=== PATIENT | male | born 1980 | race Caucasian/White ===

== ENCOUNTER 2020-01-05 23:16 | Inpatient (IN) | payer MEDICAID, SELFPAY ==
[2020-01-05 23:17] VITALS: BP 98/80; PULSE 117; RESP 16; TEMP 36.8; O2SAT 92; BMI 24.3
--- NOTE | 2020-01-05 23:36 | EKG12_ITS ---
Test Reason : OVERDOSE Blood Pressure : / mmHG Vent. Rate : 110 BPM Atrial Rate : 110 BPM P-R Int : 196 ms QRS Dur : 102 ms QT Int : 344 ms P-R-T Axes : 071 026 047 degrees QTc Int : 465 ms Sinus tachycardia Otherwise normal ECG Confirmed by FELA KUMAR ([id number]), newspaper photo editor BLANCA CARDENAS ([id number]) on 01/10/2020 11:32:39 AM Referred By: Confirmed By:FELA KUMAR
[2020-01-06] VITALS (33 sets, daily range): BP systolic 94–151; BP diastolic 79–117; PULSE 80–128; RESP 10–27; TEMP 36.8–37.1; O2SAT 93–98; BMI 24.6; BMI 24.5
[2020-01-06] MEDS: 0.9% Normal Saline 1,000 ML 1000 ML IV (00:05)
--- NOTE | 2020-01-06 00:10 | CT_ITS ---
STUDY: CT BRAIN WITHOUT CONTRAST REASON FOR EXAM: Male, 39 years old. C/O BILATERAL LEG PAIN AND LETHARGIC, FENTANYL USE RADIATION DOSAGE (If Supplied By Facility): CTDIvol = ( 44.99 ) mGy, DLP = ( 812.98 ) mGycm TECHNIQUE: Transaxial CT imaging of the brain was performed without administration of intravenous contrast material. Individualized dose optimization techniques were used for this CT. COMPARISON: No relevant priors. FINDINGS: Normal soft tissue structures. Normal calvarium. Normal size ventricles and extra-axial spaces for the patient''s age. Normal white matter tracts of the cerebral hemispheres. Normal basal ganglia and thalami. Normal brainstem. Normal cerebellum. There is no intracranial hemorrhage. There are no findings of an acute ischemic infarction. Normal visualized paranasal sinuses. CT/Brain/Head without Contrast IMPRESSION: Normal unenhanced CT scan of the brain. Electronically Signed: Eladio Briscoe MD at 0:45 EDT , Service support ,
--- NOTE | 2020-01-06 00:11 | ED.VIS.GEN ---
History of Present Illness Chief Complaint: Overdose Informant: Patient Onset: Today Narrative: Patient states that today he used heroin around 1600 hrs. After that he lost track of time but states he did use several more times and remembers waking up where he was on his knees with his legs bent behind him. His at that time he realized he could not move the left leg. He received a milligram of Narcan for responsiveness by EMS. The patient states that he does not have a headache. He is not having any difficulty speaking or with the upper extremities. He denies any low back pain but states that his right buttock hurts. He denies any chest pain or shortness of breath. No abdominal pain. Past Medical History - Allergies and Home Meds Allergies/Adverse Reactions: Allergies No Known Allergies Allergy (Verified 01/05/20 23:22) Surgical History: no surgical history Smoking Status: Current every day smoker - Family History Maternal Family History: Reports: Unknown Review of Systems General: Denies: Chills, Fever, Sweats Eyes: Denies: Visual changes - bilaterally, Diplopia ENT: Denies: Rhinorrhea, Sore throat Cardiovascular: Denies: Chest pain, Palpitations Respiratory: Denies: Dyspnea, Cough, Dyspnea on exertion Gastrointestinal: Denies: Abdominal pain, Nausea, Vomiting, Diarrhea, Melena, Hematochezia Genitourinary: Denies: Dysuria, Hematuria, Frequency Musculoskeletal: Denies: Back pain, Extremity Pain Skin: Denies: Rash, Wounds Neurological: Reports: Weakness - left leg, Parasthesia. Denies: Headache Physical Exam Vital Signs/Narrative: Vital Signs Temp Pulse Resp BP Pulse Ox 01/05/20 23:17 98.3 F 117 H 16 98/80 92 Inital Vital Signs reviewed: Yes General: Well nourished, Well developed, No Acute Distress Head: Normocephalic, Atraumatic Eyes: Perrl, EOMI ENT: Moist mucous membranes, No rhinorrhea Neck: Supple, Nontender Cardiovascular: Regular rate, No murmurs, Tachycardia Respiratory: No distress, CTA bilaterally, Chest nontender Abdomen: Soft, Nontender, Nondistended, Normal bowel sounds Back: Nontender, Normal Inspection, - - Do not see any erythema swelling or fluctuance around the spine suggestive of a abscess. Extremities: Nontender, No edema, - - There is a strong dorsalis pedis and posterior tibial pulses bilaterally. The skin appears normal and symmetric. Skin: Normal color, No rash, - - There are several areas of erythema consistent with pressure changes on the feet and right buttock. The right calf is more swollen than the left and firmer. However distal shows excellent capillary refill, normal skin color, normal pulses, and I would not characterize the calf is tight but definitely swollen. Neurological: Alert, Oriented x3, Cranial nerves II-XII grossly intact, - - The right leg appears to be functioning normally. The left leg however demonstrates weakness below the knee. He is able to flex the quadricep muscle but has difficulty controlling the lower leg. When I check sensation he tells me it is a burning pain. Psychological: Normal affect, Normal Mood Diagnostic/Tx/Re-eval Laboratory Last Values WBC 25.1 K/mm3 (4.4-11.0) H 01/06/20 00:05 RBC 5.24 M/mm3 (4.6-6.2) 01/06/20 00:05 Hgb 15.4 g/dL (13.0-16.5) 01/06/20 00:05 Hct 46.6 % (40-54) 01/06/20 00:05 MCV 88.9 fL (80-94) 01/06/20 00:05 MCH 29.4 pg (27.0-32.0) 01/06/20 00:05 MCHC 33.0 g/dL (32-36) 01/06/20 00:05 RDW Std Deviation 43.2 fl (35.1-43.9) 01/06/20 00:05 RDW Coeff of Neftali 13.3 % (11.6-14.6) 01/06/20 00:05 Plt Count 317 K/mm3 (150-450) 01/06/20 00:05 MPV 9.9 fl (6.2-12.0) 01/06/20 00:05 Immature Gran % (Auto) 1.400 % (0.0-0.9) H 01/06/20 00:05 Neut % (Auto) 91.2 % (47-70) H 01/06/20 00:05 Lymph % (Auto) 3.2 % (19-41) L 01/06/20 00:05 [place] % (Auto) 3.9 % (0-10) 01/06/20 00:05 Eos % (Auto) 0.0 % (0-5) 01/06/20 00:05 Baso % (Auto) 0.3 % (0-1) 01/06/20 00:05 Absolute Neuts (auto) 22.9 X10^3/uL (2.0-7.7) H 01/06/20 00:05 Absolute Lymphs (auto) 0.81 X10^3/uL (0.83-4.51) L 01/06/20 00:05 Nucleated RBC % 0 % (0-5) 01/06/20 00:05 Differential Comment SCANNED 01/06/20 00:05 PT 14.2 SECONDS (11.7-14.9) 01/06/20 00:05 INR 1.2 01/06/20 00:05 APTT 31.4 Seconds (24.1-36.2) 01/06/20 00:05 pH 7.30 (7.35-7.45) L 01/06/20 01:09 Bicarbonate Actual 17.8 mmol/L (22-26) L 01/06/20 01:09 POC Total CO2 19 mmol/L 01/06/20 01:09 Base Excess -9 mmol/L (-2 to +2) L 01/06/20 01:09 O2 Saturation 95 % (95-99) 01/06/20 01:09 ABG pCO2 36.1 mmHg (35-45) 01/06/20 01:09 ABG pO2 84 mmHG (75-100) 01/06/20 01:09 Sodium 130 mmol/L (136-145) L 01/06/20 00:05 Potassium 8.0 mmol/L (3.5-5.1) H* 01/06/20 00:05 Chloride 94 mmol/L (98-107) L 01/06/20 00:05 Carbon Dioxide 20.0 mmol/L (21.0-32.0) L 01/06/20 00:05 Anion Gap 16 (5-15) H 01/06/20 00:05 BUN 24 mg/dL (7-18) H 01/06/20 00:05 Creatinine 2.71 mg/dL (0.70-1.30) H 01/06/20 00:05 Estim Creat Clear Calc 35.76 ml/min 01/06/20 00:05 Est GFR (MDRD) Af Amer 34 mL/min (>60) L 01/06/20 00:05 Est GFR (MDRD) Non-Af 28 mL/min (>60) L 01/06/20 00:05 BUN/Creatinine Ratio 8.9 RATIO (10-20) L 01/06/20 00:05 Glucose 194 mg/dL (74-106) H 01/06/20 00:05 Lactic Acid 7.5 mmol/L (0.4-1.9) H* 01/06/20 00:05 Calcium 7.1 mg/dL (8.5-10.1) L 01/06/20 00:05 Total Bilirubin 0.20 mg/dL (0.20-1.00) 01/06/20 00:05 AST 1383 U/L (15-37) H 01/06/20 00:05 ALT 309 U/L (16-61) H 01/06/20 00:05 Alkaline Phosphatase 163 U/L (45-117) H 01/06/20 00:05 Total Creatine Kinase 23018 U/L (39-308) H 01/06/20 00:05 Troponin I 0.433 ng/mL (<0.045) H 01/06/20 00:05 Total Protein 8.9 g/dL (6.4-8.2) H 01/06/20 00:05 Albumin 4.0 g/dL (3.2-5.0) 01/06/20 00:05 Globulin 4.9 g/dL (2.2-4.2) H 01/06/20 00:05 Albumin/Globulin Ratio 0.8 RATIO (0.9-2.4) L 01/06/20 00:05 Urine Color Red (Yellow) 01/06/20 01:00 Urine Clarity Cloudy (Clear) 01/06/20 01:00 Urine pH 6.5 (5.0 - 8.0) 01/06/20 01:00 Ur Specific [place] 1.020 (1.002-1.030) 01/06/20 01:00 Urine Protein 500 mg/dl (Negative) H 01/06/20 01:00 Urine Glucose (UA) Normal mg/dl (Normal) 01/06/20 01:00 Urine Ketones 15 mg/dl (Negative) H 01/06/20 01:00 Urine Occult Blood 250 /ul (Negative) H 01/06/20 01:00 Urine Nitrite Negative (Negative) 01/06/20 01:00 Urine Bilirubin Negative mg/dL (Negative) 01/06/20 01:00 Urine Urobilinogen 1 mg/dl (Normal) H 01/06/20 01:00 Ur Leukocyte Esterase 25 /ul (Negative) H 01/06/20 01:00 Urine RBC 0-5 SEEN /hpf (0-5) 01/06/20 01:00 Urine WBC 10-25 SEEN /hpf (0-5) 01/06/20 01:00 Ur Squamous Epith Cells 0-5 SEEN /hpf (0-5) 01/06/20 01:00 Urine Bacteria 2+ /hpf (None Seen) 01/06/20 01:00 Coarse Granular Casts 5-10 SEEN /lpf (0-5 /lpf) 01/06/20 01:00 Urine Mucus 0 SEEN /hpf (<or=2+) 01/06/20 01:00 Urine Opiates Screen NEGATIVE (< 300 ng/mL) 01/06/20 01:00 Urine Methadone Screen NEGATIVE (< 300 ng/mL) 01/06/20 01:00 Ur Barbiturates Screen NEGATIVE (< 200 ng/mL) 01/06/20 01:00 Ur Phencyclidine Scrn NEGATIVE (< 25 ng/mL) 01/06/20 01:00 Ur Amphetamines Screen POSITIVE (<1000 ng/mL) H 01/06/20 01:00 U Methamphetamin-MDMA NEGATIVE (< 500 ng/mL) 01/06/20 01:00 U Benzodiazepines Scrn NEGATIVE (< 200 ng/mL) 01/06/20 01:00 Urine Cocaine Screen NEGATIVE (< 300 ng/mL) 01/06/20 01:00 U Cannabinoids Screen POSITIVE (< 50 ng/mL) H 01/06/20 01:00 Ur Drug Screen Comment 01/06/20 01:00 Clinical Impression(s) from Imaging Studies Brain CT 01/06/20 00:10 IMPRESSION: Normal unenhanced CT scan of the brain. Electronically Signed: Eladio Briscoe MD at 0:45 EDT , Service support , Chest X-Ray 01/06/20 00:49 IMPRESSION: Normal x-ray examination of the chest. Electronically Signed: Eladio Briscoe MD at 1:47 EDT , Service support , - EKG Initial EKG Interpretation: Sinus Tachycardia - KG demonstrates a sinus tachycardia at a rate of 110. There are peaked T waves noted. This is appreciably different due to EKG dated 01 August 2017. - Medical Decision Making Placed on the monitor and IV established. Patient received IV fluids. Treatment of hyperkalemia with albuterol, calcium chloride, insulin and glucose, and Kayexalate was given. ABG shows a pH of 7.301. Bicarb 17.8. CPK level is 48,000. CT brain negative. Urine is consistent with acute rhabdomyolysis also a few white blood cells and 2+ bacteria. Culture was ordered he received Rocephin. Patient will need to be admitted into the ICU. He verbally gave me permission to speak to his mother who called then. She was updated as well. he had refused a Lopez catheter. I do not think the patient is septic. I think this is all due to the heroin overdose and the rhabdomyolysis. Though I do note that he does have some bacteria in his urine. I do not think it was this bacteria in the urine that tipped him into the metabolic derangements that we are seeing. As far as the calf musculature I do not see any evidence of compartment syndrome at this time. The certainly we would want to monitor this. 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
[2020-01-06 00:12] LABS: Absolute Lymphocyte Count 0.81 X10^3/uL (0.83-4.51); Absolute Neutrophil Count 22.9 X10^3/uL (2.0-7.7); Basophil# 0.08 X10^3/uL; Basophil% 0.3 % (0-1); Eosinophil# 0.01 X10^3/uL; Hematocrit 46.6 % (40-54); Hemoglobin 15.4 g/dL (13.0-16.5); Lymphocyte # 0.81 X10^3/ul (4.0); Lymphocyte % 3.2 % (19-41); Mean Corpuscular Hgb 29.4 pg (27.0-32.0); Mean Corpuscular Volume 88.9 fL (80-94); Mean Platelet Vol. 9.9 fl (6.2-12.0); Monocyte# 0.98 X10^3/uL; Monocyte% 3.9 % (0-10); NRBC Flagged by Analyzer 0 % (0-5); Neutrophil # 22.89 X10^3/uL (2.7-7.7); Neutrophil % 91.2 % (47-70); POSITIVE DIFFERENTIAL YES; Platelet Count 317 K/mm3 (150-450); RBC Distribution Width CV 13.3 % (11.6-14.6); RBC Distribution Width SD 43.2 fl (35.1-43.9); Red Blood Count 5.24 M/mm3 (4.6-6.2); White Blood Count 25.1 K/mm3 (4.4-11.0)
[2020-01-06 00:14] LABS: Differential Indicated SCAN CRITERIA MET
[2020-01-06 00:21] LABS: International Normalized Ratio 1.2; Prothrombin Time (Protime)PT. 14.2 SECONDS (11.7-14.9)
[2020-01-06 00:22] LABS: Partial Thromboplast Time 31.4 Seconds (24.1-36.2)
[2020-01-06 00:32] LABS: Differential Comment SCANNED
[2020-01-06 00:44] LABS: BUN 24 mg/dL (7-18); BUN/Creat Ratio 8.9 RATIO (10-20); Creatinine, Serum 2.71 mg/dL (0.70-1.30); EST Glomerular Filtration Rate 28 mL/min (>60); Est Glom Filt Rate - Afr Amer 34 mL/min (>60); Estimated Creatinine Clearance 35.76 ml/min; Glucose 194 mg/dL (74-106); Protein, Total 8.9 g/dL (6.4-8.2)
[2020-01-06 00:45] LABS: ALB/GLOB Ratio 0.8 RATIO (0.9-2.4); AST(SGOT) 1383 U/L (15-37); Alanine Aminotransfer ALT/SGPT 309 U/L (16-61); Alkaline Phosphatase 163 U/L (45-117); Anion Gap 16 (5-15); Calcium,Total 7.1 mg/dL (8.5-10.1); Chloride 94 mmol/L (98-107); Globulin 4.9 g/dL (2.2-4.2); Sodium Level 130 mmol/L (136-145)
[2020-01-06 00:49] LABS: Lactic Acid 7.5 mmol/L (0.4-1.9)
--- NOTE | 2020-01-06 00:49 | RAD_ITS ---
STUDY: X-RAY CHEST REASON FOR EXAM: Male, 39 years old. overdose -- denies any chest / breathing problems TECHNIQUE: Frontal view COMPARISON: 06/14/2013 FINDINGS: The lungs are clear and expanded. There is no demonstrated pleural abnormality. Normal size heart. Normal mediastinum and daphne. Normal visualized pulmonary arteries. Normal visualized aortic arch and descending thoracic aorta. Normal visualized thoracic spine. Normal visualized ribs, clavicles, and shoulders. There is no demonstrated abnormality of the visualized soft tissue structures of the upper abdomen. RAD/Chest 1 View (Portable) IMPRESSION: Normal x-ray examination of the chest. Electronically Signed: Eladio Briscoe MD at 1:47 EDT , Service support ,
[2020-01-06] MEDS: Dextrose 50%-Water 25 GM/50 ML DISP.SYRIN IV (01:02)
[2020-01-06] MEDS: Albuterol 2.5 MG/3 ML VIAL.NEB. INHALATION (01:02)
[2020-01-06] MEDS: Insulin Lispro 100 UNIT/ML INSULN.PEN 10 UNIT SC (01:03)
[2020-01-06 01:04] LABS: Mucous, Urine 0 SEEN /hpf (<or=2+)
[2020-01-06 01:10] LABS: Color, Urine Red (Yellow); Glucose, Dipstick Normal (Normal); Ketone-Dipstick 15 mg/dl (Negative); Leukocyte Esterase-Dipstick 25 /ul (Negative); Nitrite-Dipstick Negative (Negative); Occult Blood-Urine 250 /ul (Negative); Protein-Dipstick 500 mg/dl (Negative); Urine Bilirubin Dipstick Negative (Negative); Urine Clarity Cloudy (Clear); Urine Urobilinogen 1 mg/dl (Normal); Urine pH 6.5 (5.0 - 8.0)
[2020-01-06] MEDS: 0.9% Normal Saline 1,000 ML 999 ML IV ×2 (01:10→02:24)
[2020-01-06 01:17] LABS: Bacteria 2+ /hpf (None Seen); Coarse Granular Cast 5-10 SEEN /lpf (0-5 /lpf); Red Blood Cells-Urine 0-5 SEEN /hpf (0-5); Squamous Epithelial Cells - UA 0-5 SEEN /hpf (0-5); White Blood Cells 10-25 SEEN /hpf (0-5)
--- NOTE | 2020-01-06 01:19 | ED.RN ---
PT STATES HE GIVES PERMISSION FOR NURSES AND DOCTORS TO TALK WITH HIS MOTHER.
[2020-01-06] MEDS: Sodium Polystyrene Sulfonate 15 GM/60 ML UDC 30 GM PO (01:21)
[2020-01-06 01:35] LABS: Base Excess -9 mmol/L (-2 to +2); Bicarbonate 17.8 mmol/L (22-26); PO2 84 mmHG (75-100); SO2 95 % (95-99); Total Carbon Dioxide 19 mmol/L; pCO2 36.1 mmHg (35-45)
[2020-01-06 01:37] LABS: Amphetamine Urine VISTA POSITIVE (<1000 ng/mL); Barbiturate Urine VISTA NEGATIVE (< 200 ng/mL); Benzodiazepine Urine VISTA NEGATIVE (< 200 ng/mL); Cocaine Urine VISTA NEGATIVE (< 300 ng/mL); Ecstacy Urine VISTA NEGATIVE (< 500 ng/mL); Methadone Urine VISTA NEGATIVE (< 300 ng/mL); PCP Urine VISTA NEGATIVE (< 25 ng/mL); THC Urine VISTA POSITIVE (< 50 ng/mL); Vista UDS pH Range 5
--- NOTE | 2020-01-06 02:00 | ED.RN ---
PT REFUSES JEFFERS CATHETER DESPITE EDUCATION ON IMPORTANCE OF ACCURATE I AND O'S.
[2020-01-06] MEDS: Ceftriaxone 1 GM/50 ML BAG IV (02:15)
[2020-01-06] MEDS: 0.9% Normal Saline 1,000 ML 250 ML IV ×5 (02:24→14:27)
--- NOTE | 2020-01-06 02:32 | PCM.HP.STD ---
Problem List (1) Anxiety Status: Chronic (2) Schizophrenia Status: Chronic (3) Acute renal failure Status: Acute (4) Hyperkalemia Status: Acute (5) Rhabdomyolysis Status: Acute (6) Metabolic acidosis Status: Acute (7) Elevated troponin I level Status: Acute (8) IVDU (intravenous drug user) Status: Chronic History of Present Illness Date of Admission: 01/06/20 Chief Complaint: Heroin overdose, bilateral leg pain. The patient is a 39 year old M with past medical history as mentioned above presented to the emergency room because he overdosed on heroin yesterday evening and also complained of not able to stand up and bilateral leg pain. Patient stated that he used IV heroin yesterday morning and also in the evening around 4 PM. Since then, he was not aware of surroundings, and does not remember until he woke up where he was on his knees and his legs behind. After he woke up, he mentioned that he was not able to stand up or move his legs, more on the left leg. He complains of bilateral leg pain starting from down of his both feet up to both thighs, described as needles in his muscles and bones, 10 out of 10 in severity, not radiating, aggravated by any type of movement and without relieving factors. He denied chest pain or shortness of breath. He denied fever or chills. Denied abdominal pain, nausea or vomiting. In the emergency department, he was afebrile, tachycardic, blood pressure was stable, pulse ox was 94% on room air. His routine blood work was remarkable for leukocytosis, sodium of 130, potassium was 8, anion gap 16, BUN 24, creatinine is 2.71, glucose is 194. Lactic acid was 7.5. LFT revealed elevated liver transaminases and alkaline phosphatase, bilirubin is normal. Creatinine kinase is 48,634. Troponin is 0.433. EKG revealed sinus tachycardia, otherwise no acute ischemic changes. CT scan brain showed no acute findings. Chest x-ray showed no acute infiltrate or consolidation. He is being admitted for severe rhabdomyolysis complicated by acute renal failure and hyperkalemia as well as lactic acidosis and found to have elevated LFT and abnormal cardiac enzymes. Past Medical History Past Medical History (Chronic Problems): Chronic Problems Anxiety (Chronic) Schizophrenia (Chronic) IVDU (intravenous drug user) (Chronic) Allergies No Known Allergies Allergy (Verified 01/05/20 23:22) Home Medications: Ambulatory Orders Medication Instructions Recorded No Known/Unobtainable [No Known 03/08/17 Home Medications] Surgical History: - - Left arm surgery for left arm abscess due to IV drug use. Psychiatric History: Anxiety, Schizophrenia Lives: With Family Smoking Status: Current every day smoker Tobacco Use: Cigarettes Alcohol: None Drugs: Heroin, - - Methamphetamines. - *Family History Maternal History Items: No pertinent history Paternal History Items: No pertinent history Review of Systems Constitutional: Reports: Weakness. Denies: Anorexia, Chills, Fever Eyes: Denies: Blurred vision, Double vision, Drainage, Redness HEENT: Denies: Difficulty Hearing, Ear Pain, Eye Pain, Nasal Congestion, Sore Throat Cardiovascular: Denies: Chest Pain, Chest Pressure, Chest Tightness, Edema, Heaviness, Light Headedness, Palpitations, Syncope Respiratory: Denies: Cough, Pleuritic Pain, Shortness of Breath, Sputum production, Wheezing Gastrointestinal: Denies: Abdominal Pain, Constipation, Diarrhea, Nausea, Vomiting Genitourinary: Reports: Hematuria. Denies: Dysuria, Frequency Musculoskeletal: Reports: Leg Pain, Muscle pain. Denies: Arm Pain, Back Pain Skin: Denies: Dryness, Rash Neurological: Reports: Focal weakness, Numbness. Denies: Balance problems, Double vision, Change in Speech, Slurred speech, Confusion, Headaches Psychiatric: Reports: Anxiety. Denies: Depression Endocrine: Denies: Change in Body Habitus, Polydipsia, Polyuria VTE Information - Inpt Only VTE Present on Admission: No VTE Mechan Device Prophylaxis: None VTE Pharm Prophylaxis ordered?: Yes Patient Problems: Active and Suspected Problems Neuropraxia of left lower extremity (Acute) Heroin abuse (Acute) Acute renal failure (Acute) Hyperkalemia (Acute) Rhabdomyolysis (Acute) Metabolic acidosis (Acute) Elevated troponin I level (Acute) - Physical Exam Vitals/I&O's: Vital Signs Temp Pulse Resp BP Pulse Ox 98.3 F 101 H 15 126/99 H 94 01/06/20 02:06 01/06/20 02:06 01/06/20 02:06 01/06/20 02:06 01/06/20 02:06 Oxygen Delivery Method Room Air Weight: 160 lb Body Mass Index (BMI) 24.3 Intake and Output for Last 24 Hours 01/04/20 01/05/20 01/06/20 23:59 23:59 23:59 Intake Total 2109 Balance 2109 General: Alert, Oriented x3, Cooperative, No apparent distress HEENT: Atraumatic, PERRLA, EOMI, Normocephalic Oral: Moist Mucosa, No Gingival or Mucosal Lesions/ Ulcerations Neck: Supple, No JVD, Negative Carotid Bruits, Trachea Midline, Thyroid Normal Size and Texture Lungs: Clear to auscultation, Normal air movement, No rhonchi, No wheeze, No rales Cardiovascular: Regular rate, Regular Rhythm, Normal S1, Normal S2, PMI Normal Abdomen: Bowel Sounds Present, Soft, Non Tender, Non-Distended, No Hepato-splenomegaly Extremities: No clubbing, No cyanosis, No edema, Peripheral Pulses Normal Skin: No rashes, No breakdown Musculoskeletal: Tenderness, - - Right gastrocnemius: Firm to palpation, moderately tender. Neurological: Cranial nerves II-XII grossly intact, Motor Exam 5/5 strength throughout Psych/Mental Status: Normal Affect, Appropriate, Alert and oriented to time, place, person, mood and affect Laboratory Results 01/06/20 00:05: WBC 25.1 H, RBC 5.24, Hgb 15.4, Hct 46.6, MCV 88.9, MCH 29.4, MCHC 33.0, RDW Std Deviation 43.2, RDW Coeff of Neftali 13.3, Plt Count 317, MPV 9.9, Immature Gran % (Auto) 1.400 H, Neut % (Auto) 91.2 H, Lymph % (Auto) 3.2 L, [place] % (Auto) 3.9, Eos % (Auto) 0.0, Baso % (Auto) 0.3, Absolute Neuts (auto) 22.9 H, Absolute Lymphs (auto) 0.81 L, Nucleated RBC % 0, Differential Comment SCANNED 01/06/20 00:05: PT 14.2, INR 1.2, APTT 31.4 01/06/20 00:05: Sodium 130 L, Potassium 8.0 H*, Chloride 94 L, Carbon Dioxide 20.0 L, Anion Gap 16 H, BUN 24 H, Creatinine 2.71 H, Estim Creat Clear Calc 35.76, Est GFR (MDRD) Af Amer 34 L, Est GFR (MDRD) Non-Af 28 L, BUN/Creatinine Ratio 8.9 L, Glucose 194 H, Calcium 7.1 L, Total Bilirubin 0.20, AST 1383 H, ALT 309 H, Alkaline Phosphatase 163 H, Total Protein 8.9 H, Albumin 4.0, Globulin 4.9 H, Albumin/Globulin Ratio 0.8 L 01/06/20 00:05: Lactic Acid 7.5 H* 01/06/20 00:05: Total Creatine Kinase 04271 H 01/06/20 00:05: Troponin I 0.433 H 01/06/20 01:00: Urine Opiates Screen NEGATIVE, Urine Methadone Screen NEGATIVE, Ur Barbiturates Screen NEGATIVE, Ur Phencyclidine Scrn NEGATIVE, Ur Amphetamines Screen POSITIVE H, U Methamphetamin-MDMA NEGATIVE, U Benzodiazepines Scrn NEGATIVE, Urine Cocaine Screen NEGATIVE, U Cannabinoids Screen POSITIVE H, Ur Drug Screen Comment 01/06/20 01:00: Urine Color Red, Urine Clarity Cloudy, Urine pH 6.5, Ur Specific [place] 1.020, Urine Protein 500 H, Urine Glucose (UA) Normal, Urine Ketones 15 H, Urine Occult Blood 250 H, Urine Nitrite Negative, Urine Bilirubin Negative, Urine Urobilinogen 1 H, Ur Leukocyte Esterase 25 H, Urine RBC 0-5 SEEN, Urine WBC 10-25 SEEN, Ur Squamous Epith Cells 0-5 SEEN, Urine Bacteria 2+, Coarse Granular Casts 5-10 SEEN, Urine Mucus 0 SEEN 01/06/20 01:09: pH 7.30 L, Bicarbonate Actual 17.8 L, POC Total CO2 19, Base Excess -9 L, O2 Saturation 95, ABG pCO2 36.1, ABG pO2 84 Clinical Impression(s) from Imaging Studies Brain CT 01/06/20 00:10 IMPRESSION: Normal unenhanced CT scan of the brain. Electronically Signed: Eladio Briscoe MD at 0:45 EDT , Service support , Chest X-Ray 01/06/20 00:49 IMPRESSION: Normal x-ray examination of the chest. Electronically Signed: Eladio Briscoe MD at 1:47 EDT , Service support , Current Medications Sodium Chloride () 1,000 mls @ 999 mls/hr IV .Q1H1M [facility] Stop: 01/06/20 02:50 Last Admin: 01/06/20 02:24 Dose: 999 mls/hr Documented by: Sodium Chloride () 1,000 mls @ 250 mls/hr IV .Q4H [facility] Last Admin: 01/06/20 02:24 Dose: 250 mls/hr Documented by: Assessment/Plan All Active Problems Neuropraxia of left lower extremity (Acute) Heroin abuse (Acute) Acute renal failure (Acute) Hyperkalemia (Acute) Rhabdomyolysis (Acute) Metabolic acidosis (Acute) Elevated troponin I level (Acute) This is a 59 years old male patient presented to the emergency room because of difficulty standing, bilateral leg pain after he overdosed on heroin, found to have severe rhabdomyolysis complicated by acute renal failure with hyperkalemia and metabolic acidosis and also found to have neuropraxia of the left lower extremity and elevated LFT. #1 severe rhabdomyolysis: Due to the position that patient was on for a long time after he overdosed on heroin. He has a very dark brown urine due to myoglobinuria. Creatinine kinase is very elevated. Apart from tachycardia, other vital signs are stable. EKG reviewed as above, unremarkable apart from tachycardia. Patient received 3 L of IV fluid bolus in the ED. Plan: Admit to ICU, critical care monitoring, complete bedrest, generous IV fluids with normal saline, start IV sodium bicarb drip, IV morphine PRN for pain, OxyIR PRN for pain, IV antiemetics, check serum phosphorus, magnesium, input output chart, critical care consult, repeat CBC, CMP and creatinine kinase this morning, PT OT evaluation and treatment when appropriate. #2 acute renal failure: Secondary to #1. Patient denied any history of kidney problems. Admission BUN is 24, creatinine is 2.71. Patient refused insertion of Lopez catheter and I explained to him the importance of measuring his intake and output but he is still refused it. Plan: IV fluids as above, input output chart as possible, nephrology consult, repeat CMP tomorrow morning. #3 hyperkalemia/hyponatremia/hypocalcemia: Admission potassium was 8, sodium is 130. Hyponatremia is likely due to hypovolemia because of acute renal failure. Received Kayexalate, IV insulin, calcium chloride IV and IV D50. Plan as above, repeat CMP this morning, nephrology consult. #4 neuropraxia of the left lower extremity/swelling of the right calf: Due to transient conduction block secondary to the position that he was in. His right calf is very firm to palpation. Peripheral pulses are normal. Early or mild compartment syndrome cannot be ruled out. May need to consult surgery if no improvement. #5 lactic acidosis: Due to severe dehydration and renal failure. Lactic acid was 7.5. Patient has been afebrile, no evidence of infection. Chest x-ray showed no acute findings. Urinalysis revealed cloudy urine, negative for nitrite, there was only 25 leukocyte esterase, 10-25 WBCs and 2+ bacteria. He received 1 dose of IV Rocephin in the ED. At this time, I doubt acute cystitis or any other infection. Blood and urine culture sent. Chest x-ray showed no acute findings. No indication to continue IV antibiotics at this time. #6 elevated LFT: Again secondary to severe dehydration and tissue hypoperfusion. Liver transaminases and alkaline phosphatase are elevated, bilirubin is normal. INR is 1.2 which is normal. Plan to monitor. #7 abnormal cardiac enzymes: Likely due to sinus tachycardia. EKG revealed sinus tachycardia without evidence of acute segment changes. Patient denied any chest pain. Troponin 0 0.43. Plan: Cardiac monitoring, serial cardiac enzymes, repeat EKG tomorrow morning, 2D echocardiogram. #8 hyperglycemia: Without history of diabetes. Blood glucose is 194. Will check hemoglobin A1c. #9 heroin overdose: Patient has been using IV heroin and sometimes uses methamphetamines. Urine drug screen was positive for amphetamines and cannabinoids. #10 history of IV drug use: Patient has been using IV heroin and occasional amphetamines. Recently, has been using fentanyl as well. #11 schizophrenia/anxiety: He is not sure what medication he is on. Home medication list need to be updated. #12 DVT prophylaxis: No SCDs or compression stockings because of severe bilateral leg muscle pain. Avoid chemical prophylaxis because urine is very dark secondary to myoglobinuria. This note was generated with Innot[employer]ation software. It may contain incorrect words, spelling, and punctuation that were not noted in checking the note before signing. Inpatient E&M: 50419 Init Hosp L3
--- NOTE | 2020-01-06 02:40 | ED.RN ---
PT TRIGGERS SEPSIS ALERT BASED ON HR AND WBC COUNT. DR. BAUER INFORMED. PER DR. BAUER, I BELIEVE IT IS NOT SEPSIS, BUT RATHER SEVERE RHABDOMYOLYSIS. SEPSIS ALERT INITIATED, AND PAPERWORK FILED. THIS RN CALLS REPORT TO TARSHA WALTERS IN ICU. PT [id number].
--- NOTE | 2020-01-06 02:59 | ECHOD_ITS ---
Reason For Study: DYSPNEA/SOB Procedure This was a 2D Doppler, Color Flow transthoracic echocardiogram. The study was technically difficult. The study was technically limited. Due to patient inability to lie in left left lateral decubitus position. PT was agitated. Exam performed portable in ICU/CCU. Left Ventricle Normal LV size. The estimated ejection fraction is 60 %. No evidence for diastolic dysfunction. No regional wall motion abnormalities noted. Right Ventricle Normal RV size. Normal systolic function. Atria Normal left atrium. Normal right atrium. No doppler evidence for ASD. Mitral Valve There is no mitral valve stenosis. No mitral valve insufficiency. Tricuspid Valve There is no tricuspid stenosis. No tricuspid valve insufficiency. Unable to estimate RV systolic pressure due to inadequate jet, pulmonary artery pressure probably normal. Aortic Valve Trisinus/trileaflet aortic valve. There is no aortic stenosis. No aortic valve insufficiency. Pulmonic Valve There is no pulmonic valvular stenosis. No pulmonic valve insufficiency. Great Vessels Normal aortic root. Pericardium/Pleural No pericardial effusion. MMode/2D Measurements & Calculations LVIDd: 4.0 cm IVSd: 1.0 cm LVOT diam: 3.3 cm LVIDs: 2.9 cm LVPWd: 1.0 cm LVOT area: 8.6 cm2 RVDd: 2.6 cm FS: 27.3 % LA dimension: 2.8 cm LAV(MOD-bp): 23.8 ml LA A4 area: 11.7 cm2 LAV(MOD-bp) Indexed: 12.8 ml/m2 LAV(MOD-sp2): 22.3 ml LAV(MOD-sp4): 25.2 ml RA A4 area: 11.2 cm2 Doppler Measurements & Calculations Lat Peak E' Jsoé Miguel: 14.0 cm/sec Med Peak E' José Miguel: 6.0 cm/sec Ao V2 max: 85.3 cm/sec Ao max P.9 mmHg FREDY(V,D): 6.1 cm2 LV V1 max: 60.3 cm/sec PA V2 max: 85.3 cm/sec LV V1 max P.5 mmHg Interpretation Summary The study was technically limited as patient was not cooperative The estimated ejection fraction is 60 %. No evidence for diastolic dysfunction. The study was technically limited. Ordering Physician: Zaina Cunningham Referring Physician: AGNES PCP Performed By: Sherry Gonzales RDCS, RVT
[2020-01-06] MEDS: Morphine 2 MG/ML Syringe IV ×4 (03:11→23:40)
[2020-01-06] MEDS: 0.9% Saline Lock 10 ML Syringe IV ×3 (03:46→19:41)
[2020-01-06 04:07] LABS: Magnesium 2.9 mg/dL (1.6-2.6); Phosphorus 5.7 mg/dL (2.5-4.9)
[2020-01-06 04:09] LABS: Reflex Lactate? Y
[2020-01-06] MEDS: oxyCODONE 5 MG Tablet PO ×3 (05:25→21:06)
[2020-01-06 05:34] LABS: Absolute Lymphocyte Count 1.31 X10^3/uL (0.83-4.51); Absolute Neutrophil Count 17.8 X10^3/uL (2.0-7.7); Basophil# 0.04 X10^3/uL; Basophil% 0.2 % (0-1); Hematocrit 50.8 % (40-54); Hemoglobin 16.4 g/dL (13.0-16.5); Lymphocyte # 1.31 X10^3/ul (4.0); Lymphocyte % 6.5 % (19-41); Mean Corp Hgb Conc 32.3 g/dL (32-36); Mean Corpuscular Hgb 28.5 pg (27.0-32.0); Mean Corpuscular Volume 88.2 fL (80-94); Mean Platelet Vol. 9.9 fl (6.2-12.0); Monocyte# 0.96 X10^3/uL; Monocyte% 4.7 % (0-10); NRBC Flagged by Analyzer 0 % (0-5); Neutrophil # 17.77 X10^3/uL (2.7-7.7); Neutrophil % 87.8 % (47-70); Platelet Count 276 K/mm3 (150-450); RBC Distribution Width CV 13.2 % (11.6-14.6); RBC Distribution Width SD 43.1 fl (35.1-43.9); Red Blood Count 5.76 M/mm3 (4.6-6.2); White Blood Count 20.3 K/mm3 (4.4-11.0)
[2020-01-06 05:56] LABS: Hemoglobin A1c 5.4 % (3.8-5.6)
[2020-01-06 06:02] LABS: Lactic Acid 2.7 mmol/L (0.4-1.9)
[2020-01-06 07:07] LABS: ALB/GLOB Ratio 0.7 RATIO (0.9-2.4); AST(SGOT) 3740 U/L (15-37); Alanine Aminotransfer ALT/SGPT 654 U/L (16-61); Albumin, Serum 2.8 g/dL (3.2-5.0); Alkaline Phosphatase 93 U/L (45-117); Anion Gap 8 (5-15); BUN 21 mg/dL (7-18); BUN/Creat Ratio 10.6 RATIO (10-20); Calcium,Total 6.6 mg/dL (8.5-10.1); Chloride 100 mmol/L (98-107); Creatinine, Serum 1.99 mg/dL (0.70-1.30); EST Glomerular Filtration Rate 40 mL/min (>60); Est Glom Filt Rate - Afr Amer 48 mL/min (>60); Estimated Creatinine Clearance 48.69 ml/min; Globulin 4.2 g/dL (2.2-4.2); Glucose 148 mg/dL (74-106); Potassium 4.7 mmol/L (3.5-5.1); Sodium Level 132 mmol/L (136-145)
[2020-01-06] MEDS: Haloperidol Lactate 5 MG/ML Vial 3 MG IV (08:29)
--- NOTE | 2020-01-06 09:13 | CON.PCM_ITS ---
Problem List (1) Anxiety Status: Chronic (2) Schizophrenia Status: Chronic Qualifiers: Schizophrenia type: undifferentiated schizophrenia Qualified Code(s): F20.3 - Undifferentiated schizophrenia (3) Heroin abuse Status: Acute (4) Acute renal failure Status: Acute (5) Hyperkalemia Status: Acute (6) Rhabdomyolysis Status: Acute (7) Elevated troponin I level Status: Acute (8) IVDU (intravenous drug user) Status: Chronic Reason for Consult Date of Consultation: 01/06/20 Reason for Consultation: Rhabdomyolysis History of Present Illness: The patient is a 39 year old M, with past medical history listed below, who presented [facility] on 01/06/2020 secondary to being found unresponsive. Patient reportedly had used heroin at approximately 4 PM and lost track of time. Patient reportedly had multiple other doses and remembers waking up where his knees were bent behind him with his heels into his buttock. Patient states he could not move his left leg and called EMS. Patient did receive some Narcan without improvement. Patient did not report any headache or other localizing neurologic findings. Patient denied any chest pain or shortness of breath. No abdominal pain was reported. In the ER, patient was noted to be tachycardic with marginal saturations of 92%. Patient had several areas of erythema consistent with pressure changes on his feet, right buttock and anterior leg. Patient was noted to have a swollen right calf. Patient had reported neuropathic type pain at that time. Laboratory work-up showed a leukocytosis of 25.1, hyperkalemia at 8, elevated creatinine at 2.71 and elevated LFTs. CPK level was 48,000 at that time. Tox screen was positive for amphetamines and marijuana. Patient was admitted to the intensive care unit. Patient has remained hemodynamically stable, but continues to report neuropathic type pain of the lo wer extremities and weakness. Patient states that he has difficulty wiggling his toes, but can move at the hips and knees. Patient did have a bowel movement that was normal and denied any rectal incontinence. Patient does report significant generalized pain. Patient is unable to provide additional history on drug use or give any indication to the time of immobility. Patient not cooperative with review of systems secondary to perseveration on lower extremity pain. Past Medical History Past Medical History (Chronic Problems): Chronic Problems Anxiety (Chronic) Schizophrenia (Chronic) IVDU (intravenous drug user) (Chronic) Allergies No Known Allergies Allergy (Verified 01/05/20 23:22) Home Medications: Ambulatory Orders Medication Instructions Recorded No Known/Unobtainable [No Known 03/08/17 Home Medications] Surgical History: - - Left arm surgery for left arm abscess due to IV drug use. Psychiatric History: Anxiety, Schizophrenia Lives: With Family Smoking Status: Current every day smoker Tobacco Use: Cigarettes Alcohol: None Drugs: Heroin, - - Methamphetamines. - *Family History Paternal History Items: No pertinent history Maternal History Items: No pertinent history Patient Problems: Active and Suspected Problems Neuropraxia of left lower extremity (Acute) Heroin abuse (Acute) Acute renal failure (Acute) Hyperkalemia (Acute) Rhabdomyolysis (Acute) Metabolic acidosis (Acute) Elevated troponin I level (Acute) Objective: Chest x-ray was personally reviewed and is within normal limits. Review of the electronic medical record does show patient has been seen at the wound center secondary to a left upper extremity wound associated with IV drug use. This does report a history of hepatitis C. - Physical Exam Vitals/I&O's: Vital Signs Temp Pulse Resp BP Pulse Ox 36.8 C 121 H 17 119/93 H 98 01/06/20 02:53 01/06/20 08:00 01/06/20 08:00 01/06/20 08:00 01/06/20 08:00 Oxygen Delivery Method Room Air Weight: 73.5 kg Body Mass Index (BMI) 24.6 Intake and Output for Last 24 Hours 01/04/20 01/05/20 01/06/20 23:59 23:59 23:59 Intake Total 4692.50 / 4692.50 Output Total 400 / 400 Balance 4292.50 / 4292.50 General: Alert, Oriented x3, Cooperative - Intermittently, - - Mild to moderate distress with lower extremity movement HEENT: Atraumatic, PERRLA, EOMI, Normocephalic, - - No scleral injection or icterus Oral: Moist Mucosa, No Gingival or Mucosal Lesions/ Ulcerations Neck: Supple, No JVD, No Nodes, Trachea Midline Lungs: Clear to auscultation, Normal air movement, No rhonchi, No wheeze, No rales, - - Symmetric expansion. No dullness to percussion. Cardiovascular: Regular rate, Regular Rhythm, Normal S1, Normal S2, No murmurs, No rub noted, No Gallop Abdomen: Bowel Sounds Present, Soft, Non Tender, Non-Distended Extremities: No clubbing, No cyanosis, Edema - Bilateral lower extremities, - - Peripheral pulses are palpable Skin: No rashes, - - Pressure injury noted on heel and buttock Musculoskeletal: No Tenderness to Palpation of Joints or Extremities Lymphatic: No Cervical, Supraclavicular, or Inguinal Adenopathy Neurological: - - Loss of sensation bilateral lower extremities, but does exacerbate pain with palpation. Otherwise, nonfocal exam except for decreased strength of the lower extremities Psych/Mental Status: Impulsive, Restless Laboratory Results 01/06/20 00:05: WBC 25.1 H, RBC 5.24, Hgb 15.4, Hct 46.6, MCV 88.9, MCH 29.4, MCHC 33.0, RDW Std Deviation 43.2, RDW Coeff of Neftali 13.3, Plt Count 317, MPV 9.9, Immature Gran % (Auto) 1.400 H, Neut % (Auto) 91.2 H, Lymph % (Auto) 3.2 L, [place] % (Auto) 3.9, Eos % (Auto) 0.0, Baso % (Auto) 0.3, Absolute Neuts (auto) 22.9 H, Absolute Lymphs (auto) 0.81 L, Nucleated RBC % 0, Differential Comment SCANNED 01/06/20 00:05: PT 14.2, INR 1.2, APTT 31.4 01/06/20 00:05: Sodium 130 L, Potassium 8.0 H*, Chloride 94 L, Carbon Dioxide 20.0 L, Anion Gap 16 H, BUN 24 H, Creatinine 2.71 H, Estim Creat Clear Calc 35.76, Est GFR (MDRD) Af Amer 34 L, Est GFR (MDRD) Non-Af 28 L, BUN/Creatinine Ratio 8.9 L, Glucose 194 H, Calcium 7.1 L, Total Bilirubin 0.20, AST 1383 H, ALT 309 H, Alkaline Phosphatase 163 H, Total Protein 8.9 H, Albumin 4.0, Globulin 4.9 H, Albumin/Globulin Ratio 0.8 L 01/06/20 00:05: Lactic Acid 7.5 H* 01/06/20 00:05: Total Creatine Kinase 21797 H 01/06/20 00:05: Troponin I 0.433 H 01/06/20 01:00: Urine Opiates Screen NEGATIVE, Urine Methadone Screen NEGATIVE, Ur Barbiturates Screen NEGATIVE, Ur Phencyclidine Scrn NEGATIVE, Ur Amphetamines Screen POSITIVE H, U Methamphetamin-MDMA NEGATIVE, U Benzodiazepines Scrn NEGATIVE, Urine Cocaine Screen NEGATIVE, U Cannabinoids Screen POSITIVE H, Ur Drug Screen Comment 01/06/20 01:00: Urine Color Red, Urine Clarity Cloudy, Urine pH 6.5, Ur Specific [place] 1.020, Urine Protein 500 H, Urine Glucose (UA) Normal, Urine Ketones 15 H, Urine Occult Blood 250 H, Urine Nitrite Negative, Urine Bilirubin Negative, Urine Urobilinogen 1 H, Ur Leukocyte Esterase 25 H, Urine RBC 0-5 SEEN, Urine WBC 10-25 SEEN, Ur Squamous Epith Cells 0-5 SEEN, Urine Bacteria 2+, Coarse Granular Casts 5-10 SEEN, Urine Mucus 0 SEEN 01/06/20 01:09: pH 7.30 L, Bicarbonate Actual 17.8 L, POC Total CO2 19, Base Excess -9 L, O2 Saturation 95, ABG pCO2 36.1, ABG pO2 84 01/06/20 03:40: Phosphorus 5.7 H, Magnesium 2.9 H 01/06/20 03:40: Hemoglobin A1c 5.4 01/06/20 03:40: Troponin I 1.130 H* 01/06/20 04:24: Lactic Acid Cancelled 01/06/20 05:20: WBC 20.3 H, RBC 5.76, Hgb 16.4, Hct 50.8, MCV 88.2, MCH 28.5, MCHC 32.3, RDW Std Deviation 43.1, RDW Coeff of Neftali 13.2, Plt Count 276, MPV 9.9, Immature Gran % (Auto) 0.800, Neut % (Auto) 87.8 H, Lymph % (Auto) 6.5 L, [place] % (Auto) 4.7, Eos % (Auto) 0.0, Baso % (Auto) 0.2, Absolute Neuts (auto) 17.8 H, Absolute Lymphs (auto) 1.31, Nucleated RBC % 0 01/06/20 05:20: Sodium 132 L, Potassium 4.7, Chloride 100, Carbon Dioxide 24.0, Anion Gap 8, BUN 21 H, Creatinine 1.99 H, Estim Creat Clear Calc 48.69, Est GFR (MDRD) Af Amer 48 L, Est GFR (MDRD) Non-Af 40 L, BUN/Creatinine Ratio 10.6, Glucose 148 H, Calcium 6.6 L, Total Bilirubin 0.30, AST 3740 H, ALT 654 H, Alkaline Phosphatase 93, Total Creatine Kinase 147904 H, Total Protein 7.0, Albumin 2.8 L, Globulin 4.2, Albumin/Globulin Ratio 0.7 L 01/06/20 05:20: Lactic Acid 2.7 H* 01/06/20 06:30: Troponin I 1.370 H* Current Medications Sodium Chloride () 1,000 mls @ 250 mls/hr IV .Q4H [facility] Last Admin: 01/06/20 05:39 Dose: 250 mls/hr Documented by: Sodium Bicarbonate 50 meq/ (Dextrose) 1,050 mls @ 100 mls/hr IV .[id number] [facility] Last Admin: 01/06/20 03:46 Dose: 100 mls/hr Documented by: Sodium Chloride () 250 mls @ 15 mls/hr IV .[id number] PRN PRN Reason: Saline Flush Sodium Chloride () 250 mls @ 15 mls/hr IV .[id number] PRN PRN Reason: Additional IVPB Infusion Morphine Sulfate () 2 mg IV Q4H PRN PRN PRN Reason: Pain Score 6-10/10 Last Admin: 01/06/20 08:07 Dose: 2 mg Documented by: Ondansetron HCl (Zofran) 4 mg IV Q8H PRN PRN PRN Reason: NAUSEA/VOMITING Oxycodone HCl (Oxyir) 5 mg PO Q6H PRN PRN PRN Reason: Pain Score 6-10/10 Last Admin: 01/06/20 05:25 Dose: 5 mg Documented by: Senna/Docusate Sodium (Senokot-S, Mari-Colace) 2 tablet PO BID PRN PRN PRN Reason: Constipation Sodium Chloride () 10 - 40 ml IV UD PRN PRN Reason: SALINE FLUSH Last Admin: 01/06/20 05:25 Dose: 10 ml Documented by: Zolpidem Tartrate (Ambien (Generic)) 5 mg PO QHS PRN PRN PRN Reason: INSOMNIA Clinical Impression(s) from Imaging Studies Brain CT 01/06/20 00:10 IMPRESSION: Normal unenhanced CT scan of the brain. Electronically Signed: Eladio Briscoe MD at 0:45 EDT , Service support , Chest X-Ray 01/06/20 00:49 IMPRESSION: Normal x-ray examination of the chest. Electronically Signed: Eladio Briscoe MD at 1:47 EDT , Service support , Assessment/Plan Active and Suspected Problems Neuropraxia of left lower extremity (Acute) Heroin abuse (Acute) Acute renal failure (Acute) Hyperkalemia (Acute) Rhabdomyolysis (Acute) Metabolic acidosis (Acute) Elevated troponin I level (Acute) RECOMMENDATIONS: 1. Aggressive hydration 2. Recheck BMP this afternoon for electrolytes 3. Obtain hip and knee x-rays 4. Monitor urine output, may need Lopez catheter 5. Monitor distal pulses, possible orthopedic consult 6. Haldol as needed for agitation, continue pain meds as ordered IMPRESSIONS: 1. Severe rhabdomyolysis Significant elevation in CPK over the last 12 hours. Patient still has significant pedal pulses, so doubt compartment syndrome. We will continue to watch for swelling over the next 12 to 24 hours. Patient is receiving aggressive hydration, but is refusing Lopez catheter at this time. If urine output is not keeping up, placement of Lopez may be necessary. 2. Acute renal failure Clinical suspicion that this is secondary to #1. Patient with hyperkalemia. Will check BMPs periodically to address possible electrolyte abno rmalities. If not improving by tomorrow, may need neurology consult for possible hemodialysis. 3. At risk for lower extremity compartment syndrome Patient still with pedal pulses. Will need to follow closely. Orthopedics may need to be consulted for possible fasciotomy. Patient has had a significant increase in CPK, likely secondary to flushing of the lower extre mities. 4. Elevated troponin Medical suspicion for supply versus demand mismatch given heroin overdose. Will obtain an echocardiogram. Patient is on telemetry. We will continue to monitor given electrolyte abnormalities. 5. Heroin abuse/schizophrenia/anxiety/history of IV drug use/marginal cooperation Complicates care, management, recovery and prognosis. Will use Haldol as needed for agitation for now until further information about baseline medications can be found. Patient would be at risk for endocarditis given IV drug use. Echo has been ordered. Inpatient E&M: [id number] Init Hosp L3
--- NOTE | 2020-01-06 10:00 | EKG12_ITS ---
Test Reason : AM EKG Blood Pressure : / mmHG Vent. Rate : 095 BPM Atrial Rate : 095 BPM P-R Int : 148 ms QRS Dur : 066 ms QT Int : 362 ms P-R-T Axes : 075 060 061 degrees QTc Int : 454 ms Normal sinus rhythm Right atrial enlargement Borderline ECG When compared with ECG of 05-JAN-2020 23:42, MANUAL COMPARISON REQUIRED, DATA IS UNCONFIRMED Confirmed by MALLORIE TARIQ, GISELA ([id number]), publications editor BLANCA CARDENAS ([id number]) on 01/10/2020 11:35:44 AM Referred By: SHILOH Confirmed By:APARNA NOBLES MD
--- NOTE | 2020-01-06 11:24 | RAD_ITS ---
STUDY: X-RAY - PELVIS AND BILATERAL HIPS REASON FOR EXAM: Male, 39 years old. PT OVERDOSED- LAID IN WEIRD POSITION FOR LONG PERIOD OF TIME, PAIN TECHNIQUE: AP view of the pelvis.? 2 views of the right hip, and 2 views of the left hip were obtained. COMPARISON: None. FINDINGS: There is a non-specific bowel gas pattern. Soft tissue swelling overlying both hip joints. Normal bilateral iliac wings, sacroiliac joints and visualized sacrum. Normal bilateral superior and inferior pubic rami. Normal pubic symphysis. Normal bilateral ischial tuberosities. Normal visualized right femoral head. Normal right acetabulum. Normal right hip joint. Normal visualized left femoral head. Normal left acetabulum. Normal left hip joint. RAD/Hips B/L min 2 views w/ Pelvis IMPRESSION: Soft tissue swelling overlying both hip joints. Electronically Signed: Bud Read, at 14:38 EDT , Service support ,
--- NOTE | 2020-01-06 11:29 | RAD_ITS ---
STUDY: X-RAY - LEFT KNEE REASON FOR EXAM: Male, 39 years old. Pain. TECHNIQUE: AP and lateral view(s) of the knee. COMPARISON: None. FINDINGS: Normal visualized distal femur. Normal visualized proximal tibia and fibula. Normal proximal tibiofibular articulation. Normal medial femorotibial compartment. Normal lateral femorotibial compartment. Normal patellofemoral articulation. The soft tissue structures are unremarkable. RAD/Knee 1 or 2 Views IMPRESSION: Normal x-ray examination of the knee. Electronically Signed: Bud Read, at 14:39 EDT , Service support ,
[2020-01-06] MEDS: Gabapentin 100 MG Capsule PO (11:32)
--- NOTE | 2020-01-06 11:32 | CASEMGMT ---
Social Work SW met with pt in room and introduced self and role of SW. Assessment completed. Pt lives at home with is mother and has been independent with care. Pt does not drive but his mother is able to transport him as needed. Demographics confirmed and pt states that he does not have a PCP. SW attempted to give pt a list of PCPs and explain that he will need followup care and pt becomes agitated and states that he has a doctor he has seen once and he just can't remember who and denied accepting list of PCPs from [facility]. SW inquired about mental health and pt states he has a lot of stuff, but I'm not on my meds and cannot tell you what I have Pt does states that he sees Dr. Randle every three months but unable to state when the last visit was. Pt does say he takes his medications regularly when he is at home and uses [facility]. Pt denies having a living will or health care POA. SW inquired about drug use. Pt stating that he uses heroin but denies using other substances although drug screen tested positive for amphetamines and cannabinoids. Pt also stating he only uses heroin once in a [place]. Pt downplayed drug use and was more concerned over medical issues at this time. SW inquired about substance treatment and pt stating he has never been to a program and has no desire to go at this time. SW offered 180 information and pt denied. SW will remain available should pt change his mind and wish assistance. Pt plans to return home with his mother at time of discharge. JOSEY Covarrubias
--- NOTE | 2020-01-06 12:50 | RAD_ITS ---
STUDY: X-RAY - RIGHT KNEE REASON FOR EXAM: Male, 39 years old. PT OVERDOSED- LAID IN WEIRD POSITION FOR LONG PERIOD OF TIME, PAIN TECHNIQUE: AP and lateral view(s) of the knee. COMPARISON: None. FINDINGS: Normal visualized distal femur. Normal visualized proximal tibia and fibula. Normal proximal tibiofibular articulation. Normal medial femorotibial compartment. Normal lateral femorotibial compartment. Normal patellofemoral articulation. The soft tissue structures are unremarkable. RAD/Knee 1 or 2 Views IMPRESSION: Normal x-ray examination of the knee. Electronically Signed: Bud Read, at 14:38 EDT , Service support ,
--- NOTE | 2020-01-06 14:14 | NURSING ---
Entered patient room to change IV bag and right leg much more swollen than left. Pedal pulses no longer palpable. Dr. Wynn notified and Ortho consulted. Spoke with Dr. Grayson, stated he will be in.
--- NOTE | 2020-01-06 14:47 | CON.PCM_ITS ---
Reason for Consult Date of Consultation: 01/06/20 Reason for Consultation: Right lower extremity compartment syndrome. Requested by Dr. Wynn History of Present Illness: The patient is a 39 year old M patient with history of IV drug abuse. Patient reports to taking heroin twice yesterday. But reports he does not remember anything after 4:00 last evening. He woke up early in the morning after reportedly being in a position where he was flexed at the knees and his body was laying over his calves. On his initial examination he had some neurapraxia. He reports continued numbness in bilateral lower extremities worse on the left than the right. He reports weakness with foot and ankle range of motion. He does report he can flex his hips and extend his knees. He reports 10 out of 10 pain. Reports he has had progressive swelling and firmness of his right calf. ICU staff reports that he had faint pulses in the DP but they have been progressively unable to obtain Doppler pulse flow. Patient's pain is 10 on the 10 not controlled with narcotic pain medications. Patient denies difficulties with her nation but does have dark brown urine due to his rhabdomyolysis. He reports constipation and not loss of bowel control. Past Medical History Past Medical History (Chronic Problems): Chronic Problems Anxiety (Chronic) Schizophrenia (Chronic) IVDU (intravenous drug user) (Chronic) Allergies No Known Allergies Allergy (Verified 01/05/20 23:22) Home Medications: Ambulatory Orders Medication Instructions Recorded No Known/Unobtainable [No Known 03/08/17 Home Medications] Surgical History: - - Left arm surgery for left arm abscess due to IV drug use. Psychiatric History: Anxiety, Schizophrenia Lives: With Family Smoking Status: Current every day smoker Tobacco Use: Cigarettes Alcohol: None Drugs: Heroin, - - Methamphetamines. - *Family History Paternal History Items: No pertinent history Maternal History Items: No pertinent history Review of Systems Constitutional: Denies: Chills, Fever, Weight Change HEENT: Denies: Head Aches, Sinus Congestion, Sinus Drainage Cardiovascular: Denies: Chest Pain, Palpitations Respiratory: Denies: Cough, Shortness of breath at rest, Sputum production Gastrointestinal: Denies: Abdominal Pain, Nausea, Vomiting Genitourinary: Reports: - - Dark urine Musculoskeletal: Reports: - - Patient reports weakness in bilateral lower extremities with decreased sensation. Pain in the right calf. Skin: Denies: Rash, Wounds Neurological: Reports: - - Bilateral lower extremity loss of sensation Psychiatric: Denies: Anxiety, Homicidal Ideations Patient Problems: Active and Suspected Problems Neuropraxia of left lower extremity (Acute) Heroin abuse (Acute) Acute renal failure (Acute) Hyperkalemia (Acute) Rhabdomyolysis (Acute) Metabolic acidosis (Acute) Elevated troponin I level (Acute) Objective: Bilateral knee x-rays were reviewed showing stable well aligned knee tibia and femur bilaterally. No acute fractures or bony lesions. Bilateral hip films were also reviewed showing stable well aligned hips bilaterally with no bony lesions or fractures. - Physical Exam Vitals/I&O's: Vital Signs Temp Pulse Resp BP Pulse Ox 98.6 F 94 16 112/89 H 96 01/06/20 14:34 01/06/20 14:34 01/06/20 14:34 01/06/20 12:00 01/06/20 14:34 Oxygen Delivery Method Room Air Weight: 162 lb 0.636 oz Body Mass Index (BMI) 24.5 Intake and Output for Last 24 Hours 01/04/20 01/05/20 01/06/20 23:59 23:59 23:59 Intake Total 8642.50 / 8642.50 Output Total 1150 / 1150 Balance 7492.50 / 7492.50 General: Alert, Oriented x3, Cooperative HEENT: Atraumatic, PERRLA Oral: Moist Mucosa Neck: No JVD Lungs: - - Nonlabored breathing Cardiovascular: Regular rate - pulses Abdomen: Non-Distended Extremities: - - Right lower extremity: Motor is intact hip flexion and knee extension. Knee extension strength is 4 out of 5. Patient has decreased sensation saphenous sural, superficial peroneal, deep peroneal tibial nerve distributions. Patient is unable to dorsiflex, fire EHL or plantarflex the foot actively. Thigh compartments are soft. No evidence of ecchymosis. Calf compartments are firm and tight with reproducible pain on palpation. Patient does tolerate passive range of motion. Unable to palpate DP pulse, with Doppler ultrasound am able to obtain pulse flow. PT palpable with good Doppler flow. Left lower extremity: Motor is intact hip flexion and knee extension. Knee extension strength is 4 out of 5. Patient has decreased sensation saphenous sural, superficial peroneal, deep peroneal tibial nerve distributions. Patient is unable to dorsiflex, fire EHL or plantarflex the foot actively. Calfs are soft and supple, thigh compartments are soft and supple. Palpable pulses. Skin: No rashes, No breakdown Musculoskeletal: Tenderness - Right calf firm and tender to palpate Neurological: Cranial nerves II-XII grossly intact Psych/Mental Status: Normal Affect Laboratory Results 01/06/20 00:05: WBC 25.1 H, RBC 5.24, Hgb 15.4, Hct 46.6, MCV 88.9, MCH 29.4, MCHC 33.0, RDW Std Deviation 43.2, RDW Coeff of Neftali 13.3, Plt Count 317, MPV 9.9, Immature Gran % (Auto) 1.400 H, Neut % (Auto) 91.2 H, Lymph % (Auto) 3.2 L, [place] % (Auto) 3.9, Eos % (Auto) 0.0, Baso % (Auto) 0.3, Absolute Neuts (auto) 22.9 H, Absolute Lymphs (auto) 0.81 L, Nucleated RBC % 0, Differential Comment SCANNED 01/06/20 00:05: PT 14.2, INR 1.2, APTT 31.4 01/06/20 00:05: Sodium 130 L, Potassium 8.0 H*, Chloride 94 L, Carbon Dioxide 20.0 L, Anion Gap 16 H, BUN 24 H, Creatinine 2.71 H, Estim Creat Clear Calc 35.76, Est GFR (MDRD) Af Amer 34 L, Est GFR (MDRD) Non-Af 28 L, BUN/Creatinine Ratio 8.9 L, Glucose 194 H, Calcium 7.1 L, Total Bilirubin 0.20, AST 1383 H, ALT 309 H, Alkaline Phosphatase 163 H, Total Protein 8.9 H, Albumin 4.0, Globulin 4.9 H, Albumin/Globulin Ratio 0.8 L 01/06/20 00:05: Lactic Acid 7.5 H* 01/06/20 00:05: Total Creatine Kinase 69361 H 01/06/20 00:05: Troponin I 0.433 H 01/06/20 01:00: Urine Opiates Screen NEGATIVE, Urine Methadone Screen NEGATIVE, Ur Barbiturates Screen NEGATIVE, Ur Phencyclidine Scrn NEGATIVE, Ur Amphetamines Screen POSITIVE H, U Methamphetamin-MDMA NEGATIVE, U Benzodiazepines Scrn NEGATIVE, Urine Cocaine Screen NEGATIVE, U Cannabinoids Screen POSITIVE H, Ur Drug Screen Comment 01/06/20 01:00: Urine Color Red, Urine Clarity Cloudy, Urine pH 6.5, Ur Specific [place] 1.020, Urine Protein 500 H, Urine Glucose (UA) Normal, Urine Ketones 15 H, Urine Occult Blood 250 H, Urine Nitrite Negative, Urine Bilirubin Negative, Urine Urobilinogen 1 H, Ur Leukocyte Esterase 25 H, Urine RBC 0-5 SEEN, Urine WBC 10-25 SEEN, Ur Squamous Epith Cells 0-5 SEEN, Urine Bacteria 2+, Coarse Granular Casts 5-10 SEEN, Urine Mucus 0 SEEN 01/06/20 01:09: pH 7.30 L, Bicarbonate Actual 17.8 L, POC Total CO2 19, Base Excess -9 L, O2 Saturation 95, ABG pCO2 36.1, ABG pO2 84 01/06/20 03:40: Phosphorus 5.7 H, Magnesium 2.9 H 01/06/20 03:40: Hemoglobin A1c 5.4 01/06/20 03:40: Troponin I 1.130 H* 01/06/20 04:24: Lactic Acid Cancelled 01/06/20 05:20: WBC 20.3 H, RBC 5.76, Hgb 16.4, Hct 50.8, MCV 88.2, MCH 28.5, MCHC 32.3, RDW Std Deviation 43.1, RDW Coeff of Neftali 13.2, Plt Count 276, MPV 9.9, Immature Gran % (Auto) 0.800, Neut % (Auto) 87.8 H, Lymph % (Auto) 6.5 L, [place] % (Auto) 4.7, Eos % (Auto) 0.0, Baso % (Auto) 0.2, Absolute Neuts (auto) 17.8 H, Absolute Lymphs (auto) 1.31, Nucleated RBC % 0 01/06/20 05:20: Sodium 132 L, Potassium 4.7, Chloride 100, Carbon Dioxide 24.0, Anion Gap 8, BUN 21 H, Creatinine 1.99 H, Estim Creat Clear Calc 48.69, Est GFR (MDRD) Af Amer 48 L, Est GFR (MDRD) Non-Af 40 L, BUN/Creatinine Ratio 10.6, Glucose 148 H, Calcium 6.6 L, Total Bilirubin 0.30, AST 3740 H, ALT 654 H, Alkaline Phosphatase 93, Total Creatine Kinase 836779 H, Total Protein 7.0, Albumin 2.8 L, Globulin 4.2, Albumin/Globulin Ratio 0.7 L 01/06/20 05:20: Lactic Acid 2.7 H* 01/06/20 06:30: Troponin I 1.370 H* Current Medications Gabapentin (Neurontin) 100 mg PO DAILY [facility] Last Admin: 01/06/20 11:32 Dose: 100 mg Documented by: Sodium Chloride () 1,000 mls @ 250 mls/hr IV .Q4H [facility] Last Admin: 01/06/20 14:27 Dose: 250 mls/hr Documented by: Sodium Bicarbonate 50 meq/ (Dextrose) 1,050 mls @ 100 mls/hr IV .[id number] [facility] Last Admin: 01/06/20 14:16 Dose: 100 mls/hr Documented by: Sodium Chloride () 250 mls @ 15 mls/hr IV .[id number] PRN PRN Reason: Saline Flush Sodium Chloride () 250 mls @ 15 mls/hr IV .[id number] PRN PRN Reason: Additional IVPB Infusion Morphine Sulfate () 2 mg IV Q4H PRN PRN PRN Reason: Pain Score 6-10/10 Last Admin: 01/06/20 08:07 Dose: 2 mg Documented by: Ondansetron HCl (Zofran) 4 mg IV Q8H PRN PRN PRN Reason: NAUSEA/VOMITING Oxycodone HCl (Oxyir) 5 mg PO Q6H PRN PRN PRN Reason: Pain Score 6-10/10 Last Admin: 01/06/20 11:32 Dose: 5 mg Documented by: Senna/Docusate Sodium (Senokot-S, Mari-Colace) 2 tablet PO BID PRN PRN PRN Reason: Constipation Sodium Chloride () 10 - 40 ml IV UD PRN PRN Reason: SALINE FLUSH Last Admin: 01/06/20 05:25 Dose: 10 ml Documented by: Zolpidem Tartrate (Ambien (Generic)) 5 mg PO QHS PRN PRN PRN Reason: INSOMNIA Assessment/Plan All Active Problems Neuropraxia of left lower extremity (Acute) Heroin abuse (Acute) Acute renal failure (Acute) Hyperkalemia (Acute) Rhabdomyolysis (Acute) Metabolic acidosis (Acute) Elevated troponin I level (Acute) Patient has bilateral lower extremity neurapraxia with associated weakness with dorsiflexion EHL and plantar flexion as well as weakness with knee extension. Natural history of this disease process and treatment options were discussed the patient. At this time this is likely related to the patient's position while unconscious. I explained that these will often resolve with time. I also explained that on the right it could be related to compartment syndrome and may result in permanent nerve damage. Patient demonstrates an understanding. Patient demonstrates clinical compartment syndrome of the right calf. At this time I have explained to the patient the natural history of this disease process. Based on the progressive loss in a palpable pulse and decrease in the Doppler pulse from the ICU as well as his extreme swelling and tightness of the calf I recommended we proceed with a compartment release. The Lando compartment device was not available at this time. Regardless patient meets clinical criteria for compartment syndrome and has a history very concerning for compartment syndrome and at this time the risks of waiting for any further signs of compartment syndrome outweigh the benefits of proceeding with surgery. I did explain to the patient that the surgery is associated with risk including infections, blood loss, DVTs, PEs, nervous damage infection, the risk of anesthesia. We also discussed that there is likely going to be delayed wound healing. Patient understands the risk and wished to proceed with surgery. We will proceed with surgery in a emergent manner as the patient is seen progressive decrease in his pulses of that extremity. Patient did have a couple of bites of lunch was not well tolerated. He also has had some clear fluids. [facility] Office: Procedure Criteria Procedure Type: Essential Procedure Essential: Yes Criteria Statement: On 10/26/2019 the [place] Department of Health ([facility]) Public Order signed by [facility] Director Ema Williamson M.D., regarding the Management of Non-Essential Surgeries and Procedures for the purpose of preserving Personal Protective Equipment (PPE) and critical hospital capacity and resources within [place] went into effect as of 10/27/2019 at 5:00PM. According to the [facility] Public Order: This action will remain in full force and effect until the State of Emergency declared by the Governor no longer exists or the Director of the [facility] rescinds or modifies this Order. This OD order stated all non-essential or elective surgeries and procedures that utilize PPE should be delayed unless there is undue risk to the current or future health of a patient. After reviewing the aforementioned [facility] Public Order and the patient's clinical case, I have determined that the scheduled procedure meets the criteria to go forward. Risk to Patient if Procedure Delayed: Risk of rapidly worsening to severe sympt oms if delayed
--- NOTE | 2020-01-06 15:17 | OP.PCM_ITS ---
Report of Operation Date of Procedure: 01/06/20 Pre-Operative Diagnosis: Right leg compartment syndrome Post-Operative Diagnosis: Right leg compartment syndrome Surgery/Procedure Performed:: Traumatic 4 compartment release right leg Description of Surgical Findings:: Complete release of all 4 compartments. 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 Patient had been brought to the emergency department at 2:30 in the morning with progressive swelling of the right calf. He also has associated neuropraxia. He was found down after overdosing on heroin. With progressive swelling of the calf and 10 out of 10 pain as well as progressive difficulty with obtaining Doppler DP pulses patient's history was consistent with a compartment syndrome. At that time I consented him for a right leg 4 compartment fasciotomy. Would proceed to the operating room in an emergent fashion. We are in the operating room at 3:20 that afternoon. Patient's right leg was marked. Should be noted that as the patient came into the operating room he did want me to know that his left groin was also hurting. Thigh compartments were rechecked and all were soft. Patient was transferred to the operating room table in the supine position. Anesthesia assumed control of the C-spine and airway. They administered anesthetic and intubated the patient. While anesthesia was intubating the patient we were able to valentina the bony landmarks and the incisions out as well as clipped the skin. Once this was done tourniquet was placed on the right thigh. All bony prominences identified well- padded and a bump was placed underneath the right hip. The leg was then prepped in a sterile fashion while the surgeon scrubbed. Upon reentering the room the right leg was draped in a standard orthopedic fashion. Timeout was called and when agreed upon the side, the site, the the procedure to be performed, patient's identity and antibiotics given. Once was completed our attention was directed to the lateral compartment. Incision was taken down through skin making a 17 cm incision midway between the fibular shaft and the tibial crest. Once we were down to fascia we identified the nerve and the intermuscular septum. Small fashion chapin was made perpendicular to the intermuscular septum scissors were placed parallel to the intermuscular septum tips were placed away from the septum. Anterior to the septum the scissors were slid proximally and then distally to release the entire compartment. Then posterior to the septum the scissors were placed proximally and distally to release the entire compartment. Muscle was soft. Muscle was pink. Once this was done we directed our attention to the medial side. 2 cm off the medial tibial border a 17 cm incision was made through skin. We carefully dissected down to the fascia. We retracted the saphenous vein out of the way. The fascia was nicked in line with the incision scissors were passed proximally and distally to make room inside the scissors proximally distally. The scissors were never completely closed. Once this was done a Lew was used to find the posterior border of the tibia. We carefully stripped the posterior border of the tibia the superficial and deep compartments were then completely released. At this time normal saline was used to irrigate out both wounds very carefully. Hemostasis was obtained medially and laterally. Wounds were left open. Xeroform dressing was placed over the muscle bellies medially and laterally in a soft dressing was placed. It was lightly wrapped circumferentially. Patient was awakened by anesthesia and transferred back to the bed and then back to the ICU for recovery. He had faint DP and palpable PT pulses. Toes were warm and pink. Postoperative plan: I will consult plastic surgery for help with wound management and likely skin graft or delayed wound closure. Continue neurovascular checks. At the completion of procedure both compartments were checked and were soft and supple. - Complications No intraoperative complications - Admit VTE Documentation VTE Present on Admission: No VTE Mechan Device Prophylaxis: SCD's, Thigh High AG Hose VTE Pharm Prophylaxis ordered?: Yes
--- NOTE | 2020-01-06 15:22 | NURSING ---
Pt to surgery via anesthiology.
[2020-01-06] MEDS: Cefazolin 1 GM/50 ML BAG IV (21:27)
[2020-01-07] VITALS (18 sets, daily range): BP systolic 115–157; BP diastolic 76–111; PULSE 85–118; RESP 11–22; TEMP 36.5–37.3; O2SAT 95–98
[2020-01-07] MEDS: Gabapentin 100 MG Capsule PO ×3 (01:57→21:45)
--- NOTE | 2020-01-07 02:03 | NURSING ---
Throughout shift, pt has been nearly inconsolable on pain and dysuria: Condom cath applied as pt refused straight and Lopez cath placement. Pt removed condom cath after 1hr and then used urinal for 550ml. Post-void residual = ~200ml. Pt given PRN morphine and OxyIR as per orders and educated on interval. Discussed w/ pt's c/o nerve pain; received order for neurontin 100mg PO q8h to start now. Pt's surgical drsg to RLE reinforced:FAN wrap removed and thrown away d/t serosang sania, ABD pads x3, new kerlix and AFN wrap applied.
[2020-01-07 03:46] LABS: Absolute Lymphocyte Count 2.38 X10^3/uL (0.83-4.51); Absolute Neutrophil Count 18.1 X10^3/uL (2.0-7.7); Basophil# 0.04 X10^3/uL; Basophil% 0.2 % (0-1); Eosinophil# 0.01 X10^3/uL; Hematocrit 47.6 % (40-54); Hemoglobin 16.4 g/dL (13.0-16.5); Lymphocyte # 2.38 X10^3/ul (4.0); Lymphocyte % 10.9 % (19-41); Mean Corp Hgb Conc 34.5 g/dL (32-36); Mean Corpuscular Hgb 28.9 pg (27.0-32.0); Mean Corpuscular Volume 83.8 fL (80-94); Mean Platelet Vol. 10.5 fl (6.2-12.0); Monocyte# 1.12 X10^3/uL; Monocyte% 5.1 % (0-10); NRBC Flagged by Analyzer 0 % (0-5); Neutrophil # 18.11 X10^3/uL (2.7-7.7); Neutrophil % 83.1 % (47-70); Platelet Count 198 K/mm3 (150-450); RBC Distribution Width CV 12.9 % (11.6-14.6); Red Blood Count 5.68 M/mm3 (4.6-6.2); White Blood Count 21.8 K/mm3 (4.4-11.0)
[2020-01-07] MEDS: Cefazolin 1 GM/50 ML BAG IV (05:15)
[2020-01-07] MEDS: Morphine 2 MG/ML Syringe IV ×5 (05:15→21:44)
[2020-01-07 05:55] LABS: ALB/GLOB Ratio 0.6 RATIO (0.9-2.4); AST(SGOT) 4502 U/L (15-37); Alanine Aminotransfer ALT/SGPT 975 U/L (16-61); Alkaline Phosphatase 74 U/L (45-117); Anion Gap 10 (5-15); BUN 16 mg/dL (7-18); BUN/Creat Ratio 10.5 RATIO (10-20); Calcium,Total 6.6 mg/dL (8.5-10.1); Chloride 94 mmol/L (98-107); Creatinine, Serum 1.52 mg/dL (0.70-1.30); EST Glomerular Filtration Rate 55 mL/min (>60); Est Glom Filt Rate - Afr Amer 66 mL/min (>60); Estimated Creatinine Clearance 63.75 ml/min; Globulin 3.5 g/dL (2.2-4.2); Glucose 154 mg/dL (74-106); Potassium 3.6 mmol/L (3.5-5.1); Protein, Total 5.5 g/dL (6.4-8.2); Sodium Level 129 mmol/L (136-145)
[2020-01-07 06:11] LABS: Allen Test POS; Blood Gas Specimen Type ART; O2 Delivery Device Room Air; SITE L RADIAL
--- NOTE | 2020-01-07 07:32 | PN_ITS ---
Subjective: Patient did okay overnight. Patient did have to go to emergent fasciotomy procedure yesterday afternoon. Patient states his right lower extremity is actually feeling better than his left lower extremity. Patient has significant neuropathic discomfort noted in the left lower extremity. Nursing reported that they did have to reinforce the dressing on his right lower extremity. Pulses have been palpable throughout the evening. Patient continues to have significant p.o. water intake, but refused a second IV for IV fluids. General: Alert, Oriented x3, Cooperative, No apparent distress, - - Appears older than stated age. Speaking in full sentences HEENT: Atraumatic, PERRLA, EOMI, Normocephalic, - - No scleral icterus or injection noted Oral: Moist Mucosa, No Gingival or Mucosal Lesions/ Ulcerations Neck: Supple, No JVD, No Nodes, Trachea Midline Lungs: Clear to auscultation, Normal air movement, No rhonchi, No wheeze, No rales, - - Symmetric expansion. No dullness to percussion. Cardiovascular: Regular rate, Regular Rhythm, Normal S1, Normal S2, No murmurs, No rub noted, No Gallop Abdomen: Bowel Sounds Present, Soft, Non Tender, Non-Distended Extremities: No clubbing, No cyanosis, Edema - Bilateral lower extremities. Right lower extremity with dressing, left lower extremity with improvement in tension, Peripheral Pulses Normal Skin: - - Right lower extremity not evaluated Musculoskeletal: Tenderness - Palpation bilateral lower extremities Lymphatic: No Cervical, Supraclavicular, or Inguinal Adenopathy Neurological: Cranial nerves II-XII grossly intact, - - Decreased sensation bilateral lower extremities Psych/Mental Status: Alert and oriented to time, place, person, mood and affect Vital Signs Temp Pulse Resp BP Pulse Ox 37.0 C 90 17 140/103 H 97 01/07/20 04:00 01/07/20 06:00 01/07/20 06:00 01/07/20 06:00 01/07/20 07:21 Oxygen Delivery Method Room Air Weight: 73.5 kg Body Mass Index (BMI) 24.5 Intake and Output for Last 24 Hours 01/05/20 01/06/20 01/07/20 23:59 23:59 23:59 Intake Total 26183.17 / 65859.17 2783.33 / 2783.33 Output Total 1850 / 2400 1400 / 1400 Balance 9059.17 / 9609.17 1383.33 / 1383.33 Labs (Last 48 Hours) 01/06/20 01/06/20 01/06/20 00:05 00:05 00:05 WBC 25.1 H RBC 5.24 Hgb 15.4 Hct 46.6 MCV 88.9 MCH 29.4 MCHC 33.0 RDW Std Deviation 43.2 RDW Coeff of Neftali 13.3 Plt Count 317 MPV 9.9 Immature Gran % (Auto) 1.400 H Neut % (Auto) 91.2 H Lymph % (Auto) 3.2 L Morrison % (Auto) 3.9 Eos % (Auto) 0.0 Baso % (Auto) 0.3 Absolute Neuts (auto) 22.9 H Absolute Lymphs (auto) 0.81 L Nucleated RBC % 0 Differential Comment SCANNED PT 14.2 INR 1.2 APTT 31.4 Specimen Type Sample Site pH Bicarbonate Actual POC Total CO2 Base Excess O2 Saturation ABG pCO2 ABG pO2 Matty Test O2 Delivery Device Blood Gas Notified Whom Sodium 130 L Potassium 8.0 H* Chloride 94 L Carbon Dioxide 20.0 L Anion Gap 16 H BUN 24 H Creatinine 2.71 H Estim Creat Clear Calc 35.76 Est GFR (MDRD) Af Amer 34 L Est GFR (MDRD) Non-Af 28 L BUN/Creatinine Ratio 8.9 L Glucose 194 H Hemoglobin A1c Lactic Acid Calcium 7.1 L Phosphorus Magnesium Total Bilirubin 0.20 AST 1383 H ALT 309 H Alkaline Phosphatase 163 H Total Creatine Kinase Troponin I Total Protein 8.9 H Albumin 4.0 Globulin 4.9 H Albumin/Globulin Ratio 0.8 L Urine Color Urine Clarity Urine pH Ur Specific [place] Urine Protein Urine Glucose (UA) Urine Ketones Urine Occult Blood Urine Nitrite Urine Bilirubin Urine Urobilinogen Ur Leukocyte Esterase Urine RBC Urine WBC Ur Squamous Epith Cells Urine Bacteria Coarse Granular Casts Urine Mucus Urine Opiates Screen Urine Methadone Screen Ur Barbiturates Screen Ur Phencyclidine Scrn Ur Amphetamines Screen U Methamphetamin-MDMA U Benzodiazepines Scrn Urine Cocaine Screen U Cannabinoids Screen Ur Drug Screen Comment Blood Type Antibody Screen 01/06/20 01/06/20 01/06/20 00:05 00:05 00:05 WBC RBC Hgb Hct MCV MCH MCHC RDW Std Deviation RDW Coeff of Neftali Plt Count MPV Immature Gran % (Auto) Neut % (Auto) Lymph % (Auto) Morrison % (Auto) Eos % (Auto) Baso % (Auto) Absolute Neuts (auto) Absolute Lymphs (auto) Nucleated RBC % Differential Comment PT INR APTT Specimen Type Sample Site pH Bicarbonate Actual POC Total CO2 Base Excess O2 Saturation ABG pCO2 ABG pO2 Matty Test O2 Delivery Device Blood Gas Notified Whom Sodium Potassium Chloride Carbon Dioxide Anion Gap BUN Creatinine Estim Creat Clear Calc Est GFR (MDRD) Af Amer Est GFR (MDRD) Non-Af BUN/Creatinine Ratio Glucose Hemoglobin A1c Lactic Acid 7.5 H* Calcium Phosphorus Magnesium Total Bilirubin AST ALT Alkaline Phosphatase Total Creatine Kinase 26404 H Troponin I 0.433 H Total Protein Albumin Globulin Albumin/Globulin Ratio Urine Color Urine Clarity Urine pH Ur Specific [place] Urine Protein Urine Glucose (UA) Urine Ketones Urine Occult Blood Urine Nitrite Urine Bilirubin Urine Urobilinogen Ur Leukocyte Esterase Urine RBC Urine WBC Ur Squamous Epith Cells Urine Bacteria Coarse Granular Casts Urine Mucus Urine Opiates Screen Urine Methadone Screen Ur Barbiturates Screen Ur Phencyclidine Scrn Ur Amphetamines Screen U Methamphetamin-MDMA U Benzodiazepines Scrn Urine Cocaine Screen U Cannabinoids Screen Ur Drug Screen Comment Blood Type Antibody Screen 01/06/20 01/06/20 01/06/20 01:00 01:00 01:09 WBC RBC Hgb Hct MCV MCH MCHC RDW Std Deviation RDW Coeff of Neftali Plt Count MPV Immature Gran % (Auto) Neut % (Auto) Lymph % (Auto) Morrison % (Auto) Eos % (Auto) Baso % (Auto) Absolute Neuts (auto) Absolute Lymphs (auto) Nucleated RBC % Differential Comment PT INR APTT Specimen Type ART Sample Site L RADIAL pH 7.30 L Bicarbonate Actual 17.8 L POC Total CO2 19 Base Excess -9 L O2 Saturation 95 ABG pCO2 36.1 ABG pO2 84 Matty Test POS O2 Delivery Device Room Air Blood Gas Notified Whom ED Sodium Potassium Chloride Carbon Dioxide Anion Gap BUN Creatinine Estim Creat Clear Calc Est GFR (MDRD) Af Amer Est GFR (MDRD) Non-Af BUN/Creatinine Ratio Glucose Hemoglobin A1c Lactic Acid Calcium Phosphorus Magnesium Total Bilirubin AST ALT Alkaline Phosphatase Total Creatine Kinase Troponin I Total Protein Albumin Globulin Albumin/Globulin Ratio Urine Color Red Urine Clarity Cloudy Urine pH 6.5 Ur Specific [place] 1.020 Urine Protein 500 H Urine Glucose (UA) Normal Urine Ketones 15 H Urine Occult Blood 250 H Urine Nitrite Negative Urine Bilirubin Negative Urine Urobilinogen 1 H Ur Leukocyte Esterase 25 H Urine RBC 0-5 SEEN Urine WBC 10-25 SEEN Ur Squamous Epith Cells 0-5 SEEN Urine Bacteria 2+ Coarse Granular Casts 5-10 SEEN Urine Mucus 0 SEEN Urine Opiates Screen NEGATIVE Urine Methadone Screen NEGATIVE Ur Barbiturates Screen NEGATIVE Ur Phencyclidine Scrn NEGATIVE Ur Amphetamines Screen POSITIVE H U Methamphetamin-MDMA NEGATIVE U Benzodiazepines Scrn NEGATIVE Urine Cocaine Screen NEGATIVE U Cannabinoids Screen POSITIVE H Ur Drug Screen Comment Blood Type Antibody Screen 01/06/20 01/06/20 01/06/20 03:40 03:40 03:40 WBC RBC Hgb Hct MCV MCH MCHC RDW Std Deviation RDW Coeff of Neftali Plt Count MPV Immature Gran % (Auto) Neut % (Auto) Lymph % (Auto) Morrison % (Auto) Eos % (Auto) Baso % (Auto) Absolute Neuts (auto) Absolute Lymphs (auto) Nucleated RBC % Differential Comment PT INR APTT Specimen Type Sample Site pH Bicarbonate Actual POC Total CO2 Base Excess O2 Saturation ABG pCO2 ABG pO2 Matty Test O2 Delivery Device Blood Gas Notified Whom Sodium Potassium Chloride Carbon Dioxide Anion Gap BUN Creatinine Estim Creat Clear Calc Est GFR (MDRD) Af Amer Est GFR (MDRD) Non-Af BUN/Creatinine Ratio Glucose Hemoglobin A1c 5.4 Lactic Acid Calcium Phosphorus 5.7 H Magnesium 2.9 H Total Bilirubin AST ALT Alkaline Phosphatase Total Creatine Kinase Troponin I 1.130 H* Total Protein Albumin Globulin Albumin/Globulin Ratio Urine Color Urine Clarity Urine pH Ur Specific [place] Urine Protein Urine Glucose (UA) Urine Ketones Urine Occult Blood Urine Nitrite Urine Bilirubin Urine Urobilinogen Ur Leukocyte Esterase Urine RBC Urine WBC Ur Squamous Epith Cells Urine Bacteria Coarse Granular Casts Urine Mucus Urine Opiates Screen Urine Methadone Screen Ur Barbiturates Screen Ur Phencyclidine Scrn Ur Amphetamines Screen U Methamphetamin-MDMA U Benzodiazepines Scrn Urine Cocaine Screen U Cannabinoids Screen Ur Drug Screen Comment Blood Type Antibody Screen 01/06/20 01/06/20 01/06/20 04:24 05:20 05:20 WBC 20.3 H RBC 5.76 Hgb 16.4 Hct 50.8 MCV 88.2 MCH 28.5 MCHC 32.3 RDW Std Deviation 43.1 RDW Coeff of Neftali 13.2 Plt Count 276 MPV 9.9 Immature Gran % (Auto) 0.800 Neut % (Auto) 87.8 H Lymph % (Auto) 6.5 L Morrison % (Auto) 4.7 Eos % (Auto) 0.0 Baso % (Auto) 0.2 Absolute Neuts (auto) 17.8 H Absolute Lymphs (auto) 1.31 Nucleated RBC % 0 Differential Comment PT INR APTT Specimen Type Sample Site pH Bicarbonate Actual POC Total CO2 Base Excess O2 Saturation ABG pCO2 ABG pO2 Matty Test O2 Delivery Device Blood Gas Notified Whom Sodium 132 L Potassium 4.7 Chloride 100 Carbon Dioxide 24.0 Anion Gap 8 BUN 21 H Creatinine 1.99 H Estim Creat Clear Calc 48.69 Est GFR (MDRD) Af Amer 48 L Est GFR (MDRD) Non-Af 40 L BUN/Creatinine Ratio 10.6 Glucose 148 H Hemoglobin A1c Lactic Acid Cancelled Calcium 6.6 L Phosphorus Magnesium Total Bilirubin 0.30 AST 3740 H ALT 654 H Alkaline Phosphatase 93 Total Creatine Kinase 531803 H Troponin I Total Protein 7.0 Albumin 2.8 L Globulin 4.2 Albumin/Globulin Ratio 0.7 L Urine Color Urine Clarity Urine pH Ur Specific [place] Urine Protein Urine Glucose (UA) Urine Ketones Urine Occult Blood Urine Nitrite Urine Bilirubin Urine Urobilinogen Ur Leukocyte Esterase Urine RBC Urine WBC Ur Squamous Epith Cells Urine Bacteria Coarse Granular Casts Urine Mucus Urine Opiates Screen Urine Methadone Screen Ur Barbiturates Screen Ur Phencyclidine Scrn Ur Amphetamines Screen U Methamphetamin-MDMA U Benzodiazepines Scrn Urine Cocaine Screen U Cannabinoids Screen Ur Drug Screen Comment Blood Type Antibody Screen 01/06/20 01/06/20 01/06/20 05:20 06:30 15:41 WBC RBC Hgb Hct MCV MCH MCHC RDW Std Deviation RDW Coeff of Neftali Plt Count MPV Immature Gran % (Auto) Neut % (Auto) Lymph % (Auto) Morrison % (Auto) Eos % (Auto) Baso % (Auto) Absolute Neuts (auto) Absolute Lymphs (auto) Nucleated RBC % Differential Comment PT INR APTT Specimen Type Sample Site pH Bicarbonate Actual POC Total CO2 Base Excess O2 Saturation ABG pCO2 ABG pO2 Matty Test O2 Delivery Device Blood Gas Notified Whom Sodium Potassium Chloride Carbon Dioxide Anion Gap BUN Creatinine Estim Creat Clear Calc Est GFR (MDRD) Af Amer Est GFR (MDRD) Non-Af BUN/Creatinine Ratio Glucose Hemoglobin A1c Lactic Acid 2.7 H* Calcium Phosphorus Magnesium Total Bilirubin AST ALT Alkaline Phosphatase Total Creatine Kinase Troponin I 1.370 H* Total Protein Albumin Globulin Albumin/Globulin Ratio Urine Color Urine Clarity Urine pH Ur Specific [place] Urine Protein Urine Glucose (UA) Urine Ketones Urine Occult Blood Urine Nitrite Urine Bilirubin Urine Urobilinogen Ur Leukocyte Esterase Urine RBC Urine WBC Ur Squamous Epith Cells Urine Bacteria Coarse Granular Casts Urine Mucus Urine Opiates Screen Urine Methadone Screen Ur Barbiturates Screen Ur Phencyclidine Scrn Ur Amphetamines Screen U Methamphetamin-MDMA U Benzodiazepines Scrn Urine Cocaine Screen U Cannabinoids Screen Ur Drug Screen Comment Blood Type O POSITIVE Antibody Screen NEGATIVE 01/07/20 01/07/20 03:15 03:15 WBC 21.8 H RBC 5.68 Hgb 16.4 Hct 47.6 MCV 83.8 MCH 28.9 MCHC 34.5 D RDW Std Deviation 39.0 RDW Coeff of Neftali 12.9 Plt Count 198 MPV 10.5 Immature Gran % (Auto) 0.700 Neut % (Auto) 83.1 H Lymph % (Auto) 10.9 L Morrison % (Auto) 5.1 Eos % (Auto) 0.0 Baso % (Auto) 0.2 Absolute Neuts (auto) 18.1 H Absolute Lymphs (auto) 2.38 Nucleated RBC % 0 Differential Comment PT INR APTT Specimen Type Sample Site pH Bicarbonate Actual POC Total CO2 Base Excess O2 Saturation ABG pCO2 ABG pO2 Matty Test O2 Delivery Device Blood Gas Notified Whom Sodium 129 L Potassium 3.6 Chloride 94 L Carbon Dioxide 25.0 Anion Gap 10 BUN 16 Creatinine 1.52 H Estim Creat Clear Calc 63.75 Est GFR (MDRD) Af Amer 66 Est GFR (MDRD) Non-Af 55 L BUN/Creatinine Ratio 10.5 Glucose 154 H Hemoglobin A1c Lactic Acid Calcium 6.6 L Phosphorus Magnesium Total Bilirubin 0.50 AST 4502 H ALT 975 H Alkaline Phosphatase 74 Total Creatine Kinase 822763 H Troponin I Total Protein 5.5 L Albumin 2.0 L Globulin 3.5 Albumin/Globulin Ratio 0.6 L Urine Color Urine Clarity Urine pH Ur Specific [place] Urine Protein Urine Glucose (UA) Urine Ketones Urine Occult Blood Urine Nitrite Urine Bilirubin Urine Urobilinogen Ur Leukocyte Esterase Urine RBC Urine WBC Ur Squamous Epith Cells Urine Bacteria Coarse Granular Casts Urine Mucus Urine Opiates Screen Urine Methadone Screen Ur Barbiturates Screen Ur Phencyclidine Scrn Ur Amphetamines Screen U Methamphetamin-MDMA U Benzodiazepines Scrn Urine Cocaine Screen U Cannabinoids Screen Ur Drug Screen Comment Blood Type Antibody Screen Clinical Impression(s) from Imaging Studies Hip/Pelvis X-Ray 01/06/20 11:24 IMPRESSION: Soft tissue swelling overlying both hip joints. Electronically Signed: Bud Read, at 14:38 EDT , Service support , Knee X-Ray 01/06/20 11:29 IMPRESSION: Normal x-ray examination of the knee. Electronically Signed: Bud Read, at 14:39 EDT , Service support , Knee X-Ray 01/06/20 12:50 IMPRESSION: Normal x-ray examination of the knee. Electronically Signed: Bud Read, at 14:38 EDT , Service support , Medical Necessity - Tobacco Use Smoking Status: Current every day smoker Tobacco Use: Cigarettes Assessment/Plan All Active Problems Neuropraxia of left lower extremity (Acute) Heroin abuse (Acute) Acute renal failure (Acute) Hyperkalemia (Acute) Rhabdomyolysis (Acute) Metabolic acidosis (Acute) Elevated troponin I level (Acute) RECOMMENDATIONS: 1. Continue aggressive hydration 2. Continue bicarbonate drip until CPK less than 50,000 3. Defer to surgery on fasciotomy care 4. Monitor urine output, may need Lopez catheter 5. Monitor distal pulses 6. Hemodynamically stable on room air. Likely okay to go to the progressive care unit from my perspective IMPRESSIONS: 1. Severe rhabdomyolysis with right lower extremity compartment syndrome Significant improvement in CPK over the last 24 hours. Patient has significant pedal pulses. We will continue to watch for swelling over the next 12 to 24 hours. Patient is receiving aggressive hydration, but is refusing Lopez catheter at this time. Patient has been able to compensate with hydration and CPK has decreased by 50%. Renal function continues to improve. Hemodynamically stable. Likely okay to go to the progressive care unit. 2. Acute renal failure Clinical suspicion that this is secondary to #1. Patient with hyperkalemia initially. Likely okay to hold off on a nephrology consult from my perspective. Patient is improving with conservative therapy. 3. Right lower extremity compartment syndrome Patient still with pedal pulses. Will need to follow closely. Left lower extremity appears to be improving. Right lower extremity with fasciotomy. Defer to plastic and orthopedic surgery. 4. Elevated troponin Medical suspicion for supply versus demand mismatch given heroin overdose. Echocardiogram shows preserved ejection fraction with no significant valvular abnormalities. Patient is on telemetry. We will continue to monitor given electrolyte abnormalities. 5. Heroin abuse/schizophrenia/anxiety/history of IV drug use/marginal cooperation Complicates care, management, recovery and prognosis. Okay to reinitiate baseline medications from my perspective. Outpatient HIV testing would be appropriate. Inpatient E&M: [id number] [facility] L[facility]
[2020-01-07] MEDS: oxyCODONE 5 MG Tablet PO ×2 (08:16→17:46)
[2020-01-07] MEDS: 0.9% Saline Lock 10 ML Syringe IV ×3 (10:32→21:45)
[2020-01-07] MEDS: hydrOXYzine PAM 25 MG Capsule 50 MG PO ×2 (10:33→21:45)
--- NOTE | 2020-01-07 11:37 | NURSING ---
wound photo: right medial lower leg
--- NOTE | 2020-01-07 11:40 | NURSING ---
wound photo: right lateral lower leg
--- NOTE | 2020-01-07 11:55 | PCM.PN.ORT ---
Patient Problems: Active and Suspected Problems Neuropraxia of left lower extremity (Acute) Heroin abuse (Acute) Acute renal failure (Acute) Hyperkalemia (Acute) Rhabdomyolysis (Acute) Metabolic acidosis (Acute) Elevated troponin I level (Acute) Subjective: Patient lying in bed sleeping. Patient easy to awake. Patient alert to time and place. Patient states his legs are still painful but have improved. Patient has no other complaints at this time. Objective: Patient lying comfortably in bed. In no obvious respiratory distress. Moving upper extremities purposefully. Patient's bilateral thighs are soft, patient reports they are tender to deep palpation. Patient's right leg a Kaleb dressing is intact with a drain, this was not removed. Patient has no calf tenderness on the left with palpation, the calf is soft. Patient does have strong bilateral posterior tibial, and dorsalis pedis pulses. Patient does continue to present with neuropraxia, and unable to plantarflex dorsiflex the bilateral feet. - Physical Exam Vitals/I&O's: Vital Signs Temp Pulse Resp BP Pulse Ox 98.5 F 105 H 18 131/99 H 97 01/07/20 08:00 01/07/20 08:00 01/07/20 08:00 01/07/20 08:00 01/07/20 08:00 Oxygen Delivery Method Room Air Weight: 73.5 kg Body Mass Index (BMI) 24.5 Intake and Output for Last 24 Hours 01/05/20 01/06/20 01/07/20 23:59 23:59 23:59 Intake Total 11936.17 / 06736.17 2783.33 / 2783.33 Output Total 1850 / 2400 1400 / 1400 Balance 9059.17 / 9609.17 1383.33 / 1383.33 General: Alert, Oriented x3 HEENT: PERRLA Oral: Moist Mucosa Neurological: Cranial nerves II-XII grossly intact Psych/Mental Status: Normal Affect Microbiology Past 72 Hours 01/06/20 01:00 Urine, Clean Catch Urine Culture - Final Mixed Gram Positive Organisms Laboratory Results 01/06/20 01:09: Specimen Type ART, Sample Site L RADIAL, Matty Test POS, O2 Delivery Device Room Air, Blood Gas Notified Whom ED 01/06/20 15:41: Blood Type O POSITIVE, Antibody Screen NEGATIVE 01/07/20 03:15: WBC 21.8 H, RBC 5.68, Hgb 16.4, Hct 47.6, MCV 83.8, MCH 28.9, MCHC 34.5 D, RDW Std Deviation 39.0, RDW Coeff of Neftali 12.9, Plt Count 198, MPV 10.5, Immature Gran % (Auto) 0.700, Neut % (Auto) 83.1 H, Lymph % (Auto) 10.9 L, [place] % (Auto) 5.1, Eos % (Auto) 0.0, Baso % (Auto) 0.2, Absolute Neuts (auto) 18.1 H, Absolute Lymphs (auto) 2.38, Nucleated RBC % 0 01/07/20 03:15: Sodium 129 L, Potassium 3.6, Chloride 94 L, Carbon Dioxide 25.0, Anion Gap 10, BUN 16, Creatinine 1.52 H, Estim Creat Clear Calc 63.75, Est GFR (MDRD) Af Amer 66, Est GFR (MDRD) Non-Af 55 L, BUN/Creatinine Ratio 10.5, Glucose 154 H, Calcium 6.6 L, Total Bilirubin 0.50, AST 4502 H, ALT 975 H, Alkaline Phosphatase 74, Total Creatine Kinase 131970 H, Total Protein 5.5 L, Albumin 2.0 L, Globulin 3.5, Albumin/Globulin Ratio 0.6 L Current Medications Fluphenazine HCl (Prolixin) 5 mg PO QHS [facility] Gabapentin (Neurontin) 100 mg PO Q8 [facility] Last Admin: 01/07/20 01:57 Dose: 100 mg Documented by: Hydroxyzine Pamoate (Vistaril Pamoate Capsule) 50 mg PO BID [facility] Last Admin: 01/07/20 10:33 Dose: 50 mg Documented by: Sodium Bicarbonate 50 meq/ (Dextrose) 1,050 mls @ 100 mls/hr IV .[id number] [facility] Last Admin: 01/07/20 01:02 Dose: 100 mls/hr Documented by: Sodium Chloride () 250 mls @ 15 mls/hr IV .[id number] PRN PRN Reason: Saline Flush Sodium Chloride () 250 mls @ 15 mls/hr IV .[id number] PRN PRN Reason: Additional IVPB Infusion Morphine Sulfate () 2 mg IV Q4H PRN PRN PRN Reason: Pain Score 6-10/10 Last Admin: 01/07/20 09:38 Dose: 2 mg Documented by: Nicotine (Nicoderm Cq (Pbkc)) 21 mg TRANSDERM. DAILY DORIAN Last Admin: 01/06/20 19:38 Dose: 21 mg Documented by: Ondansetron HCl (Zofran) 4 mg IV Q8H PRN PRN PRN Reason: NAUSEA/VOMITING Oxycodone HCl (Oxyir) 5 mg PO Q6H PRN PRN PRN Reason: Pain Score 6-10/10 Last Admin: 01/07/20 08:16 Dose: 5 mg Documented by: Senna/Docusate Sodium (Senokot-S, Mari-Colace) 2 tablet PO BID PRN PRN PRN Reason: Constipation Sodium Chloride () 10 - 40 ml IV UD PRN PRN Reason: SALINE FLUSH Last Admin: 01/07/20 10:32 Dose: 20 ml Documented by: Zolpidem Tartrate (Ambien (Generic)) 5 mg PO QHS PRN PRN PRN Reason: INSOMNIA Medical Necessity - Tobacco Use Smoking Status: Current every day smoker Tobacco Use: Cigarettes Assessment/Plan All Active Problems Neuropraxia of left lower extremity (Acute) Heroin abuse (Acute) Acute renal failure (Acute) Hyperkalemia (Acute) Rhabdomyolysis (Acute) Metabolic acidosis (Acute) Elevated troponin I level (Acute) Plan 1. Continue pain management as directed by medicine. 2. Plastics was consulted for wound management 3. Continue neuro assessment. 4. Continue incentive spirometry
--- NOTE | 2020-01-07 12:58 | PN_ITS ---
Patient Problems: Active and Suspected Problems Neuropraxia of left lower extremity (Acute) Heroin abuse (Acute) Acute renal failure (Acute) Hyperkalemia (Acute) Rhabdomyolysis (Acute) Metabolic acidosis (Acute) Elevated troponin I level (Acute) Subjective: Did okay overnight, no issues. Had fasciotomies yesterday on his right leg for compartment syndrome secondary to rhabdo. Still has decreased sensation in both legs however he does has palpable pulses in both feet. Vitals/I&O's: Vital Signs Temp Pulse Resp BP Pulse Ox 98.5 F 91 21 H 115/76 96 01/07/20 08:00 01/07/20 11:00 01/07/20 10:00 01/07/20 10:00 01/07/20 10:00 Oxygen Delivery Method Room Air Weight: 162 lb 0.636 oz Body Mass Index (BMI) 24.5 Intake and Output for Last 24 Hours 01/05/20 01/06/20 01/07/20 23:59 23:59 23:59 Intake Total 43679.17 / 27733.17 3183.33 / 3183.33 Output Total 1850 / 2400 1600 / 1600 Balance 9059.17 / 9609.17 1583.33 / 1583.33 General: Alert, Oriented x3, Cooperative, No apparent distress HEENT: Atraumatic, PERRLA, EOMI, Normocephalic Oral: Moist Mucosa Neck: Supple, No JVD Lungs: Clear to auscultation, Normal air movement, No rhonchi, No wheeze, No rales Cardiovascular: Regular rate, Regular Rhythm, Normal S1, Normal S2, No murmurs Abdomen: Soft, Non Tender, Non-Distended, No Hepato-splenomegaly Extremities: Edema, Peripheral Pulses Normal, - - Right lower extremity in dressings Musculoskeletal: Tenderness - Right lower extremity Neurological: Neuro grossly intact, Sensory exam intact to light touch and pain - To upper extremities, sensation is diminished in both lower extremities Psych/Mental Status: Normal Affect, Appropriate Microbiology Past 72 Hours 01/06/20 01:00 Urine, Clean Catch Urine Culture - Final Mixed Gram Positive Organisms Laboratory Results 01/06/20 01:09: Specimen Type ART, Sample Site L RADIAL, Matty Test POS, O2 Delivery Device Room Air, Blood Gas Notified Whom ED 01/06/20 15:41: Blood Type O POSITIVE, Antibody Screen NEGATIVE 01/07/20 03:15: WBC 21.8 H, RBC 5.68, Hgb 16.4, Hct 47.6, MCV 83.8, MCH 28.9, MCHC 34.5 D, RDW Std Deviation 39.0, RDW Coeff of Neftali 12.9, Plt Count 198, MPV 10.5, Immature Gran % (Auto) 0.700, Neut % (Auto) 83.1 H, Lymph % (Auto) 10.9 L, [place] % (Auto) 5.1, Eos % (Auto) 0.0, Baso % (Auto) 0.2, Absolute Neuts (auto) 18.1 H, Absolute Lymphs (auto) 2.38, Nucleated RBC % 0 01/07/20 03:15: Sodium 129 L, Potassium 3.6, Chloride 94 L, Carbon Dioxide 25.0, Anion Gap 10, BUN 16, Creatinine 1.52 H, Estim Creat Clear Calc 63.75, Est GFR (MDRD) Af Amer 66, Est GFR (MDRD) Non-Af 55 L, BUN/Creatinine Ratio 10.5, Glucose 154 H, Calcium 6.6 L, Total Bilirubin 0.50, AST 4502 H, ALT 975 H, Alkaline Phosphatase 74, Total Creatine Kinase 917747 H, Total Protein 5.5 L, Albumin 2.0 L, Globulin 3.5, Albumin/Globulin Ratio 0.6 L Current Medications Fluphenazine HCl (Prolixin) 5 mg PO QHS [facility] Gabapentin (Neurontin) 100 mg PO Q8 [facility] Last Admin: 01/07/20 01:57 Dose: 100 mg Documented by: Hydroxyzine Pamoate (Vistaril Pamoate Capsule) 50 mg PO BID [facility] Last Admin: 01/07/20 10:33 Dose: 50 mg Documented by: Sodium Bicarbonate 50 meq/ (Dextrose) 1,050 mls @ 100 mls/hr IV .[id number] [facility] Last Admin: 01/07/20 01:02 Dose: 100 mls/hr Documented by: Sodium Chloride () 250 mls @ 15 mls/hr IV .[id number] PRN PRN Reason: Saline Flush Sodium Chloride () 250 mls @ 15 mls/hr IV .[id number] PRN PRN Reason: Additional IVPB Infusion Morphine Sulfate () 2 mg IV Q4H PRN PRN PRN Reason: Pain Score 6-10/10 Last Admin: 01/07/20 09:38 Dose: 2 mg Documented by: Nicotine (Nicoderm Cq (Pbkc)) 21 mg TRANSDERM. DAILY [facility] Last Admin: 01/06/20 19:38 Dose: 21 mg Documented by: Ondansetron HCl (Zofran) 4 mg IV Q8H PRN PRN PRN Reason: NAUSEA/VOMITING Oxycodone HCl (Oxyir) 5 mg PO Q6H PRN PRN PRN Reason: Pain Score 6-10/10 Last Admin: 01/07/20 08:16 Dose: 5 mg Documented by: Senna/Docusate Sodium (Senokot-S, Mari-Colace) 2 tablet PO BID PRN PRN PRN Reason: Constipation Sodium Chloride () 10 - 40 ml IV UD PRN PRN Reason: SALINE FLUSH Last Admin: 01/07/20 10:32 Dose: 20 ml Documented by: Zolpidem Tartrate (Ambien (Generic)) 5 mg PO QHS PRN PRN PRN Reason: INSOMNIA STROKE Vital Signs/Narrative: Vital Signs Pulse Resp BP Pulse Ox 01/07/20 11:00 91 01/07/20 10:00 116 H 21 H 115/76 96 Medical Necessity - Tobacco Use Smoking Status: Current every day smoker Tobacco Use: Cigarettes Assessment/Plan All Active Problems Neuropraxia of left lower extremity (Acute) Heroin abuse (Acute) Acute renal failure (Acute) Hyperkalemia (Acute) Rhabdomyolysis (Acute) Metabolic acidosis (Acute) Elevated troponin I level (Acute) 1. Rhabdomyolysis with right lower extremity compartment syndrome secondary to heroin overdose/ARF/elevated troponin/acute liver injury -Troponin elevation secondary to rhabdomyolysis -Status post fasciotomies, wound care consulted as well as plastic surgery -Continue with IV fluids (bicarb drip), there is been improvement in both his CPK and his creatinine -Morphine and oxycodone PRN for pain -We will need to set him up with outpatient drug rehab for heroin abuse -Creatinine on admission of 2.71, down to 1.5 -Potassium is now normal at 3.6, he was at 8 on admission -We will continue to monitor LFTs 2. Schizophrenia/anxiety/depression -Stable -Continue with fluphenazine DVT: SCDs Inpatient E&M: 11630 Subs Hosp L2
--- NOTE | 2020-01-07 13:56 | CASEMGMT ---
Addendum entered by Lakesha Tadeo 01/07/20 14:48: Per Dr. Coe, pt will not be discharged over weekend d/t still elevated CK(which pt is on bicarb gtt for), wound vac has not yet been approved, and therapy has not been able to assess to see if pt can even bear weight on legs. CM to follow up on friday, no green sheet on chart. Barbara WALTERS CM Original Note: Per Samaria, wound nurse, pt had wound vac applied this am and she is awaiting for approval from insurance for same. Pt will need C set up for MWF wound vac changes. Pt also has not been up out of bed with therapy yet and has decreased sensation to bilat legs. Referral faxed to [facility] at this time for SN, PT/OT. Awaiting call back at this time. Unsure when pt will be discharged from [facility]. Green sheet on chart to be placed on chart once pt gets C to accept him. Barbara WALTERS CM
--- NOTE | 2020-01-07 17:42 | CON.PCM_ITS ---
Reason for Consult Date of Consultation: 01/07/20 Reason for Consultation: Fasciotomy wounds right leg. REFERRING PHYSICIAN: Dr. Grayson. QUARRY SUPERVISOR OPEN PIT: Dr. Duran. History of Present Illness: The patient is a 39 year old M who was admitted with history of heroin overdose and passing out and developed acute compartment syndrome right leg and associated rhabdomyolysis. He went to surgery emergently yesterday, 01/06/20, and Dr. Grayson performed a traumatic 4 compartment release right leg. He is currently in the ICU for monitoring. He has two open surgical fasciotomy wounds on his right lateral leg and right medial leg. I was asked to evaluate this patient for wound care management and surgical options for treatment. Past Medical History Past Medical History (Chronic Problems): Chronic Problems Anxiety (Chronic) Schizophrenia (Chronic) IVDU (intravenous drug user) (Chronic) Allergies No Known Allergies Allergy (Verified 01/05/20 23:22) Home Medications: Ambulatory Orders Medication Instructions Recorded No Known/Unobtainable [No Known 03/08/17 Home Medications] Surgical History: - - Left arm surgery for left arm abscess due to IV drug use. Psychiatric History: Anxiety, Schizophrenia Lives: With Family Smoking Status: Current every day smoker Tobacco Use: Cigarettes Alcohol: None Drugs: Heroin, - - Methamphetamines. - *Family History Paternal History Items: No pertinent history Maternal History Items: No pertinent history Review of Systems Comment: Constitutional: Reports: Weakness. Denies: Anorexia, Chills, Fever. Eyes: Denies: Blurred vision, Double vision, Drainage, Redness. HEENT: Denies: Difficulty Hearing, Ear Pain, Eye Pain, Nasal Congestion, Sore Throat. Cardiovascular: Denies: Chest Pain, Chest Pressure, Chest Tightness, Edema, Heaviness, Light Headedness, Palpitations, Syncope. Respiratory: Denies: Cough, Pleuritic Pain, Shortness of Breath, Sputum production, Wheezing. Gastrointestinal: Denies: Abdominal Pain, Constipation, Diarrhea, Nausea, Vomiting. Genitourinary: Reports: Hematuria. Denies: Dysuria, Frequency. Musculoskeletal: Reports: Leg Pain, Muscle pain. Denies: Arm Pain, Back Pain. Skin: Denies: Dryness, Rash. Neurological: Reports: Focal weakness, Numbness. Denies: Balance problems, Double vision, Change in Speech, Slurred speech, Confusion, Headaches. Psychiatric: Reports: Anxiety. Denies: Depression. Endocrine: Denies: Change in Body Habitus, Polydipsia, Polyuria Patient Problems: Active and Suspected Problems History of fasciotomy (Acute) Compartment syndrome of right lower extremity (Acute) Open wound of right lower leg (Acute) open surgical fasciotomy wound right lateral leg open surgical fasciotomy wound right medial leg Neuropraxia of left lower extremity (Acute) Heroin abuse (Acute) Acute renal failure (Acute) Hyperkalemia (Acute) Rhabdomyolysis (Acute) Metabolic acidosis (Acute) Elevated troponin I level (Acute) - Physical Exam Vitals/I&O's: General: Alert, Oriented x3. HEENT: PERRLA, EOMI. Oral: Moist Mucosa. Neck: Supple, Nontender. No cervical adenopathy. Lungs: Clear to auscultation. Cardiovascular: Regular rate, Regular Rhythm. Abdomen: Soft, Non-Distended. Extremities: Skin: No rashes, No breakdown Large fasciotomy wounds right leg. Moderate swelling. Muscle seen in both wounds are soft and pink and viable. Tenderness to palpation. Did reasonably well with the dressing change today. Right lateral leg wound measures 16.5 x 5.8 x 0.3 cm. Right medial leg wound measures 16 x 5.2 x 0.2 cm. Neurological: Cranial nerves II-XII grossly intact. Psych/Mental Status: Normal Affect, Appropriate, Alert and oriented to time, place, person, mood and affect Vital Signs Temp Pulse Resp BP Pulse Ox 98.2 F 92 18 157/99 H 98 01/07/20 17:41 01/07/20 17:41 01/07/20 17:41 01/07/20 17:41 01/07/20 17:41 Oxygen Delivery Method Room Air Weight: 162 lb 0.636 oz Body Mass Index (BMI) 24.5 Intake and Output for Last 24 Hours 01/05/20 01/06/20 01/07/20 23:59 23:59 23:59 Intake Total 41312.17 / 37928.17 4233.33 / 4233.33 Output Total 1850 / 2400 1600 / 1600 Balance 9059.17 / 9609.17 2633.33 / 2633.33 Microbiology Past 72 Hours 01/06/20 01:00 Urine, Clean Catch Urine Culture - Final Mixed Gram Positive Organisms Laboratory Results 01/06/20 01:09: Specimen Type ART, Sample Site L RADIAL, Matty Test POS, O2 Delivery Device Room Air, Blood Gas Notified Whom ED 01/07/20 03:15: WBC 21.8 H, RBC 5.68, Hgb 16.4, Hct 47.6, MCV 83.8, MCH 28.9, MCHC 34.5 D, RDW Std Deviation 39.0, RDW Coeff of Neftali 12.9, Plt Count 198, MPV 10.5, Immature Gran % (Auto) 0.700, Neut % (Auto) 83.1 H, Lymph % (Auto) 10.9 L, [place] % (Auto) 5.1, Eos % (Auto) 0.0, Baso % (Auto) 0.2, Absolute Neuts (auto) 18.1 H, Absolute Lymphs (auto) 2.38, Nucleated RBC % 0 01/07/20 03:15: Sodium 129 L, Potassium 3.6, Chloride 94 L, Carbon Dioxide 25.0, Anion Gap 10, BUN 16, Creatinine 1.52 H, Estim Creat Clear Calc 63.75, Est GFR (MDRD) Af Amer 66, Est GFR (MDRD) Non-Af 55 L, BUN/Creatinine Ratio 10.5, Glucose 154 H, Calcium 6.6 L, Total Bilirubin 0.50, AST 4502 H, ALT 975 H, Alkaline Phosphatase 74, Total Creatine Kinase 998582 H, Total Protein 5.5 L, Albumin 2.0 L, Globulin 3.5, Albumin/Globulin Ratio 0.6 L Current Medications Benztropine Mesylate (Cogentin) 1 mg PO DAILY PRN PRN PRN Reason: AGITATION/PSYCHOSIS Fluphenazine HCl (Prolixin) 5 mg PO QHS [facility] Gabapentin (Neurontin) 100 mg PO Q8 [facility] Last Admin: 01/07/20 13:00 Dose: 100 mg Documented by: Hydroxyzine Pamoate (Vistaril Pamoate Capsule) 50 mg PO BID [facility] Last Admin: 01/07/20 10:33 Dose: 50 mg Documented by: Sodium Bicarbonate 50 meq/ (Dextrose) 1,050 mls @ 100 mls/hr IV .[id number] [facility] Last Admin: 01/07/20 12:58 Dose: 100 mls/hr Documented by: Sodium Chloride () 250 mls @ 15 mls/hr IV .[id number] PRN PRN Reason: Saline Flush Sodium Chloride () 250 mls @ 15 mls/hr IV .[id number] PRN PRN Reason: Additional IVPB Infusion Morphine Sulfate () 2 mg IV Q4H PRN PRN PRN Reason: Pain Score 6-10/10 Last Admin: 01/07/20 16:50 Dose: 2 mg Documented by: Nicotine (Nicoderm Cq (Pbkc)) 21 mg TRANSDERM. DAILY [facility] Last Admin: 01/06/20 19:38 Dose: 21 mg Documented by: Ondansetron HCl (Zofran) 4 mg IV Q8H PRN PRN PRN Reason: NAUSEA/VOMITING Oxycodone HCl (Oxyir) 5 mg PO Q6H PRN PRN PRN Reason: Pain Score 6-10/10 Last Admin: 01/07/20 08:16 Dose: 5 mg Documented by: Senna/Docusate Sodium (Senokot-S, Mari-Colace) 2 tablet PO BID PRN PRN PRN Reason: Constipation Sodium Chloride () 10 - 40 ml IV UD PRN PRN Reason: SALINE FLUSH Last Admin: 01/07/20 16:50 Dose: 10 ml Documented by: Zolpidem Tartrate (Ambien (Generic)) 5 mg PO QHS PRN PRN PRN Reason: INSOMNIA Assessment/Plan All Active Problems History of fasciotomy (Acute) Compartment syndrome of right lower extremity (Acute) Open wound of right lower leg (Acute) Neuropraxia of left lower extremity (Acute) Heroin abuse (Acute) Acute renal failure (Acute) Hyperkalemia (Acute) Rhabdomyolysis (Acute) Metabolic acidosis (Acute) Elevated troponin I level (Acute) 1. Open surgical fasciotomy wound right lateral leg. 2. Open surgical fasciotomy wound right medial leg. 3. Compartment syndrome right leg. 4. Rhabdomyolysis. 5. s/p traumatic 4 compartment release right leg. 6. IV drug user. 7. Heroin abuse. 8. Schizophrenia. 9. Smoker. Patient has recent fasciotomy wounds right lateral leg and right medial leg, Initially will proceed with wound care with the VAC. If too painful, can switch to daily Silver dressing changes. After discharge will [facility]up [facility]. Depending on the healing process, can discuss delayed closure with skin grafting in 4-6 weeks. Skin grafting depends on the amount of residual swelling that is still present. Skin grafts have an increased risk of suboptimal healing if swelling persists. During this time frame, the wounds become more superficial with granulation tissue and become smaller from the wound healing process. Sometimes both wounds are skin grafted or one wound can be closed with a complex secondary wound closure and the other one skin grafted. Since no skin was excised, the wounds can heal without skin grafting. This option may take several months, at least 6 months. Once the wounds are skin grafted, the patient may return in a year after the edema and swelling has resolved if he doesn't like the skin grafts and discussion can involved further operative intervention with excision of skin graft scar with complex secondary wound closure. Sometimes the skin graft revision has to be done in stages. Anticipate increased metabolic demands from the wounds. Encourage nutritional supplementation with protein to help the healing process. Patient was informed of the risks and complications of the procedure including alternatives to surgery. These were discussed with the patient personally. Patient voices understanding and wishes to proceed with the current plan of wound care with the VAC with subsequent delayed closure with skin grafting. It's ok to ambulate but he needs to minimize standing to control the swelling. Also a compression FAN wrap is needed to help control the swelling as well. With his history of IV drug use, there is increased risk of wound healing problems if he continues to abuse IV drugs. He voices understanding. Encouraged patient to stop smoking as it may have deleterious effects on wound healing. Inpatient E&M: 87710 Init Hosp L2 - ICD-10 - S81.801A, T79.A21A, M62.82, Z98.890, F19.90, F11.10, F20.9, F17.200
[2020-01-07] MEDS: Zolpidem Tartrate 5 MG Tablet PO (21:44)
[2020-01-08] VITALS (9 sets, daily range): BP systolic 130–158; BP diastolic 82–94; PULSE 85–127; RESP 16–18; TEMP 36.5–37.7; O2SAT 94–100
[2020-01-08] MEDS: 0.9% Saline Lock 10 ML Syringe IV ×2 (04:07→12:36)
[2020-01-08] MEDS: Morphine 2 MG/ML Syringe IV ×3 (04:07→20:57)
[2020-01-08 06:11] LABS: Absolute Lymphocyte Count 2.37 X10^3/uL (0.83-4.51); Absolute Neutrophil Count 12.6 X10^3/uL (2.0-7.7); Basophil# 0.04 X10^3/uL; Basophil% 0.2 % (0-1); Eosinophil# 0.03 X10^3/uL; Eosinophils% 0.2 % (0-5); Hematocrit 43.1 % (40-54); Hemoglobin 14.7 g/dL (13.0-16.5); Lymphocyte # 2.37 X10^3/ul (4.0); Lymphocyte % 14.6 % (19-41); Mean Corp Hgb Conc 34.1 g/dL (32-36); Mean Corpuscular Hgb 28.9 pg (27.0-32.0); Mean Corpuscular Volume 84.8 fL (80-94); Mean Platelet Vol. 10.8 fl (6.2-12.0); Monocyte# 0.99 X10^3/uL; Monocyte% 6.1 % (0-10); NRBC Flagged by Analyzer 0 % (0-5); Neutrophil # 12.64 X10^3/uL (2.7-7.7); Neutrophil % 78.2 % (47-70); Platelet Count 165 K/mm3 (150-450); RBC Distribution Width CV 13.1 % (11.6-14.6); RBC Distribution Width SD 40.1 fl (35.1-43.9); Red Blood Count 5.08 M/mm3 (4.6-6.2); White Blood Count 16.2 K/mm3 (4.4-11.0)
[2020-01-08] MEDS: oxyCODONE 5 MG Tablet PO ×3 (06:31→22:58)
[2020-01-08] MEDS: Gabapentin 100 MG Capsule PO ×3 (06:31→20:59)
[2020-01-08 09:31] LABS: ALB/GLOB Ratio 0.5 RATIO (0.9-2.4); AST(SGOT) 1998 U/L (15-37); Alanine Aminotransfer ALT/SGPT 685 U/L (16-61); Albumin, Serum 1.9 g/dL (3.2-5.0); Alkaline Phosphatase 66 U/L (45-117); Anion Gap 7 (5-15); BUN 18 mg/dL (7-18); Calcium,Total 7.3 mg/dL (8.5-10.1); Chloride 93 mmol/L (98-107); Creatinine, Serum 1.64 mg/dL (0.70-1.30); EST Glomerular Filtration Rate 50 mL/min (>60); Est Glom Filt Rate - Afr Amer 61 mL/min (>60); Estimated Creatinine Clearance 59.09 ml/min; Globulin 3.6 g/dL (2.2-4.2); Glucose 144 mg/dL (74-106); Potassium 2.8 mmol/L (3.5-5.1); Protein, Total 5.5 g/dL (6.4-8.2); Sodium Level 131 mmol/L (136-145)
[2020-01-08] MEDS: hydrOXYzine PAM 25 MG Capsule 50 MG PO ×2 (09:49→20:59)
--- NOTE | 2020-01-08 09:56 | PN_ITS ---
Patient Problems: Active and Suspected Problems Neuropraxia of left lower extremity (Acute) Heroin abuse (Acute) Acute renal failure (Acute) Hyperkalemia (Acute) Rhabdomyolysis (Acute) Metabolic acidosis (Acute) Elevated troponin I level (Acute) Subjective: Patient did well overnight. Patient states lower extremity pain is improving. Patient is actually reporting little to no discomfort of the right lower extremity. Patient is reporting some irritation of the penis that he associates with pissing so much. - Physical Exam Vitals/I&O's: Vital Signs Temp Pulse Resp BP Pulse Ox 36.9 C 85 16 130/82 H 94 01/08/20 09:39 01/08/20 09:39 01/08/20 09:39 01/08/20 09:39 01/08/20 09:39 Oxygen Delivery Method Room Air Weight: 72.8 kg Body Mass Index (BMI) 24.5 Intake and Output for Last 24 Hours 01/06/20 01/07/20 01/08/20 23:59 23:59 23:59 Intake Total 28046.17 / 54159.17 5605.00 / 5605.00 1280 / 1280 Output Total 1850 / 2400 2675 / 2675 1210 / 1210 Balance 9059.17 / 9609.17 2930.00 / 2930.00 70 / 70 General: Alert, Oriented x3, Cooperative, No apparent distress, - - Appears older than stated age. Speaking in full sentences. HEENT: Atraumatic, PERRLA, EOMI, Normocephalic, - - No scleral icterus or injection noted Oral: Moist Mucosa, No Gingival or Mucosal Lesions/ Ulcerations Neck: Supple, No JVD, No Nodes, Trachea Midline Lungs: Clear to auscultation, Normal air movement, No rhonchi, No wheeze, No rales, - - Symmetric expansion. No dullness to percussion. Cardiovascular: Regular rate, Regular Rhythm, Normal S1, Normal S2, No murmurs, No rub noted, No Gallop Abdomen: Bowel Sounds Present, Soft, Non Tender, Non-Distended Extremities: No clubbing, No cyanosis, Edema - Improving Skin: - - Right lower extremity wrapped on my evaluation Musculoskeletal: No Tenderness to Palpation of Joints or Extremities Lymphatic: No Cervical, Supraclavicular, or Inguinal Adenopathy Neurological: Cranial nerves II-XII grossly intact, Neuro grossly intact, Motor Exam 5/5 strength throughout Psych/Mental Status: Alert and oriented to time, place, person, mood and affect Microbiology Past 72 Hours 01/06/20 01:00 Urine, Clean Catch Urine Culture - Final Mixed Gram Positive Organisms Laboratory Results 01/08/20 05:36: WBC 16.2 H, RBC 5.08, Hgb 14.7, Hct 43.1, MCV 84.8, MCH 28.9, MCHC 34.1, RDW Std Deviation 40.1, RDW Coeff of Neftali 13.1, Plt Count 165, MPV 10.8, Immature Gran % (Auto) 0.700, Neut % (Auto) 78.2 H, Lymph % (Auto) 14.6 L, [place] % (Auto) 6.1, Eos % (Auto) 0.2, Baso % (Auto) 0.2, Absolute Neuts (auto) 12.6 H, Absolute Lymphs (auto) 2.37, Nucleated RBC % 0 01/08/20 05:36: Sodium 131 L, Potassium 2.8 L, Chloride 93 L, Carbon Dioxide 31.0, Anion Gap 7, BUN 18, Creatinine 1.64 H, Estim Creat Clear Calc 59.09, Est GFR (MDRD) Af Amer 61, Est GFR (MDRD) Non-Af 50 L, BUN/Creatinine Ratio 11.0, Glucose 144 H, Calcium 7.3 L, Total Bilirubin 0.60, AST 1998 H, ALT 685 H, Alkaline Phosphatase 66, Total Creatine Kinase 86096 H, Total Protein 5.5 L, Albumin 1.9 L, Globulin 3.6, Albumin/Globulin Ratio 0.5 L Current Medications Benztropine Mesylate (Cogentin) 1 mg PO DAILY PRN PRN PRN Reason: AGITATION/PSYCHOSIS Fluphenazine HCl (Prolixin) 5 mg PO QHS [facility] Last Admin: 01/07/20 21:45 Dose: 5 mg Documented by: Gabapentin (Neurontin) 100 mg PO Q8 [facility] Last Admin: 01/08/20 06:31 Dose: 100 mg Documented by: Hydroxyzine Pamoate (Vistaril Pamoate Capsule) 50 mg PO BID [facility] Last Admin: 01/08/20 09:49 Dose: 50 mg Documented by: Sodium Bicarbonate 50 meq/ (Dextrose) 1,050 mls @ 100 mls/hr IV .[id number] [facility] Last Admin: 01/08/20 08:17 Dose: 100 mls/hr Documented by: Sodium Chloride () 250 mls @ 15 mls/hr IV .[id number] PRN PRN Reason: Saline Flush Sodium Chloride () 250 mls @ 15 mls/hr IV .[id number] PRN PRN Reason: Additional IVPB Infusion Morphine Sulfate () 2 mg IV Q4H PRN PRN PRN Reason: Pain Score 6-10/10 Last Admin: 01/08/20 09:40 Dose: 2 mg Documented by: Nicotine (Nicoderm Cq (Pbkc)) 21 mg TRANSDERM. DAILY [facility] Last Admin: 01/08/20 09:48 Dose: 21 mg Documented by: Ondansetron HCl (Zofran) 4 mg IV Q8H PRN PRN PRN Reason: NAUSEA/VOMITING Oxycodone HCl (Oxyir) 5 mg PO Q6H PRN PRN PRN Reason: Pain Score 6-10/10 Last Admin: 01/08/20 06:31 Dose: 5 mg Documented by: Senna/Docusate Sodium (Senokot-S, Mari-Colace) 2 tablet PO BID PRN PRN PRN Reason: Constipation Sodium Chloride () 10 - 40 ml IV UD PRN PRN Reason: SALINE FLUSH Last Admin: 01/08/20 04:07 Dose: 10 ml Documented by: Zolpidem Tartrate (Ambien (Generic)) 5 mg PO QHS PRN PRN PRN Reason: INSOMNIA Last Admin: 01/07/20 21:44 Dose: 5 mg Documented by: Medical Necessity - Tobacco Use Smoking Status: Current every day smoker Tobacco Use: Cigarettes Assessment/Plan All Active Problems Neuropraxia of left lower extremity (Acute) Heroin abuse (Acute) Acute renal failure (Acute) Hyperkalemia (Acute) Rhabdomyolysis (Acute) Metabolic acidosis (Acute) Elevated troponin I level (Acute) RECOMMENDATIONS: 1. Continue aggressive hydration. Okay to discontinue bicarbonate drip 2. Lower extremity care per orthopedic and plastic surgery 3. Hemodynamically stable on room air. Will sign off from a critical care perspective IMPRESSIONS: 1. Severe rhabdomyolysis with right lower extremity compartment syndrome Significant improvement in CPK over the last 24 hours. Patient has significant pedal pulses. We will continue to watch for swelling over the next 12 to 24 hours. Patient is receiving aggressive hydration, but is refusing Lopez catheter at this time. Patient has been able to compensate with hydration and CPK has decreased by 50%. Renal function is stable at this point. Hemodynamically stable on room air. Will sign off from a critical care perspective. 2. Acute renal failure Clinical suspicion that this is secondary to #1. Patient with hyperkalemia initially. Patient may want a follow-up with nephrology as an outpatient. Patient is improving with conservative therapy. 3. Right lower extremity compartment syndrome Patient still with pedal pulses. Will need to follow closely. Left lower extremity appears to be improving. Right lower extremity with fasciotomy. Defer to plastic and orthopedic surgery. 4. Elevated troponin Medical suspicion for supply versus demand mismatch given heroin overdose. Echocardiogram shows preserved ejection fraction with no significant valvular abnormalities. Patient is on telemetry. We will continue to monitor given electrolyte abnormalities. 5. Heroin abuse/schizophrenia/anxiety/history of IV drug use/marginal cooperation Complicates care, management, recovery and prognosis. Okay to reinitiate baseline medications from my perspective. Outpatient HIV testing would be appropriate. Inpatient E&M: 21610 Subs Hosp L2
--- NOTE | 2020-01-08 12:21 | PN_ITS ---
Patient Problems: Active and Suspected Problems Neuropraxia of left lower extremity (Acute) Heroin abuse (Acute) Acute renal failure (Acute) Hyperkalemia (Acute) Rhabdomyolysis (Acute) Metabolic acidosis (Acute) Elevated troponin I level (Acute) Subjective: Doing well, no issues overnight, pain is improving. Vitals/I&O's: Vital Signs Temp Pulse Resp BP Pulse Ox 98.4 F 85 16 130/82 H 94 01/08/20 09:39 01/08/20 09:39 01/08/20 09:39 01/08/20 09:39 01/08/20 09:39 Oxygen Delivery Method Room Air Weight: 160 lb 7.944 oz Body Mass Index (BMI) 24.5 Intake and Output for Last 24 Hours 01/06/20 01/07/20 01/08/20 23:59 23:59 23:59 Intake Total 30632.17 / 29134.17 5605.00 / 5605.00 1466.67 / 1466.67 Output Total 1850 / 2400 2675 / 2675 1210 / 1210 Balance 9059.17 / 9609.17 2930.00 / 2930.00 256.67 / 256.67 General: Alert, Oriented x3, Cooperative, No apparent distress HEENT: Atraumatic, PERRLA, EOMI, Normocephalic Oral: Moist Mucosa Neck: Supple, No JVD Lungs: Clear to auscultation, Normal air movement, No rhonchi, No wheeze, No rales Cardiovascular: Regular rate, Regular Rhythm, Normal S1, Normal S2, No murmurs Abdomen: Soft, Non Tender, Non-Distended, No Hepato-splenomegaly Extremities: Edema, Peripheral Pulses Normal, - - Right lower extremity in dressings Musculoskeletal: Tenderness - Right lower extremity Neurological: Neuro grossly intact, Sensory exam intact to light touch and pain - To upper extremities, sensation is diminished in both lower extremities Psych/Mental Status: Normal Affect, Appropriate Microbiology Past 72 Hours 01/06/20 01:00 Urine, Clean Catch Urine Culture - Final Mixed Gram Positive Organisms Laboratory Results 01/08/20 05:36: WBC 16.2 H, RBC 5.08, Hgb 14.7, Hct 43.1, MCV 84.8, MCH 28.9, MCHC 34.1, RDW Std Deviation 40.1, RDW Coeff of Neftali 13.1, Plt Count 165, MPV 10.8, Immature Gran % (Auto) 0.700, Neut % (Auto) 78.2 H, Lymph % (Auto) 14.6 L, [place] % (Auto) 6.1, Eos % (Auto) 0.2, Baso % (Auto) 0.2, Absolute Neuts (auto) 12.6 H, Absolute Lymphs (auto) 2.37, Nucleated RBC % 0 01/08/20 05:36: Sodium 131 L, Potassium 2.8 L, Chloride 93 L, Carbon Dioxide 31.0, Anion Gap 7, BUN 18, Creatinine 1.64 H, Estim Creat Clear Calc 59.09, Est GFR (MDRD) Af Amer 61, Est GFR (MDRD) Non-Af 50 L, BUN/Creatinine Ratio 11.0, Glucose 144 H, Calcium 7.3 L, Total Bilirubin 0.60, AST 1998 H, ALT 685 H, Alkaline Phosphatase 66, Total Creatine Kinase 11076 H, Total Protein 5.5 L, Albumin 1.9 L, Globulin 3.6, Albumin/Globulin Ratio 0.5 L Current Medications Benztropine Mesylate (Cogentin) 1 mg PO DAILY PRN PRN PRN Reason: AGITATION/PSYCHOSIS Fluphenazine HCl (Prolixin) 5 mg PO QHS [facility] Last Admin: 01/07/20 21:45 Dose: 5 mg Documented by: Gabapentin (Neurontin) 100 mg PO Q8 [facility] Last Admin: 01/08/20 06:31 Dose: 100 mg Documented by: Hydroxyzine Pamoate (Vistaril Pamoate Capsule) 50 mg PO BID [facility] Last Admin: 01/08/20 09:49 Dose: 50 mg Documented by: Sodium Chloride () 250 mls @ 15 mls/hr IV .[id number] PRN PRN Reason: Saline Flush Sodium Chloride () 250 mls @ 15 mls/hr IV .[id number] PRN PRN Reason: Additional IVPB Infusion Morphine Sulfate () 2 mg IV Q4H PRN PRN PRN Reason: Pain Score 6-10/10 Last Admin: 01/08/20 09:40 Dose: 2 mg Documented by: Nicotine (Nicoderm Cq (Pbkc)) 21 mg TRANSDERM. DAILY [facility] Last Admin: 01/08/20 09:48 Dose: 21 mg Documented by: Ondansetron HCl (Zofran) 4 mg IV Q8H PRN PRN PRN Reason: NAUSEA/VOMITING Oxycodone HCl (Oxyir) 5 mg PO Q6H PRN PRN PRN Reason: Pain Score 6-10/10 Last Admin: 01/08/20 06:31 Dose: 5 mg Documented by: Senna/Docusate Sodium (Senokot-S, Mari-Colace) 2 tablet PO BID PRN PRN PRN Reason: Constipation Sodium Chloride () 10 - 40 ml IV UD PRN PRN Reason: SALINE FLUSH Last Admin: 01/08/20 04:07 Dose: 10 ml Documented by: Zolpidem Tartrate (Ambien (Generic)) 5 mg PO QHS PRN PRN PRN Reason: INSOMNIA Last Admin: 01/07/20 21:44 Dose: 5 mg Documented by: STROKE Vital Signs/Narrative: Vital Signs Temp Pulse Resp BP Pulse Ox 01/08/20 09:39 98.4 F 85 16 130/82 H 94 Medical Necessity - Tobacco Use Smoking Status: Current every day smoker Tobacco Use: Cigarettes Assessment/Plan All Active Problems Neuropraxia of left lower extremity (Acute) Heroin abuse (Acute) Acute renal failure (Acute) Hyperkalemia (Acute) Rhabdomyolysis (Acute) Metabolic acidosis (Acute) Elevated troponin I level (Acute) 1. Rhabdomyolysis with right lower extremity compartment syndrome secondary to heroin overdose/ARF/elevated troponin/acute liver injury -Troponin elevation secondary to rhabdomyolysis -Status post fasciotomies, wound care consulted as well as plastic surgery -Continue with IV fluids (bicarb drip), there is been improvement in both his CPK and his creatinine -Morphine and oxycodone PRN for pain -We will need to set him up with outpatient drug rehab for heroin abuse -Creatinine on admission of 2.71, down to 1.64 -Potassium 2.8, he was at 8 on admission -We will continue to monitor LFTs 2. Schizophrenia/anxiety/depression -Stable -Continue with fluphenazine DVT: SCDs Inpatient E&M: 95780 Subs Hosp L2
[2020-01-08] MEDS: Zolpidem Tartrate 5 MG Tablet PO (20:59)
[2020-01-09] VITALS (9 sets, daily range): BP systolic 127–147; BP diastolic 78–87; PULSE 91–104; RESP 16–18; TEMP 36.4–37.1; O2SAT 96–99
[2020-01-09] MEDS: Morphine 2 MG/ML Syringe IV ×3 (04:05→18:18)
[2020-01-09] MEDS: 0.9% Saline Lock 10 ML Syringe IV ×3 (04:06→18:18)
[2020-01-09] MEDS: oxyCODONE 5 MG Tablet PO ×3 (06:04→21:52)
[2020-01-09] MEDS: Gabapentin 100 MG Capsule PO ×3 (06:04→21:52)
[2020-01-09 08:33] LABS: ALB/GLOB Ratio 0.5 RATIO (0.9-2.4); AST(SGOT) 1408 U/L (15-37); Alanine Aminotransfer ALT/SGPT 554 U/L (16-61); Alkaline Phosphatase 56 U/L (45-117); Anion Gap 5 (5-15); BUN 16 mg/dL (7-18); BUN/Creat Ratio 9.4 RATIO (10-20); CPK Total, Creatine Kinase 39938 U/L (39-308); Chloride 96 mmol/L (98-107); EST Glomerular Filtration Rate 48 mL/min (>60); Est Glom Filt Rate - Afr Amer 58 mL/min (>60); Globulin 3.7 g/dL (2.2-4.2); Glucose 135 mg/dL (74-106); Potassium 3.2 mmol/L (3.5-5.1); Protein, Total 5.7 g/dL (6.4-8.2); Sodium Level 135 mmol/L (136-145)
[2020-01-09] MEDS: hydrOXYzine PAM 25 MG Capsule 50 MG PO ×2 (09:52→21:51)
--- NOTE | 2020-01-09 12:10 | PN_ITS ---
Patient Problems: Active and Suspected Problems Neuropraxia of left lower extremity (Acute) Heroin abuse (Acute) Acute renal failure (Acute) Hyperkalemia (Acute) Rhabdomyolysis (Acute) Metabolic acidosis (Acute) Elevated troponin I level (Acute) Subjective: Pain is fairly well controlled, he is able to move his toes today. His left leg is more painful than his right leg. Vitals/I&O's: Vital Signs Temp Pulse Resp BP Pulse Ox 98.2 F 97 16 134/79 H 96 01/09/20 11:00 01/09/20 11:00 01/09/20 11:00 01/09/20 11:01/09/20 11:00 Oxygen Delivery Method Room Air Weight: 169 lb 12.095 oz Body Mass Index (BMI) 24.5 Intake and Output for Last 24 Hours 01/07/20 01/08/20 01/09/20 23:59 23:59 23:59 Intake Total 5605.00 / 5605.00 3466.67 / 3466.67 480 / 480 Output Total 2675 / 2675 5210 / 5210 1825 / 1825 Balance 2930.00 / 2930.00 -1743.33 / -1743.33 -1345 / -1345 General: Alert, Oriented x3, Cooperative, No apparent distress HEENT: Atraumatic, PERRLA, EOMI, Normocephalic Oral: Moist Mucosa Neck: Supple, No JVD Lungs: Clear to auscultation, Normal air movement, No rhonchi, No wheeze, No rales Cardiovascular: Regular rate, Regular Rhythm, Normal S1, Normal S2, No murmurs Abdomen: Soft, Non Tender, Non-Distended, No Hepato-splenomegaly Extremities: Edema, Peripheral Pulses Normal, - - Right lower extremity in dressings Musculoskeletal: Tenderness - Right lower extremity Neurological: Neuro grossly intact, he is able to wiggle his toes on his lower extremities, Sensory exam intact to light touch and pain - To upper extremities, sensation is diminished in both lower extremities Psych/Mental Status: Normal Affect, Appropriate Microbiology Past 72 Hours 01/06/20 01:40 Blood Culture (Wb) - Anticubital Left Blood Culture - Preliminary No growth in 48 hours. 01/06/20 01:55 Blood Culture (Wb) - Right Forearm Blood Culture - Preliminary No growth in 48 hours. 01/06/20 01:00 Urine, Clean Catch Urine Culture - Final Mixed Gram Positive Organisms Laboratory Results 01/09/20 05:53: Sodium 135 L, Potassium 3.2 L, Chloride 96 L, Carbon Dioxide 34.0 H, Anion Gap 5, BUN 16, Creatinine 1.70 H, Estim Creat Clear Calc 57.00, Est GFR (MDRD) Af Amer 58 L, Est GFR (MDRD) Non-Af 48 L, BUN/Creatinine Ratio 9.4 L, Glucose 135 H, Calcium 8.0 L, Total Bilirubin 0.50, AST 1408 H, ALT 554 H , Alkaline Phosphatase 56, Total Creatine Kinase 51951 H, Total Protein 5.7 L, Albumin 2.0 L, Globulin 3.7, Albumin/Globulin Ratio 0.5 L Current Medications Benztropine Mesylate (Cogentin) 1 mg PO DAILY PRN PRN PRN Reason: AGITATION/PSYCHOSIS Fluphenazine HCl (Prolixin) 5 mg PO QHS [facility] Last Admin: 01/08/20 20:59 Dose: 5 mg Documented by: Gabapentin (Neurontin) 100 mg PO Q8 [facility] Last Admin: 01/09/20 06:04 Dose: 100 mg Documented by: Hydroxyzine Pamoate (Vistaril Pamoate Capsule) 50 mg PO BID [facility] Last Admin: 01/09/20 09:52 Dose: 50 mg Documented by: Sodium Chloride () 250 mls @ 15 mls/hr IV .[id number] PRN PRN Reason: Saline Flush Sodium Chloride () 250 mls @ 15 mls/hr IV .[id number] PRN PRN Reason: Additional IVPB Infusion Morphine Sulfate () 2 mg IV Q4H PRN PRN PRN Reason: Pain Score 6-10/10 Last Admin: 01/09/20 09:55 Dose: 2 mg Documented by: Nicotine (Nicoderm Cq (Pbkc)) 21 mg TRANSDERM. DAILY [facility] Last Admin: 01/09/20 09:52 Dose: 21 mg Documented by: Ondansetron HCl (Zofran) 4 mg IV Q8H PRN PRN PRN Reason: NAUSEA/VOMITING Oxycodone HCl (Oxyir) 5 mg PO Q6H PRN PRN PRN Reason: Pain Score 6-10/10 Last Admin: 01/09/20 06:04 Dose: 5 mg Documented by: Senna/Docusate Sodium (Senokot-S, Mari-Colace) 2 tablet PO BID PRN PRN PRN Reason: Constipation Sodium Chloride () 10 - 40 ml IV UD PRN PRN Reason: SALINE FLUSH Last Admin: 01/09/20 09:58 Dose: 20 ml Documented by: Zolpidem Tartrate (Ambien (Generic)) 5 mg PO QHS PRN PRN PRN Reason: INSOMNIA Last Admin: 01/08/20 20:59 Dose: 5 mg Documented by: STROKE Vital Signs/Narrative: Vital Signs Temp Pulse Resp BP Pulse Ox 01/09/20 11:00 98.2 F 97 16 134/79 H 96 Medical Necessity - Tobacco Use Smoking Status: Current every day smoker Tobacco Use: Cigarettes Assessment/Plan All Active Problems Neuropraxia of left lower extremity (Acute) Heroin abuse (Acute) Acute renal failure (Acute) Hyperkalemia (Acute) Rhabdomyolysis (Acute) Metabolic acidosis (Acute) Elevated troponin I level (Acute) 1. Rhabdomyolysis with right lower extremity compartment syndrome secondary to heroin overdose/ARF/elevated troponin/acute liver injury -Troponin elevation secondary to rhabdomyolysis -Status post fasciotomies, wound care consulted as well as plastic surgery -He will likely need placement on discharge for rehab. -Follow-up labs are trending down, can discontinue bicarb drip -Morphine and oxycodone PRN for pain -We will need to set him up with outpatient drug rehab for heroin abuse -Creatinine on admission of 2.71, down to 1.64 -Potassium 3.2, he was at 8 on admission -We will continue to monitor LFTs 2. Schizophrenia/anxiety/depression -Stable -Continue with fluphenazine DVT: SCDs Inpatient E&M: [id number] Subs Hosp L2
[2020-01-09] MEDS: Zolpidem Tartrate 5 MG Tablet PO (21:51)
[2020-01-10] MEDS: 0.9% Saline Lock 10 ML Syringe IV ×2 (00:04→08:43)
[2020-01-10] MEDS: Morphine 2 MG/ML Syringe IV ×5 (00:04→21:06)
[2020-01-10 02:49] VITALS: PULSE 103
[2020-01-10 03:43] VITALS: BP 138/77; PULSE 103; RESP 16; TEMP 36.9; O2SAT 98
[2020-01-10 06:08] LABS: Absolute Lymphocyte Count 2.28 X10^3/uL (0.83-4.51); Absolute Neutrophil Count 11.4 X10^3/uL (2.0-7.7); Basophil# 0.04 X10^3/uL; Basophil% 0.3 % (0-1); Eosinophil# 0.24 X10^3/uL; Eosinophils% 1.6 % (0-5); Hematocrit 44.4 % (40-54); Hemoglobin 14.3 g/dL (13.0-16.5); Lymphocyte # 2.28 X10^3/ul (4.0); Lymphocyte % 15.1 % (19-41); Mean Corp Hgb Conc 32.2 g/dL (32-36); Mean Corpuscular Hgb 28.6 pg (27.0-32.0); Mean Corpuscular Volume 88.8 fL (80-94); Mean Platelet Vol. 10.6 fl (6.2-12.0); Monocyte# 0.96 X10^3/uL; Monocyte% 6.3 % (0-10); NRBC Flagged by Analyzer 0 % (0-5); Neutrophil # 11.44 X10^3/uL (2.7-7.7); Neutrophil % 75.5 % (47-70); Platelet Count 184 K/mm3 (150-450); RBC Distribution Width CV 13.2 % (11.6-14.6); RBC Distribution Width SD 42.6 fl (35.1-43.9); White Blood Count 15.1 K/mm3 (4.4-11.0)
[2020-01-10] MEDS: Gabapentin 100 MG Capsule PO ×3 (06:44→21:06)
[2020-01-10] MEDS: oxyCODONE 5 MG Tablet PO ×3 (06:44→20:33)
[2020-01-10 06:48] LABS: ALB/GLOB Ratio 0.6 RATIO (0.9-2.4); AST(SGOT) 1031 U/L (15-37); Alanine Aminotransfer ALT/SGPT 419 U/L (16-61); Albumin, Serum 1.8 g/dL (3.2-5.0); Alkaline Phosphatase 52 U/L (45-117); Anion Gap 8 (5-15); BUN 15 mg/dL (7-18); BUN/Creat Ratio 9.3 RATIO (10-20); Calcium,Total 7.5 mg/dL (8.5-10.1); Chloride 94 mmol/L (98-107); Creatinine, Serum 1.61 mg/dL (0.70-1.30); EST Glomerular Filtration Rate 51 mL/min (>60); Est Glom Filt Rate - Afr Amer 62 mL/min (>60); Estimated Creatinine Clearance 60.19 ml/min; Globulin 2.8 g/dL (2.2-4.2); Glucose 142 mg/dL (74-106); Potassium 3.2 mmol/L (3.5-5.1); Protein, Total 4.6 g/dL (6.4-8.2); Sodium Level 134 mmol/L (136-145)
[2020-01-10 06:59] VITALS: PULSE 110
[2020-01-10 08:32] VITALS: BP 152/88; PULSE 95; RESP 14; TEMP 37.1; O2SAT 97
[2020-01-10] MEDS: hydrOXYzine PAM 25 MG Capsule 50 MG PO ×2 (08:41→21:05)
[2020-01-10 09:16] LABS: Phosphorus 2.8 mg/dL (2.5-4.9)
--- NOTE | 2020-01-10 11:32 | PCM.PN.HOSP ---
Patient Problems: Active and Suspected Problems Neuropraxia of left lower extremity (Acute) Heroin abuse (Acute) Acute renal failure (Acute) Hyperkalemia (Acute) Rhabdomyolysis (Acute) Metabolic acidosis (Acute) Elevated troponin I level (Acute) Reason for Visit: Acute rhabdomyolysis with right leg compartment syndrome. Vitals/I&O's: Vital Signs Temp Pulse Resp BP Pulse Ox 98.8 F 95 14 152/88 H 97 01/10/20 08:32 01/10/20 08:32 01/10/20 08:32 01/10/20 08:32 01/10/20 08:32 Oxygen Delivery Method Room Air Weight: 173 lb 1.006 oz Body Mass Index (BMI) 24.5 Intake and Output for Last 24 Hours 01/08/20 01/09/20 01/10/20 23:59 23:59 23:59 Intake Total 3466.67 / 3466.67 1610 / 1610 480 / 480 Output Total 5210 / 5210 4000 / 4000 900 / 900 Balance -1743.33 / -1743.33 -2390 / -2390 -420 / -420 General: Alert, Oriented x3, Cooperative HEENT: Atraumatic, PERRLA, EOMI, Normocephalic Neck: Supple, No JVD, Negative Carotid Bruits Lungs: Clear to auscultation, Normal air movement, No rhonchi, No wheeze, No rales Cardiovascular: Regular rate, Regular Rhythm, Normal S1, Normal S2, No murmurs Abdomen: Bowel Sounds Present, Soft, Non Tender, Non-Distended Extremities: Capillary Refill Less than 3 Seconds, Edema - Erythema of right leg, - - Right CELL TENDER and dorsalis pedis artery palpable. Skin: No rashes, No breakdown Musculoskeletal: - - Right leg on Kaleb wrap bandage. Has wound drainage. Serous fluid. Neurological: Cranial nerves II-XII grossly intact, Deep Tendon Reflexes 2+/4 and Symmetrical, Neuro grossly intact, - - Patient can extend right foot and right hallux. Psych/Mental Status: Normal Affect, Appropriate Microbiology Past 72 Hours 01/06/20 01:40 Blood Culture (Wb) - Anticubital Left Blood Culture - Preliminary No growth in 48 hours. 01/06/20 01:55 Blood Culture (Wb) - Right Forearm Blood Culture - Preliminary No growth in 48 hours. 01/06/20 01:00 Urine, Clean Catch Urine Culture - Final Mixed Gram Positive Organisms Laboratory Results 01/10/20 05:44: WBC 15.1 H, RBC 5.00, Hgb 14.3, Hct 44.4, MCV 88.8, MCH 28.6, MCHC 32.2 D, RDW Std Deviation 42.6, RDW Coeff of Neftali 13.2, Plt Count 184, MPV 10.6, Immature Gran % (Auto) 1.200 H, Neut % (Auto) 75.5 H, Lymph % (Auto) 15.1 L, [place] % (Auto) 6.3, Eos % (Auto) 1.6, Baso % (Auto) 0.3, Absolute Neuts (auto) 11.4 H, Absolute Lymphs (auto) 2.28, Nucleated RBC % 0 01/10/20 05:44: Sodium 134 L, Potassium 3.2 L, Chloride 94 L, Carbon Dioxide 32.0, Anion Gap 8, BUN 15, Creatinine 1.61 H, Estim Creat Clear Calc 60.19, Est GFR (MDRD) Af Amer 62, Est GFR (MDRD) Non-Af 51 L, BUN/Creatinine Ratio 9.3 L, Glucose 142 H, Calcium 7.5 L, Total Bilirubin 0.50, AST 1031 H, ALT 419 H, Alkaline Phosphatase 52, Total Protein 4.6 L, Albumin 1.8 L, Globulin 2.8, Albumin/Globulin Ratio 0.6 L 01/10/20 05:44: Phosphorus 2.8 Current Medications Benztropine Mesylate (Cogentin) 1 mg PO DAILY PRN PRN PRN Reason: AGITATION/PSYCHOSIS Fluphenazine HCl (Prolixin) 5 mg PO QHS [facility] Last Admin: 01/09/20 21:51 Dose: 5 mg Documented by: Gabapentin (Neurontin) 100 mg PO Q8 [facility] Last Admin: 01/10/20 06:44 Dose: 100 mg Documented by: Hydroxyzine Pamoate (Vistaril Pamoate Capsule) 50 mg PO BID [facility] Last Admin: 01/10/20 08:41 Dose: 50 mg Documented by: Sodium Chloride () 250 mls @ 15 mls/hr IV .[id number] PRN PRN Reason: Saline Flush Sodium Chloride () 250 mls @ 15 mls/hr IV .[id number] PRN PRN Reason: Additional IVPB Infusion Morphine Sulfate () 2 mg IV Q4H PRN PRN PRN Reason: Pain Score 6-10/10 Last Admin: 01/10/20 08:37 Dose: 2 mg Documented by: Nicotine (Nicoderm Cq (Pbkc)) 21 mg TRANSDERM. DAILY [facility] Last Admin: 01/10/20 08:41 Dose: 21 mg Documented by: Ondansetron HCl (Zofran) 4 mg IV Q8H PRN PRN PRN Reason: NAUSEA/VOMITING Oxycodone HCl (Oxyir) 5 mg PO Q6H PRN PRN PRN Reason: Pain Score 6-10/10 Last Admin: 01/10/20 06:44 Dose: 5 mg Documented by: Senna/Docusate Sodium (Senokot-S, Mari-Colace) 2 tablet PO BID PRN PRN PRN Reason: Constipation Sodium Chloride () 10 - 40 ml IV UD PRN PRN Reason: SALINE FLUSH Last Admin: 01/10/20 08:43 Dose: 10 ml Documented by: Zolpidem Tartrate (Ambien (Generic)) 5 mg PO QHS PRN PRN PRN Reason: INSOMNIA Last Admin: 01/09/20 21:51 Dose: 5 mg Documented by: STROKE Vital Signs/Narrative: Vital Signs Temp Pulse Resp BP Pulse Ox 01/10/20 08:32 98.8 F 95 14 152/88 H 97 Medical Necessity - Tobacco Use Smoking Status: Current every day smoker Tobacco Use: Cigarettes Assessment/Plan All Active Problems History of fasciotomy (Acute) Compartment syndrome of right lower extremity (Acute) Open wound of right lower leg (Acute) Neuropraxia of left lower extremity (Acute) Heroin abuse (Acute) Acute renal failure (Acute) Hyperkalemia (Acute) Rhabdomyolysis (Acute) Metabolic acidosis (Acute) Elevated troponin I level (Acute) This is a 59 years old male patient presented to the emergency room because of difficulty standing, bilateral leg pain after he overdosed on heroin, found to have severe rhabdomyolysis complicated by acute kidney injury with hyperkalemia and metabolic acidosis and also found to have neuropraxia of the left lower extremity and elevated LFT. 1. Acute and severe rhabdomyolysis: Patient CK level improved with IV clindamycin. Patient was admitted with about 1 33,000 and improved to about 40,000. Patient still has right lower leg weakness. PT and OT ordered. Patient refused PT and OT on weekend. Other markers of rhabdomyolysis including lactic acidosis and troponins were elevated. 2D echo was done and was technically limited as patient was not cooperative. EF 60%. No evidence of congestive dysfunction. 2. Acute kidney injury secondary to rhabdomyolysis/pigment nephropathy with electrolyte abnormality: Creatinine is improving from 2.71-1.6. BUN 15. Electrolyte abnormality, hyponatremia, hypokalemia, mild metabolic alkalosis. Patient had good IV fluid still 7 L + fluid balance. 3. Acute liver injury secondary to hypoperfusion/rhabdomyolysis: ALT and AST were high. Gradually improving. Monitor liver test. 4. Right lower leg compartment syndrome: Patient had 4 compartment right lower leg fasciectomy by Dr. Grayson. Discussed with plastic surgeon Dr. Duran. Follow-up in wound center. 5. Chronic opioid/IV heroin use and dependence: Patient had left cubital fossa surgery and is due for scar secondary to abscess/broken needle. Patient has chronic hepatitis C. 6. Schizophrenia/anxiety/depression: Stable. Continue with fluphenazine. 7. DVT: SCDs. Lovenox 40 mg of daily Inpatient E&M: [id number] Subs Hosp L2
[2020-01-10 14:30] VITALS: BP 149/86; PULSE 98; RESP 16; TEMP 37.4; O2SAT 96
[2020-01-10] MEDS: Enoxaparin 40 MG/0.4 ML Syringe SC (14:36)
--- NOTE | 2020-01-10 15:08 | NURSING ---
wound photo: right lateral lower leg
--- NOTE | 2020-01-10 15:08 | NURSING ---
wound photo: right medial lower leg
[2020-01-10 19:56] VITALS: BP 141/84; PULSE 100; RESP 14; TEMP 36.9; O2SAT 98
[2020-01-11 02:00] VITALS: BP 141/78; PULSE 110; RESP 16; TEMP 36.9; O2SAT 96
[2020-01-11] MEDS: Morphine 2 MG/ML Syringe IV ×3 (02:22→13:05)
[2020-01-11] MEDS: Gabapentin 100 MG Capsule PO ×2 (05:13→13:04)
[2020-01-11] MEDS: oxyCODONE 5 MG Tablet PO ×2 (05:16→11:11)
[2020-01-11 06:01] LABS: Absolute Lymphocyte Count 3.25 X10^3/uL (0.83-4.51); Absolute Neutrophil Count 10.9 X10^3/uL (2.0-7.7); Basophil# 0.05 X10^3/uL; Basophil% 0.3 % (0-1); Eosinophil# 0.38 X10^3/uL; Eosinophils% 2.4 % (0-5); Hematocrit 41.1 % (40-54); Lymphocyte # 3.25 X10^3/ul (4.0); Lymphocyte % 20.5 % (19-41); Mean Corp Hgb Conc 34.1 g/dL (32-36); Mean Corpuscular Hgb 29.2 pg (27.0-32.0); Mean Corpuscular Volume 85.6 fL (80-94); Mean Platelet Vol. 10.2 fl (6.2-12.0); Monocyte# 1.12 X10^3/uL; Monocyte% 7.1 % (0-10); NRBC Flagged by Analyzer 0 % (0-5); Neutrophil # 10.87 X10^3/uL (2.7-7.7); Neutrophil % 68.6 % (47-70); Platelet Count 169 K/mm3 (150-450); RBC Distribution Width CV 13.2 % (11.6-14.6); RBC Distribution Width SD 41.1 fl (35.1-43.9); White Blood Count 15.9 K/mm3 (4.4-11.0)
[2020-01-11 07:28] LABS: ALB/GLOB Ratio 0.6 RATIO (0.9-2.4); AST(SGOT) 772 U/L (15-37); Alanine Aminotransfer ALT/SGPT 330 U/L (16-61); Albumin, Serum 1.8 g/dL (3.2-5.0); Alkaline Phosphatase 44 U/L (45-117); Anion Gap 7 (5-15); BUN 19 mg/dL (7-18); BUN/Creat Ratio 11.4 RATIO (10-20); CPK Total, Creatine Kinase 17640 U/L (39-308); Calcium,Total 7.8 mg/dL (8.5-10.1); Chloride 93 mmol/L (98-107); Creatinine, Serum 1.66 mg/dL (0.70-1.30); EST Glomerular Filtration Rate 49 mL/min (>60); Est Glom Filt Rate - Afr Amer 60 mL/min (>60); Estimated Creatinine Clearance 58.37 ml/min; Globulin 3.2 g/dL (2.2-4.2); Glucose 143 mg/dL (74-106); Potassium 3.9 mmol/L (3.5-5.1); Sodium Level 131 mmol/L (136-145)
[2020-01-11 08:08] VITALS: BP 142/88; PULSE 103; RESP 14; TEMP 37.1; O2SAT 97
[2020-01-11] MEDS: 0.9% Saline Lock 10 ML Syringe IV (08:16)
[2020-01-11] MEDS: Enoxaparin 40 MG/0.4 ML Syringe SC (08:16)
[2020-01-11] MEDS: hydrOXYzine PAM 25 MG Capsule 50 MG PO (08:19)
--- NOTE | 2020-01-11 11:09 | DCINST_ITS ---
- Discharge Diagnoses Current Active Problems: Current Active and Chronic Problems Anxiety (Chronic) Schizophrenia (Chronic) Neuropraxia of left lower extremity (Acute) Heroin abuse (Acute) Acute renal failure (Acute) Hyperkalemia (Acute) Rhabdomyolysis (Acute) Metabolic acidosis (Acute) Elevated troponin I level (Acute) You will use the following diet at home:: Regular Your food should be the consistency of: Regular Your liquids should be the consistency of: Regular/Thin Discharge Activity: May Not Drive Weight Bearing Status: Toe touch weight bearing, - - Home based PT Call your doctor if you observe: Fever of 101 or Higher, Coldness, Increased Pain, Numbness or Tingling, Inability to urinate, Inability to have a bowel movement, Shortness of breath, Dizziness, Fainting spells, Swelling in the ankles, Chest pain, Prolonged hiccoughing, Increased palpitations (irregular heartbeat) Additional Instructions: Follow-up in wound clinic in 1 week. Patient was advised against quitting of opioid use and other drug use. Follow-up BMP in 1 to 2 weeks with PCP Allergies/Adverse Reactions: Allergies No Known Allergies Allergy (Verified 01/05/20 23:22) Medications to take at Discharge Nicotine [Nicoderm Cq] 21 mg TRANSDERM. DAILY #30 patch 01/11/20 The following prescriptions were given: Nicotine [Nicoderm Cq] 21 mg TRANSDERM. DAILY #30 patch Transmission Status: Pending to [facility] #30 Primary Care Physician: Care Physician,No Primary [Primary Care Provider] - Please follow up with your Primary Care Physician in: IN 2 WEEK with follow-up BMP and CK level Test Results: Test results from this visit will be discussed in further detail at your follow- up appointment, if applicable. Please Follow Up With: Robert Duran MD When: IN 1-2 WEEKS
--- NOTE | 2020-01-11 12:13 | PCM.DC.SUM ---
Discharge Date and Diagnosis - Problem List Patient Problems: Active and Suspected Problems Neuropraxia of left lower extremity (Acute) Heroin abuse (Acute) Acute renal failure (Acute) Hyperkalemia (Acute) Rhabdomyolysis (Acute) Metabolic acidosis (Acute) Elevated troponin I level (Acute) Date of Admission: 01/06/20 Date of Discharge: 01/11/20 - Primary Discharge Diagnosis Acute Problems: Active Problems Neuropraxia of left lower extremity (Acute) Heroin abuse (Acute) Acute renal failure (Acute) Hyperkalemia (Acute) Rhabdomyolysis (Acute) Metabolic acidosis (Acute) Elevated troponin I level (Acute) - Secondary Discharge Diagnosis Chronic Problems: Chronic Problems Anxiety (Chronic) Schizophrenia (Chronic) IVDU (intravenous drug user) (Chronic) Hospital Course and Treatment Consultations 01/07/20 07:32 Consult: Onc/Wound/senior product development manager Routine Comment: 1 day post op this afternoon Reason for Consult:: s/p R calf fasciotomy Summary of Care Provided: [] This is a 39 years old male patient presented to the emergency room because of difficulty standing, bilateral leg pain after he overdosed on heroin, found to have severe rhabdomyolysis complicated by acute kidney injury with hyperkalemia and metabolic acidosis and also found to have neuropraxia of the left lower extremity and elevated LFT. 1. Acute and severe rhabdomyolysis: Patient CK level improved with IV clindamycin. Patient was admitted with about 133,000 and improved to 17,640. Patient still has right lower leg weakness. Patient walked around the nursing station on wheeled walker under supervision of physical therapist. On touch toe bearing status. Other markers of rhabdomyolysis including lactic acidosis and troponins were elevated. 2D echo was done and was technically limited as patient was not cooperative. EF 60%. No evidence of congestive dysfunction. 2. Acute kidney injury secondary to rhabdomyolysis/pigment nephropathy with electrolyte abnormality on CKD stage III: Creatinine is improving from 2.71-1.6. BUN 15. Patient creatinine 1.5-1.6 last 5 days probably his baseline. Electrolyte abnormality, hyponatremia, hypokalemia, mild metabolic alkalosis. Patient had good IV fluid still 5 L + fluid balance. Avoid polysubstance use and nephrotoxic medications. 3. Acute liver injury secondary to hypoperfusion/rhabdomyolysis: ALT and AST were high. Improvement in liver test. 4. Right lower leg compartment syndrome: Patient had 4 compartment right lower leg fasciectomy by Dr. Grayson. Discussed with plastic surgeon Dr. Duran. 5. Chronic opioid/IV heroin use and dependence: Patient had left cubital fossa surgery and is due for scar secondary to abscess/broken needle. Patient has chronic hepatitis C. 6. Schizophrenia/anxiety/depression: Stable. Continue with fluphenazine. 7. DVT: SCDs. Lovenox 40 mg of daily Discharge medication reconciliation done. Discharge follow-up instructions completed. Discharge process discussed with the patient and all questions were answered to patient's satisfaction. Patient was advised to follow-up in wound center. Total time spent, exact 35 minutes on discharge meds reconciliation, examination, coordination of care with nurses and ancillary staff, review of imaging and blood test and discussion with the patient on follow-up instructions Patient Problems: Active and Suspected Problems Neuropraxia of left lower extremity (Acute) Heroin abuse (Acute) Acute renal failure (Acute) Hyperkalemia (Acute) Rhabdomyolysis (Acute) Metabolic acidosis (Acute) Elevated troponin I level (Acute) Subjective: No fever or chills. Patient is abrupt in emotion control and sometimes gets impulsive. Was sleepy and lethargic in the morning. As per nursing staff, patient walked around the nursing station on wheeled walker on physical therapist supervision - Physical Exam Vitals/I&O's: Vital Signs Temp Pulse Resp BP Pulse Ox 98.7 F 103 H 14 142/88 H 97 01/11/20 08:08 01/11/20 08:08 01/11/20 08:08 01/11/20 08:08 01/11/20 08:08 Oxygen Delivery Method Room Air Weight: 173 lb 15.115 oz Body Mass Index (BMI) 24.5 Intake and Output for Last 24 Hours 01/09/20 01/10/20 01/11/20 23:59 23:59 23:59 Intake Total 1610 / 1610 480 / 480 Output Total 4000 / 4000 2200 / 2200 1050 / 1050 Balance -2390 / -2390 -1720 / -1720 -1050 / -1050 General: Alert, Oriented x3, Cooperative HEENT: Atraumatic, PERRLA, EOMI, Normocephalic Neck: Supple, No JVD, Negative Carotid Bruits Lungs: Clear to auscultation, Normal air movement, No rhonchi, No wheeze, No rales Cardiovascular: Regular rate, Regular Rhythm, Normal S1, Normal S2, No murmurs, - - Right MANAGER CR[employer] C[employer] and dorsalis pedis artery palpable. Abdomen: Bowel Sounds Present, Soft, Non Tender, Non-Distended Extremities: Capillary Refill Less than 3 Seconds, Edema - Mild edema of right leg Skin: Ulcer/ Wound - Fasciectomy surgical wound on right leg. Covered with Kaleb wrap bandage. Wound photo reviewed Musculoskeletal: No Tenderness to Palpation of Joints or Extremities Neurological: Cranial nerves II-XII grossly intact Psych/Mental Status: Normal Affect, Appropriate Microbiology Past 72 Hours 01/06/20 01:40 Blood Culture (Wb) - Anticubital Left Blood Culture - Final No growth in 5 days. 01/06/20 01:55 Blood Culture (Wb) - Right Forearm Blood Culture - Final No growth in 5 days. Laboratory Results 01/11/20 05:40: WBC 15.9 H, RBC 4.80, Hgb 14.0, Hct 41.1, MCV 85.6, MCH 29.2, MCHC 34.1 D, RDW Std Deviation 41.1, RDW Coeff of Neftali 13.2, Plt Count 169, MPV 10.2, Immature Gran % (Auto) 1.100 H, Neut % (Auto) 68.6, Lymph % (Auto) 20.5, [place] % (Auto) 7.1, Eos % (Auto) 2.4, Baso % (Auto) 0.3, Absolute Neuts (auto) 10.9 H, Absolute Lymphs (auto) 3.25, Nucleated RBC % 0 01/11/20 05:40: Sodium 131 L, Potassium 3.9, Chloride 93 L, Carbon Dioxide 31.0, Anion Gap 7, BUN 19 H, Creatinine 1.66 H, Estim Creat Clear Calc 58.37, Est GFR (MDRD) Af Amer 60, Est GFR (MDRD) Non-Af 49 L, BUN/Creatinine Ratio 11.4, Glucose 143 H, Calcium 7.8 L, Total Bilirubin 0.70, AST 772 H, ALT 330 H, Alkaline Phosphatase 44 L, Total Creatine Kinase 12189 H, Total Protein 5.0 L, Albumin 1.8 L, Globulin 3.2, Albumin/Globulin Ratio 0.6 L Current Medications Benztropine Mesylate (Cogentin) 1 mg PO DAILY PRN PRN PRN Reason: AGITATION/PSYCHOSIS Enoxaparin Sodium (Lovenox) 40 mg SC DAILY [facility] Last Admin: 01/11/20 08:16 Dose: 40 mg Documented by: Fluphenazine HCl (Prolixin) 5 mg PO QHS [facility] Last Admin: 01/10/20 21:06 Dose: 5 mg Documented by: Gabapentin (Neurontin) 100 mg PO Q8 [facility] Last Admin: 01/11/20 05:13 Dose: 100 mg Documented by: Hydroxyzine Pamoate (Vistaril Pamoate Capsule) 50 mg PO BID [facility] Last Admin: 01/11/20 08:19 Dose: 50 mg Documented by: Sodium Chloride () 250 mls @ 15 mls/hr IV .[id number] PRN PRN Reason: Saline Flush Sodium Chloride () 250 mls @ 15 mls/hr IV .[id number] PRN PRN Reason: Additional IVPB Infusion Nicotine (Nicoderm Cq (Pbkc)) 21 mg TRANSDERM. DAILY [facility] Last Admin: 01/11/20 08:16 Dose: 21 mg Documented by: Ondansetron HCl (Zofran) 4 mg IV Q8H PRN PRN PRN Reason: NAUSEA/VOMITING Oxycodone HCl (Oxyir) 5 mg PO Q6H PRN PRN PRN Reason: Pain Score 6-10/10 Last Admin: 01/11/20 11:11 Dose: 5 mg Documented by: Senna/Docusate Sodium (Senokot-S, Mari-Colace) 2 tablet PO BID PRN PRN PRN Reason: Constipation Sodium Chloride () 10 - 40 ml IV UD PRN PRN Reason: SALINE FLUSH Last Admin: 01/11/20 08:16 Dose: 10 ml Documented by: Zolpidem Tartrate (Ambien (Generic)) 5 mg PO QHS PRN PRN PRN Reason: INSOMNIA Last Admin: 01/09/20 21:51 Dose: 5 mg Documented by: Discharge Activity: May Not Drive Weight Bearing Status: Toe touch weight bearing, - - Home based PT Call your doctor if you observe: Fever of 101 or Higher, Coldness, Increased Pain, Numbness or Tingling, Inability to urinate, Inability to have a bowel movement, Shortness of breath, Dizziness, Fainting spells, Swelling in the ankles, Chest pain, Prolonged hiccoughing, Increased palpitations (irregular heartbeat) Home Medications: Medications to take at Discharge Nicotine [Nicoderm Cq] 21 mg TRANSDERM. DAILY #30 patch 01/11/20 Following Prescrptions Were Given to Patient: Nicotine [Nicoderm Cq] 21 mg TRANSDERM. DAILY #30 patch Transmission Status: Received by [employer] #30 Primary Care Physician: Care Physician,No Primary [Primary Care Provider] - Please follow up with your Primary Care Physician in: IN 2 WEEK with follow-up BMP and CK level Please Follow Up With: Robert Duran MD When: IN 1-2 WEEKS Medical Necessity - Tobacco Use Smoking Status: Current every day smoker Tobacco Use: Cigarettes Meaningful Use Info Meaningful Use Diagnoses (Choose all that apply): None applicable Inpatient E&M: 37497 Disch Hosp
--- NOTE | 2020-01-11 12:33 | CASEMGMT ---
Addendum entered by Lakesha Tadeo 01/11/20 14:02: Angelique is also aware that Dr. Duran will follow pt. Pt to be set up for f/u in wound clinic at discharge. Barbara WALTERS CM Addendum entered by Lakesha Tadeo 01/11/20 13:27: Pt updated on all, voices understanding and gratitude at this time. Pt states that his mothers address is [address] [place] [address] and this is updated in computer at this time. Angelique at [facility] updated at this time, voices understanding and is aware that pt to be discharged today. Pt voices no further questions/concerns/needs at this time. Barbara WALTERS CM Original Note: Per therapy, pt can go home with [facility] for SN, PT at discharge. Referral re-faxed to [facility] at this time and call to Angelique at [facility] who states they should be able to take pt at this time. Advised [facility] that pt's plan is to go home with his mother at discharge, voices understanding. [facility] did ask about rehab for pt and this SELENA DUPONT advised her that pt had not yet been agreeable at this time, voiced understanding. Per therapy, pt will need a WW at discharge and WW script faxed to [facility] [place] at this time. Barbara WALTERS CM
[2020-01-11 14:05] VITALS: BP 131/82; PULSE 98; RESP 14; TEMP 37.2; O2SAT 100
--- NOTE | 2020-01-11 14:47 | NURSING ---
Pt switched over to the home VAC. reviewed alarms, leaks, etc. with patient. Proof of delivery form signed and faxed back to [facility]. pt denies further needs at this time.
--- NOTE | 2020-01-11 14:52 | NURSING ---
Wound Center appt made for January [address] Duran.
== END 2020-01-11 16:35 | disposition home health service (06) | DRG 317 ==
LOC: ED 01-06 02:01 → ICU 01-06 05:37 → PCU 01-10 07:14
PROVIDERS: Family Medicine; Internal Medicine Critical Care Medicine; Specialist; Admitting Provider Hospitalist; Emergency Provider Emergency Medicine; Visit Provider Internal Medicine
PROC: 0KNS0ZZ Release Right Lower Leg Muscle, Open Approach (ICD-10-PCS; principal; 2020-01-06 15:25)
DX: M62.82 Rhabdomyolysis (principal); T79.A21A Traumatic compartment syndrome of right lower extremity, initial encounter; S84.802A Injury of other nerves at lower leg level, left leg, initial encounter; T40.1X1A Poisoning by heroin, accidental (unintentional), initial encounter; F11.20 Opioid dependence, uncomplicated; F32.9 Major depressive disorder, single episode, unspecified; F41.9 Anxiety disorder, unspecified; N17.9 Acute kidney failure, unspecified; N18.3 Chronic kidney disease, stage 3 (moderate); E87.4 Mixed disorder of acid-base balance; X58.XXXA Exposure to other specified factors, initial encounter; F17.210 Nicotine dependence, cigarettes, uncomplicated; E87.5 Hyperkalemia; S36.119A Unspecified injury of liver, initial encounter; E87.6 Hypokalemia; E87.1 Hypo-osmolality and hyponatremia; E86.0 Dehydration; F15.90 Other stimulant use, unspecified, uncomplicated; R73.9 Hyperglycemia, unspecified; F20.3 Undifferentiated schizophrenia; Z86.19 Personal history of other infectious and parasitic diseases
CPT/HCPCS: 36415; 36600; 70450; 71045; 73521; 73560; 80053; 80307; 81001; 82550; 82803; 83036; 83605; 83735; 84100; 84484; 85025; 85610; 85730; 86850; 86900; 86901; 87040; 87086; 87088; 93005; 93306; 94640; 96360; 97110; 97162; 97166; 97530; 97535; 99251; 99285; J7030; A4216; G0463; J2405

== ENCOUNTER 2020-01-14 13:20 | Emergency (ER) | payer MEDICAID, SELFPAY ==
[2020-01-06 14:34] VITALS: BMI 24.5
[2020-01-14 13:24] VITALS: BP 131/89; PULSE 110; RESP 22; TEMP 37; O2SAT 100; BMI 29.5
[2020-01-14 13:31] VITALS: BP 131/89; PULSE 110; RESP 22; TEMP 37; O2SAT 100
--- NOTE | 2020-01-14 14:07 | NURSING ---
Pt requested this nurse come to the ED to assess the right lower leg wound VAC dressing. removed the FAN wrap and kerlix. wound VAC dressing intact. Good seal noted at 125mmHg low cont suction. Home health nurse had just changed the dressing yesterday. there is no redness noted to the periwound. there is less edema noted to the calf, but there is slightly more edema noted to the foot. the FAN wrap was tight around the ankle. pt also c/o scrotal edema. pt does have some edema noted. did not assess this during last admission, so this nurse is not aware if the edema is increased. Pt's mother states he needs to be placed back on his psych meds because he has been in a manic state for 3-4 days. pt states he has not slept. pt also requesting a water pill. the ED doctor will address these issues. reapplied ABD pads under VAC tubing and applied kerlix followed by an FAN wrap from the base of the toes to just below the knee to give a more even compression. pt tolerated well and denies further needs at this time. discussed findings with SELENA Mcdonald.
--- NOTE | 2020-01-14 14:15 | US_ITS ---
STUDY: SCROTUM ULTRASOUND REASON FOR EXAM: Male, 39 years old. SWELLING-BILAT X 1 DAY TECHNIQUE: Ultrasound evaluation of the scrotum was performed with color Doppler and static jimenez-scale imaging. COMPARISON: None. FINDINGS: RIGHT TESTICLE INTRATESTICULAR: There is a normal size of the right testicle. The right testicle measures 4 x 2.1 x 2.4 cm. There is a homogenous echotexture. There is normal arterial and normal venous vascularity. 3.3 x 0.2 cm simple testicular cyst. EXTRATESTICULAR: The epididymis is normal in size. The epididymis head measures 1.1 x 1 cm. There is normal vascularity of the epididymis. There is no demonstrated epididymal cystic structure. There is no demonstrated hydrocele. There is no demonstrated varicocele. There is no demonstrated extratesticular mass or cyst. LEFT TESTICLE INTRATESTICULAR: There is a normal size of the left testicle. The left testicle measures 4 x 2 x 2.1 cm. There is a homogenous echotexture. There is normal arterial and normal venous vascularity. There is no demonstrated left testicular mass or cyst. EXTRATESTICULAR: The epididymis is normal in size. The epididymis head measures 1.5 x 0.9 cm. There is normal vascularity of the epididymis. Cysts in the epididymal head measure 0.5 x 0.8 x 0.5 cm and 0.7 x 0.5 x 0.6 cm. There is no demonstrated hydrocele. There is no demonstrated varicocele. There is no demonstrated extratesticular mass or cyst. There is bilateral scrotal wall edema. US/Testicular with Arterial Flow IMPRESSION: 1. Scrotal wall edema. No evidence of testicular torsion. 2. Small simple right testicular cyst. 3. Left epididymal cysts. Electronically Signed: Evelin De Jesus MD at 16:24 EDT Tel , Service support ,
--- NOTE | 2020-01-14 14:30 | CM.ED ---
SOCIAL WORK INFORMANT: DR. MENARD REASON FOR REFERRAL: RESOURCES MET WITH PATIENT AND PATIENT'S MOTHER IN ROOM. INTRODUCED ROLE AND REASON FOR REFERRAL. PATIENT GAVE PERMISSION FOR THIS WORKER TO SPEAK OPENLY WITH MOTHER PRESENT. PATIENT LAYING IN BED WITH EYES CLOSED. MOTHER CONFIRMED PATIENT DOES NOT HAVE PRIMARY CARE PHYSICIAN. LIST OF PRIMARY CARE PHYSICIANS GIVEN. MOTHER REPORTS PATIENT FOLLOWS WITH DR. JON[facility] AND REPORTS PATIENT WILL BE GETTING SET UP WITH COUNSELING AT [facility] HE DOES NOT LIKE THE COUNSELORS AT [facility]. PATIENT CURRENTLY HAS HOME HEALTH AND VOICES NO CONCERNS WITH SERVICES. INFORMATION PROVIDED ON ONE . PATIENT AND MOTHER VOICE NO FURTHER QUESTIONS. PLAN: HOME WITH MOTHER AND CONTINUED HOME HEALTH SERVICES. Devaughn SAHU MSW, GREASE REMOVER.
[2020-01-14 14:31] LABS: Anion Gap 6 (5-15); BUN 42 mg/dL (7-18); BUN/Creat Ratio 16.3 RATIO (10-20); Calcium,Total 7.8 mg/dL (8.5-10.1); Chloride 97 mmol/L (98-107); Creatinine, Serum 2.57 mg/dL (0.70-1.30); EST Glomerular Filtration Rate 30 mL/min (>60); Est Glom Filt Rate - Afr Amer 36 mL/min (>60); Glucose 125 mg/dL (74-106); Potassium 3.6 mmol/L (3.5-5.1); Sodium Level 134 mmol/L (136-145)
--- NOTE | 2020-01-14 14:46 | NURSING ---
PCU OBS CP, RACHEL URIBE
[2020-01-14 14:49] LABS: Absolute Lymphocyte Count 2.43 X10^3/uL (0.83-4.51); Absolute Neutrophil Count 15.8 X10^3/uL (2.0-7.7); Basophil# 0.07 X10^3/uL; Basophil% 0.3 % (0-1); Eosinophil# 0.53 X10^3/uL; Eosinophils% 2.5 % (0-5); Hematocrit 31.4 % (40-54); Hemoglobin 10.6 g/dL (13.0-16.5); Lymphocyte # 2.43 X10^3/ul (4.0); Lymphocyte % 11.7 % (19-41); Mean Corp Hgb Conc 33.8 g/dL (32-36); Mean Corpuscular Hgb 29.8 pg (27.0-32.0); Mean Corpuscular Volume 88.2 fL (80-94); Mean Platelet Vol. 10.4 fl (6.2-12.0); Monocyte# 1.53 X10^3/uL; Monocyte% 7.4 % (0-10); NRBC Flagged by Analyzer 0 % (0-5); Neutrophil % 75.9 % (47-70); POSITIVE DIFFERENTIAL YES; Platelet Count 183 K/mm3 (150-450); RBC Distribution Width CV 14.6 % (11.6-14.6); RBC Distribution Width SD 46.5 fl (35.1-43.9); Red Blood Count 3.56 M/mm3 (4.6-6.2); White Blood Count 20.8 K/mm3 (4.4-11.0)
[2020-01-14 15:06] LABS: Differential Indicated SCAN CRITERIA MET
--- NOTE | 2020-01-14 15:12 | ED.DCSUM_ITS ---
History of Present Illness Chief Complaint: Edema Informant: Patient Onset: Yesterday Context: Gradual Onset Timing: Continuous Narrative: Patient is a 39-year-old male with history of IV drug use and recent rhabdomyolysis, kidney failure and compartment syndrome of the right lower extremity with subsequent fasciotomy and wound VAC presented from home with swelling of his testicles and difficulty urinating.Patient was admitted from 12/28 to 6.2. He states he received a large amount of IV fluids during his admission. He notes over the past 24 hours associated significant swelling of his testicles. He states that he is having a slightly hard time urinating but he still able to empty his bladder. Patient denies any other complaints at this time. He is requesting more resources for primary care doctor and help with outpatient follow-up as well psychiatric and addiction care. Past Medical History - Allergies and Home Meds Allergies/Adverse Reactions: Allergies No Known Allergies Allergy (Verified 01/05/20 23:22) Past Medical History: - - IV drug use, compartment syndrome, rhabdomyolysis Surgical History: - - Left arm surgery for left arm abscess due to IV drug use. Smoking Status: Current every day smoker - Family History Paternal Family History: Reports: No pertinent history Maternal Family History: Reports: No pertinent history Review of Systems General: Denies: Chills, Fever, Sweats Eyes: Denies: Visual changes - bilaterally, Diplopia ENT: Denies: Rhinorrhea, Sore throat Cardiovascular: Denies: Chest pain, Palpitations Respiratory: Denies: Dyspnea, Cough, Dyspnea on exertion Gastrointestinal: Denies: Abdominal pain, Nausea, Vomiting, Diarrhea, Melena, Hematochezia Genitourinary: Reports: - - Hesitancy, scrotal swelling. Denies: Dysuria, Hematuria, Frequency Musculoskeletal: Reports: Swelling - LE, bilateral . Denies: Back pain, Extremity Pain Skin: Reports: Wounds - right leg with wound vac. Denies: Rash Neurological: Reports: Weakness - Bilateral lower extremity, improving per patient . Denies: Headache, Numbness Physical Exam Vital Signs/Narrative: Vital Signs Temp Pulse Resp BP Pulse Ox 01/14/20 13:31 98.6 F 110 H 22 H 131/89 H 100 01/14/20 13:24 98.6 F 110 H 22 H 131/89 H 100 Inital Vital Signs reviewed: Yes General: Well nourished, Well developed, No Acute Distress Head: Normocephalic, Atraumatic Eyes: Perrl, EOMI ENT: Moist mucous membranes, No rhinorrhea Neck: Supple, Nontender Cardiovascular: Regular rate, Regular rhythm, No murmurs Respiratory: No distress, CTA bilaterally, Chest nontender Abdomen: Soft, Nontender, Nondistended, Normal bowel sounds : - - Normal penis, significant scrotal edema however cremasteric reflexes intact bilaterally, no tenderness to palpation Back: Nontender, Normal Inspection Extremities: Nontender, - - Mild edema of the right lower extremity, wound VAC in place. Dressing is not taken down. Skin: Normal color, No rash Neurological: Alert, Oriented x3, Cranial nerves II-XII grossly intact, Normal Strength, Normal Sensation Psychological: Normal affect, Normal Mood Diagnostic/Tx/Re-eval Clinical Impression(s) from Imaging Studies Testicular Ultrasound 01/14/20 14:15 IMPRESSION: 1. Scrotal wall edema. No evidence of testicular torsion. 2. Small simple right testicular cyst. 3. Left epididymal cysts. Electronically Signed: Evelin De Jesus MD at 16:24 EDT Tel , Service support , Laboratory Data 01/14/20 01/14/20 01/14/20 13:00 13:00 14:40 WBC Cancelled 20.8 H Corrected WBC Cancelled RBC Cancelled 3.56 L Hgb Cancelled 10.6 L Hct Cancelled 31.4 L MCV Cancelled 88.2 MCH Cancelled 29.8 MCHC Cancelled 33.8 RDW Std Deviation Cancelled 46.5 H RDW Coeff of Neftali Cancelled 14.6 Plt Count Cancelled 183 MPV Cancelled 10.4 Immature Gran % (Auto) Cancelled 2.200 H Neut % (Auto) Cancelled 75.9 H Lymph % (Auto) Cancelled 11.7 L [place] % (Auto) Cancelled 7.4 Eos % (Auto) Cancelled 2.5 Baso % (Auto) Cancelled 0.3 Absolute Neuts (auto) Cancelled 15.8 H Absolute Lymphs (auto) Cancelled 2.43 Total Counted Cancelled Neutrophils % (Manual) Cancelled Band Neutrophils % Cancelled Lymphocytes % (Manual) Cancelled Monocytes % (Manual) Cancelled Eosinophils % (Manual) Cancelled Basophils % (Manual) Cancelled Metamyelocytes % Cancelled Myelocytes % Cancelled Promyelocytes % Cancelled Blast Cells % Cancelled Plasma Cell % (Manual) Cancelled Other Cells % Cancelled Nucleated RBC % Cancelled 0 Nucleated RBCs/100 WBC Cancelled Differential Comment Cancelled Diff Path Review Cancelled May foll Hypersegmented Neuts Cancelled Atypical Lymphocytes Cancelled Reactive Lymphocytes Cancelled Smudge Cells Cancelled Toxic Granulation Cancelled Toxic Vacuolation Cancelled Dohle Bodies Cancelled Pilar Rods Cancelled Platelet Estimate Cancelled Plt Morphology Comment Cancelled RBC Morphology Cancelled Polychromasia Cancelled Hypochromasia Cancelled Poikilocytosis Cancelled Basophilic Stippling Cancelled Anisocytosis Cancelled Microcytosis Cancelled Macrocytosis Cancelled Spherocytes Cancelled Sickle Cells Cancelled Target Cells Cancelled Tear Drop Cells Cancelled Ovalocytes Cancelled Stomatocytes Cancelled [place] Bodies Cancelled Alexy Cells Cancelled Bite Cells Cancelled Crenated Cell Cancelled Acanthocytes (Spur) Cancelled Rouleaux Cancelled Schistocytes Cancelled Sodium 134 L Potassium 3.6 Chloride 97 L Carbon Dioxide 31.0 Anion Gap 6 BUN 42 H Creatinine 2.57 H Estim Creat Clear Calc 37.70 Est GFR (MDRD) Af Amer 36 L Est GFR (MDRD) Non-Af 30 L BUN/Creatinine Ratio 16.3 Glucose 125 H Calcium 7.8 L Urine Color Urine Clarity Urine pH Ur Specific [place] Urine Protein Urine Glucose (UA) Urine Ketones Urine Occult Blood Urine Nitrite Urine Bilirubin Urine Urobilinogen Ur Leukocyte Esterase Urine RBC Urine WBC Ur Squamous Epith Cells Urine Bacteria Urine Mucus 01/14/20 16:15 WBC Corrected WBC RBC Hgb Hct MCV MCH MCHC RDW Std Deviation RDW Coeff of Neftali Plt Count MPV Immature Gran % (Auto) Neut % (Auto) Lymph % (Auto) [place] % (Auto) Eos % (Auto) Baso % (Auto) Absolute Neuts (auto) Absolute Lymphs (auto) Total Counted Neutrophils % (Manual) Band Neutrophils % Lymphocytes % (Manual) Monocytes % (Manual) Eosinophils % (Manual) Basophils % (Manual) Metamyelocytes % Myelocytes % Promyelocytes % Blast Cells % Plasma Cell % (Manual) Other Cells % Nucleated RBC % Nucleated RBCs/100 WBC Differential Comment Diff Path Review Hypersegmented Neuts Atypical Lymphocytes Reactive Lymphocytes Smudge Cells Toxic Granulation Toxic Vacuolation Dohle Bodies Pilar Rods Platelet Estimate Plt Morphology Comment RBC Morphology Polychromasia Hypochromasia Poikilocytosis Basophilic Stippling Anisocytosis Microcytosis Macrocytosis Spherocytes Sickle Cells Target Cells Tear Drop Cells Ovalocytes Stomatocytes Y[place] Bodies Alexy Cells Bite Cells Crenated Cell Acanthocytes (Spur) Rouleaux Schistocytes Sodium Potassium Chloride Carbon Dioxide Anion Gap BUN Creatinine Estim Creat Clear Calc Est GFR (MDRD) Af Amer Est GFR (MDRD) Non-Af BUN/Creatinine Ratio Glucose Calcium Urine Color Yellow Urine Clarity Clear Urine pH 6.0 Ur Specific [place] 1.010 Urine Protein Negative Urine Glucose (UA) Normal Urine Ketones Negative Urine Occult Blood 10 H Urine Nitrite Negative Urine Bilirubin Negative Urine Urobilinogen Normal Ur Leukocyte Esterase 25 H Urine RBC 0 SEEN Urine WBC 0-5 SEEN Ur Squamous Epith Cells 0 SEEN Urine Bacteria 0 SEEN Urine Mucus 0 SEEN - Medical Decision Making Patient is evaluated for scrotal edema and difficulty urinating. He does have significant scrotal edema. Ultrasound shows normal testicles. This is likely third spacing. Patient recently had a large amount of IV fluids for compartment syndrome and rhabdomyolysis. I did check basic blood work which showed an acute kidney injury. When patient was discharged from the hospital3 days ago his creatinine was 1.66. Today it is 2.57. While he reports difficulty urinating post void residual bladder scan showed only 25 cc of urine in his bladder. I do not think he is acute urinary retention. He does not have any abdominal pain. Patient is offered admission because of his worsening kidney function in the setting of recent rhabdomyolysis. He declined stating he was just in the hospital does not want to come back. Patient is counseled that leaving today greatly increases his risk of having renal failure. He verbalizes understand this. Patient does have capacity to make that decision at this time. Patient was taken off his psych medications recently for schizophrenia. Mother is asking if he was placed back on them however she does not know the name of the medications. I cannot make a recommendation since I do not know the name of the medications at this time. Patient does consent to receiving a liter of IV fluids while in the emergency room. Patient is discharged AGAINST MEDICAL ADVICE. ED Disposition - Plan for ED Patient: Disposition: Against Medical Advice Diagnosis: Acute renal failure, History of fasciotomy, Leukocytosis, Scrotal edema, Left against medical advice Additional Instructions: You have been seen for edema of your testicles. This is likely from excess fluid in your body. Your lab work does show that your kidney function has significantly worsened. I recommend that you be admitted to the hospital before you go into kidney failure and require dialysis or . You have chosen to leave AGAINST MEDICAL ADVICE. Please know this comes with the risk of , end-organ damage or permanent disability. At any time you change your mind would like to return to the emergency room we encourage you to. Please drink lots of water over the next few days. Avoid any soda. Limit your juice intake. It is okay to drink Gatorade.
[2020-01-14 16:28] LABS: Bacteria 0 SEEN /hpf (None Seen); Mucous, Urine 0 SEEN /hpf (<or=2+); Red Blood Cells-Urine 0 SEEN /hpf (0-5); Squamous Epithelial Cells - UA 0 SEEN /hpf (0-5)
[2020-01-14 16:49] LABS: Color, Urine Yellow (Yellow); Glucose, Dipstick Normal (Normal); Ketone-Dipstick Negative (Negative); Leukocyte Esterase-Dipstick 25 /ul (Negative); Nitrite-Dipstick Negative (Negative); Occult Blood-Urine 10 /ul (Negative); Protein-Dipstick Negative (Negative); Urine Bilirubin Dipstick Negative (Negative); Urine Clarity Clear (Clear); Urine Urobilinogen Normal (Normal)
[2020-01-14 17:01] LABS: White Blood Cells 0-5 SEEN /hpf (0-5)
[2020-01-14] MEDS: 0.9% Normal Saline 1,000 ML 999 ML IV (17:23)
[2020-01-14 17:27] VITALS: BP 125/80; PULSE 99; RESP 18; TEMP 36.9; O2SAT 100
[2020-01-14 18:44] VITALS: BP 120/84; PULSE 104; RESP 18; TEMP 36.9; O2SAT 100
[2020-01-17 12:15] LABS: Pathologist Review Reviewed
== END 2020-01-14 19:17 | disposition left against medical advice (07) ==
PROVIDERS: Emergency Provider Emergency Medicine
DX: N19 Unspecified kidney failure (principal); D72.829 Elevated white blood cell count, unspecified; N50.89 Other specified disorders of the male genital organs; F17.200 Nicotine dependence, unspecified, uncomplicated; Z53.29 Procedure and treatment not carried out because of patient's decision for other reasons
CPT/HCPCS: 36415; 76870; 80048; 81001; 85025; 93976; 96360; 96361; 96374; 99283; A4216

== ENCOUNTER 2020-01-19 19:50 | Inpatient (IN) | payer MEDICAID, SELFPAY ==
[2020-01-17 14:07] VITALS: BMI 25.9
[2020-01-19 19:52] VITALS: BP 133/87; PULSE 111; RESP 18; TEMP 36.7; O2SAT 100; BMI 25.8
--- NOTE | 2020-01-19 20:20 | ED.DCSUM_ITS ---
- ER Visit Summary Date of Service: 01/19/20 Chief Complaint: Kidney injury History of Present Illness: The patient is a 39 M history of psychiatric disorder as well as polysubstance abuse. He had a recent admission for rhabdomyolysis and compartment syndrome stemming from opioid overdose. He had fasciotomy to his right leg. He was seen in the ED 2 days ago for leg and scrotal swelling. He had difficulty urinating. He was found to have acute kidney injury, but he signed out AGAINST MEDICAL ADVICE. He has continued symptoms, and so he presents today for admission. Denies any new or worsening issues. Physical Examination: Afebrile and vital signs unremarkable except for heart rate of 111. Patient in no acute distress. Alert and oriented. He does have some lower extremity edema, symmetric and nontender with scrotal edema. Skin is unremarkable otherwise in that region. He has a dressing to his right lower extremity. He is neurovascularly intact. Test Results: We will check labs and urinalysis. Patient had an ultrasound at his previous visit that showed normal testicles, but scrotal wall edema. This was not repeated. Emergency Department Course and Treatment: Patient received pain medicine while awaiting results. Will contact the hospitalist. White count 12.3, improved. Hemoglobin 8.5 which is decreased. He has not had any significant bleeding from his wound or elsewhere. Platelets 519. BUN 31 and creatinine 3.03. Liver enzymes improved. Urinalysis unremarkable. CPK is pending. Hospitalist was contacted for admission. Treatment Plan: As above Disposition: Admission Impression: Acute kidney injury, anemia, thrombocytosis, anasarca, hepatitis C This note was generated with [employer] dictation software. It may contain incorrect words, spelling, and punctuation that were not noted in review of the chart prior to signing ED Disposition - Plan for ED Patient: Referrals: Care Physician,No Primary [Primary Care Provider] -
[2020-01-19 20:36] LABS: Bacteria 0 SEEN /hpf (None Seen); Mucous, Urine 0 SEEN /hpf (<or=2+)
[2020-01-19] MEDS: Morphine 4 MG/ML Syringe IV (20:36)
[2020-01-19 20:38] LABS: Absolute Lymphocyte Count 2.17 X10^3/uL (0.83-4.51); Absolute Neutrophil Count 8.7 X10^3/uL (2.0-7.7); Basophil# 0.04 X10^3/uL; Basophil% 0.3 % (0-1); Eosinophil# 0.47 X10^3/uL; Eosinophils% 3.8 % (0-5); Hematocrit 26.2 % (40-54); Hemoglobin 8.5 g/dL (13.0-16.5); Lymphocyte # 2.17 X10^3/ul (4.0); Lymphocyte % 17.7 % (19-41); Mean Corp Hgb Conc 32.4 g/dL (32-36); Mean Corpuscular Hgb 29.9 pg (27.0-32.0); Mean Corpuscular Volume 92.3 fL (80-94); Mean Platelet Vol. 8.8 fl (6.2-12.0); Monocyte# 0.75 X10^3/uL; Monocyte% 6.1 % (0-10); NRBC Flagged by Analyzer 0 % (0-5); Neutrophil # 8.67 X10^3/uL (2.7-7.7); Neutrophil % 70.6 % (47-70); Platelet Count 519 K/mm3 (150-450); RBC Distribution Width CV 15.6 % (11.6-14.6); RBC Distribution Width SD 51.1 fl (35.1-43.9); Red Blood Count 2.84 M/mm3 (4.6-6.2); White Blood Count 12.3 K/mm3 (4.4-11.0)
[2020-01-19 20:40] LABS: Color, Urine Straw (Yellow); Glucose, Dipstick Normal (Normal); Ketone-Dipstick Negative (Negative); Leukocyte Esterase-Dipstick 25 /ul (Negative); Nitrite-Dipstick Negative (Negative); Occult Blood-Urine 25 /ul (Negative); Protein-Dipstick Negative (Negative); Urine Bilirubin Dipstick Negative (Negative); Urine Clarity Sl. Cloudy (Clear); Urine Urobilinogen Normal (Normal)
[2020-01-19 20:56] LABS: ALB/GLOB Ratio 0.7 RATIO (0.9-2.4); AST(SGOT) 47 U/L (15-37); Alanine Aminotransfer ALT/SGPT 73 U/L (16-61); Albumin, Serum 2.2 g/dL (3.2-5.0); Alkaline Phosphatase 50 U/L (45-117); Anion Gap 9 (5-15); BUN 31 mg/dL (7-18); BUN/Creat Ratio 10.2 RATIO (10-20); Chloride 103 mmol/L (98-107); Creatinine, Serum 3.03 mg/dL (0.70-1.30); EST Glomerular Filtration Rate 25 mL/min (>60); Est Glom Filt Rate - Afr Amer 30 mL/min (>60); Estimated Creatinine Clearance 31.98 ml/min; Globulin 3.3 g/dL (2.2-4.2); Glucose 114 mg/dL (74-106); Potassium 3.9 mmol/L (3.5-5.1); Protein, Total 5.5 g/dL (6.4-8.2); Sodium Level 141 mmol/L (136-145)
[2020-01-19 21:03] LABS: Squamous Epithelial Cells - UA 0-5 SEEN /hpf (0-5)
[2020-01-19 21:04] LABS: Red Blood Cells-Urine 0-5 SEEN /hpf (0-5); White Blood Cells 0-5 SEEN /hpf (0-5)
[2020-01-19 21:06] LABS: Renal Epithelial Cells 0-5 SEEN /hpf (0-5)
[2020-01-19 21:41] LABS: CPK Total, Creatine Kinase 431 U/L (39-308)
--- NOTE | 2020-01-19 21:58 | HP.PCM_ITS ---
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 Associated with his symptoms is swelling of his bilateral lower extr emities which extends to his mid trunk. The patient was recently admitted to our hospital (01/05/2022 to 01/11/2020) for severe rhabdomyolysis; and compartments syndrome of his right leg for which prakash son he had a fasciotomy. Also on 01/14/2020 patient reported to the emergency department with swelling of his testicles and difficulty urinating. Patient was subsequently discharged from the emergency department AGAINST MEDICAL ADVICE. Past Medical History Past Medical History (Chronic Problems): Chronic Problems History of fasciotomy (Chronic) Open wound of right lower leg (Chronic) open surgical fasciotomy wound right lateral leg open surgical fasciotomy wound right medial leg Anxiety (Chronic) Schizophrenia (Chronic) Neuropraxia of left lower extremity (Chronic) Heroin abuse (Chronic) IVDU (intravenous drug user) (Chronic) Allergies No Known Allergies Allergy (Verified 01/19/20 19:55) Home Medications: Ambulatory Orders Medication Instructions Recorded Gabapentin [Neurontin] 300 mg PO BID 01/14/20 Nicotine [Nicoderm Cq] 21 mg TRANSDERM. DAILY 01/19/20 Surgical History: - - Left arm surgery for left arm abscess due to IV drug use; fasciotomy of left leg for compartment syndrome. Psychiatric History: Anxiety, Schizophrenia Smoking Status: Current some day smoker Tobacco Use: Cigarettes Drugs: Marijuana - *Family History Paternal History Items: - - Denies knowledge of paternal medical history. Maternal History Items: - - Denies knowledge of maternal medical history. Review of Systems Constitutional: Denies: Chills, Fever HEENT: Denies: Head Aches, Sinus Congestion, Sinus Drainage Cardiovascular: Reports: Edema. Denies: Chest Pain, Palpitations Respiratory: Denies: Cough, Shortness of breath at rest, Sputum production Gastrointestinal: Denies: Abdominal Pain, Nausea, Vomiting Genitourinary: Denies: Dysuria Musculoskeletal: Denies: Joint Pain, Joint Tenderness Skin: Denies: Rash, Wounds Neurological: Denies: Numbness, Tingling, Focal weakness Psychiatric: Denies: Anxiety, Depression, Homicidal Ideations, Suicidal Ideations Hematologic/ Lymphatic: Denies: Easy Bruising, Easy Bleeding VTE Information - Inpt Only VTE Present on Admission: No VTE Mechan Device Prophylaxis: SCD's VTE Pharm Prophylaxis ordered?: No - Physical Exam Vitals/I&O's: Vital Signs Temp Pulse Resp BP Pulse Ox 98.1 F 111 H 18 133/87 H 100 01/19/20 19:52 01/19/20 19:52 01/19/20 19:52 01/19/20 19:52 01/19/20 19:52 Oxygen Delivery Method Room Air Weight: 77.111 kg Body Mass Index (BMI) 25.8 General: Alert, Oriented x3, Cooperative HEENT: Atraumatic, PERRLA, EOMI, Normocephalic Neck: Supple, No JVD, Negative Carotid Bruits Lungs: Clear to auscultation, Normal air movement, No rhonchi, No wheeze, No rales Cardiovascular: Regular rate, Regular Rhythm, Normal S1, Normal S2, No murmurs Abdomen: Bowel Sounds Present, Soft, Non Tender, - - Scrotal swelling. Extremities: Capillary Refill Less than 3 Seconds, Edema - Bilateral lower extremities to trunk. Skin: - - Wound VAC connected to left leg wound. Musculoskeletal: No Tenderness to Palpation of Joints or Extremities Neurological: Cranial nerves II-XII grossly intact Psych/Mental Status: Normal Affect, Appropriate Laboratory Results 01/19/20 20:30: WBC 12.3 H, RBC 2.84 L, Hgb 8.5 L, Hct 26.2 L, MCV 92.3, MCH 29.9, MCHC 32.4, RDW Std Deviation 51.1 H, RDW Coeff of Neftali 15.6 H, Plt Count 519 H, MPV 8.8, Immature Gran % (Auto) 1.500 H, Neut % (Auto) 70.6 H, Lymph % (Auto) 17.7 L, [place] % (Auto) 6.1, Eos % (Auto) 3.8, Baso % (Auto) 0.3, Absolute Neuts (auto) 8.7 H, Absolute Lymphs (auto) 2.17, Nucleated RBC % 0 01/19/20 20:30: Sodium 141, Potassium 3.9, Chloride 103, Carbon Dioxide 29.0, Anion Gap 9, BUN 31 H, Creatinine 3.03 H, Estim Creat Clear Calc 31.98, Est GFR (MDRD) Af Amer 30 L, Est GFR (MDRD) Non-Af 25 L, BUN/Creatinine Ratio 10.2, Glucose 114 H, Calcium 8.0 L, Total Bilirubin 0.50, AST 47 H, ALT 73 H, Alkaline Phosphatase 50, Total Protein 5.5 L, Albumin 2.2 L, Globulin 3.3, Albumin/Globulin Ratio 0.7 L 01/19/20 20:30: Total Creatine Kinase 431 H 01/19/20 20:30: Urine Color Straw, Urine Clarity Sl. Cloudy, Urine pH 6.0, Ur Specific [place] 1.010, Urine Protein Negative, Urine Glucose (UA) Normal, Urine Ketones Negative, Urine Occult Blood 25 H, Urine Nitrite Negative, Urine Bilirubin Negative, Urine Urobilinogen Normal, Ur Leukocyte Esterase 25 H, Urine RBC 0-5 SEEN, Urine WBC 0-5 SEEN, Ur Squamous Epith Cells 0-5 SEEN, Ur Renal Epithelial Cell 0-5 SEEN, Urine Bacteria 0 SEEN, Urine Mucus 0 SEEN Assessment/Plan All Active Problems Acute renal failure (Acute) Rhabdomyolysis (Acute) The patient is a 39 year old M with a significant history of schizophrenia; hepatitis C; IV drug use who presented to emergency department with scrotal swelling; anasarca; KANA; and acute anemia. Anasarca His testicular ultrasound on 01/14/2020 showed scrotal wall edema with no evidence of testicular torsion; small simple right testicular cyst; and Left epididymal cyst. Echocardiogram on 01/06/2020 showed estimated EF of 60% with no evidence of diastolic dysfunction. RVSP was unable to be estimated. There was no reported valvular abnormalities. Albumin level is 2.2. Albumin level has remained low since previous admission. Check PT/INR. Check ultrasound of liver. Keep n.p.o. except meds for ultrasound of liver. We will get 24-hour protein level. Will check urine electrolytes. Check urine sample counts. Consult nephrology. KANA Creatinine presentation was 3.03 This is highest creatinine on record. His creatinine on 01/14/2020 was 2.57. And his creatinine on 01/11/2020 was 1.66. BUN is 31. BUN over creatinine is 10.2. Likely intrinsic renal. Will not start IV fluids at this time. Avoid nephrotoxins. 24 urine protein as above. Consult nephrology. Wound from recent fasciotomy Patient with wound VAC. Wound care nurse consult. Recent compartment syndrome status post fasciotomy PT and OT to work with patient. Reportedly his toe-touch bearing on his right lower extremities. Activity as tolerated. Acute anemia Patient denies hematochezia or melena. He denies coffee-ground emesis. Patient's refused rectal examination. We will get occult stool. Iron and ferritin profile. Folic acid and vitamin B12 level. We will get LDH and haptoglobin. Tobacco abuse Counseled Nicotine patch ordered. Rhabdomyolysis Review of emergency department labs show that this has improved from previous. . DVT prophylaxis SCD Inpatient E&M: 16155 Init Hosp L3
[2020-01-19 22:20] VITALS: BP 129/88; PULSE 107; RESP 16; TEMP 37.1; O2SAT 99
[2020-01-19 22:52] VITALS: BP 129/88; PULSE 107; RESP 16; TEMP 37.1; O2SAT 99
[2020-01-19 23:10] VITALS: BMI 30.8
[2020-01-19 23:48] VITALS: BMI 30.8
[2020-01-19 23:55] VITALS: BP 128/81; PULSE 106; RESP 20; TEMP 37.2; O2SAT 99
[2020-01-20 01:07] LABS: Ferritin 404 ng/mL (26-388); Iron 81 ug/dL (65-175); Iron Binding Capacity,Total 295 ug/dL (250-450); LDH 409 U/L (87-241); PERCENT IRON SATURATION 27.5 % (15.0-55.0)
--- NOTE | 2020-01-20 01:08 | US_ITS ---
STUDY: ABDOMINAL ULTRASOUND - RIGHT UPPER QUADRANT REASON FOR VISIT: Male, 39 years old ANASARCA TECHNIQUE: Ultrasound evaluation of the right upper quadrant was performed with real-time and static jimenez-scale imaging. TECHNICAL QUALITY: Adequate. COMPARISON: None. FINDINGS: Liver: The liver measures 14.9 cm. There is increased echogenicity consistent with fatty infiltration. The bile ducts are within normal limits. There is hepatic color flow. The direction of portal flow is hepatopetal. There is no demonstrated mass lesion. Gallbladder: Normal distended gallbladder. The gallbladder wall is mildly thickened and measures 3.5 mm. There is a negative sonographic Melendez''s sign. There is no pericholecystic fluid. There are no gallstones. Common Bile Duct (C.B.D.): The common bile duct measures 4.2 mm. Pancreas: Normal size of the head, body of the pancreas. The tail portion is obscured due to overlying bowel gas. There is normal echogenicity of the pancreas. There is no demonstrated pancreatic mass or cyst. Right Kidney: Normal size of the right kidney. The right kidney measures 12.5 cm x 5.8 cm x 5.2 cm. Normal renal cortex. The right cortex measures 1.4 cm. There is no demonstrated renal mass or cyst. There is no right hydronephrosis. US/Liver IMPRESSION: Fatty infiltration of the liver. Electronically Signed: Bud Read, at 10:59 EDT , Service support ,
--- NOTE | 2020-01-20 01:16 | US_ITS ---
STUDY: RENAL ULTRASOUND - COMPLETE REASON FOR EXAM: Male, 39 years old. KANA TECHNIQUE: Ultrasound evaluation of the kidneys was performed with real-time and static duval-scale imaging. COMPARISON: None. FINDINGS: RIGHT KIDNEY: Normal location of the right kidney, which is normal in size. The right kidney measures 12.5 cm x 6 cm x 5.2 cm. There is a normal cortex of the right kidney. The renal cortex measures 1.6 cm. There is no right renal mass or cyst. There are no right renal calculi. There is no right hydronephrosis. DISTAL RIGHT URETER: There is non-visualization of the distal right ureter. There is no demonstrated right ureterovesical junction calculus. There is no demonstrated right ureteral jet. LEFT KIDNEY: with mild renal hypertrophy. The left kidney measures 14.7 cm x 5 cm x 6.3 cm. There is a normal cortex of the left kidney. The renal cortex measures 2.6 cm. There is no left renal mass or cyst. There are no left renal calculi. There is no left hydronephrosis. DISTAL LEFT URETER: There is non-visualization of the distal left ureter. There is no demonstrated left ureterovesical junction calculus. There is a visualized left ureteral jet. BLADDER: The distended urinary bladder has a volume of 148 ml. There is a normal wall thickness of the distended urinary bladder. There is no demonstrated mass within the urinary bladder. There are no demonstrated bladder calculi. US/Kidney and Bladder IMPRESSION: Normal ultrasound of the kidneys and urinary bladder. Electronically Signed: Bud Read, at 10:51 EDT , Service support ,
[2020-01-20 01:56] LABS: Urine Sodium 16 mmol/L (Not Establ.)
[2020-01-20 05:52] LABS: Prothrombin Time (Protime)PT. 12.3 SECONDS (11.7-14.9)
[2020-01-20 05:57] VITALS: BP 124/80; PULSE 100; RESP 18; TEMP 36.6; O2SAT 99
[2020-01-20 05:58] LABS: Absolute Lymphocyte Count 2.62 X10^3/uL (0.83-4.51); Absolute Neutrophil Count 8.3 X10^3/uL (2.0-7.7); Basophil# 0.04 X10^3/uL; Basophil% 0.3 % (0-1); Eosinophil# 0.52 X10^3/uL; Eosinophils% 4.1 % (0-5); Hematocrit 25.6 % (40-54); Hemoglobin 8.1 g/dL (13.0-16.5); Lymphocyte # 2.62 X10^3/ul (4.0); Lymphocyte % 20.9 % (19-41); Mean Corp Hgb Conc 31.6 g/dL (32-36); Mean Corpuscular Hgb 29.7 pg (27.0-32.0); Mean Corpuscular Volume 93.8 fL (80-94); Mean Platelet Vol. 9.5 fl (6.2-12.0); Monocyte# 0.86 X10^3/uL; Monocyte% 6.9 % (0-10); NRBC Flagged by Analyzer 0 % (0-5); Neutrophil # 8.31 X10^3/uL (2.7-7.7); Neutrophil % 66.2 % (47-70); Platelet Count 588 K/mm3 (150-450); RBC Distribution Width CV 15.8 % (11.6-14.6); Red Blood Count 2.73 M/mm3 (4.6-6.2); White Blood Count 12.6 K/mm3 (4.4-11.0)
[2020-01-20 06:00] LABS: Anion Gap 7 (5-15); BUN 31 mg/dL (7-18); BUN/Creat Ratio 10.7 RATIO (10-20); Calcium,Total 8.1 mg/dL (8.5-10.1); Chloride 105 mmol/L (98-107); EST Glomerular Filtration Rate 26 mL/min (>60); Est Glom Filt Rate - Afr Amer 31 mL/min (>60); Estimated Creatinine Clearance 33.41 ml/min; Glucose 98 mg/dL (74-106); Potassium 3.9 mmol/L (3.5-5.1); Sodium Level 140 mmol/L (136-145)
[2020-01-20 09:13] LABS: Vitamin B12 302 pg/mL (211-911)
[2020-01-20] MEDS: Gabapentin 100 MG Capsule PO ×2 (10:45→22:31)
[2020-01-20] MEDS: Acetaminophen 500 MG Tablet 1000 MG PO ×2 (10:46→18:44)
--- NOTE | 2020-01-20 11:58 | PCM.CONS.R ---
Consultation - Renal 01/20/20 PCP/ Referring MD: Requesting physician: [] Primary care physician: No Primary Care Phys Reason for Consultation:: kana - History of Present Illness History of Present Illness: The patient is a 39 year old M with a past medical history of schizophrenia hepatitis C and IV drug use who presented to the emergency department with scrotal swelling associated with bilateral lower extremity edema which extends to his mid trunk. He has a history of recent rhabdomyolysis and compartment syndrome of his right leg for which she had a fasciotomy. Similar visit on January 14, 2020 when he left AGAINST MEDICAL ADVICE. He denies using NSAIDs he denies dysuria hematuria. He states he has lower extremity edema for a few weeks now but he is not sure about that. He admits with recent IV drug use especially heroin. He denies ever seeing a signals analyst. His serum creatinine was normal in 2017 and it was between 1.5 and 3 in from the end of December until now. He states he never got treatment for hepatitis C. Denies nausea vomiting diarrhea abdominal pain chest pain shortness of breath skin rashes. He states his pain is not controlled at the site of the surgery in the right lower extremity and wants more pain medications. He denies hemoptysis hematemesis hematochezia. Prior to December there are no previous values of serum creatinine until 2016 looking back in the EMR. - Allergies Allergies: Allergies No Known Allergies Allergy (Verified 01/19/20 19:55) - Current Medications Current Medications: Current Medications Acetaminophen (Tylenol) 1,000 mg PO TID PRN PRN PRN Reason: Pain Score 1-05/20 Last Admin: 01/20/20 10:46 Dose: 1,000 mg Documented by: Dextrose (D50w Syringe) 0 gm IV X1 PRN; Protocol PRN Reason: Hypoglycemia Gabapentin (Neurontin) 100 mg PO BID DORIAN Last Admin: 01/20/20 10:45 Dose: 100 mg Documented by: Glucagon () 1 mg IM .X1 PRN PRN Reason: Hypoglycemia Sodium Chloride () 250 mls @ 15 mls/hr IV .[id number] PRN PRN Reason: Saline Flush Sodium Chloride () 250 mls @ 15 mls/hr IV .[id number] PRN PRN Reason: Additional IVPB Infusion Magnesium Hydroxide (Milk Of Magnesia) 30 ml PO DAILY PRN PRN PRN Reason: Constipation Melatonin (Melatonin) 3 mg PO QHS PRN PRN PRN Reason: INSOMNIA Nicotine (Nicoderm Cq (Pbkc)) 21 mg TRANSDERM. DAILY DORIAN Last Admin: 01/20/20 10:47 Dose: 21 mg Documented by: Ondansetron HCl (Zofran) 4 mg IV Q8H PRN PRN PRN Reason: NAUSEA/VOMITING Sodium Chloride () 10 - 40 ml IV UD PRN PRN Reason: SALINE FLUSH - Past Medical History Past Medical History (Chronic Problems): Chronic Problems History of fasciotomy (Chronic) Open wound of right lower leg (Chronic) open surgical fasciotomy wound right lateral leg open surgical fasciotomy wound right medial leg Anxiety (Chronic) Schizophrenia (Chronic) Neuropraxia of left lower extremity (Chronic) Heroin abuse (Chronic) IVDU (intravenous drug user) (Chronic) - Past Surgical History Surgical History: - - Left arm surgery for left arm abscess due to IV drug use; fasciotomy of left leg for compartment syndrome. - Social History Smoking Status: Current some day smoker Drugs: Marijuana - Family History Paternal History Items: - - Denies knowledge of paternal medical history. Maternal History Items: - - Denies knowledge of maternal medical history. Review of Systems Eyes: Reports: - - Negative unless noted in the HPI. The patient is a poor historian. - Physical Exam Vitals/I&O's: Vital Signs Temp Pulse Resp BP Pulse Ox 98 F 100 18 124/80 H 99 01/20/20 05:57 01/20/20 05:57 01/20/20 05:57 01/20/20 05:57 01/20/20 05:57 Oxygen Delivery Method Room Air Weight: 92.3 kg Body Mass Index (BMI) 30.8 Intake and Output for Last 24 Hours 01/18/20 01/19/20 01/20/20 23:59 23:59 23:59 Intake Total 0 / 0 Output Total 1150 / 1150 Balance -1150 / -1150 General: Alert, No apparent distress HEENT: Atraumatic, Normocephalic Oral: Moist Mucosa Lungs: Clear to auscultation, Normal air movement Cardiovascular: Regular rate, Regular Rhythm, Normal S1, Normal S2 Abdomen: Bowel Sounds Present, Soft, Non Tender Extremities: No cyanosis, Edema - alert awake Laboratory Results 01/19/20 20:30: WBC 12.3 H, RBC 2.84 L, Hgb 8.5 L, Hct 26.2 L, MCV 92.3, MCH 29.9, MCHC 32.4, RDW Std Deviation 51.1 H, RDW Coeff of Neftali 15.6 H, Plt Count 519 H, MPV 8.8, Immature Gran % (Auto) 1.500 H, Neut % (Auto) 70.6 H, Lymph % (Auto) 17.7 L, [place] % (Auto) 6.1, Eos % (Auto) 3.8, Baso % (Auto) 0.3, Absolute Neuts (auto) 8.7 H, Absolute Lymphs (auto) 2.17, Nucleated RBC % 0 01/19/20 20:30: Sodium 141, Potassium 3.9, Chloride 103, Carbon Dioxide 29.0, Anion Gap 9, BUN 31 H, Creatinine 3.03 H, Estim Creat Clear Calc 31.98, Est GFR (MDRD) Af Amer 30 L, Est GFR (MDRD) Non-Af 25 L, BUN/Creatinine Ratio 10.2, Glucose 114 H, Calcium 8.0 L, Total Bilirubin 0.50, AST 47 H, ALT 73 H, Alkaline Phosphatase 50, Total Protein 5.5 L, Albumin 2.2 L, Globulin 3.3, Albumin/Globulin Ratio 0.7 L 01/19/20 20:30: Total Creatine Kinase 431 H 01/19/20 20:30: Urine Color Straw, Urine Clarity Sl. Cloudy, Urine pH 6.0, Ur Specific [place] 1.010, Urine Protein Negative, Urine Glucose (UA) Normal, Urine Ketones Negative, Urine Occult Blood 25 H, Urine Nitrite Negative, Urine Bilirubin Negative, Urine Urobilinogen Normal, Ur Leukocyte Esterase 25 H, Urine RBC 0-5 SEEN, Urine WBC 0-5 SEEN, Ur Squamous Epith Cells 0-5 SEEN, Ur Renal Epithelial Cell 0-5 SEEN, Urine Bacteria 0 SEEN, Urine Mucus 0 SEEN 01/19/20 20:30: Iron 81, TIBC 295, Iron Saturation 27.5, Ferritin 404 H, Lactate Dehydrogenase 409 H, Folate 3.50 01/20/20 01:32: Urine Creatinine 42.40 01/20/20 01:32: Ur Random Sodium 16 01/20/20 05:05: Vitamin B12 302 01/20/20 05:05: Haptoglobin Pending 01/20/20 05:05: WBC 12.6 H, RBC 2.73 L, Hgb 8.1 L, Hct 25.6 L, MCV 93.8, MCH 29.7, MCHC 31.6 L, RDW Std Deviation 54.0 H, RDW Coeff of Neftali 15.8 H, Plt Count 588 H, MPV 9.5, Immature Gran % (Auto) 1.600 H, Neut % (Auto) 66.2, Lymph % (Auto) 20.9, [place] % (Auto) 6.9, Eos % (Auto) 4.1, Baso % (Auto) 0.3, Absolute Neuts (auto) 8.3 H, Absolute Lymphs (auto) 2.62, Nucleated RBC % 0 01/20/20 05:05: PT 12.3, INR 1.0 01/20/20 05:05: Sodium 140, Potassium 3.9, Chloride 105, Carbon Dioxide 28.0, Anion Gap 7, BUN 31 H, Creatinine 2.90 H, Estim Creat Clear Calc 33.41, Est GFR (MDRD) Af Amer 31 L, Est GFR (MDRD) Non-Af 26 L, BUN/Creatinine Ratio 10.7, Glucose 98, Calcium 8.1 L Current Medications Acetaminophen (Tylenol) 1,000 mg PO TID PRN PRN PRN Reason: Pain Score 1-10/10 Last Admin: 01/20/20 10:46 Dose: 1,000 mg Documented by: Dextrose (D50w Syringe) 0 gm IV X1 PRN; Protocol PRN Reason: Hypoglycemia Gabapentin (Neurontin) 100 mg PO BID DORIAN Last Admin: 01/20/20 10:45 Dose: 100 mg Documented by: Glucagon () 1 mg IM .X1 PRN PRN Reason: Hypoglycemia Sodium Chloride () 250 mls @ 15 mls/hr IV .[id number] PRN PRN Reason: Saline Flush Sodium Chloride () 250 mls @ 15 mls/hr IV .[id number] PRN PRN Reason: Additional IVPB Infusion Magnesium Hydroxide (Milk Of Magnesia) 30 ml PO DAILY PRN PRN PRN Reason: Constipation Melatonin (Melatonin) 3 mg PO QHS PRN PRN PRN Reason: INSOMNIA Nicotine (Nicoderm Cq (Pbkc)) 21 mg TRANSDERM. DAILY DORIAN Last Admin: 01/20/20 10:47 Dose: 21 mg Documented by: Ondansetron HCl (Zofran) 4 mg IV Q8H PRN PRN PRN Reason: NAUSEA/VOMITING Sodium Chloride () 10 - 40 ml IV UD PRN PRN Reason: SALINE FLUSH Assessment/Plan All Active Problems Acute renal failure (Acute) Rhabdomyolysis (Acute) KANA had pigment induced KANA with severe rhabdo scr 2.9 at the end of December with persistence of renal failure LE edema Rhabo almost resolved Substance abuse UA bland sediment noted Scr 2.9 in the same range with prerenal variations since end of December no protein on UA will check 24 hour urine for protein and spot up/cr spep upep. hold on diuretics for now. further w/u as per clinical course. The above assessment and plan was discussed at length with the patient who voiced understanding and agrees to proceed with the plan as outlined above. He was given the opportunity to ask questions and stated that those were answered to his satisfaction. Thank you very much for allowing me to participate in the care of this patient. Please do not hesitate to call if you have any questions or concerns.
[2020-01-20 12:00] VITALS: BP 122/71; PULSE 100; RESP 18; TEMP 36.3; O2SAT 100
--- NOTE | 2020-01-20 12:07 | PN_ITS ---
Reason for Visit: KANA Subjective: still with leg pain. Vitals/I&O's: Vital Signs Temp Pulse Resp BP Pulse Ox 36.6 C 100 18 124/80 H 99 01/20/20 05:57 01/20/20 05:57 01/20/20 05:57 01/20/20 05:57 01/20/20 05:57 Oxygen Delivery Method Room Air Weight: 92.3 kg Body Mass Index (BMI) 30.8 Intake and Output for Last 24 Hours 01/18/20 01/19/20 01/20/20 23:59 23:59 23:59 Intake Total 0 / 0 Output Total 1150 / 1150 Balance -1150 / -1150 General: Alert HEENT: Atraumatic, Normocephalic Oral: Moist Mucosa, No Gingival or Mucosal Lesions/ Ulcerations Neck: No Nodes, Thyroid Normal Size and Texture Lungs: Clear to auscultation, Normal air movement, No rhonchi, No wheeze Cardiovascular: Regular rate, Regular Rhythm, Normal S1, Normal S2, No murmurs Abdomen: Bowel Sounds Present, Soft, Non Tender, Non-Distended Extremities: - - right leg wrapped--did not remove. Skin: No rashes, No breakdown Psych/Mental Status: Normal Affect, Appropriate Laboratory Results 01/19/20 20:30: WBC 12.3 H, RBC 2.84 L, Hgb 8.5 L, Hct 26.2 L, MCV 92.3, MCH 29.9, MCHC 32.4, RDW Std Deviation 51.1 H, RDW Coeff of Neftali 15.6 H, Plt Count 519 H, MPV 8.8, Immature Gran % (Auto) 1.500 H, Neut % (Auto) 70.6 H, Lymph % (Auto) 17.7 L, [place] % (Auto) 6.1, Eos % (Auto) 3.8, Baso % (Auto) 0.3, Absolute Neuts (auto) 8.7 H, Absolute Lymphs (auto) 2.17, Nucleated RBC % 0 01/19/20 20:30: Sodium 141, Potassium 3.9, Chloride 103, Carbon Dioxide 29.0, Anion Gap 9, BUN 31 H, Creatinine 3.03 H, Estim Creat Clear Calc 31.98, Est GFR (MDRD) Af Amer 30 L, Est GFR (MDRD) Non-Af 25 L, BUN/Creatinine Ratio 10.2, Glucose 114 H, Calcium 8.0 L, Total Bilirubin 0.50, AST 47 H, ALT 73 H, Alkaline Phosphatase 50, Total Protein 5.5 L, Albumin 2.2 L, Globulin 3.3, Albumin/Globulin Ratio 0.7 L 01/19/20 20:30: Total Creatine Kinase 431 H 01/19/20 20:30: Urine Color Straw, Urine Clarity Sl. Cloudy, Urine pH 6.0, Ur Specific [place] 1.010, Urine Protein Negative, Urine Glucose (UA) Normal, Urine Ketones Negative, Urine Occult Blood 25 H, Urine Nitrite Negative, Urine Bilirubin Negative, Urine Urobilinogen Normal, Ur Leukocyte Esterase 25 H, Urine RBC 0-5 SEEN, Urine WBC 0-5 SEEN, Ur Squamous Epith Cells 0-5 SEEN, Ur Renal Epithelial Cell 0-5 SEEN, Urine Bacteria 0 SEEN, Urine Mucus 0 SEEN 01/19/20 20:30: Iron 81, TIBC 295, Iron Saturation 27.5, Ferritin 404 H, Lactate Dehydrogenase 409 H, Folate 3.50 01/20/20 01:32: Urine Creatinine 42.40 01/20/20 01:32: Ur Random Sodium 16 01/20/20 05:05: Vitamin B12 302 01/20/20 05:05: Haptoglobin Pending 01/20/20 05:05: WBC 12.6 H, RBC 2.73 L, Hgb 8.1 L, Hct 25.6 L, MCV 93.8, MCH 29.7, MCHC 31.6 L, RDW Std Deviation 54.0 H, RDW Coeff of Neftali 15.8 H, Plt Count 588 H, MPV 9.5, Immature Gran % (Auto) 1.600 H, Neut % (Auto) 66.2, Lymph % (Auto) 20.9, [place] % (Auto) 6.9, Eos % (Auto) 4.1, Baso % (Auto) 0.3, Absolute Neuts (auto) 8.3 H, Absolute Lymphs (auto) 2.62, Nucleated RBC % 0 01/20/20 05:05: PT 12.3, INR 1.0 01/20/20 05:05: Sodium 140, Potassium 3.9, Chloride 105, Carbon Dioxide 28.0, Anion Gap 7, BUN 31 H, Creatinine 2.90 H, Estim Creat Clear Calc 33.41, Est GFR (MDRD) Af Amer 31 L, Est GFR (MDRD) Non-Af 26 L, BUN/Creatinine Ratio 10.7, Glucose 98, Calcium 8.1 L Current Medications Acetaminophen (Tylenol) 1,000 mg PO TID PRN PRN PRN Reason: Pain Score 1-05/20 Last Admin: 01/20/20 10:46 Dose: 1,000 mg Documented by: Dextrose (D50w Syringe) 0 gm IV X1 PRN; Protocol PRN Reason: Hypoglycemia Gabapentin (Neurontin) 100 mg PO BID [facility] Last Admin: 01/20/20 10:45 Dose: 100 mg Documented by: Glucagon () 1 mg IM .X1 PRN PRN Reason: Hypoglycemia Sodium Chloride () 250 mls @ 15 mls/hr IV .[id number] PRN PRN Reason: Saline Flush Sodium Chloride () 250 mls @ 15 mls/hr IV .[id number] PRN PRN Reason: Additional IVPB Infusion Magnesium Hydroxide (Milk Of Magnesia) 30 ml PO DAILY PRN PRN PRN Reason: Constipation Melatonin (Melatonin) 3 mg PO QHS PRN PRN PRN Reason: INSOMNIA Nicotine (Nicoderm Cq (Pbkc)) 21 mg TRANSDERM. DAILY [facility] Last Admin: 01/20/20 10:47 Dose: 21 mg Documented by: Ondansetron HCl (Zofran) 4 mg IV Q8H PRN PRN PRN Reason: NAUSEA/VOMITING Sodium Chloride () 10 - 40 ml IV UD PRN PRN Reason: SALINE FLUSH Medical Necessity - Tobacco Use Smoking Status: Current some day smoker Tobacco Use: Cigarettes Assessment/Plan All Active Problems Acute renal failure (Acute) Rhabdomyolysis (Acute) 1. KANA * non-oliguric * 2/2 pigment nephropathy +/- prerenal * FENa 0.78% * renal ultrasound unremarkable * nephrology on consult 2. Right leg wound * s/p 4 compartment release of right leg on 01/05 for compartment syndrome * continue wound care and wound vac 3. history of heroin abuse * patient requesting morphine, given his overdose, too high risk of adverse effects. * PRN acetaminophen * decreased gabapentin to 100 BID given KANA 4. acute blood loss anemia * trending down * normocytic * monitor 5. VTE prophylaxis: moderate risk. start SQ heparin. Inpatient E&M: 09742 Subs Hosp L2
--- NOTE | 2020-01-20 13:02 | CASEMGMT ---
Social Work Note DENNISE reviewed chart. Pt was just at [facility] 01/06/2020-01/11/2020. Pt has history of anxiety and schizophrenia. Pt also has history of substance use including heroin use. Pt see's Dr. Whitaker every three months. SW in to speak with pt. SW introduced self and role at [facility]. Pt is alert and orientated x3, sleeping when this worker entered the room, woke up, but then kept eyes shut during conversation. Pt states that he has been doing better since he was discharged from [facility]. Pt states that he is still using heroin, denied wanting any resources. SW offered pt [employer] resources and pt denied. Pt denied additional needs or concerns at this time. Lakesha Kumar HR DIRECTOR, NEUROPHYSIOLOGY TECH
--- NOTE | 2020-01-20 15:20 | CASEMGMT ---
SELENA DUPONT chart review: Patient was admitted 01/06/20-01/11/20 for rhabdomyolysis and compartment syndrome. Patient had fasciotomy to his right leg and was discharged with a wound vac and HHC with [facility] for SN/PT/OT. Patient had follow-up with Dr Duran at the Wound center on 01/17/2020. See DENNISE assessment from 01/06/2020. Patient returned for leg and scrotal swelling on 01/18, was seen for same on 01/14/20 in the ED but left AMA. Admitted for KANA. SELENA DUPONT called and updated [facility] regarding admission. See DENNISE Kumar note from 01/20/20. CM to follow for PCP setup, resumption of HHC, and discharge planning.
[2020-01-20] MEDS: Juven (unflavored) Packet 1 PACKET PO (16:53)
[2020-01-20 18:00] VITALS: BP 122/60; PULSE 89; RESP 18; TEMP 36.4; O2SAT 99
[2020-01-20 22:24] VITALS: BP 131/83; PULSE 94; RESP 18; TEMP 37.1; O2SAT 100
[2020-01-20] MEDS: Heparin Injection (Vial) 5,000 UNIT/ML VIAL 5000 UNIT SC (22:31)
[2020-01-20] MEDS: MELATONIN 3 MG TABLET PO (22:39)
[2020-01-20 23:06] VITALS: PULSE 94; RESP 18; O2SAT 100
[2020-01-20] MEDS: Mag Hydrox/Al Hydrox/Simeth 30 ML UDC PO (23:43)
[2020-01-21 04:24] VITALS: BP 124/84; PULSE 91; RESP 18; TEMP 36.7; O2SAT 99
[2020-01-21] MEDS: Acetaminophen 500 MG Tablet 1000 MG PO (04:29)
[2020-01-21 04:35] VITALS: PULSE 91
[2020-01-21 06:13] LABS: Absolute Lymphocyte Count 2.08 X10^3/uL (0.83-4.51); Absolute Neutrophil Count 7.5 X10^3/uL (2.0-7.7); Basophil# 0.04 X10^3/uL; Basophil% 0.4 % (0-1); Eosinophils% 3.7 % (0-5); Hematocrit 23.9 % (40-54); Hemoglobin 7.6 g/dL (13.0-16.5); Lymphocyte # 2.08 X10^3/ul (4.0); Lymphocyte % 19.3 % (19-41); Mean Corp Hgb Conc 31.8 g/dL (32-36); Mean Corpuscular Hgb 29.8 pg (27.0-32.0); Mean Corpuscular Volume 93.7 fL (80-94); Mean Platelet Vol. 9.3 fl (6.2-12.0); Monocyte# 0.68 X10^3/uL; Monocyte% 6.3 % (0-10); NRBC Flagged by Analyzer 0 % (0-5); Neutrophil % 69.4 % (47-70); Platelet Count 555 K/mm3 (150-450); RBC Distribution Width CV 15.7 % (11.6-14.6); Red Blood Count 2.55 M/mm3 (4.6-6.2); White Blood Count 10.8 K/mm3 (4.4-11.0)
[2020-01-21 06:44] LABS: Anion Gap 6 (5-15); BUN 28 mg/dL (7-18); BUN/Creat Ratio 12.2 RATIO (10-20); Chloride 107 mmol/L (98-107); EST Glomerular Filtration Rate 34 mL/min (>60); Est Glom Filt Rate - Afr Amer 41 mL/min (>60); Estimated Creatinine Clearance 42.13 ml/min; Glucose 114 mg/dL (74-106); Potassium 4.2 mmol/L (3.5-5.1); Sodium Level 142 mmol/L (136-145)
[2020-01-21] MEDS: Rizatriptan Benzoate 10 MG Tablet PO (06:59)
[2020-01-21 09:30] VITALS: BP 123/79; PULSE 89; RESP 18; TEMP 36.7; O2SAT 98
[2020-01-21] MEDS: oxyCODONE 5 MG Tablet PO (09:41)
[2020-01-21] MEDS: Juven (unflavored) Packet 1 PACKET PO (09:41)
[2020-01-21] MEDS: Heparin Injection (Vial) 5,000 UNIT/ML VIAL 5000 UNIT SC (09:44)
[2020-01-21] MEDS: Gabapentin 100 MG Capsule PO (09:56)
[2020-01-21 10:23] LABS: 24 Hour Urine Protein 317.2 mg/24HR (<150 MG/24HR); 24HR. UA Prot. Total Volume 3375 mL; 24HR. Urine Creatinine 1.58 g/24 HR (0.90-2.10); Urine Protein (24 Hour) 9.4 mg/dL (<11.9)
--- NOTE | 2020-01-21 10:33 | DCINST_ITS ---
You will use the following diet at home:: No restrictions Your food should be the consistency of: Regular Weight Bearing Status: Toe touch weight bearing Keep extremity elevated above heart level: Right Leg Call your doctor if your incision/area has: Continuous Slow Oozing, Sudden Increased Bleeding, Increased Pain/ Swelling Call your doctor if you observe: Fever of 101 or Higher, Inability to urinate Allergies/Adverse Reactions: Allergies No Known Allergies Allergy (Verified 01/19/20 19:55) Medications to take at Discharge Nicotine [Nicoderm Cq] 21 mg TRANSDERM. DAILY 01/19/20 Gabapentin [Neurontin] 300 mg PO DAILY #0 01/21/20 Markel (unflavored) [Markel Packet] 1 packet PO BIDCM #60 packet 01/21/20 The following prescriptions were given: Markel (unflavored) [Markel Packet] 1 packet PO BIDCM #60 packet Transmission Status: Pending to [facility] Primary Care Physician: Care Physician,No Primary [Primary Care Provider] - Test Results: Test results from this visit will be discussed in further detail at your follow- up appointment, if applicable. Please Follow Up With: Mary Jo Hampton MD When: 02/17/2020, already scheduled Please Follow Up With: Heber Bagley MD - Nephrology When: 2-4 weeks Proposed Discharge Date: 01/21/20
--- NOTE | 2020-01-21 10:37 | DS.PCM_ITS ---
Discharge Date and Diagnosis Date of Admission: 01/19/20 Date of Discharge: 01/21/20 - Primary Discharge Diagnosis Acute Problems: 1. KANA * improving * non-oliguric * 2/2 pigment nephropathy +/- prerenal * FENa 0.78% * renal ultrasound unremarkable * nephrology on consult * SPEP/UPEP pending * 24h protein elevated at 317 * follow up with nephrology 2. Right leg wound * s/p 4 compartment release of right leg on 01/05 for compartment syndrome * continue wound care and wound vac 3. history of heroin abuse * PRN acetaminophen * decreased gabapentin to 100 BID given KANA * told patient I would not prescribe narcotics on discharge. Will give 1x dose of oxycodone for dressing change. 4. acute blood loss anemia * trending down * normocytic * add ferrous sulfate. - Secondary Discharge Diagnosis Chronic Problems: Chronic Problems History of fasciotomy (Chronic) Open wound of right lower leg (Chronic) open surgical fasciotomy wound right lateral leg open surgical fasciotomy wound right medial leg Anxiety (Chronic) Schizophrenia (Chronic) Neuropraxia of left lower extremity (Chronic) Heroin abuse (Chronic) IVDU (intravenous drug user) (Chronic) Hospital Course and Treatment Imaging Results: Clinical Impression(s) from Imaging Studies Liver Ultrasound 01/20/20 01:08 IMPRESSION: Fatty infiltration of the liver. Electronically Signed: Bud Read, at 10:59 EDT , Service support , Renal Ultrasound 01/20/20 01:16 IMPRESSION: Normal ultrasound of the kidneys and urinary bladder. Electronically Signed: Bud Read at 10:51 EDT , Service support , Consultations 01/20/20 01:08 Consult: Onc/Wound/in flight technician Routine Comment: Reason for Consult:: wound vac Operations: None Procedures: None Summary of Care Provided: The patient is a 39 year old M presents with scrotal swelling. Patient also having lower extremity edema. Patient is previously hospitalized for severe rhabdomyolysis and compartment syndrome of the right lower extremity which did require a fasciotomy. So patient was encouraged to come to the hospital by his home care agency which patient did reluctantly. Patient was found to be in acute kidney injury with a creatinine of 3.03 which was actually trending up from 2.57 on January 13 and that was even trending up from 1.66. Subsequent creatinines have gone from 2.9-2.3 today. Patient is urinating well and his scrotal edema is improved as well as his lower extremity edema. Patient still has his fasciotomy wound which she is having a lot of pain understandably with dressing changes. Patient was asked for morphine but I told him that given his history of heroin abuse I would not be prescribing of that but we did agree to one-time dose of oxycodone while he was here. I did tell the patient explicitly that I would not be prescribing him any narcotics upon discharge given his history of heroin abuse. He expressed understanding. Patient was seen in consultation by nephrology and patient to have 24-hour urine study. Urine protein electrophoresis as well as serum electro protein pheresis is currently pending. His 24-hour urine protein was elevated at 317. Patient will need to follow-up with nephrology as outpatient. Patient has been anemic and his hemoglobin is been trending down but no obvious loss of blood anywhere. This is likely due to not blood loss but just probably a component of dilution plus resources being spent elsewhere given healing from his fasciotomy as well as his kidney issue that he is dealing with now. Patient has been started on ferrous sulfate 325 mg daily. Patient will be discharged home with home care. [] Subjective: scrotal edema improving, but not back to normal yet. - Physical Exam Vitals/I&O's: Vital Signs Temp Pulse Resp BP Pulse Ox 36.7 C 89 18 123/79 H 98 01/21/20 09:30 01/21/20 09:30 01/21/20 09:30 01/21/20 09:30 01/21/20 09:30 Oxygen Delivery Method Room Air Weight: 92.2 kg Body Mass Index (BMI) 30.8 Intake and Output for Last 24 Hours 01/19/20 01/20/20 01/21/20 23:59 23:59 23:59 Intake Total 0 / 600 1000 / 1000 Output Total 3350 / 3950 1650 / 1650 Balance -3350 / -3350 -650 / -650 General: Alert, No apparent distress HEENT: Atraumatic, Normocephalic Oral: Moist Mucosa, No Gingival or Mucosal Lesions/ Ulcerations Neck: No Nodes, Thyroid Normal Size and Texture Lungs: Clear to auscultation, Normal air movement, No rhonchi, No wheeze Cardiovascular: Regular rate, Regular Rhythm, Normal S1, Normal S2, No murmurs Abdomen: Bowel Sounds Present, Soft, Non Tender, Non-Distended, No Hepato- splenomegaly Extremities: No edema, No Calf Tenderness Psych/Mental Status: Normal Affect, Appropriate Microbiology Past 72 Hours 01/20/20 23:08 Stool Stool Occult Blood (NICOLE) - Final Laboratory Results 01/20/20 01:32: Eos Smear Total Cells Pending 01/20/20 01:32: Urine Total Protein Pending, Urine Albumin Pending, U Ysuht-0-Kkvgjtvw Pending, U Gflbf-9-Nzxyojvr Pending, U Beta Globulin Pending, U Gamma Globulin Pending, U PEP M-Quinten Pending 01/20/20 05:05: Total Protein (PEP) Pending, Albumin (PEP) Pending, Globulin (PEP) Pending, Albumin/Globulin (PEP) Pending, Ozuxw-1-Ljxoqthff Pending, Xbldj-9-Lxkrsjjkw Pending, Beta Globulins Pending, Gamma Globulins Pending, M- Quinten Pending 01/21/20 05:50: WBC 10.8, RBC 2.55 L, Hgb 7.6 L, Hct 23.9 L, MCV 93.7, MCH 29.8, MCHC 31.8 L, RDW Std Deviation 54.0 H, RDW Coeff of Neftali 15.7 H, Plt Count 555 H , MPV 9.3, Immature Gran % (Auto) 0.900, Neut % (Auto) 69.4, Lymph % (Auto) 19.3, [place] % (Auto) 6.3, Eos % (Auto) 3.7, Baso % (Auto) 0.4, Absolute Neuts (auto) 7.5, Absolute Lymphs (auto) 2.08, Nucleated RBC % 0 01/21/20 05:50: Sodium 142, Potassium 4.2, Chloride 107, Carbon Dioxide 29.0, Anion Gap 6, BUN 28 H, Creatinine 2.30 H, Estim Creat Clear Calc 42.13, Est GFR (MDRD) Af Amer 41 L, Est GFR (MDRD) Non-Af 34 L, BUN/Creatinine Ratio 12.2, Glucose 114 H, Calcium 8.0 L 01/21/20 09:30: Urine Collection Time 24.0, Timed Urine Volume 3375, Ur Total Protein 24 Hr 317.2 H, Urine Total Protein 9.4 01/21/20 09:30: Ur Collection Duration 24.0, Urine Total Volume 3.40, Urine Creatinine 46.90, Ur Creatinine 24 Hour 1.58 Current Medications Acetaminophen (Tylenol) 1,000 mg PO TID PRN PRN PRN Reason: Pain Score 1-1010 Last Admin: 01/21/20 04:29 Dose: 1,000 mg Documented by: Dextrose (D50w Syringe) 0 gm IV X1 PRN; Protocol PRN Reason: Hypoglycemia Gabapentin (Neurontin) 100 mg PO BID [facility] Last Admin: 01/21/20 09:56 Dose: 100 mg Documented by: Glucagon () 1 mg IM .X1 PRN PRN Reason: Hypoglycemia Heparin Sodium (Porcine) (Heparin Na) 5,000 unit SC Q12 [facility] Last Admin: 01/21/20 09:44 Dose: 5,000 unit Documented by: Sodium Chloride () 250 mls @ 15 mls/hr IV .[id number] PRN PRN Reason: Saline Flush Sodium Chloride () 250 mls @ 15 mls/hr IV .[id number] PRN PRN Reason: Additional IVPB Infusion Magnesium Hydroxide (Milk Of Magnesia) 30 ml PO DAILY PRN PRN PRN Reason: Constipation Melatonin (Melatonin) 3 mg PO QHS PRN PRN PRN Reason: INSOMNIA Last Admin: 01/20/20 22:39 Dose: 3 mg Documented by: Nicotine (Nicoderm Cq (Pbkc)) 21 mg TRANSDERM. DAILY [facility] Last Admin: 01/21/20 09:43 Dose: 21 mg Documented by: Nutritional Formula (Lactose Free) (Ensure Enlive) 120 ml PO 4X/DAY [facility] Last Admin: 01/21/20 09:28 Dose: Not Given Documented by: Ondansetron HCl (Zofran) 4 mg IV Q8H PRN PRN PRN Reason: NAUSEA/VOMITING Sodium Chloride () 10 - 40 ml IV UD PRN PRN Reason: SALINE FLUSH Discharge Diet: No Restrictions Weight Bearing Status: Toe touch weight bearing Keep extremity elevated above heart level: Right Leg Call your doctor if your incision/area has: Continuous Slow Oozing, Sudden Increased Bleeding, Increased Pain/ Swelling Call your doctor if you observe: Fever of 101 or Higher, Inability to urinate Home Medications: Medications to take at Discharge Nicotine [Nicoderm Cq] 21 mg TRANSDERM. DAILY 01/19/20 Gabapentin [Neurontin] 300 mg PO DAILY #0 01/21/20 Markel (unflavored) [Markel Packet] 1 packet PO BIDCM #60 packet 01/21/20 Following Prescrptions Were Given to Patient: Markel (unflavored) [Markel Packet] 1 packet PO BIDCM #60 packet Transmission Status: Pending to [facility] Primary Care Physician: Care Physician,No Primary [Primary Care Provider] - Please Follow Up With: Mary Jo Hampton MD When: 02/17/2020, already scheduled Please Follow Up With: Heber Bagley MD - Nephrology When: 2-4 weeks Disposition: Home with Home Health Minutes spent on discharge:: 40 Patient Condition:: Good Medical Necessity - Tobacco Use Smoking Status: Current some day smoker Tobacco Use: Cigarettes Meaningful Use Info Meaningful Use Diagnoses (Choose all that apply): None applicable Inpatient E&M: 46010 Disch Hosp
--- NOTE | 2020-01-21 11:16 | PN.RENAL_ITS ---
Subjective: no c/o no cp/sob - Physical Exam Vitals/I&O's: Vital Signs Temp Pulse Resp BP Pulse Ox 98.1 F 89 18 123/79 H 98 01/21/20 09:30 01/21/20 09:30 01/21/20 09:30 01/21/20 09:30 01/21/20 09:30 Oxygen Delivery Method Room Air Weight: 92.2 kg Body Mass Index (BMI) 30.8 Intake and Output for Last 24 Hours 01/19/20 01/20/20 01/21/20 23:59 23:59 23:59 Intake Total 0 / 600 1000 / 1000 Output Total 3350 / 3950 1650 / 1650 Balance -3350 / -3350 -650 / -650 General: Alert, Cooperative HEENT: Atraumatic, Normocephalic Oral: Moist Mucosa Neck: Trachea Midline Lungs: Clear to auscultation, Normal air movement Cardiovascular: Regular rate, Regular Rhythm, Normal S1, Normal S2 Abdomen: Bowel Sounds Present, Soft, Non Tender Extremities: No clubbing Microbiology Past 72 Hours 01/20/20 23:08 Stool Stool Occult Blood (NICOLE) - Final Laboratory Results 01/20/20 01:32: Eos Smear Total Cells Pending 01/20/20 01:32: Urine Total Protein Pending, Urine Albumin Pending, U Jsjjt-0-Quxtlkxu Pending, U Pquuq-2-Abxorvjh Pending, U Beta Globulin Pending, U Gamma Globulin Pending, U PEP M-Quinten Pending 01/20/20 05:05: Total Protein (PEP) Pending, Albumin (PEP) Pending, Globulin (PEP) Pending, Albumin/Globulin (PEP) Pending, Khuqa-9-Odqqceqsm Pending, Uodhb-8-Mcmggvszb Pending, Beta Globulins Pending, Gamma Globulins Pending, M- Quinten Pending 01/21/20 05:50: WBC 10.8, RBC 2.55 L, Hgb 7.6 L, Hct 23.9 L, MCV 93.7, MCH 29.8, MCHC 31.8 L, RDW Std Deviation 54.0 H, RDW Coeff of Neftali 15.7 H, Plt Count 555 H, MPV 9.3, Immature Gran % (Auto) 0.900, Neut % (Auto) 69.4, Lymph % (Auto) 19.3, [place] % (Auto) 6.3, Eos % (Auto) 3.7, Baso % (Auto) 0.4, Absolute Neuts (auto) 7.5, Absolute Lymphs (auto) 2.08, Nucleated RBC % 0 01/21/20 05:50: Sodium 142, Potassium 4.2, Chloride 107, Carbon Dioxide 29.0, Anion Gap 6, BUN 28 H, Creatinine 2.30 H, Estim Creat Clear Calc 42.13, Est GFR (MDRD) Af Amer 41 L, Est GFR (MDRD) Non-Af 34 L, BUN/Creatinine Ratio 12.2, Glucose 114 H, Calcium 8.0 L 01/21/20 09:30: Urine Collection Time 24.0, Timed Urine Volume 3375, Ur Total Protein 24 Hr 317.2 H, Urine Total Protein 9.4 01/21/20 09:30: Ur Collection Duration 24.0, Urine Total Volume 3.40, Urine Creatinine 46.90, Ur Creatinine 24 Hour 1.58 Current Medications Acetaminophen (Tylenol) 1,000 mg PO TID PRN PRN PRN Reason: Pain Score 1-10/10 Last Admin: 01/21/20 04:29 Dose: 1,000 mg Documented by: Dextrose (D50w Syringe) 0 gm IV X1 PRN; Protocol PRN Reason: Hypoglycemia Gabapentin (Neurontin) 100 mg PO BID [facility] Last Admin: 01/21/20 09:56 Dose: 100 mg Documented by: Glucagon () 1 mg IM .X1 PRN PRN Reason: Hypoglycemia Heparin Sodium (Porcine) (Heparin Na) 5,000 unit SC Q12 [facility] Last Admin: 01/21/20 09:44 Dose: 5,000 unit Documented by: Sodium Chloride () 250 mls @ 15 mls/hr IV .[id number] PRN PRN Reason: Saline Flush Sodium Chloride () 250 mls @ 15 mls/hr IV .[id number] PRN PRN Reason: Additional IVPB Infusion Magnesium Hydroxide (Milk Of Magnesia) 30 ml PO DAILY PRN PRN PRN Reason: Constipation Melatonin (Melatonin) 3 mg PO QHS PRN PRN PRN Reason: INSOMNIA Last Admin: 01/20/20 22:39 Dose: 3 mg Documented by: Nicotine (Nicoderm Cq (Pbkc)) 21 mg TRANSDERM. DAILY [facility] Last Admin: 01/21/20 09:43 Dose: 21 mg Documented by: Nutritional Formula (Lactose Free) (Ensure Enlive) 120 ml PO 4X/DAY [facility] Last Admin: 01/21/20 09:28 Dose: Not Given Documented by: Ondansetron HCl (Zofran) 4 mg IV Q8H PRN PRN PRN Reason: NAUSEA/VOMITING Sodium Chloride () 10 - 40 ml IV UD PRN PRN Reason: SALINE FLUSH Medical Necessity - Tobacco Use Smoking Status: Current some day smoker Tobacco Use: Cigarettes Assessment/Plan All Active Problems Acute renal failure (Acute) Rhabdomyolysis (Acute) KANA had pigment induced KANA with severe rhabdo scr 2.9 at the end of December with persistence of renal failure LE edema Proteinuria 317 mg per 24 hour Rhabo almost resolved Substance abuse no ACEI or ARB d/w patient avoidance of NSAIDs f/u spep upep Scr 2.3 better in the same range with prerenal variations since end of December f/u office
--- NOTE | 2020-01-21 11:42 | CASEMGMT ---
SELENA DUPONT NOTE: Pt being discharged. Call placed to [facility] and she was made aware pt discharging today. Discharge instructions, summary, and resumption of HHC order faxed to [facility] at this time. [facility] was made aware Wound Vac was changed today and will be due to be changed on Friday. SELENA DUPONT to room to talk with pt. He was made aware HHC notified he will be discharging home today. Pt denies having any other discharge needs at this time. Sudha DAVALOSN SELENA CM
--- NOTE | 2020-01-21 11:44 | NURSING ---
wound photo: right lateral lower leg
--- NOTE | 2020-01-21 11:45 | NURSING ---
wound photo: right medial lower leg
[2020-01-22 12:38] LABS: Haptoglobin 149 mg/dL (17-317)
[2020-01-23 00:24] LABS: Eosinophil Ct. Urine No Eosinophils Seen % (.)
[2020-01-24 16:08] LABS: PROEL- A/G Ratio 0.9 (0.7-1.7); PROEL- Albumin 2.4 g/dL (2.9-4.4); PROEL- Alpha-1 Globulin 0.4 g/dL (0.0-0.4); PROEL- Alpha-2 Globulin 0.7 g/dL (0.4-1.0); PROEL- Beta Globulin 0.9 g/dL (0.7-1.3); PROEL- Gamma Globulin 0.7 g/dL (0.4-1.8); PROEL- Globulin, Total 2.7 g/dL (2.2-3.9); PROEL- TOTAL PROTEIN 5.1 g/dL (6.0-8.5)
--- NOTE | 2020-01-24 16:15 | CASEMGMT ---
SELENA DUPONT Discharge Follow-up Phone Call: MARLYS: Razia Strata: 3 Call Date:01/24/2020 Discharge Date: 01/21/2020 Time of Call: 1615 Duration: 1 min Admitting Diagnosis: KANA RN CM attempted to complete follow-up phone call after recent hospitalization. No answer, voice message left with return contact information.
[2020-01-25 14:08] LABS: PROELU- Albumin, Urine 22.5 % (.); PROELU- Alpha-1-Globulin,Ur 5.3 % (.); PROELU- Alpha-2-Globulin,Ur 19.5 % (.); PROELU- Beta Globulin, Ur 21.8 % (.); PROELU- Gamma Globulin, Ur 30.8 % (.); Total Protein, Ur 4.9 mg/dL (Not Estab.)
[2020-01-26 05:21] LABS: PROELU- M-Spike, Ur 0 % (Not Observed)
== END 2020-01-21 12:00 | disposition home or self-care (01) | DRG 469 ==
LOC: ED 20:24 → MS3 01-20 00:27
PROVIDERS: Internal Medicine Nephrology; Admitting Provider Hospitalist; Emergency Provider Emergency Medicine
DX: N17.9 Acute kidney failure, unspecified (principal); D62 Acute posthemorrhagic anemia; F11.10 Opioid abuse, uncomplicated; Z98.890 Other specified postprocedural states; B19.20 Unspecified viral hepatitis C without hepatic coma; D47.3 Essential (hemorrhagic) thrombocythemia; Z79.899 Other long term (current) drug therapy; F17.210 Nicotine dependence, cigarettes, uncomplicated; R60.0 Localized edema; M62.82 Rhabdomyolysis
CPT/HCPCS: 36415; 76705; 76770; 80048; 80053; 81001; 82274; 82550; 82570; 82607; 82728; 82746; 83010; 83540; 83550; 83615; 84156; 84165; 84166; 84300; 85025; 85610; 87205; 97606; 97802; 99212; 99213; 99285; G0463

== ENCOUNTER 2020-01-24 15:00 | Outpatient (RCR) | payer MEDICAID, SELFPAY ==
[2020-01-06 14:34] VITALS: BMI 24.5
[2020-01-17 14:07] VITALS: BP 135/79; PULSE 112; RESP 20; TEMP 36.9; BMI 25.9
--- NOTE | 2020-01-17 15:59 | PCM.WC.HP ---
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 Code(s): S84.92XA - Injury of unspecified nerve at lower leg level, left leg, initial encounter (5) Heroin abuse Status: Chronic Code(s): F11.10 - Opioid abuse, uncomplicated (6) Acute renal failure Status: Acute Code(s): N17.9 - Acute kidney failure, unspecified (7) Rhabdomyolysis Status: Acute Code(s): M62.82 - Rhabdomyolysis (8) IVDU (intravenous drug user) Status: Chronic Code(s): F19.90 - Other psychoactive substance use, unspecified, uncomplicated History of Present Illness Date of Service: 01/17/20 Chief Complaint: Right medial and lateral leg fasciotomy wounds History of Wound: Patient has a history of IV drug abuse. He woke up early on 01/06/20 where he was in a position where he was flexed at the knees and his body was layin over his calves. He developed neurapraxia worse in on the left than the right. He developed right lower extremity compartment syndrome, rhabdomyolysis, and acute kidney injury. Surgery on 01/06/20 - Traumatic 4 compartment release right leg by Dr. Grayson. Wound care- Wound VAC to the right medial and lateral incisions. Compression will be SurePress topped with Kaleb wraps. he is draining a copious amount of serosanguineous drainage. He has a significant amount of bilateral lower extremity edema. He is also experiencing significant scrotal edema where he went to the ED a couple days ago but refused to be admitted for his KANA. Today he is very sleepy but he does respond to questions. Mother states that he is not using but home health reports that he has been smoking marijuana when they arrived. Denies any fever. His mother states he is not eating well. Past Medical History Past Medical History: Chronic Problems Anxiety (Chronic) Schizophrenia (Chronic) Neuropraxia of left lower extremity (Chronic) Heroin abuse (Chronic) IVDU (intravenous drug user) (Chronic) Surgical History: - - Left arm surgery for left arm abscess due to IV drug use. Allergies/Adverse Reactions: Allergies No Known Allergies Allergy (Verified 01/19/20 19:55) Home Medications: Ambulatory Orders Medication Instructions Recorded Nicotine [Nicoderm Cq] 21 mg TRANSDERM. DAILY 01/19/20 Ferrous Sulfate 325 mg PO DAILY #30 tab 01/21/20 Gabapentin [Neurontin] 300 mg PO DAILY #0 01/21/20 Markel (unflavored) [Markel Packet] 1 packet PO BIDCM #60 packet 01/21/20 - Family History Paternal No pertinent history Maternal No pertinent history Smoking Status: Current every day smoker Review of Systems Constitutional: Denies: Chills, Fever Eyes: Denies: Blurred vision HEENT: Denies: Difficulty Hearing, Difficulty Swallowing, Sinus Congestion Cardiovascular: Denies: Chest Pain, Palpitations Respiratory: Denies: Cough, Shortness of Breath Gastrointestinal: Reports: Abdominal Pain Musculoskeletal: Reports: Leg Pain - right leg pain from surgical incisions and edema Skin: Reports: Wounds - right medial and lateral lower leg with incisions draining copious amounts of serosanguineous fluid Neurological: Denies: Slurred speech - Physical Exam Vital Signs Temp Pulse Resp BP 98.5 F 112 H 20 H 135/79 H 01/17/20 14:07 01/17/20 14:07 01/17/20 14:07 01/17/20 14:07 General: Cooperative, Lethargic HEENT: Atraumatic Oral: Moist Mucosa Lungs: Clear to auscultation, Normal air movement Cardiovascular: Regular rate, Regular Rhythm Abdomen: Soft, Non Tender Extremities: Edema - +3-+4 edema bilateral lower extremities Skin: Ulcer/ Wound - Right medial and lateral leg incisions that are beefy pink. Have copious amount of serosanguineous drainage that is literally running off of the bed. Wound Measurements and Assessment WC - Nurse 1 - General Ulcer Measurement Start: 01/17/20 14:02 Freq: Status: Active Protocol: Activity Type Activity Date Activity User E-Sign Co-Sign Detail Recorded Client Recorded Date Recorded By Document 01/17/20 14:07 [email or web address] [id number] 01/17/20 14:24 [email or web address] 01/17/20 14:07 Wound Center Nurse 1 [Ulcer Assessment] #3 RLE Med -Current Size (cm) - Length 16.5 -Current Size (cm) - Width 5.3 -Current Size (cm) - Depth 0.4 -Total Square Cm 87.45 -Photo Taken Yes -Exudate Amt Medium -Exudate Type Serosanguineous -Wound Margin Distinct, Outline Attached -Granulation Amt Large (67-100%) -Granulation Quality Red -Necrosis Amt None Present (0 %) -Structure Exposed N/A -Texture (Mari-wound Skin Appearance) Localized Edema ,Scarring -Moisture (Mari-wound Skin Appearance No Abnormality ) -Color (Mari-wound Skin Appearance) No Abnormality -Temperature (Mari-wound Skin No Abnormality Appearance) (Pt Warm) -Tenderness on Palpation (Mari-wound No Skin Appearance) -Ulcer Cleansing Wound Cleanser -Foul Odor after Cleansing No -Anesthetic Used 4% Lidocaine Solution #2 RLE Lat -Current Size (cm) - Length 16.8 -Current Size (cm) - Width 5.4 -Current Size (cm) - Depth 1.6 -Total Square Cm 90.72 -Photo Taken Yes -Classification - Thickness Full Thickness without Exposed Support Structure -Exudate Amt Medium -Exudate Type Serosanguineous -Wound Margin Distinct, Outline Attached -Granulation Amt Large (67-100%) -Granulation Quality Red -Necrosis Amt None Present (0 %) -Structure Exposed N/A -Texture (Mari-wound Skin Appearance) Localized Edema ,Scarring -Moisture (Mari-wound Skin Appearance No Abnormality ) -Color (Mari-wound Skin Appearance) No Abnormality -Temperature (Mari-wound Skin No Abnormality Appearance) (Pt Warm) -Tenderness on Palpation (Mari-wound No Skin Appearance) -Ulcer Cleansing Wound Cleanser -Foul Odor after Cleansing No -Anesthetic Used 4% Lidocaine Solution [Edema Assessment] -Right Calf (cm) 49 -Right Ankle (cm) 26.2 WC - Nurse 2 - General Ulcer CM Notes Start: 01/17/20 14:02 Freq: Status: Active Protocol: Activity Type Activity Date Activity User E-Sign Co-Sign Detail Recorded Client Recorded Date Recorded By Document 01/17/20 14:55 [email or web address] [id number] 01/17/20 14:57 01/17/20 14:55 Wound Center Nurse 2 [Procedure/Treatment] #3 RLE Med -Correct Patient No -Correct Side, Site, Position No -Correct Procedure No -Procedure Performed No -Wound/Ulcer Outcome Not Healed #2 RLE Lat -Correct Patient No -Correct Side, Site, Position No -Correct Procedure No -Procedure Performed No -Wound/Ulcer Outcome Not Healed [See Physician Procedure note for Specifics] Pain Scale: 0-10 Numeric [Pain] -Is Patient Pain Free? Yes Musculoskeletal: Tenderness Neurological: Neuro grossly intact Psych/Mental Status: Flat Affect Debridement Note Post-Debridement Measurements/Treatment WC - Nurse 2 - General Ulcer CM Notes Start: 01/17/20 14:02 Freq: Status: Active Protocol: Activity Type Activity Date Activity User E-Sign Co-Sign Detail Recorded Client Recorded Date Recorded By Document 01/17/20 14:55 [id number] 01/17/20 14:57 01/17/20 14:55 Wound Center Nurse 2 #3 RLE Med -Correct Patient No -Correct Side, Site, Position No -Correct Procedure No -Procedure Performed No -Wound/Ulcer Outcome Not Healed #2 RLE Lat -Correct Patient No -Correct Side, Site, Position No -Correct Procedure No -Procedure Performed No -Wound/Ulcer Outcome Not Healed Pain Scale: 0-10 Numeric Is Patient Pain Free? Yes No debridement was completed today Assessment/Plan Assessment: 1. Fasciotomy incision of right medial and right lateral leg. 2. History of compartmental syndrome. 3. History rhabdomyolysis. 4. IV drug abuser. 5. Acute renal failure. Plan: Patient was seen and evaluated at the wound healing center today. No debridement was done today. Surgery on 01/06/20 - Traumatic 4 compartment release right leg by Dr. Grayson. Wound care- Wound VAC to the right medial and lateral incisions. Compression will be SurePress topped with Kaleb wraps. He is draining a copious amount of serosanguineous drainage. His mother states he is going through VAC canisters every 8-24 hours. He has a significant amount of bilateral lower extremity edema. Home health phoned after the left the facility stating that they are having a difficult time with the patient's mother being very demanding and the patient has been observed smoking marijuana while they were there. They are going to discuss these issues with the patient and his mother and if the nurses did not feel comfortable going into their house, they would teach the mother how to do the wound VAC dressings and then discharge him from home health. Encourage patient to increase protein intake. Instructed both patient and his mother that it was necessary to find a PCP to help manage all of his his issues that he has developed recently due to his IV drug abuse. Follow-up in 1 week. Office Visits / Consults: [id number] OV L4 Est
[2020-01-24 15:03] VITALS: BP 134/93; PULSE 99; RESP 16; TEMP 37.1; BMI 25.9
--- NOTE | 2020-01-24 15:39 | PN.PCM_ITS ---
(1) Open wound of right lower leg Status: Acute Current Visit: Yes Code(s): S81.801A - Unspecified open wound, right lower leg, initial encounter Comment: open surgical fasciotomy wound right lateral leg open surgical fasciotomy wound right medial leg (2) Compartment syndrome of right lower extremity Status: Acute Current Visit: Yes Code(s): T79.A21A - Traumatic compartment syndrome of right lower extremity, initial encounter (3) History of fasciotomy Status: Acute Current Visit: Yes Code(s): Z98.890 - Other specified postprocedural states (4) Neuropraxia of left lower extremity Status: Chronic Current Visit: Yes Code(s): S84.92XA - Injury of unspecified nerve at lower leg level, left leg, initial encounter (5) Heroin abuse Status: Chronic Current Visit: Yes Code(s): F11.10 - Opioid abuse, uncomplicated (6) Acute renal failure Status: Acute Current Visit: No Code(s): N17.9 - Acute kidney failure, unspecified (7) Rhabdomyolysis Status: Acute Current Visit: Yes Code(s): M62.82 - Rhabdomyolysis (8) IVDU (intravenous drug user) Status: Chronic Current Visit: Yes Code(s): F19.90 - Other psychoactive substance use, unspecified, uncomplicated Type of Wound Date of Service: 01/24/20 Chief Complaint: Right medial and lateral leg fasciotomy wounds History of Wound: Patient has a history of IV drug abuse. He woke up early on 01/06/20 where he was in a position where he was flexed at the knees and his body was layin over his calves. He developed neurapraxia worse in on the left than the right. He developed right lower extremity compartment syndrome, rhabdomyolysis, and acute kidney injury. Surgery on 01/06/20 - Traumatic 4 compartment release right leg by Dr. Grayson. Wound care- Wound VAC to the right medial and lateral incisions. Compression will be SurePress topped with Kaleb wraps. he is draining a copious amount of serosanguineous drainage. He has a significant amount of bilateral lower extremity edema. He is also experiencing significant scrotal edema where he went to the ED a couple days ago but refused to be admitted for his KANA. Today he is very sleepy but he does respond to questions. Mother states that he is not using but home health reports that he has been smoking marijuana when they arrived. Denies any fever. His mother states he is not eating well. Progress of Wound: Improved. - Physical Exam Vital Signs Temp Pulse Resp BP 98.8 F 99 16 134/93 H 01/24/20 15:03 01/24/20 15:03 01/24/20 15:03 01/24/20 15:03 General: Alert, Cooperative HEENT: Atraumatic Oral: Moist Mucosa Lungs: Normal air movement Cardiovascular: Regular rate, Regular Rhythm Abdomen: Bowel Sounds Present Extremities: Capillary Refill Less than 3 Seconds, Edema - right lower leg edema Skin: Ulcer/ Wound - Right medial leg wound and right lateral leg wound. Both areas are beefy pink, into the muscle. Wound Measurements and Assessment WC - Nurse 1 - General Ulcer Measurement Start: 01/17/20 14:02 Freq: Status: Active Protocol: Activity Type Activity Date Activity User E-Sign Co-Sign Detail Recorded Client Recorded Date Recorded By Document 01/24/20 15:03 [id number] 01/24/20 15:13 01/24/20 15:03 Wound Center Nurse 1 [Ulcer Assessment] #3 RLE Med -Combined with other wound No -Current Size (cm) - Length 16.4 -Current Size (cm) - Width 3.8 -Current Size (cm) - Depth 0.4 -Total Square Cm 62.32 -Photo Taken No -Epithelialization None Present -Tunneling No -Undermining/Tunneling No -Circular Undermining No -Exudate Amt Large -Exudate Type Serosanguineous -Wound Margin Distinct, Outline Attached -Granulation Amt Large (67-100%) -Granulation Quality Red -Slough/Fibrin Yes -Necrosis Amt None Present (0 %) -Necrotic Tissue Type Adherent Slough -Structure Exposed N/A -Texture (Mari-wound Skin Appearance) No Abnormality, Scarring -Moisture (Mari-wound Skin Appearance No Abnormality, ) Assessed -Color (Mari-wound Skin Appearance) No Abnormality, Assessed -Temperature (Mari-wound Skin No Abnormality Appearance) (Pt Warm) -Tenderness on Palpation (Mari-wound Yes Skin Appearance) -Ulcer Cleansing Rinsed/ Irrigated with Saline -Foul Odor after Cleansing No -Anesthetic Used 4% Lidocaine Solution #2 RLE Lat -Combined with other wound No -Current Size (cm) - Length 16.2 -Current Size (cm) - Width 4.3 -Current Size (cm) - Depth 0.8 -Total Square Cm 69.66 -Photo Taken No -Epithelialization None Present -Tunneling No -Undermining/Tunneling No -Circular Undermining No -Exudate Amt Large -Exudate Type Serosanguineous -Wound Margin Distinct, Outline Attached -Granulation Amt Large (67-100%) -Granulation Quality Red -Slough/Fibrin Yes -Necrosis Amt None Present (0 %) -Necrotic Tissue Type Adherent Slough -Structure Exposed N/A -Texture (Mari-wound Skin Appearance) Scarring -Moisture (Mari-wound Skin Appearance No Abnormality, ) Assessed -Color (Mari-wound Skin Appearance) No Abnormality, Assessed -Temperature (Mari-wound Skin No Abnormality Appearance) (Pt Warm) -Tenderness on Palpation (Mari-wound No Skin Appearance) -Ulcer Cleansing Rinsed/ Irrigated with Saline -Foul Odor after Cleansing No -Anesthetic Used 4% Lidocaine Solution [Edema Assessment] -Right Calf (cm) 41.7 -Right Ankle (cm) 26.1 Musculoskeletal: Muscle Wasting Neurological: Neuro grossly intact Psych/Mental Status: Normal Affect, Appropriate Debridement Note Post-Debridement Measurements/Treatment WC - Nurse 2 - General Ulcer CM Notes Start: 01/17/20 14:02 Freq: Status: Active Protocol: Activity Type Activity Date Activity User E-Sign Co-Sign Detail Recorded Client Recorded Date Recorded By Document 01/17/20 14:55 CHIP [id number] 01/17/20 14:57 CHIP 01/17/20 14:55 Wound Center Nurse 2 #3 RLE Med -Correct Patient No -Correct Side, Site, Position No -Correct Procedure No -Procedure Performed No -Wound/Ulcer Outcome Not Healed #2 RLE Lat -Correct Patient No -Correct Side, Site, Position No -Correct Procedure No -Procedure Performed No -Wound/Ulcer Outcome Not Healed Pain Scale: 0-10 Numeric Is Patient Pain Free? Yes No debridement was completed today Assessment/Plan Active Problems History of fasciotomy (Acute) Compartment syndrome of right lower extremity (Acute) Open wound of right lower leg (Acute) open surgical fasciotomy wound right lateral leg open surgical fasciotomy wound right medial leg Neuropraxia of left lower extremity (Chronic) Heroin abuse (Chronic) Rhabdomyolysis (Acute) IVDU (intravenous drug user) (Chronic) Assessment: 1. Fasciotomy incision of right medial and right lateral leg. 2. History of compartmental syndrome. 3. History rhabdomyolysis. 4. IV drug abuser. 5. Acute renal failure. Plan: Patient was seen and evaluated at the wound healing center today. No debridement was done today, patient did not want a debridement. Surgery on 01/06/20 - Traumatic 4 compartment release right leg by Dr. Grayson. Wound care- Wound VAC to the right medial and lateral incisions. Compression will be SurePress topped with Kaleb wraps. He is draining a large amount of serosanguineous drainage, but it has decreased since his edema has improved. Home health will continue to see the patient now that they had a conversation with the patient and his mother stating that they would be doing his dressing changes themselves if the home health continued to feel uncomfortable going to their house. Encourage patient to increase protein intake. Instructed both patient and his mother that it was necessary to find a PCP to help manage all of his his issues that he has developed recently due to his IV drug abuse. Follow- up in 2 weeks. Office Visits / Consults: [id number] OV L3 Est
[2020-01-27 17:32] VITALS: BMI 25.8
--- NOTE | 2020-02-02 17:17 | WC ---
Spoke to patient's mom Alysa regarding update of discontinuing of vac after receiving report from [facility] that patient has been turning off VAC and has had odor to ulcer. Dr Duran was notified and said to stop VAC and start 1/4 strength Dakin's to ulcer daily. Order for Dakin's was electronically sent to [facility]. Called and updated mom about this and she verbalized understanding. [facility] will start this on Friday02/04/20 so patient will need to pick this up before his visit with his nurse. Order was faxed to [facility] for new updates of dressing changes.
== END 2020-02-08 23:59 ==
LOC: WC 15:00
PROVIDERS: Visit Provider Nurse Practitioner Family
DX: S81.801A Unspecified open wound, right lower leg, initial encounter (principal); T79.A21A Traumatic compartment syndrome of right lower extremity, initial encounter; S84.92XA Injury of unspecified nerve at lower leg level, left leg, initial encounter; T81.89XA Other complications of procedures, not elsewhere classified, initial encounter; Y83.8 Other surgical procedures as the cause of abnormal reaction of the patient, or of later complication, without mention of misadventure at the time of the procedure; Y92.9 Unspecified place or not applicable; N17.9 Acute kidney failure, unspecified; M62.82 Rhabdomyolysis; R60.0 Localized edema; N50.89 Other specified disorders of the male genital organs; F20.9 Schizophrenia, unspecified; F41.9 Anxiety disorder, unspecified; F11.10 Opioid abuse, uncomplicated; F19.90 Other psychoactive substance use, unspecified, uncomplicated; F17.200 Nicotine dependence, unspecified, uncomplicated; Z79.899 Other long term (current) drug therapy; Z98.890 Other specified postprocedural states
CPT/HCPCS: 97606; 99213; G0463

== ENCOUNTER 2020-01-27 17:31 | Emergency (ER) | payer MEDICAID, SELFPAY ==
[2020-01-27 17:31] VITALS: BMI 30.8
[2020-01-27 17:32] VITALS: BP 155/108; PULSE 96; RESP 17; TEMP 36.6; O2SAT 97; BMI 25.8
--- NOTE | 2020-01-27 17:48 | MRI_ITS ---
STUDY: EXAMINATION - MRV BRAIN WITHOUT CONTRAST REASON FOR EXAM: Male, 39 years old. 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 COMPARISON: None. FINDINGS: Dural venous sinuses are patent. MRI/MRV Head Without Contrast IMPRESSION: Normal unenhanced MRV of the brain. Electronically Signed: Neymar Jeffery, at 20:52 EDT Tel , Service support ,
--- NOTE | 2020-01-27 17:48 | MRI_ITS ---
STUDY: MRI BRAIN WITH AND WITHOUT CONTRAST REASON FOR EXAM: Male, 39 years old. 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 IV 15cc dotarem was administered for the contrast portion of the examination. COMPARISON: None. FINDINGS: Brain and related structures are normal. Major vascular flow structures are preserved. Cavernous sinuses are normal and symmetric bilaterally. There are bilateral mildly enlarged superior ophthalmic veins measuring 6-7 mm. Orbital apex is clear bilaterally. There is no intraorbital inflammatory change or masses. Superior and inferior orbital fissures are clear. Base of skull is clear. MRI/Brain W/WO Contrast IMPRESSION: 1. Normal brain. 2. Bilateral dilated superior ophthalmic veins with otherwise normal orbits and cavernous sinuses. No specific differential diagnosis at this point. 3. Normal base of skull and orbital related structures. Electronically Signed: Neymar Jeffery, at 21:14 EDT Tel , Service support ,
--- NOTE | 2020-01-27 17:53 | ED.VISSUMM ---
- ER Visit Summary Date of Service: 01/27/20 Chief Complaint: Visual changes History of Present Illness: The patient is a 39 M who presents with blurry vision that is been getting progressively worse over the past 2 to 3 days. Patient saw his reprint sorter today who noted that he was having papilledema and referred him to the emergency department for MRI, MRV, and possible lumbar puncture. Patient states he feels like he has pressure behind his left eye. Patient admits to some photophobia. Patient denies any foreign body sensation. Patient denies any itching, matting, crusting, or drainage. Patient denies any trauma or injury. Patient states he was recently hospitalized after an overdose of an opiate medication. Patient had a fasciotomy performed at that time. Patient states his kidney function has been improving but is still elevated. Patient admits to migraine headaches with nausea and vomiting. Physical Examination: Vital signs are stable. Patient is afebrile. Patient is in no acute distress. Pupils are equal, round, and reactive to light bilaterally. Extraocular muscles are intact. Conjunctiva is clear. Cranial nerves II through XII are intact. Strength is 5/5 bilateral in the upper and lower extremities. There are no motor or sensory deficits noted. The right lower extremity is bandaged with a wound VAC in place. Heart was regular rate and rhythm. Lungs are clear and equal bilaterally. Abdomen is soft and nontender. Test Results: CBC and basic metabolic profile were within normal limits. MRI of the brain was obtained. There are bilateral dilated superior ophthalmic veins but otherwise normal orbits and cavernous sinus. There is no acute intracranial abnormality. MRV of the brain was obtained and was normal. Emergency Department Course and Treatment: Patient was given a dose of morphine here. The case was discussed with Dr. Mitchell from ophthalmology. She recommended performing a lumbar puncture with opening and closing pressures. Patient was consented to lumbar puncture. Patient was advised of the risks and benefits of lumbar puncture. Patient did not have any further questions. Patient is agreeable with performing the lumbar puncture. The lower lumbar area was cleaned and prepped in a sterile manner with Betadine swabs. Sterile conditions were maintained. The L4-5 interspace was anesthetized 1% lidocaine locally. A 22-gauge needle was used to penetrate the dura at the L4-5 interspace. There was clear CSF returned. Opening pressure was 32. Closing pressure was 27. Patient states his vision was improving after the lumbar puncture. The needle was removed. Band-Aid was placed. Patient was instructed to lay flat on his back. CSF was sent for analysis. Case was discussed with Dr. Mitchell again. She recommended transferring the patient to a facility where there is neurosurgical capability. Patient requested [facility]. Case was discussed with Dr. Guzmán. He accepted the patient to be transferred. Patient and family understood and were agreeable with the plan. All questions were answered. Disposition: Transfer to [facility] Impression: Increased intracranial pressure This note was generated with [employer] dictation software. It may contain incorrect words, spelling, and punctuation that were not noted in review of the chart prior to signing ED Disposition - Plan for ED Patient: Disposition: [facility] Diagnosis: Elevated intracranial pressure Referrals: Care Physician,No Primary [Primary Care Provider] -
[2020-01-27] MEDS: 0.9% Normal Saline 1,000 ML 1000 ML IV (18:10)
[2020-01-27 18:27] LABS: Absolute Lymphocyte Count 2.26 X10^3/uL (0.83-4.51); Absolute Neutrophil Count 7.2 X10^3/uL (2.0-7.7); Basophil# 0.03 X10^3/uL; Basophil% 0.3 % (0-1); Eosinophil# 0.52 X10^3/uL; Hematocrit 25.9 % (40-54); Hemoglobin 7.8 g/dL (13.0-16.5); Lymphocyte # 2.26 X10^3/ul (4.0); Lymphocyte % 21.7 % (19-41); Mean Corp Hgb Conc 30.1 g/dL (32-36); Mean Corpuscular Volume 99.6 fL (80-94); Mean Platelet Vol. 9.4 fl (6.2-12.0); Monocyte# 0.43 X10^3/uL; Monocyte% 4.1 % (0-10); NRBC Flagged by Analyzer 0 % (0-5); Neutrophil # 7.16 X10^3/uL (2.7-7.7); Neutrophil % 68.6 % (47-70); Platelet Count 483 K/mm3 (150-450); RBC Distribution Width CV 16.8 % (11.6-14.6); RBC Distribution Width SD 60.3 fl (35.1-43.9); White Blood Count 10.4 K/mm3 (4.4-11.0)
[2020-01-27 18:36] LABS: ALB/GLOB Ratio 0.8 RATIO (0.9-2.4); AST(SGOT) 17 U/L (15-37); Alanine Aminotransfer ALT/SGPT 40 U/L (16-61); Alkaline Phosphatase 58 U/L (45-117); Anion Gap 6 (5-15); BUN 13 mg/dL (7-18); BUN/Creat Ratio 10.7 RATIO (10-20); Calcium,Total 8.4 mg/dL (8.5-10.1); Chloride 113 mmol/L (98-107); Creatinine, Serum 1.21 mg/dL (0.70-1.30); EST Glomerular Filtration Rate 71 mL/min (>60); Est Glom Filt Rate - Afr Amer 86 mL/min (>60); Estimated Creatinine Clearance 80.08 ml/min; Globulin 3.8 g/dL (2.2-4.2); Glucose 93 mg/dL (74-106); Potassium 3.6 mmol/L (3.5-5.1); Protein, Total 6.8 g/dL (6.4-8.2); Sodium Level 145 mmol/L (136-145)
[2020-01-27 21:46] VITALS: BP 152/102; PULSE 88; RESP 18; O2SAT 98
[2020-01-28 00:24] VITALS: BP 170/99; PULSE 110; RESP 18; O2SAT 99
[2020-01-28] MEDS: Morphine 4 MG/ML Syringe IV (00:36)
[2020-01-28 01:33] LABS: Body Fluid Mononuclear WBC # 0.001 10^3/uL
[2020-01-28 01:51] LABS: Glucose Spinal Fluid 49 mg/dL (40-75)
[2020-01-28 02:00] VITALS: BP 148/95; PULSE 108; RESP 18; TEMP 37.7; O2SAT 93
[2020-01-28 02:04] LABS: Auto B Fluid Analyzer BKGD Ct COUNTS W/IN LIMITS (W/IN LIMITS); RBC Count, Spinal Fluid 28 /mm-3 (None seen); White Count, CSF 0 /mm-3 (0 - 5)
[2020-01-28 02:05] LABS: Appearance CSF (character) CLEAR (Clear); Body Fluid QC Type(s) BF1Q; CSF Color COLORLESS (Colorless); Tested Tube # 4
[2020-02-01 09:33] LABS: Pathologist Review Reviewed
== END 2020-01-28 02:38 | disposition short-term general hospital (02) ==
PROVIDERS: Emergency Provider Emergency Medicine
DX: G93.2 Benign intracranial hypertension (principal); F17.200 Nicotine dependence, unspecified, uncomplicated
CPT/HCPCS: 62270; 70544; 70553; 80053; 82945; 84157; 85025; 87070; 87205; 89050; 89051; 96361; 96374; 99283; A9575; J7030; A4216

== ENCOUNTER 2020-03-06 13:30 | Outpatient (RCR) | payer MEDICAID, SELFPAY ==
[2020-02-09 00:34] VITALS: BP 134/93; PULSE 99; RESP 16; TEMP 37.1
--- NOTE | 2020-02-09 17:34 | WC ---
Spoke to Anh at [facility] regarding patient's plan of care. She has been able to educate to the patient the importance of keeping the vac in place. She has noted a new odor from ulcer. Instructed her to review the most recent order from Dr Duran about D/C vac and applying Dakin's. She said they have been able to hold off on this and keep the vac in place. Order was electronically sent to [facility]. Advised her to clean with soap and water and or Dakin's for odor control. Patient is scheduled for 02-14-2020 at [facility] Center. SHe asked to be notified of any cancellations for his awound center appt/
[2020-02-14 14:35] VITALS: BP 143/95; PULSE 107; RESP 18; TEMP 37.3; BMI 25.8
--- NOTE | 2020-02-14 15:00 | PN.PCM_ITS ---
(1) Ulcer of right lower leg Status: Acute Current Visit: Yes Code(s): L97.919 - Non-pressure chronic ulcer of unspecified part of right lower leg with unspecified severity (2) Ulcer of right lower extremity with fat layer exposed Status: Chronic Current Visit: Yes Code(s): L97.912 - Non-pressure chronic ulcer of unspecified part of right lower leg with fat layer exposed (3) Schizophrenia Status: Chronic Current Visit: Yes Qualifiers: Schizophrenia type: undifferentiated schizophrenia Qualified Code(s): F20.3 - Undifferentiated schizophrenia Code(s): F20.9 - Schizophrenia, unspecified (4) History of fasciotomy Status: Chronic Current Visit: Yes Code(s): Z98.890 - Other specified postprocedural states (5) Heroin abuse Status: Chronic Current Visit: Yes Code(s): F11.10 - Opioid abuse, uncomplicated (6) Neuropraxia of left lower extremity Status: Resolved Current Visit: No Code(s): S84.92XA - Injury of unspecified nerve at lower leg level, left leg, initial encounter Type of Wound Date of Service: 02/14/20 Chief Complaint: Right medial and lateral leg fasciotomy wounds History of Wound: Patient has a history of IV drug abuse. He woke up early on 01/06/20 where he was in a position where he was flexed at the knees and his body was layin over his calves. He developed neurapraxia worse in on the left than the right. He developed right lower extremity compartment syndrome, rhabdomyolysis, and acute kidney injury. Surgery on 01/06/20 - Traumatic 4 compartment release right leg by Dr. Grayson. Wound care- Stop wound VAC and start Dakin's moistened gauze dressing daily. Compression will be double Tubigrip. He had been hospitalized for his renal issues. His edema has resolved. He denies complaint of fever. States appetite is improving. Progress of Wound: Improved. - Physical Exam Vital Signs Temp Pulse Resp BP 99.2 F H 107 H 18 143/95 H 02/14/20 14:35 02/14/20 14:35 02/14/20 14:35 02/14/20 14:35 General: Alert, Oriented x3, Cooperative HEENT: Atraumatic Oral: Moist Mucosa Lungs: Normal air movement Cardiovascular: Regular rate Extremities: No edema, Capillary Refill Less than 3 Seconds Skin: Ulcer/ Wound - Right medial lower leg ulcer and right lateral leg ulcer. Ulcers are both showing much improvement. Beefy pink. There is an odor with the wound VAC. Wound Measurements and Assessment WC - Nurse 1 - General Ulcer Measurement Start: 02/14/20 14:35 Freq: Status: Active Protocol: Activity Type Activity Date Activity User E-Sign Co-Sign Detail Recorded Client Recorded Date Recorded By Document 02/14/20 14:35 MW [id number] 02/14/20 14:58 MW 02/14/20 14:35 Wound Center Nurse 1 [Ulcer Assessment] #3 RLE Med -Combined with other wound No -Current Size (cm) - Length 13.3 -Current Size (cm) - Width 1.5 -Current Size (cm) - Depth 0.1 -Total Square Cm 19.95 -Photo Taken No -Epithelialization Small 1-33% -Tunneling No -Undermining/Tunneling No -Circular Undermining No -Exudate Amt Medium -Exudate Type Serosanguineous -Wound Margin Flat & Intact -Granulation Amt Large (67-100%) -Granulation Quality [place] -Slough/Fibrin Yes -Necrosis Amt Small (1-33%) -Necrotic Tissue Type Adherent Slough -Structure Exposed N/A -Texture (Mari-wound Skin Appearance) Assessed, Localized Edema ,Scarring -Moisture (Mari-wound Skin Appearance No Abnormality, ) Assessed -Color (Mari-wound Skin Appearance) No Abnormality, Assessed -Temperature (Mari-wound Skin No Abnormality Appearance) (Pt Warm) -Tenderness on Palpation (Mari-wound Yes Skin Appearance) -Ulcer Cleansing soap and water -Foul Odor after Cleansing No -Anesthetic Used 4% Lidocaine Solution,5% Lidocaine Gel #2 RLE Lat -Combined with other wound No -Current Size (cm) - Length 13.7 -Current Size (cm) - Width 2.3 -Current Size (cm) - Depth 0.1 -Total Square Cm 31.51 -Photo Taken No -Epithelialization Small 1-33% -Tunneling No -Undermining/Tunneling No -Circular Undermining No -Exudate Amt Medium -Exudate Type Serosanguineous -Wound Margin Flat & Intact -Granulation Amt Large (67-100%) -Granulation Quality [place] -Slough/Fibrin Yes -Necrosis Amt Small (1-33%) -Necrotic Tissue Type Adherent Slough -Structure Exposed N/A -Texture (Mari-wound Skin Appearance) Assessed, Localized Edema ,Scarring -Moisture (Mari-wound Skin Appearance No Abnormality, ) Assessed -Color (Mari-wound Skin Appearance) No Abnormality, Assessed -Temperature (Mari-wound Skin No Abnormality Appearance) (Pt Warm) -Tenderness on Palpation (Mari-wound Yes Skin Appearance) -Ulcer Cleansing soap and water -Foul Odor after Cleansing No -Anesthetic Used 4% Lidocaine Solution,5% Lidocaine Gel [Edema Assessment] -Lower Limb Edema Present Yes -Right Calf (cm) 35.5 -Right Ankle (cm) 23.0 Musculoskeletal: Tenderness Neurological: Neuro grossly intact Psych/Mental Status: Normal Affect, Appropriate Debridement Note Wound debrided: Medial leg ulcer Laterality: Right Type of Debridement: Excisional debridement Anesthesia Used: 5% Lidocaine Gel Depth: Down to and including healthy tissue, in the subcutaneous layer Percentage of wound debrided: 100 Instrument Used: 5mm curette Tissue Removed: Subcutaneous tissue and slough Severity: Fat Layer Exposed Amount of bleeding with debridement: Mild Bleeding Controlled with: Pressure Patient tolerated procedure well - Additional Wound Wound debrided: lateral leg ulcer Laterality: Right Type of Debridement: Excisional debridement Anesthesia Used: 4% Lidocaine Solution, 5% Lidocaine Gel Depth: Down to and including healthy tissue, in the subcutaneous layer Percentage of wound debrided: 100 Instrument Used: 7mm curette Tissue Removed: Subcutaneous tissue and slough Severity: Fat Layer Exposed Amount of bleeding with debridement: Mild Bleeding Controlled with: Pressure Patient tolerated procedure: Patient tolerated procedure well Assessment/Plan Active Problems Ulcer of right lower leg (Acute) Ulcer of right lower extremity with fat layer exposed (Chronic) History of fasciotomy (Chronic) Schizophrenia (Chronic) Heroin abuse (Chronic) Assessment: 1. Fasciotomy incision of right medial and right lateral leg. 2. History of compartmental syndrome. 3. History rhabdomyolysis. 4. IV drug abuser. 5. Acute renal failure. Plan: Patient was seen and evaluated at the wound healing center today. Subcutaneous debridement was performed and the patient tolerated it well. Surgery on 01/06/20 - Traumatic 4 compartment release right leg by Dr. Grayson. Wound care- Stop Wound VAC to the right medial and lateral incisions. He is having a lot of odor and issues with the wound VAC. Start Dakin's moistened gauze daily. Compression will be switche to Tubigrip. Encourage patient to increase protein intake. Instructed both patient and his mother that it was necessary to find a PCP to help manage all of his his issues that he has developed recently due to his IV drug abuse. Encouraged smoking cessation due to it can be deleterious to wound healing. Follow-up in one week to evaluate how the Dakin's dressing changes are being tolerated. [id number]: [id number] Audrey subq tissue 20 sq cm/< Add On Codes: [id number] Audrey subq tissue add-on
[2020-02-21 14:34] VITALS: BP 132/92; PULSE 111; RESP 20; TEMP 37; BMI 25.8
--- NOTE | 2020-02-21 15:45 | PCM.WC.PN ---
(1) Ulcer of right lower leg Status: Chronic Current Visit: Yes Code(s): L97.919 - Non-pressure chronic ulcer of unspecified part of right lower leg with unspecified severity (2) Ulcer of right lower extremity with fat layer exposed Status: Chronic Current Visit: Yes Code(s): L97.912 - Non-pressure chronic ulcer of unspecified part of right lower leg with fat layer exposed (3) Schizophrenia Status: Chronic Current Visit: Yes Code(s): F20.9 - Schizophrenia, unspecified (4) History of fasciotomy Status: Chronic Current Visit: Yes Code(s): Z98.890 - Other specified postprocedural states (5) Heroin abuse Status: Chronic Current Visit: Yes Code(s): F11.10 - Opioid abuse, uncomplicated Type of Wound Date of Service: 02/21/20 Chief Complaint: Right medial and lateral leg fasciotomy wounds History of Wound: Patient has a history of IV drug abuse. He woke up early on 01/06/20 where he was in a position where he was flexed at the knees and his body was layin over his calves. He developed neurapraxia worse in on the left than the right. He developed right lower extremity compartment syndrome, rhabdomyolysis, and acute kidney injury. Surgery on 01/06/20 - Traumatic 4 compartment release right leg by Dr. Grayson. Wound care- Daily [facility] dressing changes. Compression will be double Tubigrip. He would benefit from an advanced wound healing product such as Epifix. We will apply to his insurance company for approval. He had been hospitalized for his renal issues. His edema has resolved. He denies complaint of fever. States appetite is improving. Progress of Wound: Improved. - Physical Exam Vital Signs Temp Pulse Resp BP 98.6 F 111 H 20 H 132/92 H 02/21/20 14:34 02/21/20 14:34 02/21/20 14:34 02/21/20 14:34 General: Alert, Oriented x3, Cooperative HEENT: Atraumatic Oral: Moist Mucosa Lungs: Normal air movement Cardiovascular: Regular rate, Regular Rhythm Extremities: No edema Skin: Ulcer/ Wound - right medial and right lateral lower leg ulcers are beefy pink with good granulation tissue. Wound Measurements and Assessment WC - Nurse 1 - General Ulcer Measurement Start: 02/14/20 14:35 Freq: Status: Active Protocol: Activity Type Activity Date Activity User E-Sign Co-Sign Detail Recorded Client Recorded Date Recorded By Document 02/21/20 14:34 DL [id number] 02/21/20 14:44 DL 02/21/20 14:34 Wound Center Nurse 1 [Ulcer Assessment] #3 RLE Med -Current Size (cm) - Length 12 -Current Size (cm) - Width 1.1 -Current Size (cm) - Depth 0.1 -Total Square Cm 13.2 -Photo Taken No -Exudate Amt Small -Exudate Type Serosanguineous -Wound Margin Distinct, Outline Attached -Granulation Amt Large (67-100%) -Granulation Quality Red -Necrosis Amt None Present (0 %) -Structure Exposed N/A -Texture (Mari-wound Skin Appearance) Scarring -Moisture (Mari-wound Skin Appearance No Abnormality ) -Color (Mari-wound Skin Appearance) No Abnormality -Temperature (Mari-wound Skin No Abnormality Appearance) (Pt Warm) -Tenderness on Palpation (Mrai-wound Yes Skin Appearance) -Ulcer Cleansing Wound Cleanser -Foul Odor after Cleansing No -Anesthetic Used 4% Lidocaine Solution #2 RLE Lat -Current Size (cm) - Length 12.1 -Current Size (cm) - Width 2 -Current Size (cm) - Depth 0.1 -Total Square Cm 24.2 -Photo Taken No -Exudate Amt Small -Exudate Type Serosanguineous -Wound Margin Distinct, Outline Attached -Granulation Amt Large (67-100%) -Granulation Quality Red -Necrosis Amt None Present (0 %) -Structure Exposed N/A -Texture (Mari-wound Skin Appearance) Scarring -Moisture (Mari-wound Skin Appearance No Abnormality ) -Color (Mari-wound Skin Appearance) No Abnormality -Temperature (Mari-wound Skin No Abnormality Appearance) (Pt Warm) -Tenderness on Palpation (Mari-wound No Skin Appearance) -Ulcer Cleansing Wound Cleanser -Foul Odor after Cleansing No -Anesthetic Used 4% Lidocaine Solution [Edema Assessment] -Right Calf (cm) 34 -Right Ankle (cm) 21.4 WC - Nurse 2 - General Ulcer CM Notes Start: 02/14/20 14:35 Freq: Status: Active Protocol: Activity Type Activity Date Activity User E-Sign Co-Sign Detail Recorded Client Recorded Date Recorded By Document 02/21/20 15:12 [id number] 02/21/20 15:15 02/21/20 15:12 Wound Center Nurse 2 [Procedure/Treatment] #3 RLE Med -Time 15:12 -Correct Patient Yes -Correct Side, Site, Position Yes -Correct Procedure Yes -Procedure Performed Yes -Type of Procedure Debridement -Clinical Debridement Subcutaneous -Post Debridement Size (cm) - Length 12.5 -Post Debridement Size (cm) - Width 1.8 -Post Debridement Size (cm) - Depth 0.1 -Total Square Cm 22.50 -Wound/Ulcer Outcome Not Healed -Ulcer Cleansing Rinsed/ Irrigated with Saline -Foul Odor after Cleansing No -Bioengineered Tissue No -Bleeding Controlled with Pressure -Offloading No -Treatment Response Procedure Tolerated Well #2 RLE Lat -Time 15:13 -Correct Patient Yes -Correct Side, Site, Position Yes -Correct Procedure Yes -Procedure Performed Yes -Type of Procedure Debridement -Clinical Debridement Subcutaneous -Post Debridement Size (cm) - Length 12.5 -Post Debridement Size (cm) - Width 2.5 -Post Debridement Size (cm) - Depth 0.2 -Total Square Cm 31.25 -Wound/Ulcer Outcome Not Healed -Ulcer Cleansing Rinsed/ Irrigated with Saline -Bioengineered Tissue No -Bleeding Controlled with Pressure -Offloading No -Treatment Response Procedure Tolerated Well [See Physician Procedure note for Specifics] Pain Scale: 0-10 Numeric [Pain] -Is Patient Pain Free? Yes Musculoskeletal: No Tenderness to Palpation of Joints or Extremities Neurological: Cranial nerves II-XII grossly intact Psych/Mental Status: Normal Affect, Appropriate Debridement Note Post-Debridement Measurements/Treatment WC - Nurse 2 - General Ulcer CM Notes Start: 02/14/20 14:35 Freq: Status: Active Protocol: Activity Type Activity Date Activity User E-Sign Co-Sign Detail Recorded Client Recorded Date Recorded By Document 02/15/20 07:18 PL [id number] 02/15/20 07:19 PL Document 02/21/20 15:12 [id number] 02/21/20 15:15 02/15/20 02/21/20 07:18 15:12 Wound Center Nurse 2 #3 RLE Med -Time 15:06 15:12 -Correct Patient Yes Yes -Correct Side, Site, Position Yes Yes -Correct Procedure Yes Yes -Procedure Performed Yes Yes -Type of Procedure Debridement Debridement -Clinical Debridement Subcutaneous Subcutaneous -Post Debridement Size (cm) - Length 13.2 12.5 -Post Debridement Size (cm) - Width 1.7 1.8 -Post Debridement Size (cm) - Depth 0.2 0.1 -Total Square Cm 22.44 22.50 -Wound/Ulcer Outcome Not Healed Not Healed -Ulcer Cleansing Rinsed/ Rinsed/ Irrigated with Irrigated with Saline Saline -Foul Odor after Cleansing No No -Bioengineered Tissue No -Bleeding Controlled with Pressure Pressure -Offloading No -Treatment Response Procedure Procedure Tolerated Well Tolerated Well #2 RLE Lat -Time 15:06 15:13 -Correct Patient Yes Yes -Correct Side, Site, Position Yes Yes -Correct Procedure Yes Yes -Procedure Performed Yes Yes -Type of Procedure Debridement Debridement -Clinical Debridement Subcutaneous Subcutaneous -Post Debridement Size (cm) - Length 2.3 12.5 -Post Debridement Size (cm) - Width 14.2 2.5 -Post Debridement Size (cm) - Depth 0.5 0.2 -Total Square Cm 32.66 31.25 -Wound/Ulcer Outcome Not Healed Not Healed -Ulcer Cleansing Rinsed/ Rinsed/ Irrigated with Irrigated with Saline Saline -Foul Odor after Cleansing No -Bioengineered Tissue No -Bleeding Controlled with Pressure Pressure -Offloading No -Treatment Response Procedure Procedure Tolerated Well Tolerated Well Pain Scale: 0-10 Numeric Is Patient Pain Free? Yes Yes Wound debrided: medial leg ulcer Laterality: Right Type of Debridement: Excisional debridement Anesthesia Used: 5% Lidocaine Gel Depth: Down to and including healthy tissue, in the subcutaneous layer Percentage of wound debrided: 100 Instrument Used: 5mm curette Tissue Removed: Subcutaneous tissue and slough Severity: Fat Layer Exposed Amount of bleeding with debridement: Mild Bleeding Controlled with: Pressure Patient tolerated procedure well - Additional Wound Wound debrided: lateral leg ulcer Laterality: Right Type of Debridement: Excisional debridement Anesthesia Used: 5% Lidocaine Gel Depth: Down to and including healthy tissue, in the subcutaneous layer Percentage of wound debrided: 100 Instrument Used: 5mm curette Tissue Removed: Subcutaneous tissue and slough Severity: Fat Layer Exposed Amount of bleeding with debridement: Mild Bleeding Controlled with: Pressure Patient tolerated procedure: Patient tolerated procedure well Assessment/Plan Active Problems (Last Updated 02/17/20 @ 17:26 by Emperatriz Snyder) Ulcer of right lower leg (Chronic) Ulcer of right lower extremity with fat layer exposed (Chronic) History of fasciotomy (Chronic) Schizophrenia (Chronic) Heroin abuse (Chronic) Assessment: 1. Fasciotomy incision of right medial and right lateral leg. 2. History of compartmental syndrome. 3. History rhabdomyolysis. 4. IV drug abuser. 5. Acute renal failure. Plan: Patient was seen and evaluated at the wound healing center today. Subcutaneous debridement was performed and the patient tolerated it well. Surgery on 01/06/20 - Traumatic 4 compartment release right leg by Dr. Grayson. Wound care- Daily [employer]- dressing changes. Compression will be double Tubigrip. He would benefit from an advanced wound healing product such as Epifix. We will apply to his insurance company for approval. Compression is Tubigrip. Encourage patient to increase protein intake. Instructed both patient and his mother that it was necessary to find a PCP to help manage all of his his issues that he has developed recently due to his IV drug abuse. Encouraged smoking cessation due to it can be deleterious to wound healing. Follow up 2 weeks. [id number]: [id number] Audrey subq tissue 20 sq cm/< Add On Codes: [id number] Audrey subq tissue add-on
== END 2020-03-10 23:59 ==
LOC: WC 13:30
PROVIDERS: Visit Provider Nurse Practitioner Family
DX: L97.919 Non-pressure chronic ulcer of unspecified part of right lower leg with unspecified severity (principal); L97.912 Non-pressure chronic ulcer of unspecified part of right lower leg with fat layer exposed; F20.3 Undifferentiated schizophrenia; F11.10 Opioid abuse, uncomplicated; S84.92XA Injury of unspecified nerve at lower leg level, left leg, initial encounter; N17.9 Acute kidney failure, unspecified; M62.82 Rhabdomyolysis
CPT/HCPCS: 11042; 11045

== ENCOUNTER 2020-04-10 14:30 | Outpatient (RCR) | payer MEDICAID, SELFPAY ==
[2020-02-21 14:34] VITALS: BMI 25.8
[2020-03-11 00:32] VITALS: BP 132/92; PULSE 111; RESP 20; TEMP 37
[2020-03-20 14:20] VITALS: BP 124/92; PULSE 97; RESP 18; TEMP 36.1; BMI 25.8
--- NOTE | 2020-03-20 15:34 | PN.PCM_ITS ---
(1) Ulcer of right lower leg Status: Chronic Code(s): L97.919 - Non-pressure chronic ulcer of unspecified part of right lower leg with unspecified severity (2) Ulcer of right lower extremity with fat layer exposed Status: Chronic Code(s): L97.912 - Non-pressure chronic ulcer of unspecified part of right lower leg with fat layer exposed (3) History of fasciotomy Status: Chronic Code(s): Z98.890 - Other specified postprocedural states (4) Compartment syndrome of right lower extremity Status: Chronic Code(s): T79.A21A - Traumatic compartment syndrome of right lower extremity, initial encounter (5) Schizophrenia Status: Chronic Code(s): F20.9 - Schizophrenia, unspecified (6) IVDU (intravenous drug user) Status: Chronic Code(s): F19.90 - Other psychoactive substance use, unspecified, uncomplicated Type of Wound Date of Service: 03/20/20 Chief Complaint: Right medial and lateral leg fasciotomy wounds History of Wound: Patient has a history of IV drug abuse. He woke up early on 01/06/20 where he was in a position where he was flexed at the knees and his body was layin over his calves. He developed neurapraxia worse in on the left than the right. He developed right lower extremity compartment syndrome, rhabdomyolysis, and acute kidney injury. Surgery on 01/06/20 - Traumatic 4 compartment release right leg by Dr. Grayson. Wound care - Collagen hydrogel covered by adaptic to the right lateral leg ulcer. Right medial leg ulcer is healed. Compression will be double Tubigrip. He had been hospitalized for his renal issues. His edema has resolved. He denies complaint of fever. States appetite is improving. Progress of Wound: Improved. - Physical Exam Vital Signs Temp Pulse Resp BP 96.9 F L 97 18 124/92 H 03/20/20 14:20 03/20/20 14:20 03/20/20 14:20 03/20/20 14:20 General: Alert, Oriented x3, Cooperative HEENT: Atraumatic Oral: Moist Mucosa Lungs: Normal air movement Cardiovascular: Regular rate Extremities: Capillary Refill Less than 3 Seconds Skin: Ulcer/ Wound - Right lateral leg ulcer has good granulation tissue and is almost healed. Right medial leg ulcer is healed. Wound Measurements and Assessment WC - Nurse 1 - General Ulcer Measurement Start: 03/19/20 10:12 Freq: Status: Active Protocol: Activity Type Activity Date Activity User E-Sign Co-Sign Detail Recorded Client Recorded Date Recorded By Document 03/20/20 14:20 DL [id number] 03/20/20 14:24 DL 03/20/20 14:20 Wound Center Nurse 1 [Ulcer Assessment] #3 RLE Med -Current Size (cm) - Length 0 -Current Size (cm) - Width 0 -Current Size (cm) - Depth 0 -Total Square Cm 0 -Photo Taken Yes -Exudate Amt None Present -Granulation Amt Large (67-100%) -Granulation Quality [place] -Necrosis Amt None Present (0 %) -Structure Exposed N/A -Texture (Mari-wound Skin Appearance) Scarring -Moisture (Mari-wound Skin Appearance No Abnormality ) -Color (Mari-wound Skin Appearance) No Abnormality -Temperature (Mari-wound Skin No Abnormality Appearance) (Pt Warm) -Tenderness on Palpation (Mari-wound No Skin Appearance) -Ulcer Cleansing Rinsed/ Irrigated with Saline -Foul Odor after Cleansing No #2 RLE Lat -Current Size (cm) - Length 0 -Current Size (cm) - Width 0 -Current Size (cm) - Depth 0 -Total Square Cm 0 -Photo Taken Yes -Exudate Amt None Present -Wound Margin Flat & Intact -Granulation Amt Large (67-100%) -Granulation Quality [place] -Necrosis Amt None Present (0 %) -Structure Exposed N/A -Texture (Mari-wound Skin Appearance) No Abnormality -Moisture (Mari-wound Skin Appearance No Abnormality ) -Color (Mari-wound Skin Appearance) No Abnormality -Temperature (Mari-wound Skin No Abnormality Appearance) (Pt Warm) -Tenderness on Palpation (Mari-wound No Skin Appearance) -Ulcer Cleansing Rinsed/ Irrigated with Saline -Foul Odor after Cleansing No [Edema Assessment] -Right Calf (cm) 35.6 -Right Ankle (cm) 22.6 - Nurse 2 - General Ulcer CM Notes Start: 03/19/20 10:12 Freq: Status: Active Protocol: Activity Type Activity Date Activity User E-Sign Co-Sign Detail Recorded Client Recorded Date Recorded By Document 03/20/20 14:54 JF [id number] 03/20/20 14:59 JF 03/20/20 14:54 Wound Center Nurse 2 [Procedure/Treatment] #3 RLE Med -Correct Patient No -Correct Side, Site, Position No -Correct Procedure No -Procedure Performed No -Post Debridement Size (cm) - Length 0 -Post Debridement Size (cm) - Width 0 -Post Debridement Size (cm) - Depth 0 -Total Square (cm) 0 -Wound/Ulcer Outcome Healed- Epithelialized #2 RLE Lat -Time 14:54 -Correct Patient Yes -Correct Side, Site, Position Yes -Correct Procedure Yes -Procedure Performed Yes -Type of Procedure Debridement -Clinical Debridement Subcutaneous -Post Debridement Size (cm) - Length 8.0 -Post Debridement Size (cm) - Width 0.6 -Post Debridement Size (cm) - Depth 0.2 -Total Square (cm) 4.80 -Wound/Ulcer Outcome Not Healed -Ulcer Cleansing Rinsed/ Irrigated with Saline -Foul Odor after Cleansing No -Bioengineered Tissue No -Bleeding Controlled with Pressure -Offloading No -Treatment Response Procedure Tolerated Well [See Physician Procedure note for Specifics] Pain Scale: 0-10 Numeric [Pain] -Is Patient Pain Free? Yes Debridement Note Post-Debridement Measurements/Treatment WC - Nurse 2 - General Ulcer CM Notes Start: 03/19/20 10:12 Freq: Status: Active Protocol: Activity Type Activity Date Activity User E-Sign Co-Sign Detail Recorded Client Recorded Date Recorded By Document 03/20/20 14:54 CHIP [id number] 03/20/20 14:59 CHIP 03/20/20 14:54 Wound Center Nurse 2 #3 RLE Med -Correct Patient No -Correct Side, Site, Position No -Correct Procedure No -Procedure Performed No -Post Debridement Size (cm) - Length 0 -Post Debridement Size (cm) - Width 0 -Post Debridement Size (cm) - Depth 0 -Total Square (cm) 0 -Wound/Ulcer Outcome Healed- Epithelialized #2 RLE Lat -Time 14:54 -Correct Patient Yes -Correct Side, Site, Position Yes -Correct Procedure Yes -Procedure Performed Yes -Type of Procedure Debridement -Clinical Debridement Subcutaneous -Post Debridement Size (cm) - Length 8.0 -Post Debridement Size (cm) - Width 0.6 -Post Debridement Size (cm) - Depth 0.2 -Total Square (cm) 4.80 -Wound/Ulcer Outcome Not Healed -Ulcer Cleansing Rinsed/ Irrigated with Saline -Foul Odor after Cleansing No -Bioengineered Tissue No -Bleeding Controlled with Pressure -Offloading No -Treatment Response Procedure Tolerated Well Pain Scale: 0-10 Numeric Is Patient Pain Free? Yes Wound debrided: lateral lower leg ulcer Laterality: Right Type of Debridement: Excisional debridement Anesthesia Used: 4% Lidocaine Solution Depth: Down to and including healthy tissue, in the subcutaneous layer Percentage of wound debrided: 100 Instrument Used: 3mm curette Tissue Removed: Subcutaneous tissue and slough Severity: Limited To Skin Breakdown Amount of bleeding with debridement: Mild Bleeding Controlled with: Pressure Patient tolerated procedure well Assessment/Plan Assessment: 1. Fasciotomy incision of right medial and right lateral leg. 2. History of compartmental syndrome. 3. History rhabdomyolysis. 4. IV drug abuser. 5. Acute renal failure. Plan: Patient was seen and evaluated at the wound healing center today. Sub cutaneous debridement was performed and the patient tolerated it well. Surgery on 01/06/20 - Traumatic 4 compartment release right leg by Dr. Grayson. Wound care- Wound care - Collagen hydrogel covered by adaptic to the right lateral leg ulcer. Right medial leg ulcer is healed. Encouraged him to massage daily with lotion to help soften scarring. Compression will be double Tubigrip. Compression is Tubigrip. Encourage patient to increase protein intake. Instructed both patient and his mother that it was necessary to find a PCP to help manage all of his his issues that he has developed recently due to his IV drug abuse. Encouraged smoking cessation due to it can be deleterious to wound healing. Follow up 2 weeks. [id number]: [id number] Audrey subq tissue 20 sq cm/<
[2020-04-03 13:17] VITALS: BP 129/104; PULSE 87; RESP 16; TEMP 36.9; BMI 25.8
--- NOTE | 2020-04-03 14:08 | PCM.WC.PN ---
(1) Ulcer of right lower leg Status: Chronic Current Visit: Yes Code(s): L97.919 - Non-pressure chronic ulcer of unspecified part of right lower leg with unspecified severity (2) Ulcer of right lower extremity with fat layer exposed Status: Chronic Current Visit: Yes Code(s): L97.912 - Non-pressure chronic ulcer of unspecified part of right lower leg with fat layer exposed (3) History of fasciotomy Status: Chronic Current Visit: Yes Code(s): Z98.890 - Other specified postprocedural states (4) Compartment syndrome of right lower extremity Status: Chronic Current Visit: Yes Code(s): T79.A21A - Traumatic compartment syndrome of right lower extremity, initial encounter (5) Schizophrenia Status: Chronic Current Visit: Yes Code(s): F20.9 - Schizophrenia, unspecified (6) IVDU (intravenous drug user) Status: Chronic Current Visit: Yes Code(s): F19.90 - Other psychoactive substance use, unspecified, uncomplicated Type of Wound Date of Service: 04/03/20 Chief Complaint: Right medial and lateral leg fasciotomy wounds History of Wound: Patient has a history of IV drug abuse. He woke up early on 01/06/20 where he was in a position where he was flexed at the knees and his body was layin over his calves. He developed neurapraxia worse in on the left than the right. He developed right lower extremity compartment syndrome, rhabdomyolysis, and acute kidney injury. Surgery on 01/06/20 - Traumatic 4 compartment release right leg by Dr. Grayson. Wound care - Collagen hydrogel covered by adaptic to the right lateral leg ulcer. Right medial leg ulcer has reopened and will place Collagen Hydrogel covered by adaptic on this ulcer also. Compression will be double Tubigrip. He had been hospitalized for his renal issues. His edema has resolved. He denies complaint of fever. States appetite is improving. Progress of Wound: Improved. - Physical Exam Vital Signs Temp Pulse Resp BP 98.5 F 87 16 129/104 H 04/03/20 13:17 04/03/20 13:17 04/03/20 13:17 04/03/20 13:17 General: Alert, Oriented x3, Cooperative HEENT: Atraumatic Oral: Moist Mucosa Lungs: Normal air movement Cardiovascular: Regular rate Extremities: Capillary Refill Less than 3 Seconds Skin: Ulcer/ Wound - Right lateral and medial leg ulcers. Scabbing removed and there is granulation present. There are skin bridges present to make both of these ulcer a cluster. Wound Measurements and Assessment - Nurse 1 - General Ulcer Measurement Start: 03/19/20 10:12 Freq: Status: Active Protocol: Activity Type Activity Date Activity User E-Sign Co-Sign Detail Recorded Client Recorded Date Recorded By Document 04/03/20 13:17 [facility] [id number] 04/03/20 13:21 [facility] 04/03/20 13:17 Wound Center Nurse 1 [Ulcer Assessment] #2 RLE Lat -Combined with other wound No -Current Size (cm) - Length 7.3 -Current Size (cm) - Width 0.7 -Current Size (cm) - Depth 0.1 -Total Square Cm 5.11 -Epithelialization None Present -Tunneling No -Undermining/Tunneling No -Circular Undermining No -Exudate Amt None Present -Wound Margin Distinct, Outline Attached -Granulation Amt None Present (0 %) -Slough/Fibrin Yes -Necrosis Amt Large (67-100%) -Necrotic Tissue Type Eschar -Texture (Mari-wound Skin Appearance) Assessed, Scarring -Moisture (Mari-wound Skin Appearance Assessed ) -Color (Mari-wound Skin Appearance) Assessed -Temperature (Mari-wound Skin No Abnormality Appearance) (Pt Warm) -Tenderness on Palpation (Mari-wound No Skin Appearance) -Ulcer Cleansing Rinsed/ Irrigated with Saline -Foul Odor after Cleansing No -Anesthetic Used 4% Lidocaine Solution - Nurse 2 - General Ulcer CM Notes Start: 04/03/20 13:46 Freq: Status: Active Protocol: Activity Type Activity Date Activity User E-Sign Co-Sign Detail Recorded Client Recorded Date Recorded By Document 04/03/20 13:47 [id number] 04/03/20 13:55 04/03/20 13:47 Wound Center Nurse 2 [Procedure/Treatment] #3 RLE Med cluster -Time 13:53 -Correct Patient Yes -Correct Side, Site, Position Yes -Correct Procedure Yes -Procedure Performed Yes -Type of Procedure Debridement -Clinical Debridement Subcutaneous -Tissue Removed Subcutaneous -Post Debridement (cm) - Length 9.5 -Post Debridement (cm) - Width 0.5 -Post Debridement (cm) - Depth 0.1 -Total Square (Post) (cm) 4.75 -Area of Debridement (cm) - Length 9.5 -Area of Debridement (cm) - Width 0.5 -Total Square (Area) (cm) 4.75 -Tunneling No -Undermining/Tunneling No -Circular Undermining No -Wound/Ulcer Outcome Not Healed -Ulcer Cleansing Rinsed/ Irrigated with Saline -Foul Odor after Cleansing No -Bioengineered Tissue No -Bleeding Controlled with Pressure -Offloading No -Debridement - Subq, 1st 20sq cm No #2 RLE Lat -Time 13:47 -Correct Patient Yes -Correct Side, Site, Position Yes -Correct Procedure Yes -Procedure Performed Yes -Type of Procedure Debridement -Clinical Debridement Subcutaneous -Tissue Removed Subcutaneous -Post Debridement (cm) - Length 7.7 -Post Debridement (cm) - Width 0.5 -Post Debridement (cm) - Depth 0.2 -Total Square (Post) (cm) 3.85 -Area of Debridement (cm) - Length 7.7 -Area of Debridement (cm) - Width 0.5 -Total Square (Area) (cm) 3.85 -Tunneling No -Undermining/Tunneling No -Circular Undermining No -Wound/Ulcer Outcome Not Healed -Ulcer Cleansing Rinsed/ Irrigated with Saline -Foul Odor after Cleansing No -Bioengineered Tissue No -Bleeding Controlled with Pressure -Offloading No -Treatment Response Procedure Tolerated Well -Debridement - Subq, 1st 20sq cm Yes [See Physician Procedure note for Specifics] Pain Scale: 0-10 Numeric [Pain] -Is Patient Pain Free? Yes - Nurse 3 - General Ulcer D/C NN Start: 04/03/20 14:01 Freq: Status: Active Protocol: Activity Type Activity Date Activity User E-Sign Co-Sign Detail Recorded Client Recorded Date Recorded By Document 04/03/20 14:01 [facility] [id number] 04/03/20 14:02 [facility] 04/03/20 14:01 Wound Care Nurse 3 [Wound Dressing] #3 RLE Med cluster -Ulcer Cleansing Rinsed/ Irrigated with Saline -Foul Odor after Cleansing No -Primary Dressing Applied C Hydrogel ($), Other -Other Dressing adaptic -Primary Dressing Covered/Secured Dry Gauze & with Roll Gauze #2 RLE Lat -Ulcer Cleansing Rinsed/ Irrigated with Saline -Foul Odor after Cleansing No -Primary Dressing Applied Other -Other Dressing adaptic and hydrogel -Primary Dressing Covered/Secured Dry Gauze & with Roll Gauze [Compression Applied] Right -Tubular Bandage Double Layer -Size of Tubigrip Used Size D -Size D ($) 1 [Post Procedure Tolerated] -Treatment Response Procedure Tolerated Well Pain Scale: 0-10 Numeric [Pain] -Is Patient Pain Free? Yes - Visit Discharge [Visit Discharge Information] -Discharge Condition Stable -Ambulatory Status Ambulatory -Transportation Private Auto -Accompanied by grandmother [Facility Notification] -Facility Type Home Health Musculoskeletal: No Tenderness to Palpation of Joints or Extremities Neurological: Cranial nerves II-XII grossly intact Psych/Mental Status: Normal Affect, Appropriate Debridement Note Post-Debridement Measurements/Treatment - Nurse 2 - General Ulcer CM Notes Start: 04/03/20 13:46 Freq: Status: Active Protocol: Activity Type Activity Date Activity User E-Sign Co-Sign Detail Recorded Client Recorded Date Recorded By Document 04/03/20 13:47 [id number] 04/03/20 13:55 04/03/20 13:47 Wound Center Nurse 2 #3 RLE Med cluster -Time 13:53 -Correct Patient Yes -Correct Side, Site, Position Yes -Correct Procedure Yes -Procedure Performed Yes -Type of Procedure Debridement -Clinical Debridement Subcutaneous -Tissue Removed Subcutaneous -Post Debridement (cm) - Length 9.5 -Post Debridement (cm) - Width 0.5 -Post Debridement (cm) - Depth 0.1 -Total Square (Post) (cm) 4.75 -Area of Debridement (cm) - Length 9.5 -Area of Debridement (cm) - Width 0.5 -Total Square (Area) (cm) 4.75 -Tunneling No -Undermining/Tunneling No -Circular Undermining No -Wound/Ulcer Outcome Not Healed -Ulcer Cleansing Rinsed/ Irrigated with Saline -Foul Odor after Cleansing No -Bioengineered Tissue No -Bleeding Controlled with Pressure -Offloading No -Debridement - Subq, 1st 20sq cm No #2 RLE Lat -Time 13:47 -Correct Patient Yes -Correct Side, Site, Position Yes -Correct Procedure Yes -Procedure Performed Yes -Type of Procedure Debridement -Clinical Debridement Subcutaneous -Tissue Removed Subcutaneous -Post Debridement (cm) - Length 7.7 -Post Debridement (cm) - Width 0.5 -Post Debridement (cm) - Depth 0.2 -Total Square (Post) (cm) 3.85 -Area of Debridement (cm) - Length 7.7 -Area of Debridement (cm) - Width 0.5 -Total Square (Area) (cm) 3.85 -Tunneling No -Undermining/Tunneling No -Circular Undermining No -Wound/Ulcer Outcome Not Healed -Ulcer Cleansing Rinsed/ Irrigated with Saline -Foul Odor after Cleansing No -Bioengineered Tissue No -Bleeding Controlled with Pressure -Offloading No -Treatment Response Procedure Tolerated Well -Debridement - Subq, 1st 20sq cm Yes Pain Scale: 0-10 Numeric Is Patient Pain Free? Yes - Nurse 3 - General Ulcer D/C NN Start: 04/03/20 14:01 Freq: Status: Active Protocol: Activity Type Activity Date Activity User E-Sign Co-Sign Detail Recorded Client Recorded Date Recorded By Document 04/03/20 14:01 [facility] [id number] 04/03/20 14:02 [facility] 04/03/20 14:01 Wound Care Nurse 3 #3 RLE Med cluster -Ulcer Cleansing Rinsed/ Irrigated with Saline -Foul Odor after Cleansing No -Primary Dressing Applied C Hydrogel ($), Other -Other Dressing adaptic -Primary Dressing Covered/Secured with Dry Gauze & Roll Gauze #2 RLE Lat -Ulcer Cleansing Rinsed/ Irrigated with Saline -Foul Odor after Cleansing No -Primary Dressing Applied Other -Other Dressing adaptic and hydrogel -Primary Dressing Covered/Secured with Dry Gauze & Roll Gauze Right -Tubular Bandage Double Layer -Size of Tubigrip Used Size D -Size D ($) 1 Treatment Response Procedure Tolerated Well Pain Scale: 0-10 Numeric Is Patient Pain Free? Yes - Visit Discharge Discharge Condition Stable Ambulatory Status Ambulatory Transportation Private Auto Accompanied by grandmother Facility Type Home Health Wound debrided: Lateral leg ulcer Laterality: Right Type of Debridement: Excisional debridement Anesthesia Used: 4% Lidocaine Solution Depth: Down to and including healthy tissue, in the subcutaneous layer Percentage of wound debrided: 100 Instrument Used: 3mm curette Tissue Removed: Subcutaneous tissue and slough Severity: Limited To Skin Breakdown Amount of bleeding with debridement: Mild Bleeding Controlled with: Pressure Patient tolerated procedure well - Additional Wound Wound debrided: right medial leg ulcer Laterality: Right Type of Debridement: Excisional debridement Anesthesia Used: 5% Lidocaine Gel Depth: Down to and including healthy tissue Percentage of wound debrided: 100 Instrument Used: 3mm curette Tissue Removed: Subcutaneous tissue and slough Severity: Limited To Skin Breakdown Amount of bleeding with debridement: Mild Bleeding Controlled with: Pressure Patient tolerated procedure: Patient tolerated procedure well Assessment/Plan Active Problems Ulcer of right lower leg (Chronic) Ulcer of right lower extremity with fat layer exposed (Chronic) History of fasciotomy (Chronic) Compartment syndrome of right lower extremity (Chronic) Schizophrenia (Chronic) IVDU (intravenous drug user) (Chronic) Assessment: 1. Fasciotomy incision of right medial and right lateral leg. 2. History of compartmental syndrome. 3. History rhabdomyolysis. 4. IV drug abuser. 5. Acute renal failure. Plan: Patient was seen and evaluated at the wound healing center today. Subcutaneous debridement was performed and the patient tolerated it well. Surgery on 01/06/20 - Traumatic 4 compartment release right leg by Dr. Grayson. Wound care- Wound care - Collagen hydrogel covered by adaptic to the right lateral and medial leg ulcer. Right medial leg ulcer was healed but it has scabbed up and required debridement. Compression will be double Tubigrip. Encourage patient to increase protein intake. Instructed both patient and his mother that it was necessary to find a PCP to help manage all of his his issues that he has developed recently due to his IV drug abuse. Encouraged smoking cessation due to it can be deleterious to wound healing. Follow up 1 week. [id number]: [id number] Audrey subq tissue 20 sq cm/<
[2020-04-10 14:35] VITALS: BP 120/81; PULSE 83; RESP 16; TEMP 36.4; BMI 25.8
--- NOTE | 2020-04-10 15:31 | PCM.WC.PN ---
(1) Ulcer of right lower leg Status: Chronic Code(s): L97.919 - Non-pressure chronic ulcer of unspecified part of right lower leg with unspecified severity (2) Ulcer of right lower extremity with fat layer exposed Status: Chronic Code(s): L97.912 - Non-pressure chronic ulcer of unspecified part of right lower leg with fat layer exposed (3) History of fasciotomy Status: Chronic Code(s): Z98.890 - Other specified postprocedural states (4) Compartment syndrome of right lower extremity Status: Chronic Code(s): T79.A21A - Traumatic compartment syndrome of right lower extremity, initial encounter (5) Schizophrenia Status: Chronic Code(s): F20.9 - Schizophrenia, unspecified (6) IVDU (intravenous drug user) Status: Chronic Code(s): F19.90 - Other psychoactive substance use, unspecified, uncomplicated Type of Wound Date of Service: 04/10/20 Chief Complaint: Right medial and lateral leg fasciotomy wounds History of Wound: Patient has a history of IV drug abuse. He woke up early on 01/06/20 where he was in a position where he was flexed at the knees and his body was layin over his calves. He developed neurapraxia worse in on the left than the right. He developed right lower extremity compartment syndrome, rhabdomyolysis, and acute kidney injury. Surgery on 01/06/20 - Traumatic 4 compartment release right leg by Dr. Grayson. Wound care - Collagen hydrogel covered by adaptic to the right lateral and right medial leg ulcer. Compression will be double Tubigrip. He had been hospitalized for his renal issues. His edema has resolved. He denies complaint of fever. States appetite is improving. Progress of Wound: Improved. - Physical Exam Vital Signs Temp Pulse Resp BP 97.5 F L 83 16 120/81 H 04/10/20 14:35 04/10/20 14:35 04/10/20 14:35 04/10/20 14:35 General: Alert, Oriented x3, Cooperative HEENT: Atraumatic Oral: Moist Mucosa Lungs: Normal air movement Cardiovascular: Regular rate Extremities: No edema, Capillary Refill Less than 3 Seconds Skin: Ulcer/ Wound - Right medial leg ulcer cluster and right lateral leg ulcer cluster are improving. Wound Measurements and Assessment WC - Nurse 1 - General Ulcer Measurement Start: 03/19/20 10:12 Freq: Status: Active Protocol: Activity Type Activity Date Activity User E-Sign Co-Sign Detail Recorded Client Recorded Date Recorded By Document 04/10/20 14:35 MW [id number] 04/10/20 14:40 MW 04/10/20 14:35 Wound Center Nurse 1 [Ulcer Assessment] #4 RLE Med cluster -Combined with other wound No -Current Size (cm) - Length 0.1 -Current Size (cm) - Width 0.1 -Current Size (cm) - Depth 0.1 -Total Square Cm 0.01 -Photo Taken No -Epithelialization Medium 34-66% -Tunneling No -Undermining/Tunneling No -Circular Undermining No -Exudate Amt None Present -Wound Margin Flat & Intact -Granulation Amt None Present (0 %) -Granulation Quality N/A -Slough/Fibrin Yes -Necrosis Amt Large (67-100%) -Necrotic Tissue Type Adherent Slough -Structure Exposed N/A -Texture (Mari-wound Skin Appearance) Assessed, Localized Edema ,Scarring -Moisture (Mari-wound Skin Appearance No Abnormality, ) Assessed -Color (Mari-wound Skin Appearance) No Abnormality, Assessed -Temperature (Mari-wound Skin No Abnormality Appearance) (Pt Warm) -Tenderness on Palpation (Mari-wound Yes Skin Appearance) -Ulcer Cleansing Rinsed/ Irrigated with Saline -Foul Odor after Cleansing No -Anesthetic Used 4% Lidocaine Solution #2 RLE Lat -Combined with other wound No -Current Size (cm) - Length 0.1 -Current Size (cm) - Width 0.1 -Current Size (cm) - Depth 0.1 -Total Square Cm 0.01 -Photo Taken No -Epithelialization Medium 34-66% -Tunneling No -Undermining/Tunneling No -Circular Undermining No -Exudate Amt None Present -Wound Margin Flat & Intact -Granulation Amt None Present (0 %) -Granulation Quality N/A -Slough/Fibrin Yes -Necrosis Amt Large (67-100%) -Necrotic Tissue Type Adherent Slough -Structure Exposed N/A -Texture (Mari-wound Skin Appearance) Assessed, Localized Edema ,Scarring -Moisture (Mari-wound Skin Appearance No Abnormality, ) Assessed -Color (Mari-wound Skin Appearance) No Abnormality, Assessed -Temperature (Mari-wound Skin No Abnormality Appearance) (Pt Warm) -Tenderness on Palpation (Mari-wound Yes Skin Appearance) -Ulcer Cleansing Rinsed/ Irrigated with Saline -Foul Odor after Cleansing No -Anesthetic Used 4% Lidocaine Solution [Edema Assessment] -Lower Limb Edema Present Yes -Right Calf (cm) 35.1 -Right Ankle (cm) 23.8 WC - Nurse 2 - General Ulcer CM Notes Start: 04/03/20 13:46 Freq: Status: Active Protocol: Activity Type Activity Date Activity User E-Sign Co-Sign Detail Recorded Client Recorded Date Recorded By Document 04/10/20 15:03 [id number] 04/10/20 15:06 04/10/20 15:03 Wound Center Nurse 2 [Procedure/Treatment] #4 RLE [facility] cluster -Time 15:03 -Correct Patient Yes -Correct Side, Site, Position Yes -Correct Procedure Yes -Procedure Performed Yes -Type of Procedure Debridement -Clinical Debridement Subcutaneous -Tissue Removed Subcutaneous -Post Debridement (cm) - Length 8.0 -Post Debridement (cm) - Width 0.5 -Post Debridement (cm) - Depth 0.1 -Total Square (Post) (cm) 4.00 -Area of Debridement (cm) - Length 8.0 -Area of Debridement (cm) - Width 0.5 -Total Square (Area) (cm) 4.00 -Tunneling No -Undermining/Tunneling No -Circular Undermining No -Wound/Ulcer Outcome Not Healed -Ulcer Cleansing Rinsed/ Irrigated with Saline -Foul Odor after Cleansing No -Bioengineered Tissue No -Bleeding Controlled with Pressure -Offloading No -Treatment Response Procedure Tolerated Well -Debridement - Subq, 1st 20sq cm Yes #2 RLE Lat -Time 15:04 -Correct Patient Yes -Correct Side, Site, Position Yes -Correct Procedure Yes -Procedure Performed Yes -Type of Procedure Debridement -Clinical Debridement Subcutaneous -Tissue Removed Subcutaneous -Post Debridement (cm) - Length 10.0 -Post Debridement (cm) - Width 0.2 -Post Debridement (cm) - Depth 0.1 -Total Square (Post) (cm) 2.00 -Area of Debridement (cm) - Length 10 -Area of Debridement (cm) - Width 0.2 -Total Square (Area) (cm) 2.0 -Tunneling No -Undermining/Tunneling No -Circular Undermining No -Wound/Ulcer Outcome Not Healed -Ulcer Cleansing Rinsed/ Irrigated with Saline -Foul Odor after Cleansing No -Bioengineered Tissue No -Bleeding Controlled with Pressure -Offloading No -Treatment Response Procedure Tolerated Well -Debridement - Subq, 1st 20sq cm No [See Physician Procedure note for Specifics] Pain Scale: 0-10 Numeric [Pain] -Is Patient Pain Free? Yes WC - Nurse 3 - General Ulcer D/C NN Start: 04/03/20 14:01 Freq: Status: Active Protocol: Activity Type Activity Date Activity User E-Sign Co-Sign Detail Recorded Client Recorded Date Recorded By Document 04/10/20 15:11 MW [id number] 04/10/20 15:13 MW 04/10/20 15:11 Wound Care Nurse 3 [Wound Dressing] #4 RLE Med cluster -Ulcer Cleansing Rinsed/ Irrigated with Saline -Foul Odor after Cleansing No -Negative Pressure Wound Therapy N/A -Primary Dressing Applied C Hydrogel ($), NonAdherent Contact Layer -Primary Dressing Covered/Secured Dry Gauze & with Roll Gauze, Secured with Tape #2 RLE Lat -Ulcer Cleansing Rinsed/ Irrigated with Saline -Foul Odor after Cleansing No -Negative Pressure Wound Therapy N/A -Primary Dressing Applied C Hydrogel ($), NonAdherent Contact Layer -Primary Dressing Covered/Secured Dry Gauze & with Roll Gauze, Secured with Tape [Compression Applied] Right -Lotion applied to leg before No compression wrap -Tubular Bandage Single Layer -Size of Tubigrip Used Size D [Post Procedure Tolerated] -Treatment Response Procedure Tolerated Well Pain Scale: 0-10 Numeric [Pain] -Is Patient Pain Free? Yes Teaching: Wound Center [Wound Center Education] (Items with an * have Printed Materials Available- Please identify what is given to patient under the Teaching materials given to patient and caregiver Section. Control Swelling with Leg Elevation -Person Taught Patient -Teaching Method Discussion -Response to teaching Verbalize understanding Dressing Your Wound -Person Taught Patient -Teaching Method Discussion -Response to teaching Verbalize understanding WC - Visit Discharge [Visit Discharge Information] -Discharge Condition Stable -Ambulatory Status Ambulatory -Transportation Private Auto -Accompanied by grandma -Medication Reconcilliation completed No & provided to patient/care provider -Clinical Summary of Care Provided Yes Musculoskeletal: No Tenderness to Palpation of Joints or Extremities Neurological: Cranial nerves II-XII grossly intact Psych/Mental Status: Normal Affect, Appropriate Debridement Note Post-Debridement Measurements/Treatment WC - Nurse 2 - General Ulcer CM Notes Start: 04/03/20 13:46 Freq: Status: Active Protocol: Activity Type Activity Date Activity User E-Sign Co-Sign Detail Recorded Client Recorded Date Recorded By Document 04/03/20 13:47 [id number] 04/03/20 13:55 Document 04/10/20 15:03 [id number] 04/10/20 15:06 04/03/20 04/10/20 13:47 15:03 Wound Center Nurse 2 #4 RLE Med cluster -Time 13:53 15:03 -Correct Patient Yes Yes -Correct Side, Site, Position Yes Yes -Correct Procedure Yes Yes -Procedure Performed Yes Yes -Type of Procedure Debridement Debridement -Clinical Debridement Subcutaneous Subcutaneous -Tissue Removed Subcutaneous Subcutaneous -Post Debridement (cm) - Length 9.5 8.0 -Post Debridement (cm) - Width 0.5 0.5 -Post Debridement (cm) - Depth 0.1 0.1 -Total Square (Post) (cm) 4.75 4.00 -Area of Debridement (cm) - Length 9.5 8.0 -Area of Debridement (cm) - Width 0.5 0.5 -Total Square (Area) (cm) 4.75 4.00 -Tunneling No No -Undermining/Tunneling No No -Circular Undermining No No -Wound/Ulcer Outcome Not Healed Not Healed -Ulcer Cleansing Rinsed/ Rinsed/ Irrigated with Irrigated with Saline Saline -Foul Odor after Cleansing No No -Bioengineered Tissue No No -Bleeding Controlled with Pressure Pressure -Offloading No No -Treatment Response Procedure Tolerated Well -Debridement - Subq, 1st 20sq cm No Yes #2 RLE Lat -Time 13:47 15:04 -Correct Patient Yes Yes -Correct Side, Site, Position Yes Yes -Correct Procedure Yes Yes -Procedure Performed Yes Yes -Type of Procedure Debridement Debridement -Clinical Debridement Subcutaneous Subcutaneous -Tissue Removed Subcutaneous Subcutaneous -Post Debridement (cm) - Length 7.7 10.0 -Post Debridement (cm) - Width 0.5 0.2 -Post Debridement (cm) - Depth 0.2 0.1 -Total Square (Post) (cm) 3.85 2.00 -Area of Debridement (cm) - Length 7.7 10 -Area of Debridement (cm) - Width 0.5 0.2 -Total Square (Area) (cm) 3.85 2.0 -Tunneling No No -Undermining/Tunneling No No -Circular Undermining No No -Wound/Ulcer Outcome Not Healed Not Healed -Ulcer Cleansing Rinsed/ Rinsed/ Irrigated with Irrigated with Saline Saline -Foul Odor after Cleansing No No -Bioengineered Tissue No No -Bleeding Controlled with Pressure Pressure -Offloading No No -Treatment Response Procedure Procedure Tolerated Well Tolerated Well -Debridement - Subq, 1st 20sq cm Yes No Pain Scale: 0-10 Numeric Is Patient Pain Free? Yes Yes WC - Nurse 3 - General Ulcer D/C NN Start: 04/03/20 14:01 Freq: Status: Active Protocol: Activity Type Activity Date Activity User E-Sign Co-Sign Detail Recorded Client Recorded Date Recorded By Document 04/03/20 14:01 BMF [id number] 04/03/20 14:02 BMF Document 04/10/20 15:11 MW [id number] 04/10/20 15:13 MW 04/03/20 04/10/20 14:01 15:11 Wound Care Nurse 3 #4 RLE Med cluster -Ulcer Cleansing Rinsed/ Rinsed/ Irrigated with Irrigated with Saline Saline -Foul Odor after Cleansing No No -Negative Pressure Wound Therapy N/A -Primary Dressing Applied C Hydrogel ($), C Hydrogel ($), Other NonAdherent Contact Layer -Other Dressing adaptic -Primary Dressing Covered/Secured with Dry Gauze & Dry Gauze & Roll Gauze Roll Gauze, Secured with Tape #2 RLE Lat -Ulcer Cleansing Rinsed/ Rinsed/ Irrigated with Irrigated with Saline Saline -Foul Odor after Cleansing No No -Negative Pressure Wound Therapy N/A -Primary Dressing Applied Other C Hydrogel ($), NonAdherent Contact Layer -Other Dressing adaptic and hydrogel -Primary Dressing Covered/Secured with Dry Gauze & Dry Gauze & Roll Gauze Roll Gauze, Secured with Tape Right -Lotion applied to leg before No compression wrap -Tubular Bandage Double Layer Single Layer -Size of Tubigrip Used Size D Size D -Size D ($) 1 Treatment Response Procedure Procedure Tolerated Well Tolerated Well Pain Scale: 0-10 Numeric Is Patient Pain Free? Yes Yes Teaching: Wound Center Control Swelling with Leg Elevation -Person Taught Patient -Teaching Method Discussion -Response to teaching Verbalize understanding Dressing Your Wound -Person Taught Patient -Teaching Method Discussion -Response to teaching Verbalize understanding WC - Visit Discharge Discharge Condition Stable Stable Ambulatory Status Ambulatory Ambulatory Transportation Private Auto Private Auto Accompanied by grandmother antione Medication Reconcilliation completed & No provided to patient/care provider Clinical Summary of Care Provided Yes Facility Type Home Health Wound debrided: medial leg ulcer cluster Laterality: Right Type of Debridement: Excisional debridement Anesthesia Used: 5% Lidocaine Gel Depth: Down to and including healthy tissue, in the subcutaneous layer Percentage of wound debrided: 100 Instrument Used: 3mm curette Tissue Removed: Subcutaneous tissue and slough Severity: Limited To Skin Breakdown Amount of bleeding with debridement: Mild Bleeding Controlled with: Pressure Patient tolerated procedure well - Additional Wound Wound debrided: lateral leg ulcer cluster Laterality: Right Type of Debridement: Excisional debridement Anesthesia Used: 5% Lidocaine Gel Depth: Down to and including healthy tissue, in the subcutaneous layer Percentage of wound debrided: 100 Instrument Used: 3mm curette Tissue Removed: Subcutaneous tissue and slough Severity: Limited To Skin Breakdown Amount of bleeding with debridement: Mild Bleeding Controlled with: Pressure Patient tolerated procedure: Patient tolerated procedure well Assessment/Plan Assessment: 1. Fasciotomy incision of right medial and right lateral leg. 2. History of compartmental syndrome. 3. History rhabdomyolysis. 4. IV drug abuser. 5. Acute renal failure. Plan: Patient was seen and evaluated at the wound healing center today. Subcutaneous debridement was performed and the patient tolerated it well. Surgery on 01/06/20 - Traumatic 4 compartment release right leg by Dr. Grayson. Wound care - Collagen hydrogel covered by adaptic to the right lateral and medial leg ulcer clusters. Compression will be double Tubigrip. Encourage patient to increase protein intake. Instructed both patient and his mother that it was necessary to find a PCP to help manage all of his his issues that he has developed recently due to his IV drug abuse. Encouraged smoking cessation due to it can be deleterious to wound healing. Follow up 2 weeks. [id number]: [id number] Audrey subq tissue 20 sq cm/<
== END 2020-04-10 23:59 ==
LOC: WC 14:30
PROVIDERS: PCP Internal Medicine; Visit Provider Nurse Practitioner Family
DX: L97.912 Non-pressure chronic ulcer of unspecified part of right lower leg with fat layer exposed (principal); F20.9 Schizophrenia, unspecified; T79.A21A Traumatic compartment syndrome of right lower extremity, initial encounter; Z98.890 Other specified postprocedural states; M62.82 Rhabdomyolysis; N17.9 Acute kidney failure, unspecified; F19.90 Other psychoactive substance use, unspecified, uncomplicated
CPT/HCPCS: 11042

== ENCOUNTER 2020-04-24 13:42 | Outpatient (RCR) | payer MEDICAID, SELFPAY ==
[2020-04-11 00:36] VITALS: BP 120/81; PULSE 83; RESP 16; TEMP 36.4
[2020-04-24 14:40] VITALS: BP 140/93; PULSE 78; RESP 16; TEMP 36; BMI 25.8
--- NOTE | 2020-04-24 16:16 | PCM.WC.PN ---
Type of Wound Date of Service: 04/24/20 Chief Complaint: Right medial and lateral leg fasciotomy wounds History of Wound: Patient has a history of IV drug abuse. He woke up early on 01/06/20 where he was in a position where he was flexed at the knees and his body was layin over his calves. He developed neurapraxia worse in on the left than the right. He developed right lower extremity compartment syndrome, rhabdomyolysis, and acute kidney injury. Surgery on 01/06/20 - Traumatic 4 compartment release right leg by Dr. Grayson. Wound care - Collagen hydrogel covered by adaptic to the right lateral and right medial leg ulcer. Compression will be double Tubigrip. He had been hospitalized for his renal issues. His edema has resolved. He denies complaint of fever. States appetite is improving. Progress of Wound: Healed. - Physical Exam Vital Signs Temp Pulse Resp BP 96.8 F L 78 16 140/93 H 04/24/20 14:40 04/24/20 14:40 04/24/20 14:40 04/24/20 14:40 General: Alert, Oriented x3 HEENT: PERRLA, EOMI Oral: Moist Mucosa Neck: Supple Lungs: Clear to auscultation Cardiovascular: Regular rate, Regular Rhythm Abdomen: Soft, Non-Distended Skin: Ulcer/ Wound - medial and lateral fasciotomy wounds right leg are healed. Wound Measurements and Assessment WC - Nurse 1 - General Ulcer Measurement Start: 04/24/20 14:39 Freq: Status: Active Protocol: Activity Type Activity Date Activity User E-Sign Co-Sign Detail Recorded Client Recorded Date Recorded By Document 04/24/20 14:40 [id number] 04/24/20 14:45 DL 04/24/20 14:40 Wound Center Nurse 1 [Ulcer Assessment] #4 RLE Med cluster -Combined with other wound No -Current Size (cm) - Length 0.1 -Current Size (cm) - Width 0.1 -Current Size (cm) - Depth 0.1 -Total Square Cm 0.01 -Epithelialization Large 67-100% -Texture (Mari-wound Skin Appearance) Assessed, Scarring -Moisture (Mari-wound Skin Appearance Assessed ) -Color (Mari-wound Skin Appearance) Assessed -Temperature (Mari-wound Skin No Abnormality Appearance) (Pt Warm) -Tenderness on Palpation (Mari-wound No Skin Appearance) #2 RLE Lat -Combined with other wound No -Current Size (cm) - Length 0.1 -Current Size (cm) - Width 0.1 -Current Size (cm) - Depth 0.1 -Total Square Cm 0.01 -Epithelialization Large 67-100% -Tunneling No -Undermining/Tunneling No -Circular Undermining No -Texture (Mari-wound Skin Appearance) Assessed, Scarring -Moisture (Mari-wound Skin Appearance Assessed ) -Color (Mari-wound Skin Appearance) Assessed -Temperature (Mari-wound Skin No Abnormality Appearance) (Pt Warm) -Tenderness on Palpation (Mari-wound No Skin Appearance) [Edema Assessment] -Lower Limb Edema Present Yes -Right Calf (cm) 36 -Right Ankle (cm) 22.5 TISHA - Nurse 2 - General Ulcer CM Notes Start: 04/24/20 14:39 Freq: Status: Active Protocol: Activity Type Activity Date Activity User E-Sign Co-Sign Detail Recorded Client Recorded Date Recorded By Document 04/24/20 15:17 CHIP [id number] 04/24/20 15:18 CHIP 04/24/20 15:17 Wound Center Nurse 2 [Procedure/Treatment] #4 RLE Med cluster -Correct Patient No -Correct Side, Site, Position No -Correct Procedure No -Procedure Performed No -Post Debridement (cm) - Length 0 -Post Debridement (cm) - Width 0 -Post Debridement (cm) - Depth 0 -Total Square (Post) (cm) 0 -Area of Debridement (cm) - Length 0 -Area of Debridement (cm) - Width 0 -Total Square (Area) (cm) 0 -Wound/Ulcer Outcome Healed- Epithelialized #2 RLE Lat -Correct Patient No -Correct Side, Site, Position No -Correct Procedure No -Procedure Performed No -Post Debridement (cm) - Length 0 -Post Debridement (cm) - Width 0 -Post Debridement (cm) - Depth 0 -Total Square (Post) (cm) 0 -Area of Debridement (cm) - Length 0 -Area of Debridement (cm) - Width 0 -Total Square (Area) (cm) 0 -Wound/Ulcer Outcome Healed- Epithelialized [See Physician Procedure note for Specifics] Pain Scale: 0-10 Numeric [Pain] -Is Patient Pain Free? Yes TISHA - Nurse 3 - General Ulcer D/C NN Start: 04/24/20 14:39 Freq: Status: Active Protocol: Activity Type Activity Date Activity User E-Sign Co-Sign Detail Recorded Client Recorded Date Recorded By Document 04/24/20 15:18 [id number] 04/24/20 15:18 04/24/20 15:18 -Is Patient Pain Free? Yes - Visit Discharge [Visit Discharge Information] -Discharge Condition Stable -Ambulatory Status Ambulatory -Transportation Private Auto -Medication Reconcilliation completed Yes & provided to patient/care provider -Clinical Summary of Care Provided Yes Neurological: Cranial nerves II-XII grossly intact Psych/Mental Status: Normal Affect Debridement Note Post-Debridement Measurements/Treatment - Nurse 2 - General Ulcer CM Notes Start: 04/24/20 14:39 Freq: Status: Active Protocol: Activity Type Activity Date Activity User E-Sign Co-Sign Detail Recorded Client Recorded Date Recorded By Document 04/24/20 15:17 [id number] 04/24/20 15:18 04/24/20 15:17 Wound Center Nurse 2 #4 RLE Med cluster -Correct Patient No -Correct Side, Site, Position No -Correct Procedure No -Procedure Performed No -Post Debridement (cm) - Length 0 -Post Debridement (cm) - Width 0 -Post Debridement (cm) - Depth 0 -Total Square (Post) (cm) 0 -Area of Debridement (cm) - Length 0 -Area of Debridement (cm) - Width 0 -Total Square (Area) (cm) 0 -Wound/Ulcer Outcome Healed- Epithelialized #2 RLE Lat -Correct Patient No -Correct Side, Site, Position No -Correct Procedure No -Procedure Performed No -Post Debridement (cm) - Length 0 -Post Debridement (cm) - Width 0 -Post Debridement (cm) - Depth 0 -Total Square (Post) (cm) 0 -Area of Debridement (cm) - Length 0 -Area of Debridement (cm) - Width 0 -Total Square (Area) (cm) 0 -Wound/Ulcer Outcome Healed- Epithelialized Pain Scale: 0-10 Numeric Is Patient Pain Free? Yes - Nurse 3 - General Ulcer D/C NN Start: 04/24/20 14:39 Freq: Status: Active Protocol: Activity Type Activity Date Activity User E-Sign Co-Sign Detail Recorded Client Recorded Date Recorded By Document 04/24/20 15:18 [id number] 04/24/20 15:18 04/24/20 15:18 Is Patient Pain Free? Yes WC - Visit Discharge Discharge Condition Stable Ambulatory Status Ambulatory Transportation Private Auto Medication Reconcilliation completed & Yes provided to patient/care provider Clinical Summary of Care Provided Yes Wound debrided: #2 Right lateral leg. Laterality: Right Wound Grade/Stage: 2. No debridement was completed today - the ulcer has healed. - Additional Wound Wound debrided: #4 Right medial leg. Laterality: Right Wound Grade/Stage: 2. Patient tolerated procedure: - - no debridement was done today as the ulcer has healed. Assessment/Plan Assessment: 1. Fasciotomy wound right medial leg, healed. 2. Fasciotomy wound right lateral leg, healed. 3. History of compartmental syndrome. 4. History rhabdomyolysis. 5. IV drug abuser. 6. Acute renal failure. Plan: The fasciotomy wounds right medial leg and right lateral leg are healed. Massage the scars with skin lotion daily to help soften up the scars. Continue wearing FAN wrap for compression when active for one more month. Followup on an as needed basis. Encouraged smoking cessation due to it can be deleterious to wound healing. Office Visits / Consults: [id number] OV L3 Est - ICD-10 - S81.801A, T79.A21A, M62.82, Z98.890, F19.90, F11.10, F20.9, F17.200
== END 2020-05-10 23:59 | disposition home or self-care (01) ==
LOC: WC 13:42
PROVIDERS: PCP Internal Medicine; Visit Provider Nurse Practitioner Family
DX: Z09 Encounter for follow-up examination after completed treatment for conditions other than malignant neoplasm (principal); F19.10 Other psychoactive substance abuse, uncomplicated
CPT/HCPCS: 99212; G0463

== ENCOUNTER 2020-12-14 17:10 | Observation (INO) | payer MEDICAID, SELFPAY ==
[2020-12-14 17:11] VITALS: BP 156/101; PULSE 121; RESP 16; TEMP 36.6; O2SAT 96; BMI 25.0
[2020-12-14] MEDS: 0.9% Normal Saline 1,000 ML 1000 ML IV ×2 (18:37→18:38)
[2020-12-14] MEDS: Ondansetron 4 MG/2 ML Vial IV ×2 (18:37→22:24)
--- NOTE | 2020-12-14 18:41 | EDS_ITS ---
HPI History of Present Illness Chief Complaint: Nausea/Vomiting Informant: patient Onset/Context/Timing Onset: Days Context: Gradual Onset Timing: Continuous Current Severity: Moderate Maximum Severity: Moderate Narrative Narrative: Patient is a 40-year-old male with medical history significant for prior IV drug abuse, compartment syndrome of the lower extremity, acute kidney injury, who presents to the emergency department nausea and vomiting. Patient states for the past 3 days, he has had increasing nausea and vomiting. He states that he is been clean from his drug use since last fall. He states he just feels like he cannot keep anything down. He denies any pain. He states that he does have a hernia in his right lower abdomen when he stands, but when he lays flat, he does not notice it. He is still moving his bowels without issue. Prior similar symptoms: Yes Recent Illness/Hospitalization: No PFSH PFSH Medical History Anxiety Blurry vision Cold intolerance Frequent headaches History of drug abuse Kidney failure Right leg pain Schizophrenia Home Medications hydroxyzine pamoate 50 mg PO BID 01/27/20 [History Last Taken Unknown] acetazolamide 250 mg tablet tab PO 02/17/20 [History Last Taken Unknown] benztropine 1 mg tablet 1 mg PO DAILY 02/17/20 [History Last Taken Unknown] fluphenazine HCl 5 mg tablet 5 mg PO DAILY 02/17/20 [History Last Taken Unknown] Allergy/AdvReac Type Severity Reaction Status Date / Time No Known Allergies Allergy Verified 12/14/20 17:14 Family History Other Anxiety Breast cancer CVA (cerebral vascular accident) Diabetes High cholesterol Hypertension Mental disorder Surgical History H/O hernia repair Social History Smoking Status: Current every day smoker alcohol intake: never ROS ROS ED Constitutional Constitutional ED: Denies chills or fever(s) Eyes Eyes: Denies blurry vision or change in vision ENT ENT ED: Denies ear pain or sore throat Cardiovascular Cardiovascular: Denies chest pain or palpitations Respiratory/Chest Respiratory/Chest: Denies cough, dyspnea or dyspnea on exertion Gastrointestinal Gastrointestinal: Reports nausea and vomiting Genitourinary Genitourinary ED: Denies dysuria or urinary frequency Musculoskeletal Musculoskeletal: Denies arthralgias or myalgias Integumentary Denies rash Neurologic Neurologic: Denies headache(s) or paresthesias Psychiatric Psychiatric: Denies anxiety or depression Endocrine Endocrinology: Denies polydipsia or polyuria Allergic/Immunologic Allergic/Immunologic ED: Denies urticaria EXAM Physical Exam Const Vital Signs: 12/14/20 17:11 12/14/20 19:42 Temperature 98 F Temperature Source Temporal Pulse Rate 121 H 103 H Respiratory Rate 16 14 Blood Pressure 156/101 H 160/114 H Blood Pressure Mean 119 129 Pulse Ox 96 99 Oxygen Delivery Method Room Air Room Air Positive well nourished and well developed General Appearance ED: well developed HEENT Reports normocephalic, head/scalp atraumatic and moist mucous membranes Eyes PERRL and EOMs intact bilaterally Neck no lymphadenopathy and supple General: Negative for tenderness Chest Wall inspection of chest normal Resp normal respiratory effort and clear to auscultation bilaterally Cardio regular rate, regular rhythm and no murmurs GI normal to inspection, nondistended, normoactive bowel sounds Palpation: Negative for tender, guarding or rebound tenderness present Back/Spine no CVA tenderness Cervical Spine: Negative for cervical spine tenderness Thoracic Spine / Upper Back: Negative for thoracic spinal tenderness Extremity normal to inspection General Extremety ED: Negative for tenderness Neuro oriented x3 and CN's II-XII intact bilaterally Neuro Narrative: No focal deficits appreciated. Sensorium / Orientation: alert Psych mental status grossly normal Skin no rashes or lesions noted, no wounds and skin turgor normal MDM MDM MDM Narrative Medical decision making narrative: The patient really has no reproducible abdominal pain. He did state that he is a hernia, when he lays flat it is not there. His abdomen is soft and nontender. He was tachycardic and had persistent emesis. IV was established. Patient was given bolus fluids and antiemetics. He was still mildly nauseated. He does have a leukocytosis of 18,000 which I feel is likely reactive from his vomiting. However, I did obtain CT of his abdomen and pelvis. There was no evidence of acute intra-abdominal process. The patient has marked elevation of his creatinine to 2.5. He does show evidence of dehydration. At this time, with evidence of acute kidney injury and persistent nausea and vomiting, I do feel that he would benefit from admission. Impression 1. KANA 2. Nausea vomiting Lab Data Attestation: I reviewed the patient's lab results. Labs: Laboratory Results - last 24 hr 12/14/20 12/14/20 18:36 18:36 WBC 17.8 H RBC 5.78 Hgb 16.3 Hct 48.3 MCV 83.6 MCH 28.2 MCHC 33.7 RDW Std Deviation 41.1 RDW Coeff of Neftali 13.5 Plt Count 459 H MPV 9.8 Immature Gran % (Auto) 0.600 Neut % (Auto) 78.5 H Lymph % (Auto) 14.6 L [place] % (Auto) 6.0 Eos % (Auto) 0.1 Baso % (Auto) 0.2 Absolute Neuts (auto) 14.0 H Absolute Lymphs (auto) 2.59 Nucleated RBC % 0 Sodium 134 L Potassium 4.0 Chloride 93 L Carbon Dioxide 30.0 Anion Gap 11 BUN 27 H Creatinine 2.48 H Estim Creat Clear Calc 38.69 Est GFR (MDRD) Af Amer 37 L Est GFR (MDRD) Non-Af 31 L BUN/Creatinine Ratio 10.9 Glucose 120 H Calcium 10.9 H Total Bilirubin 0.40 AST 13 L ALT 22 Alkaline Phosphatase 70 Total Protein 9.9 H Albumin 4.8 Globulin 5.1 H Albumin/Globulin Ratio 0.9 Radiography Diagnostic Testing: Radiology Impression Abdomen/Pelvis CT 12/14/20 19:17 IMPRESSION: 1. No evidence of acute intra-abdominal process. 2. Question mild constipation. 3. Otherwise normal CT of the abdomen and pelvis. Electronically Signed: Uli Cook DO at 19:59 EDT Tel [phone], Service support , Discharge Plan Triage Chief Complaint: Nausea/Vomiting ED Provider: Ad Sanders Dx/Rx/DC Orders Prescriptions: No Action fluphenazine HCl 5 mg tablet 5 mg PO DAILY RF: 0 benztropine 1 mg tablet 1 mg PO DAILY RF: 0 acetazolamide 250 mg tablet PO RF: 0 hydroxyzine pamoate 50 MG capsule 50 mg PO BID RF: 0 Primary Care Provider: Care Physician,No Primary
[2020-12-14 18:50] LABS: Absolute Lymphocyte Count 2.59 X10^3/uL (0.83-4.51); Basophil# 0.04 X10^3/uL; Basophil% 0.2 % (0-1); Eosinophil# 0.02 X10^3/uL; Eosinophils% 0.1 % (0-5); Hematocrit 48.3 % (40-54); Hemoglobin 16.3 g/dL (13.0-16.5); Lymphocyte # 2.59 X10^3/ul (0.83-4.51); Lymphocyte % 14.6 % (19-41); Mean Corp Hgb Conc 33.7 g/dL (32-36); Mean Corpuscular Hgb 28.2 pg (27.0-32.0); Mean Corpuscular Volume 83.6 fL (80-94); Mean Platelet Vol. 9.8 fl (6.2-12.0); Monocyte# 1.06 X10^3/uL; NRBC Flagged by Analyzer 0 % (0-5); Neutrophil # 13.96 X10^3/uL (2.7-7.7); Neutrophil % 78.5 % (47-70); Platelet Count 459 K/mm3 (150-450); RBC Distribution Width CV 13.5 % (11.6-14.6); RBC Distribution Width SD 41.1 fl (35.1-43.9); Red Blood Count 5.78 M/mm3 (4.6-6.2); White Blood Count 17.8 K/mm3 (4.4-11.0)
[2020-12-14 19:12] LABS: ALB/GLOB Ratio 0.9 RATIO (0.9-2.4); AST(SGOT) 13 U/L (15-37); Alanine Aminotransfer ALT/SGPT 22 U/L (16-61); Albumin, Serum 4.8 g/dL (3.2-5.0); Alkaline Phosphatase 70 U/L (45-117); Anion Gap 11 (5-15); BUN 27 mg/dL (7-18); BUN/Creat Ratio 10.9 RATIO (10-20); Calcium,Total 10.9 mg/dL (8.5-10.1); Chloride 93 mmol/L (98-107); Creatinine, Serum 2.48 mg/dL (0.70-1.30); EST Glomerular Filtration Rate 31 mL/min (>60); Est Glom Filt Rate - Afr Amer 37 mL/min (>60); Estimated Creatinine Clearance 38.69 ml/min; Globulin 5.1 g/dL (2.2-4.2); Glucose 120 mg/dL (74-106); Protein, Total 9.9 g/dL (6.4-8.2); Sodium Level 134 mmol/L (136-145)
--- NOTE | 2020-12-14 19:17 | CT_ITS ---
STUDY: CT ABDOMEN AND PELVIS WITHOUT CONTRAST REASON FOR EXAM: Male, 40 years old. Nausea and vomiting. RADIATION DOSAGE (If Supplied By Facility): CTDIvol = ( 6.04 ) mGy, DLP = ( 309.57 ) mGycm TECHNIQUE: Transaxial images were obtained from the dome of the diaphragm to the symphysis pubis with oral contrast, and without intravenous contrast. Sagittal and coronal images were reconstructed. Individualized dose optimization techniques were used for this CT. COMPARISON: Abdominal ultrasound, 01/20/2020. FINDINGS: The visualized lung bases are unremarkable. The visualized portions of the heart are within normal limits. Normal liver. Normal gallbladder and extrahepatic biliary system. Normal spleen. Normal pancreas. Normal bilateral adrenal glands. Normal right kidney. Normal left kidney. Minimal contrast is seen within the gastric lumen. The stomach is grossly normal. There is contrast in the distal small bowel. There is no evidence of small bowel abnormality. Feces is seen throughout the colon. There is no mass or obstruction The appendix is visualized and appears normal. There is diffuse atherosclerotic calcification of the abdominal aorta, without a demonstrated aneurysm. Normal inferior vena cava. Normal retroperitoneum. Normal urinary bladder. Normal prostate. Normal abdominal wall. Degenerative changes of the lumbar spine. There is no visualized fracture or dislocation. CT/Abdomen/Pelvis without Cont IMPRESSION: 1. No evidence of acute intra-abdominal process. 2. Question mild constipation. 3. Otherwise normal CT of the abdomen and pelvis. Electronically Signed: Uli Cook DO at 19:59 EDT Tel [phone], Service support ,
[2020-12-14 19:42] VITALS: BP 160/114; PULSE 103; RESP 14; O2SAT 99
[2020-12-14 20:37] VITALS: BP 153/106; PULSE 89; RESP 16; TEMP 37.6; O2SAT 99
--- NOTE | 2020-12-14 20:43 | PCM.HP.STD ---
HPI - General General Date of Admission: 12/14/20 Chief Complaint: Nausea and vomiting HPI Narrative DAMARI ROBLES, is a 40 M with a significant history of schizophrenia and a previous IV drug use; and marijuana abuse who presents to the ED with a 3-month history of progressively worsening nausea and vomiting which further worsened 3 days ago to the point where he could not keep anything down. Associated with his symptoms is heartburn. Also he reports burning around his lips. In regard to his marijuana use reportedly last time he used was about a week ago. [facility] Medical History (Updated 12/14/20 @ 21:[address] Raghu Hurst MD) Anxiety Blurry vision Cold intolerance Compartment syndrome of right lower extremity Frequent headaches Heroin abuse History of drug abuse IVDU (intravenous drug user) Kidney failure Neuropraxia of left lower extremity Open wound of right lower leg Rhabdomyolysis Right leg pain Schizophrenia Home Medications hydroxyzine pamoate 50 mg PO BID 01/27/20 [History Last Taken Unknown] acetazolamide 250 mg tablet tab PO 02/17/20 [History Last Taken Unknown] benztropine 1 mg tablet 1 mg PO DAILY 02/17/20 [History Last Taken Unknown] fluphenazine HCl 5 mg tablet 5 mg PO DAILY 02/17/20 [History Last Taken Unknown] Allergy/AdvReac Type Severity Reaction Status Date / Time No Known Allergies Allergy Verified 12/14/20 17:14 Family History Other Anxiety Breast cancer CVA (cerebral vascular accident) Diabetes High cholesterol Hypertension Mental disorder Surgical History (Updated 12/14/20 @ 20:[address] Raghu Hurst MD) H/O hernia repair History of fasciotomy Social History Smoking Status: Current every day smoker alcohol intake: never Vital Signs Vital Signs Vital Signs: 12/14/20 17:11 12/14/20 19:42 Temperature 98 F Temperature Source Temporal Pulse Rate 121 H 103 H Respiratory Rate 16 14 Blood Pressure 156/101 H 160/114 H Blood Pressure Mean 119 129 Pulse Ox 96 99 Oxygen Delivery Method Room Air Room Air Physical Exam Narrative Alert and oriented x3 Nontraumatic; normocephalic Lung clear to auscultate Heart sounds S1-S2. No murmur, gallop or rubs. Abdomen bowel sounds present soft, nontender nondistended Extremity without edema cyanosis or clubbing. Lab / Micro Data Result Diagrams: 12/14/20 18:36 12/14/20 18:36 Labs: Laboratory Results - last 24 hr 12/14/20 12/14/20 18:36 18:36 WBC 17.8 H RBC 5.78 Hgb 16.3 Hct 48.3 MCV 83.6 MCH 28.2 MCHC 33.7 RDW Std Deviation 41.1 RDW Coeff of Neftali 13.5 Plt Count 459 H MPV 9.8 Immature Gran % (Auto) 0.600 Neut % (Auto) 78.5 H Lymph % (Auto) 14.6 L [place] % (Auto) 6.0 Eos % (Auto) 0.1 Baso % (Auto) 0.2 Absolute Neuts (auto) 14.0 H Absolute Lymphs (auto) 2.59 Nucleated RBC % 0 Sodium 134 L Potassium 4.0 Chloride 93 L Carbon Dioxide 30.0 Anion Gap 11 BUN 27 H Creatinine 2.48 H Estim Creat Clear Calc 38.69 Est GFR (MDRD) Af Amer 37 L Est GFR (MDRD) Non-Af 31 L BUN/Creatinine Ratio 10.9 Glucose 120 H Calcium 10.9 H Total Bilirubin 0.40 AST 13 L ALT 22 Alkaline Phosphatase 70 Total Protein 9.9 H Albumin 4.8 Globulin 5.1 H Albumin/Globulin Ratio 0.9 Radiology Impression Abdomen/Pelvis CT 12/14/20 19:17 IMPRESSION: 1. No evidence of acute intra-abdominal process. 2. Question mild constipation. 3. Otherwise normal CT of the abdomen and pelvis. Electronically Signed: Uli Cook DO at 19:59 EDT Tel [phone], Service support , Assessment & Plan Assessment/Plan (1) Gastritis: QUALIFIERS: Chronicity: acute Gastritis bleeding: without bleeding Gastritis type: unspecified gastritis Qualified Code(s): K29.00 - Acute gastritis without bleeding (2) Acute renal failure: QUALIFIERS: Acute renal failure type: unspecified Qualified Code(s): N17.9 - Acute kidney failure, unspecified (3) Anxiety: (4) Schizophrenia: QUALIFIERS: Schizophrenia type: unspecified Qualified Code(s): F20.9 - Schizophrenia, unspecified PLAN: Imaging department labs reviewed showed leukocytosis. CT of abdomen and pelvis showed no evidence of acute intra-abdominal process but questionable mild constipation. Supportive treatment with IV fluids and antiemetics. Protonix IV ordered. Keep n.p.o. except meds. General surgery consult. Different diagnosis include marijuana cyclic vomiting. However patient report the last time he smoked marijuana was a week ago. Creatinine presentation was 2.48. BUN is 27. BUN over creatinine is 10.9. Likely prerenal in trending to intrinsic renal. Patient with a previous history of KANA secondary to rhabdomyolysis. His creatinine on 01/27/2020 was 1.21. This was after resolution of rhabdo. Avoid nephrotoxic's. Trend BMP. Continue home medication Schizophrenia medication and anxiety. Visit Charges Inpatient E&M: 94803 Init Hosp L3
[2020-12-14 21:50] VITALS: BP 136/88; PULSE 105; RESP 17; TEMP 38; O2SAT 95
[2020-12-14 22:02] VITALS: BMI 21.1
[2020-12-15 00:35] LABS: Mucous, Urine 0 SEEN /hpf (<or=2+); Red Blood Cells-Urine 0 SEEN /hpf (0-5)
[2020-12-15 00:37] LABS: Color, Urine Yellow (Yellow); Glucose, Dipstick Normal (Normal); Ketone-Dipstick 15 mg/dl (Negative); Leukocyte Esterase-Dipstick 25 /ul (Negative); Nitrite-Dipstick Negative (Negative); Occult Blood-Urine Negative /ul (Negative); Protein-Dipstick 30 mg/dl (Negative); Urine Bilirubin Dipstick Negative (Negative); Urine Clarity Clear (Clear); Urine Urobilinogen Normal (Normal)
[2020-12-15 01:01] LABS: Bacteria RARE /hpf (None Seen); Hyaline Cast 5-10 SEEN /lpf (0-5); Squamous Epithelial Cells - UA 0-5 SEEN /hpf (0-5); White Blood Cells 0-5 SEEN /hpf (0-5)
[2020-12-15 01:02] LABS: Renal Epithelial Cells 0-5 SEEN /hpf (0-5)
[2020-12-15 01:04] LABS: Amphetamine Urine VISTA POSITIVE (<1000 ng/mL); Barbiturate Urine VISTA NEGATIVE (< 200 ng/mL); Benzodiazepine Urine VISTA NEGATIVE (< 200 ng/mL); Cocaine Urine VISTA NEGATIVE (< 300 ng/mL); Ecstacy Urine VISTA POSITIVE (< 500 ng/mL); Methadone Urine VISTA NEGATIVE (< 300 ng/mL); PCP Urine VISTA NEGATIVE (< 25 ng/mL); THC Urine VISTA POSITIVE (< 50 ng/mL); Vista UDS pH Range 5
[2020-12-15] MEDS: 0.9% Normal Saline 1,000 ML 125 ML IV (03:28)
[2020-12-15 03:50] VITALS: BP 101/73; PULSE 99; RESP 16; TEMP 36.8; O2SAT 98
[2020-12-15 06:18] LABS: Absolute Lymphocyte Count 3.09 X10^3/uL (0.83-4.51); Basophil# 0.03 X10^3/uL; Basophil% 0.2 % (0-1); Eosinophil# 0.06 X10^3/uL; Eosinophils% 0.5 % (0-5); Hematocrit 41.2 % (40-54); Hemoglobin 13.6 g/dL (13.0-16.5); Lymphocyte # 3.09 X10^3/ul (0.83-4.51); Lymphocyte % 23.7 % (19-41); Mean Corpuscular Hgb 28.3 pg (27.0-32.0); Mean Corpuscular Volume 85.7 fL (80-94); Mean Platelet Vol. 9.9 fl (6.2-12.0); Monocyte# 0.83 X10^3/uL; Monocyte% 6.4 % (0-10); NRBC Flagged by Analyzer 0 % (0-5); Neutrophil % 68.9 % (47-70); Platelet Count 346 K/mm3 (150-450); RBC Distribution Width CV 13.8 % (11.6-14.6); RBC Distribution Width SD 43.2 fl (35.1-43.9); Red Blood Count 4.81 M/mm3 (4.6-6.2); White Blood Count 13.1 K/mm3 (4.4-11.0)
[2020-12-15 06:58] LABS: Anion Gap 7 (5-15); BUN 24 mg/dL (7-18); BUN/Creat Ratio 15.3 RATIO (10-20); Chloride 103 mmol/L (98-107); Creatinine, Serum 1.57 mg/dL (0.70-1.30); EST Glomerular Filtration Rate 52 mL/min (>60); Est Glom Filt Rate - Afr Amer 63 mL/min (>60); Estimated Creatinine Clearance 56.29 ml/min; Glucose 101 mg/dL (74-106); Potassium 4.3 mmol/L (3.5-5.1); Sodium Level 140 mmol/L (136-145)
--- NOTE | 2020-12-15 07:07 | PCM.PN.HOSP ---
Objective Data Objective Data Vital Signs: Vital Signs Temp Pulse Resp BP Pulse Ox 98.3 F 99 16 101/73 98 12/15/20 03:50 12/15/20 03:50 12/15/20 03:50 12/15/20 03:50 12/15/20 03:50 Oxygen Delivery Method Room Air Weight: 138 lb 14.259 oz Body Mass Index (BMI) 21.1 Intake & Output: Intake and Output for Last 24 Hours 12/13/20 12/14/20 12/15/20 23:59 23:59 23:59 Intake Total 2109 0 / 0 Balance 2109 0 / 0 Lab / Micro Data Result Diagrams: 12/15/20 05:50 12/15/20 05:50 Labs: Laboratory Results - last 24 hr 12/14/20 12/14/20 12/15/20 18:36 18:36 00:25 WBC 17.8 H RBC 5.78 Hgb 16.3 Hct 48.3 MCV 83.6 MCH 28.2 MCHC 33.7 RDW Std Deviation 41.1 RDW Coeff of Neftali 13.5 Plt Count 459 H MPV 9.8 Immature Gran % (Auto) 0.600 Neut % (Auto) 78.5 H Lymph % (Auto) 14.6 L [place] % (Auto) 6.0 Eos % (Auto) 0.1 Baso % (Auto) 0.2 Absolute Neuts (auto) 14.0 H Absolute Lymphs (auto) 2.59 Nucleated RBC % 0 Sodium 134 L Potassium 4.0 Chloride 93 L Carbon Dioxide 30.0 Anion Gap 11 BUN 27 H Creatinine 2.48 H Estim Creat Clear Calc 38.69 Est GFR (MDRD) Af Amer 37 L Est GFR (MDRD) Non-Af 31 L BUN/Creatinine Ratio 10.9 Glucose 120 H Calcium 10.9 H Total Bilirubin 0.40 AST 13 L ALT 22 Alkaline Phosphatase 70 Total Protein 9.9 H Albumin 4.8 Globulin 5.1 H Albumin/Globulin Ratio 0.9 Urine Color Yellow Urine Clarity Clear Urine pH 5.0 Ur Specific [place] 1.020 Urine Protein 30 H Urine Glucose (UA) Normal Urine Ketones 15 H Urine Occult Blood Negative Urine Nitrite Negative Urine Bilirubin Negative Urine Urobilinogen Normal Ur Leukocyte Esterase 25 H Urine RBC 0 SEEN Urine WBC 0-5 SEEN Ur Squamous Epith Cells 0-5 SEEN Ur Renal Epithelial Cell 0-5 SEEN Urine Bacteria RARE Hyaline Casts 5-10 SEEN Urine Mucus 0 SEEN Urine Opiates Screen Urine Methadone Screen Ur Barbiturates Screen Ur Phencyclidine Scrn Ur Amphetamines Screen U Methamphetamin-MDMA U Benzodiazepines Scrn Urine Cocaine Screen U Cannabinoids Screen Ur Drug Screen Comment 12/15/20 12/15/20 12/15/20 00:25 05:50 05:50 WBC 13.1 H RBC 4.81 Hgb 13.6 Hct 41.2 MCV 85.7 MCH 28.3 MCHC 33.0 RDW Std Deviation 43.2 RDW Coeff of Neftali 13.8 Plt Count 346 MPV 9.9 Immature Gran % (Auto) 0.300 Neut % (Auto) 68.9 Lymph % (Auto) 23.7 [place] % (Auto) 6.4 Eos % (Auto) 0.5 Baso % (Auto) 0.2 Absolute Neuts (auto) 9.0 H Absolute Lymphs (auto) 3.09 Nucleated RBC % 0 Sodium 140 Potassium 4.3 Chloride 103 Carbon Dioxide 30.0 Anion Gap 7 BUN 24 H Creatinine 1.57 H Estim Creat Clear Calc 56.29 Est GFR (MDRD) Af Amer 63 Est GFR (MDRD) Non-Af 52 L BUN/Creatinine Ratio 15.3 Glucose 101 Calcium 9.0 Total Bilirubin AST ALT Alkaline Phosphatase Total Protein Albumin Globulin Albumin/Globulin Ratio Urine Color Urine Clarity Urine pH Ur Specific [place] Urine Protein Urine Glucose (UA) Urine Ketones Urine Occult Blood Urine Nitrite Urine Bilirubin Urine Urobilinogen Ur Leukocyte Esterase Urine RBC Urine WBC Ur Squamous Epith Cells Ur Renal Epithelial Cell Urine Bacteria Hyaline Casts Urine Mucus Urine Opiates Screen POSITIVE H Urine Methadone Screen NEGATIVE Ur Barbiturates Screen NEGATIVE Ur Phencyclidine Scrn NEGATIVE Ur Amphetamines Screen POSITIVE H U Methamphetamin-MDMA POSITIVE H U Benzodiazepines Scrn NEGATIVE Urine Cocaine Screen NEGATIVE U Cannabinoids Screen POSITIVE H Ur Drug Screen Comment Radiography Diagnostic Testing: Radiology Impression Abdomen/Pelvis CT 12/14/20 19:17 IMPRESSION: 1. No evidence of acute intra-abdominal process. 2. Question mild constipation. 3. Otherwise normal CT of the abdomen and pelvis. Electronically Signed: Uli Cook DO at 19:59 EDT Tel [phone], Service support ,
[2020-12-15 07:13] VITALS: O2SAT 97
[2020-12-15 08:20] LABS: Magnesium 2.2 mg/dL (1.6-2.6)
[2020-12-15 08:33] LABS: Phosphorus 3.7 mg/dL (2.5-4.9)
[2020-12-15] MEDS: hydrOXYzine PAM 25 MG Capsule 50 MG PO (09:02)
[2020-12-15] MEDS: Benztropine 2 MG Tablet 1 MG PO (09:03)
[2020-12-15] MEDS: Naproxen 500 MG Tablet PO (09:20)
[2020-12-15] MEDS: Pantoprazole Sodium 40 MG Tablet PO (09:20)
[2020-12-15 09:40] VITALS: BP 107/66; PULSE 89; RESP 16; TEMP 36.6; O2SAT 98
--- NOTE | 2020-12-15 09:54 | PCM.DC ---
Discharge Instructions Diet Discharge Diet: - (Recommend continued judicious regular diet. Avoid items that cause upset stomach.) Activity Discharge Activity: Return to Normal Activity May resume sexual activity in: 10-14 days Weight Bearing Status: Weight bearing as tolerated Dressing / Incision Call your doctor if you observe: Fever of 101 or Higher, Shortness of breath, Dizziness, Fainting spells, Chest pain, Uncontrolled pain and - (If recurrent issues with nausea and emesis please contact your primary care physician.) Follow Up Care Please Follow Up With: Primary Care Physician When: Please follow-up within 3-5 days to review admission. Test Results: Test results from this visit will be discussed in further detail at your follow-up appointment, if applicable. Discharge Plan Admission Admit Date/Time: 12/14/20 20:42 Primary Reason for Your Visit: Intractable nausea and emesis, unclear etiology Attending Provider: Carmen Abreu Primary Care Provider: Care Physician,No Primary Consulting Providers: Johny Machado Instructions Patient Instructions: ED PEPTIC ULCER vs GASTRITIS Additional Instructions / Restrictions: If you have recurrent nausea, emesis and GI upset may consider follow-up outpatient with Dr. Machado for assessment for endoscopies (scopes). Discharge Orders/Prescriptions Prescriptions: New sucralfate 1 gram Tablet 1 g PO 1HR_ACHS 30 Days Qty: 120 RF: 0 pantoprazole 40 mg Tablet,Delayed Release (Dr/Ec) 40 mg PO BID 30 Days Qty: 60 RF: 0 Continued fluphenazine HCl 5 mg tablet 5 mg PO DAILY RF: 0 benztropine 1 mg tablet 1 mg PO DAILY RF: 0 acetazolamide 250 mg tablet PO RF: 0 hydroxyzine pamoate 50 MG capsule 50 mg PO BID RF: 0 Referrals / Follow Up: Johny Machado MD [STAFF PHYSICIAN] - (Please follow-up outpatient for evaluation of your intractable nausea, emesis if recurrently in 2-4 weeks. Continue the protonix and carafate in the interim to see if this assists with your symptoms.) Mary Jo Hampton MD [STAFF PHYSICIAN] - (Please establish with primary care physician to assure appropriate ongoing outpatient care and evaluation.) Care Physician,No Primary [Primary Care Provider] - Disposition Disposition (needs filled in before D/C Order can be placed): Home, self care
--- NOTE | 2020-12-15 10:00 | DS.PCM_ITS ---
Providers Date of Admission: 12/14/20 Primary Care Physician: Rsoalinda Primary Care Phys Consultations 12/14/20 21:58 Consult: General Surgery Routine Consulting Provider: Johny Machado Reason for Consult: Nausea and vomiting x 3 months EMERGENT Consult: No MD Notified: Yes Date Notified:: 12/14/20 Time Notified: 20:54 Method of Notification: Verbal Reason For Visit: ACUTE GASTRITIS; KANA Diagnosis Discharge Diagnosis (1) Gastritis: Status: Acute Code(s): K29.70 - Gastritis, unspecified, without bleeding Qualifiers: Chronicity: acute Gastritis bleeding: without bleeding Gastritis type: unspecified gastritis Qualified Code(s): K29.00 - Acute gastritis without bleeding (2) Acute renal failure: Status: Acute Code(s): N17.9 - Acute kidney failure, unspecified Qualifiers: Acute renal failure type: unspecified Qualified Code(s): N17.9 - Acute kidney failure, unspecified (3) Anxiety: Status: Chronic Code(s): F41.9 - Anxiety disorder, unspecified (4) Schizophrenia: Status: Chronic Code(s): F20.9 - Schizophrenia, unspecified Qualifiers: Schizophrenia type: unspecified Qualified Code(s): F20.9 - Schizophrenia, unspecified Plan: DISCHARGE DIAGNOSES: 1. Intractable nausea and emesis suspected secondary to gastritis although complicated by history of migraines 2. Acute kidney injury on chronic kidney disease stage III (Admission BUN/Cr 27/2.48, baseline prior appears primarily 1.2-1.6) 3. History of migraines, headaches 4. Anxiety and depression/schizophrenia, unclear specific type 5. History of drug use, IV drug use 6. Tobacco use Medications at Discharge Home Medications hydroxyzine pamoate 50 mg PO BID 01/27/20 acetazolamide 250 mg tablet tab PO 02/17/20 benztropine 1 mg tablet 1 mg PO DAILY 02/17/20 fluphenazine HCl 5 mg tablet 5 mg PO DAILY 02/17/20 pantoprazole 40 mg PO BID 30 Days #60 tab 12/15/20 sucralfate 1 g PO 1HR_ACHS 30 Days #120 tab 12/15/20 Hospital Course Operations None Procedures None Summary of Care Provided Minutes Spent on Discharge: 35 Hospital Course: The patient is a 40 y/o M w/ PMHx: Polysubstance abuse including routine cannabis usage, Hx IVDA, CKD stage III, Tobacco use, Anxiety and Depression/Schizophrenia who presented to the [facility] ED on 12/14/20 with history of ongoing epigastric discomfort as well as occasional nausea and emesis however this is recurrent and worsened with the last 3 days prompting eventual ED evaluation. In the ED work-up significant for ongoing intractable nausea and emesis as well as epigastric discomfort with acute kidney injury with admission BUN/Cr 27/2.48, baseline prior appears primarily 1.2-1.6 with repeat 12/15/2020 BUN/creatinine 24/1.57, improving. Patient nausea and episodes of emesis res olved, clear liquids trialed and tolerated therefore diet advanced with also transition to oral Protonix and addition of Carafate. Discussed patient with general surgery with consultation canceled given clinical improvement and plan discharge on dual regimen with follow-up outpatient for possible endoscopy with general surgery. Also strongly encouraged allowance of PCP set up given underlying history and ongoing chronic issues. Patient given clinical improvement discharged home in improved, stable condition with recommended PCP follow-up within 3 to 5 days with repeat BMP at that time to continue to assure renal function improvement. Patient felt appropriate for discharge to home and again improved clinically and a faster timeline than expected. DAY OF DISCHARGE PROGRESS NOTE: Subjective: Patient without acute event overnight per self and nursing report. Patient this a.m. notes resolved nausea and emesis and asked for diet with clear liquid initiation and tolerance therefore further diet transition. Patient amenable to discharge to home and agrees to oral Protonix and Carafate. Patient also amenable to follow-up outpatient with surgery for consideration endoscopies given ongoing symptoms. Patient denies fever, chills, nausea, emesis, abdominal pain, chest pain or dyspnea. Objective: T 97.9, heart rate 89, BP 107/66, respiratory rate 16, 98% on room air. Physical Examination: General: awake, alert, oriented x 3 and cooperative, seated upright in the bed, NAD, notes resolution of prior symptoms, eager for oral intake today. Skin: normal color, turgor, no icterus, cyanosis. HEENT: AT/NC, EOMI, PERRLA, MMM. Lungs: CTA bilaterally, moderate effort, mild decrease BL bases, no rales, ronchi or wheezing; Heart: Regular rate and rhythm; no gallop, rub audible. Abdomen: soft, mild epigastric discomfort otherwise nontender to palpation, ND, mildly hyperactive BS. Extremities: no cyanosis, clubbing, or edema. Neurological: patient awake, alert, oriented as noted as noted; cognitive function appears intact upon questioning,; pupils equally reactive to light and accomodation; cranial nerves II-XII grossly normal, moving all 4 extremities, strength improved, appropriate. Psychiatric: affect appears mildly fatigued otherwise normal, no acute evidence of depressive or anxiety feelings. Assessment and Plan: Please see hospital summary above. ABG / Lab / Microbiology Data Result Diagrams: 12/15/20 05:50 12/15/20 05:50 Laboratory: Laboratory Results - last 24 hr 12/14/20 12/14/20 12/15/20 18:36 18:36 00:25 WBC 17.8 H RBC 5.78 Hgb 16.3 Hct 48.3 MCV 83.6 MCH 28.2 MCHC 33.7 RDW Std Deviation 41.1 RDW Coeff of Neftali 13.5 Plt Count 459 H MPV 9.8 Immature Gran % (Auto) 0.600 Neut % (Auto) 78.5 H Lymph % (Auto) 14.6 L [place] % (Auto) 6.0 Eos % (Auto) 0.1 Baso % (Auto) 0.2 Absolute Neuts (auto) 14.0 H Absolute Lymphs (auto) 2.59 Nucleated RBC % 0 Sodium 134 L Potassium 4.0 Chloride 93 L Carbon Dioxide 30.0 Anion Gap 11 BUN 27 H Creatinine 2.48 H Estim Creat Clear Calc 38.69 Est GFR (MDRD) Af Amer 37 L Est GFR (MDRD) Non-Af 31 L BUN/Creatinine Ratio 10.9 Glucose 120 H Calcium 10.9 H Phosphorus Magnesium Total Bilirubin 0.40 AST 13 L ALT 22 Alkaline Phosphatase 70 Total Protein 9.9 H Albumin 4.8 Globulin 5.1 H Albumin/Globulin Ratio 0.9 Urine Color Yellow Urine Clarity Clear Urine pH 5.0 Ur Specific [place] 1.020 Urine Protein 30 H Urine Glucose (UA) Normal Urine Ketones 15 H Urine Occult Blood Negative Urine Nitrite Negative Urine Bilirubin Negative Urine Urobilinogen Normal Ur Leukocyte Esterase 25 H Urine RBC 0 SEEN Urine WBC 0-5 SEEN Ur Squamous Epith Cells 0-5 SEEN Ur Renal Epithelial Cell 0-5 SEEN Urine Bacteria RARE Hyaline Casts 5-10 SEEN Urine Mucus 0 SEEN Urine Opiates Screen Urine Methadone Screen Ur Barbiturates Screen Ur Phencyclidine Scrn Ur Amphetamines Screen U Methamphetamin-MDMA U Benzodiazepines Scrn Urine Cocaine Screen U Cannabinoids Screen Ur Drug Screen Comment 12/15/20 12/15/20 12/15/20 00:25 05:50 05:50 WBC 13.1 H RBC 4.81 Hgb 13.6 Hct 41.2 MCV 85.7 MCH 28.3 MCHC 33.0 RDW Std Deviation 43.2 RDW Coeff of Neftali 13.8 Plt Count 346 MPV 9.9 Immature Gran % (Auto) 0.300 Neut % (Auto) 68.9 Lymph % (Auto) 23.7 [place] % (Auto) 6.4 Eos % (Auto) 0.5 Baso % (Auto) 0.2 Absolute Neuts (auto) 9.0 H Absolute Lymphs (auto) 3.09 Nucleated RBC % 0 Sodium 140 Potassium 4.3 Chloride 103 Carbon Dioxide 30.0 Anion Gap 7 BUN 24 H Creatinine 1.57 H Estim Creat Clear Calc 56.29 Est GFR (MDRD) Af Amer 63 Est GFR (MDRD) Non-Af 52 L BUN/Creatinine Ratio 15.3 Glucose 101 Calcium 9.0 Phosphorus Magnesium Total Bilirubin AST ALT Alkaline Phosphatase Total Protein Albumin Globulin Albumin/Globulin Ratio Urine Color Urine Clarity Urine pH Ur Specific [place] Urine Protein Urine Glucose (UA) Urine Ketones Urine Occult Blood Urine Nitrite Urine Bilirubin Urine Urobilinogen Ur Leukocyte Esterase Urine RBC Urine WBC Ur Squamous Epith Cells Ur Renal Epithelial Cell Urine Bacteria Hyaline Casts Urine Mucus Urine Opiates Screen POSITIVE H Urine Methadone Screen NEGATIVE Ur Barbiturates Screen NEGATIVE Ur Phencyclidine Scrn NEGATIVE Ur Amphetamines Screen POSITIVE H U Methamphetamin-MDMA POSITIVE H U Benzodiazepines Scrn NEGATIVE Urine Cocaine Screen NEGATIVE U Cannabinoids Screen POSITIVE H Ur Drug Screen Comment 12/15/20 12/15/20 05:50 05:50 WBC RBC Hgb Hct MCV MCH MCHC RDW Std Deviation RDW Coeff of Neftali Plt Count MPV Immature Gran % (Auto) Neut % (Auto) Lymph % (Auto) [place] % (Auto) Eos % (Auto) Baso % (Auto) Absolute Neuts (auto) Absolute Lymphs (auto) Nucleated RBC % Sodium Potassium Chloride Carbon Dioxide Anion Gap BUN Creatinine Estim Creat Clear Calc Est GFR (MDRD) Af Amer Est GFR (MDRD) Non-Af BUN/Creatinine Ratio Glucose Calcium Phosphorus 3.7 Magnesium 2.2 Total Bilirubin AST ALT Alkaline Phosphatase Total Protein Albumin Globulin Albumin/Globulin Ratio Urine Color Urine Clarity Urine pH Ur Specific [place] Urine Protein Urine Glucose (UA) Urine Ketones Urine Occult Blood Urine Nitrite Urine Bilirubin Urine Urobilinogen Ur Leukocyte Esterase Urine RBC Urine WBC Ur Squamous Epith Cells Ur Renal Epithelial Cell Urine Bacteria Hyaline Casts Urine Mucus Urine Opiates Screen Urine Methadone Screen Ur Barbiturates Screen Ur Phencyclidine Scrn Ur Amphetamines Screen U Methamphetamin-MDMA U Benzodiazepines Scrn Urine Cocaine Screen U Cannabinoids Screen Ur Drug Screen Comment Radiography Diagnostic Testing: Radiology Impression Abdomen/Pelvis CT 12/14/20 19:17 IMPRESSION: 1. No evidence of acute intra-abdominal process. 2. Question mild constipation. 3. Otherwise normal CT of the abdomen and pelvis. Electronically Signed: Uli Cook DO at 19:59 EDT Tel [phone], Service support , D/C Instructions Discharge Diet: - (Recommend continued judicious regular diet. Avoid items that cause upset stomach.) Discharge Activity: Return to Normal Activity May resume sexual activity in: 10-14 days Weight Bearing Status: Weight bearing as tolerated Call your doctor if you observe: Fever of 101 or Higher, Shortness of breath, Dizziness, Fainting spells, Chest pain, Uncontrolled pain and - (If recurrent issues with nausea and emesis please contact your primary care physician.) Please Follow Up With: Primary Care Physician When: Please follow-up within 3-5 days to review admission. Meaningful Use Info Meaningful Use Diagnoses (Choose all that apply): None applicable Discharge Plan Admission Admit Date/Time: 12/14/20 20:42 Primary Reason for Your Visit: Intractable nausea and emesis, unclear etiology Attending Provider: Carmen Abreu Primary Care Provider: Care Physician,No Primary Consulting Providers: Johny Machado Instructions Patient Instructions: ED PEPTIC ULCER vs GASTRITIS Additional Instructions / Restrictions: If you have recurrent nausea, emesis and GI upset may consider follow-up outpatient with Dr. Machado for assessment for endoscopies (scopes). Discharge Orders/Prescriptions Prescriptions: New sucralfate 1 gram Tablet 1 g PO 1HR_ACHS 30 Days Qty: 120 RF: 0 pantoprazole 40 mg Tablet,Delayed Release (Dr/Ec) 40 mg PO BID 30 Days Qty: 60 RF: 0 Continued fluphenazine HCl 5 mg tablet 5 mg PO DAILY RF: 0 benztropine 1 mg tablet 1 mg PO DAILY RF: 0 acetazolamide 250 mg tablet PO RF: 0 hydroxyzine pamoate 50 MG capsule 50 mg PO BID RF: 0 Referrals / Follow Up: Johny Machado MD [STAFF PHYSICIAN] - (Please follow-up outpatient for evaluation of your intractable nausea, emesis if recurrently in 2-4 weeks. Continue the protonix and carafate in the interim to see if this assists with your symptoms.) Mary Jo Hampton MD [STAFF PHYSICIAN] - (Please establish with primary care physician to assure appropriate ongoing outpatient care and evaluation.) Care Physician,No Primary [Primary Care Provider] - Disposition Disposition (needs filled in before D/C Order can be placed): Home, self care Visit Charges Inpatient E&M: 89542 Disch Hosp
--- NOTE | 2020-12-15 10:55 | CASEMGMT ---
SELENA DUPONT NOTE: Pt being discharged home. SELENA DUPONT to room to talk w/pt /discuss discharge planning. Pt states he lives w/his mother. Independent.Pt states he does not drive--either his mother or grandmother provide transportation for him. Pt is disabled/receives Soc Sec. Pt w/hx of IV drug use and marijuana use. Pt declines to have SW see him for info/resources. Pt states, I've already stopped all the IV use. I'm not shooting up anymore. I've broke that habit. Pt states he has done [employer] before and I'm not interested. Pt does not have PCP. Pt encouraged to get established w/PCP for f/u and to have labs re-checked. Pt voices understanding. Pt provided w/list of local PCP's. Pt denies having any needs/concerns w/discharging home. Sudha SHEPHERD RN, CM
[2020-12-15] MEDS: Sucralfate 1 GM Tablet PO (11:30)
[2020-12-15 13:20] VITALS: BP 126/78; PULSE 95; RESP 16; TEMP 36.7; O2SAT 97
== END 2020-12-15 13:40 | disposition home or self-care (01) ==
LOC: ED 18:42 → PCU 12-15 06:03
PROVIDERS: Emergency Medicine; Admitting Provider Hospitalist; Emergency Provider Emergency Medicine; Visit Provider Family Medicine
DX: K29.00 Acute gastritis without bleeding (principal); N17.9 Acute kidney failure, unspecified; N18.30 Chronic kidney disease, stage 3 unspecified; F41.9 Anxiety disorder, unspecified; F32.9 Major depressive disorder, single episode, unspecified; F20.9 Schizophrenia, unspecified; Z79.899 Other long term (current) drug therapy; F17.200 Nicotine dependence, unspecified, uncomplicated
CPT/HCPCS: 36415; 74176; 80048; 80053; 80307; 81001; 83735; 84100; 85025; 96361; 96365; 96375; 96376; 99218; 99285; J7030; G0378; J2405

== ENCOUNTER 2021-01-26 09:56 | Day surgery (SDC) | payer MEDICAID, SELFPAY ==
[2021-01-26] VITALS (10 sets, daily range): BP systolic 114–154; BP diastolic 88–99; PULSE 55–81; RESP 14–16; TEMP 36.2–36.7; O2SAT 93–100; BMI 23.8
[2021-01-26] MEDS: Lactated Ringers 1,000 ML 100 ML IV ×2 (10:31→13:15)
[2021-01-26] MEDS: Cefazolin 2 GM in 0.9% Normal Saline 100 ML IV (11:50)
[2021-01-26] MEDS: Bupivacaine Mpf 0.5% 30 ML VIAL (12:18)
--- NOTE | 2021-01-26 13:08 | PCM.OPRPT ---
Problems Associated Problem List Diagnoses (1) Right inguinal hernia: Report of Operation Date of Procedure: 01/26/21 Pre-Operative Diagnosis: Right inguinal hernia Post-Operative Diagnosis: Direct right inguinal hernia Surgery/Procedure Performed:: Robotically assisted laparoscopic right inguinal hernia repair Surgeon: Peterson Jacobo psychiatric registered nurse: Marlo Duran Type of Anesthesia: General Anesthesiologist: Ryan Izaguirre Estimated Blood Loss (mL): < 25 cc Fluids Replaced: 1200 cc lr Description of Procedure: Patient was brought in the operating room. Placed in the supine position. Under excellent general tracheal ovation Lopez catheter was placed the abdomen was sterilely prepped and draped in usual fashion patient was placed in the headdown position. Local was injected supraumbilically. Dissection was carried down to the fascia. The fascia grasped with a [place]. Peritoneal space inside the abdomen. The abdomen was insufflated 15 torr. A #8 trocar was placed difficulty. It was flank by 2 other #8 trochars placed under direct visualization. Robot was brought in and was docked appropriately. I scored the peritoneum on the right dissected down to the pubic tubercle and then dissected down to Kem's ligament bringing back a direct inguinal hernia. I then dissected further laterally dissecting the cord and vessel structures free from the peritoneal cavity and then dissected further laterally. I placed a medium progrip mesh reference number [id number] lot number [id number] into the wound. It laid completely flat it looked great I had excellent hemostasis I reperitonealized the area with a 3 OV lock suture covering the mesh completely. Trochars were removed under direct visualization good with stasis was noted ilioinguinal nerve block was performed. Skin incisions were closed with subcuticular stitches of 4-0 Monocryl. Steri-Strips were applied sterile dressings were applied and the patient tolerated the procedure well. Admit VTE Documentation VTE Present on Admission: No VTE Mechan Device Prophylaxis: None VTE Pharm Prophylaxis ordered?: No Reason prophylaxis not ordered:: Treatment Not Indicated
--- NOTE | 2021-01-26 13:15 | EX.PCM.DISCH ---
Discharge Instructions Procedure Hernia Diet Discharge Diet: Light diet - advance as tolerated Activity Discharge Activity: Return to Normal Activity, May Drive (when you are no longer taking narcotic pain medications.) and May Shower (with the bandage in place 1-2 days after surgery.) Lifting Restrictions: 20 pounds for 8 weeks. Additional Activity Instructions:: Climbing stairs is fine, walking is encouraged. Sitting in bed may be uncomfortable. Sitting up using your lateral muscles (sitting up sideways) is usually more comfortable. Do not drive, work heavy equipment of sign legal documents for 24 hours. If your hernia repair was an ingunial repair, you may have scrotal swelling, an ice pack and/or athletic support can provide more comfort. Pain medications may cause nausea, you should typically eat light foods as you take your pain medications. Pain medications may also cause constipation. If you have difficulty with this, discuss with your doctor. Dressing / Incision Call your doctor if your incision/area has: Continuous Slow Oozing, Sudden Increased Bleeding, Increased Pain/ Swelling, Increased Redness and Foul Smelling Discharge Call your doctor if you observe: Fever of 101 or Higher Suture Line Care: Avoid Pulling/Pushing and Avoid Pinching/Bending Additional Dressing/Incision Instructions:: Leave the operative bandage on for 2-3 days. When you remove the bandage, leave the steri-strips on place until your follow up appointment or they fall off. Follow Up Care Please Follow Up With: Stacey Prado PA-C When: Call office to schedule an appointment to be seen in 7 days. Test Results: Test results from this visit will be discussed in further detail at your follow-up appointment, if applicable. Discharge Plan Admission Attending Provider: Peterson Jacobo Primary Care Provider: Care Physician,Rosalinda Primary Discharge Orders/Prescriptions Prescriptions: New oxycodone-acetaminophen [Endocet] 5-325 mg tablet 1 tab PO Q6H PRN (Reason: pain) 5 Days Qty: 20 RF: 0 Continued fluphenazine HCl 5 mg tablet 5 mg PO DAILY RF: 0 benztropine 1 mg tablet 1 mg PO DAILY RF: 0 hydroxyzine pamoate [Vistaril] 50 MG capsule 50 mg PO BID RF: 0 sucralfate 1 gram Tablet 1 g PO 1HR_ACHS 30 Days Qty: 120 RF: 0 pantoprazole [Protonix] 40 mg tablet,delayed release (DR/EC) 40 mg PO BID RF: 0 Referrals / Follow Up: Care Physician,No Primary [Primary Care Provider] - Stacey Prado PAJacC [PHYSICIAN ORTHOPAEDIC SURGEON] -
== END 2021-01-26 16:26 ==
LOC: SDC 09:56 → AC 09:56
PROVIDERS: Referring Provider Surgery; Visit Provider Surgery
PROC: (CPT 49650; principal; 2021-01-26 11:40)
DX: K40.90 Unilateral inguinal hernia, without obstruction or gangrene, not specified as recurrent (principal); F20.9 Schizophrenia, unspecified; F41.9 Anxiety disorder, unspecified; K21.9 Gastro-esophageal reflux disease without esophagitis; J45.909 Unspecified asthma, uncomplicated; Z79.899 Other long term (current) drug therapy; F17.210 Nicotine dependence, cigarettes, uncomplicated
CPT/HCPCS: 00840; 49650; S2900; 87426; C9803; J7120; J2405

== ENCOUNTER 2021-10-31 07:54 | Outpatient (CLI) | payer MEDICAID, SELFPAY ==
--- NOTE | 2021-10-31 07:55 | MRI_ITS ---
EXAM: MR HEAD WITHOUT AND WITH INTRAVENOUS CONTRAST CLINICAL INDICATION: seizures TECHNIQUE: Multiplanar and multisequence MR images of the brain were obtained without and with intravenous contrast. This report was created using Quolaw report generation technology. CONTRAST: 13 mL of IV Dotarem. COMPARISON: MRI brain with and without contrast 02/26/2020. FINDINGS: BRAIN AND EXTRA-AXIAL SPACES: Unremarkable. No intra- or extra-axial hemorrhage. No evidence of acute infarct. No intracranial mass or mass effect. There is preservation of the jimenez/white matter interface. The limbic lobes are normal and symmetrical. Posterior fossa structures are unremarkable. Normal ventricles and cisterns. SELLA: Unremarkable. Normal sella turcica, pituitary gland, infundibular stalk, optic chiasm and hypothalamus. AUDITORY SYSTEM: Unremarkable. The internal auditory canals are patent. BONES/JOINTS: Unremarkable. No discrete lytic or blastic abnormalities. SINUSES: Unremarkable as visualized. Clear. MASTOID AIR CELLS: Unremarkable as visualized. Clear. ORBITS: Unremarkable as visualized. Both globes, extraocular muscles, optic nerves and retrobulbar fat appear unremarkable. VASCULATURE: Unremarkable as visualized. Normal flow voids in the major intracranial circulation. MRI/Brain W/WO Contrast IMPRESSION: 1. Normal MRI brain without and with intravenous contrast. 2. Interval resolution of the mild asymmetric dilatation of the superior ophthalmic veins when compared to 01/27/2020. Electronically Signed: Сергей Bean MD at 14:59 EDT ,
[2021-10-31 08:19] LABS: Hematocrit 38.8 % (40-54); Hemoglobin 12.9 g/dL (13.0-16.5); Mean Corp Hgb Conc 33.2 g/dL (32-36); Mean Corpuscular Hgb 28.2 pg (27.0-32.0); Mean Corpuscular Volume 84.9 fL (80-94); Mean Platelet Vol. 9.9 fl (6.2-12.0); Platelet Count 353 K/mm3 (150-450); RBC Distribution Width CV 14.2 % (11.6-14.6); RBC Distribution Width SD 43.8 fl (35.1-43.9); Red Blood Count 4.57 M/mm3 (4.6-6.2); White Blood Count 9.4 K/mm3 (4.4-11.0)
[2021-10-31 09:05] LABS: AST(SGOT) 19 U/L (15-37); Alanine Aminotransfer ALT/SGPT 20 U/L (16-61); Albumin, Serum 3.8 g/dL (3.2-5.0); Alkaline Phosphatase 62 U/L (45-117); Anion Gap 5 (5-15); BUN 8 mg/dL (7-18); Chloride 98 mmol/L (98-107); Creatinine, Serum 1.15 mg/dL (0.70-1.30); EST Glomerular Filtration Rate 75 mL/min (>60); Est Glom Filt Rate - Afr Amer 90 mL/min (>60); Globulin 3.7 g/dL (2.2-4.2); Glucose 91 mg/dL (74-106); Magnesium 1.9 mg/dL (1.6-2.6); Potassium 3.7 mmol/L (3.5-5.1); Protein, Total 7.5 g/dL (6.4-8.2); Sodium Level 136 mmol/L (136-145); Thyroid Stim Hormone (TSH) 0.38 uIU/mL (0.358-3.74)
[2021-10-31 10:16] LABS: Vitamin B12 527 pg/mL (211-911)
[2021-11-09 20:09] LABS: Vitamin B1, Thiamine 166.6 nmol/L (66.5-200.0)
== END 2021-10-31 23:59 | disposition home or self-care (01) ==
LOC: MRI 07:55
PROVIDERS: PCP Family Medicine; Referring Provider Psychiatry & Neurology Neurology; Visit Provider Psychiatry & Neurology Neurology
DX: G40.909 Epilepsy, unspecified, not intractable, without status epilepticus (principal)
CPT/HCPCS: 36415; 70553; 80053; 82607; 82746; 83735; 84425; 84443; 85027; A9575

== ENCOUNTER 2022-09-27 15:49 | Emergency (ER) | payer MEDICAID, SELFPAY ==
[2022-09-27 15:51] VITALS: BP 193/140; PULSE 88; RESP 18; TEMP 37.2; O2SAT 98; BMI 20.9
[2022-09-27] MEDS: Lidocaine/Epi/Tetracaine 50 ML 1 APPLIC TOPICAL (18:17)
--- NOTE | 2022-09-27 19:25 | CM.ED ---
Social Work Note Referral Source: SELENA Ireland Referral Reason: resources SELENA Ireland introduced patient's grandmother to DENNISE and explained there were concerns regarding patient's mental health, substance use and housing. SW to follow up. DENNISE met with MD Slater to inquire about concerns. states patient voices he is sober and engaged in services, no concerns for mental health evaluation. DENNISE met with patient's grandmother in waiting room and provided her with family resources for mental health and substance use through [facility]. [facility] explaining [facility] have a program with [facility] to assist with housing for individuals with mental health issues. SW also provided her with [facility] resource list and highlighted housing resources in [facility] as well as a list of local counseling agencies. SW provided emotional support to patient's grandmother and encouraged her to reach out for support to help her understand and cope with patient's mental illness and substance use. SW explained patient would need to contact agencies to inquire about services if he chooses. SW assisted patient's grandmother in returning to patient's room as patient was getting ready to be discharged home. Nona GROSS, BRYNN
--- NOTE | 2022-09-27 19:29 | EX.ED.DYSGE1 ---
HPI History of Present Illness Chief Complaint: Abscess [facility] Medical History (Updated 09/27/22 @ 19:[address] Nelly Slater MD) Anxiety Asthma Blurry vision Bone fracture Cold intolerance Compartment syndrome of right lower extremity Frequent headaches Gastric reflux Hearing problem Heroin abuse History of back problems History of drug abuse Hx of headache IVDU (intravenous drug user) Kidney failure Marijuana use Mental and behavioral problem Migraine headache Neuropathy Neuropraxia of left lower extremity Open wound of right lower leg Pneumonia Rhabdomyolysis Right leg pain Schizophrenia Smoker Vision problem Vitamin deficiency Wears glasses Home Medications hydroxyzine pamoate 50 mg capsule (Vistaril) 50 mg PO BID mental health 01/27/20 [History Last Taken Unknown] benztropine 1 mg tablet 1 mg PO DAILY 02/17/20 [History Last Taken Unknown] fluphenazine HCl 5 mg tablet 5 mg PO DAILY mental health 02/17/20 [History Last Taken Unknown] sucralfate 1 gram tablet 1 g PO 1HR_ACHS 30 days #120 tabs 12/15/20 [Rx Last Taken Unknown] pantoprazole 40 mg tablet,delayed release (Protonix) 40 mg PO BID 01/24/21 [History Last Taken Unknown] gabapentin 300 mg capsule 300 mg PO BID 10/16/21 [History Last Taken Unknown] oxcarbazepine 150 mg tablet 150 mg PO BID #60 tabs 10/16/21 [Rx Last Taken Unknown] cephalexin 500 mg capsule 500 mg PO Q6 #40 CAPSULES 09/27/22 [Rx Last Taken Unknown] sulfamethoxazole 800 mg-trimethoprim 160 mg tablet (Bactrim DS) 1 tab PO BID 10 days #20 tabs 09/27/22 [Rx Last Taken Unknown] Allergy/AdvReac Type Severity Reaction Status Date / Time No Known Allergies Allergy Verified 09/27/22 15:51 Family History Other Alcoholism Anxiety Arthritis Asthma Breast cancer CVA (cerebral vascular accident) Cancer Depression Diabetes Heart disease High cholesterol Hypertension Mental disorder Myocardial infarction Surgical History H/O hernia repair History of fasciotomy Social History Smoking Status: Current every day smoker tobacco type: cigarettes alcohol intake: never EXAM Physical Exam Const Vital Signs: 09/27/22 15:51 Temperature 99 F Temperature Source Temporal Pulse Rate 88 Respiratory Rate 18 Blood Pressure 193/140 H Blood Pressure Mean 157 Pulse Ox 98 Oxygen Delivery Method Room Air MDM MDM MDM Narrative Medical decision making narrative: Let was applied to the wound topically. This was followed by infusion of 1 cc 1% lidocaine. A stab incision is made with a #11 blade. There is return of blood and a small amount of pus. Curved hemostats were used to break up the loculations. Area is still very firm and indurated. He will be started on Bactrim and Keflex, first dose is given here. Discharge Plan Triage Chief Complaint: Abscess ED Provider: Nelly Slater Dx/Rx/DC Orders Clinical Impression: Cutaneous abscess Instructions: ED Abscess Incision And Drainage Prescriptions: New sulfamethoxazole-trimethoprim [Bactrim DS] 800-160 mg tablet 1 tab PO BID 10 Days Qty: 20 0RF cephalexin 500 mg capsule 500 mg PO Q6 Qty: 40 0RF No Action fluphenazine HCl 5 mg tablet 5 mg PO DAILY benztropine 1 mg tablet 1 mg PO DAILY gabapentin 300 mg capsule 300 mg PO BID oxcarbazepine 150 mg tablet 150 mg PO BID Qty: 60 4RF hydroxyzine pamoate [Vistaril] 50 MG capsule 50 mg PO BID sucralfate 1 gram Tablet 1 g PO 1HR_ACHS 30 Days Qty: 120 0RF pantoprazole [Protonix] 40 mg tablet,delayed release (DR/EC) 40 mg PO BID Primary Care Provider: Isiah Jansen Referrals: Isiah Jansen MD [Primary Care Provider] - 1 Week Disposition Disposition: Home, Self Care
[2022-09-27] MEDS: Smz/Tmp Ds Tablet 1 TABLET PO (19:38)
[2022-09-27] MEDS: Cephalexin 500 MG Capsule PO (19:38)
[2022-09-27 19:40] VITALS: RESP 16
== END 2022-09-27 19:41 | disposition home or self-care (01) ==
PROVIDERS: Emergency Provider Emergency Medicine; PCP Family Medicine; Visit Provider Emergency Medicine
DX: L02.411 Cutaneous abscess of right axilla (principal); F17.210 Nicotine dependence, cigarettes, uncomplicated
CPT/HCPCS: 10060; 99283

== ENCOUNTER 2022-11-03 20:01 | Observation (INO) | payer MEDICAID, SELFPAY ==
[2022-11-03 20:02] VITALS: BP 170/132; PULSE 89; RESP 16; TEMP 36.4; O2SAT 99; BMI 20.9
--- NOTE | 2022-11-03 20:28 | EX.ED.CRITCA ---
HPI <IRIS Edward - Last Filed: 11/03/22 21:07> History of Present Illness Chief Complaint: Overdose Narrative Narrative: Patient presenting today after overdosing on fentanyl this evening while at his sister's house. He was given 2 mg Narcan via EMS. Patient states that he would like to detox. He uses 1 g of fentanyl daily and snorts it. He does have a history of IV drug use. He states that he has polysubstance abuse and uses whatever he can get his hands on. Patient states he has never detox before but is going to be entering a treatment program on the third and would like to detox before that. PMH includes schizophrenia and multi personality disorder. PFSH <IRIS Edward - Last Filed: 11/03/22 21:07> [facility] Medical History (Updated 11/03/22 @ 21:[address] Carmen Abreu MD) Anxiety and depression Asthma Compartment syndrome of right lower extremity Frequent headaches Gastric reflux Hearing problem Hepatitis C Heroin abuse History of back problems IVDU (intravenous drug user) Marijuana use Migraine headache Neuropathy Neuropraxia of left lower extremity Open wound of right lower leg Schizophrenia Tobacco use Vision problem Vitamin deficiency Wears glasses Home Medications hydroxyzine pamoate 50 mg capsule (Vistaril) 50 mg PO BID mental health 01/27/20 [History Last Taken Unknown] benztropine 1 mg tablet 1 mg PO DAILY 02/17/20 [History Last Taken Unknown] fluphenazine HCl 5 mg tablet 5 mg PO DAILY mental health 02/17/20 [History Last Taken Unknown] sucralfate 1 gram tablet 1 g PO 1HR_ACHS 30 days #120 tabs 12/15/20 [Rx Last Taken Unknown] pantoprazole 40 mg tablet,delayed release (Protonix) 40 mg PO BID 01/24/21 [History Last Taken Unknown] gabapentin 300 mg capsule 300 mg PO BID 10/16/21 [History Last Taken Unknown] oxcarbazepine 150 mg tablet 150 mg PO BID #60 tabs 10/16/21 [Rx Last Taken Unknown] cephalexin 500 mg capsule 500 mg PO Q6 #40 CAPSULES 09/27/22 [Rx Last Taken Unknown] sulfamethoxazole 800 mg-trimethoprim 160 mg tablet (Bactrim DS) 1 tab PO BID 10 days #20 tabs 09/27/22 [Rx Last Taken Unknown] Allergy/AdvReac Type Severity Reaction Status Date / Time No Known Allergies Allergy Verified 11/03/22 20:07 Family History (Updated 11/03/22 @ 21:[address] Carmen Abreu MD) Mother Hypertension High cholesterol Heart disease Diabetes Depression Cancer Mental disorder Myocardial infarction CVA (cerebral vascular accident) Breast cancer Asthma Arthritis Anxiety Alcoholism Father Hypertension High cholesterol Heart disease Diabetes Depression Cancer Mental disorder Myocardial infarction CVA (cerebral vascular accident) Asthma Arthritis Anxiety Alcoholism Surgical History H/O hernia repair History of fasciotomy Social History (Updated 11/03/22 @ 21:[address] Carmen Abreu MD) household members: none Smoking Status: Current every day smoker tobacco type: cigarettes Smoking packs per day: 1 Smoking cigarettes per day: 20.0 alcohol intake: never substance use type: IV drugs and other details: Uses any item he is able, currently fentanyl 1 gm daily snorted. Hx IVDA. ROS <IRIS Edward - Last Filed: 11/03/22 21:07> ROS ED Constitutional Constitutional ED: Denies chills, fever(s) or sweats Eyes Eyes: Denies blurry vision or diplopia Cardiovascular Cardiovascular: Denies chest pain or palpitations Respiratory/Chest Respiratory/Chest: Denies cough, dyspnea, tachypnea or wheezing Gastrointestinal Gastrointestinal: Denies abdominal pain, constipation, diarrhea, nausea or vomiting Musculoskeletal Musculoskeletal: Reports myalgias; Denies arthralgias, back pain or neck pain Integumentary Denies abscess, Abrasions or rash Neurologic Neurologic: Denies confusion, dizziness or paresthesias Psychiatric Psychiatric: Denies anxiety, depression, suicidal ideation or suicidal thoughts EXAM <IRIS Edward - Last Filed: 11/03/22 21:07> Physical Exam Const Vital Signs: 11/03/22 20:02 Temperature 97.5 F L Temperature Source Oral Pulse Rate 89 Respiratory Rate 16 Blood Pressure 170/132 H Blood Pressure Mean 144 Pulse Ox 99 Oxygen Delivery Method Room Air Positive well nourished, well developed and no apparent distress General Appearance ED: well developed HEENT Reports normocephalic and head/scalp atraumatic Mouth ED: Yes moist mucous membranes normal Eyes PERRL and EOMs intact bilaterally Neck full ROM and supple Chest Wall inspection of chest normal Resp normal respiratory effort and clear to auscultation bilaterally Cardio regular rate and regular rhythm GI soft to palpation, non-tender, non-distended and no masses Back/Spine normal ROM and normal to inspection Extremity normal to inspection and full ROM Neuro oriented x3, CN's II-XII intact bilaterally, moves all extremities, no focal motor deficits and no sensory deficits noted Sensorium / Orientation: awake and alert Psych mental status grossly normal and thought process normal <Dr. Rufus Lester MD - Last Filed: 11/03/22 21:41> Physical Exam Const Vital Signs: 11/03/22 20:02 Temperature 97.5 F L Temperature Source Oral Pulse Rate 89 Respiratory Rate 16 Blood Pressure 170/132 H Blood Pressure Mean 144 Pulse Ox 99 Oxygen Delivery Method Room Air MDM <IRIS Edward - Last Filed: 11/03/22 21:07> [facility] Narrative Medical decision making narrative: Patient presenting today via EMS after overdosing on fentanyl this evening. He was found unresponsive with agonal breathing and was down for 4-6 minutes according to bystanders, he was given 2 mg of Narcan. Patient states he would like to detox now from fentanyl. He admits to polysubstance abuse but is unable to tell me what else he uses. He states he has been using all his life. Patient has been discussed with hospitalist for admission for detox. Patient will be admitted to the hospital in stable condition. Patient is comfortable with plan. Lab Data Labs: Laboratory Results - last 24 hr 11/03/22 20:40 WBC 9.6 RBC 4.65 Hgb 12.6 L Hct 39.9 L MCV 85.8 MCH 27.1 MCHC 31.6 L RDW Std Deviation 50.0 H RDW Coeff of Neftali 15.9 H Plt Count 342 MPV 10.0 Immature Gran % (Auto) 0.300 Neut % (Auto) 77.2 H Lymph % (Auto) 17.4 L [place] % (Auto) 3.9 Eos % (Auto) 0.9 Baso % (Auto) 0.3 Absolute Neuts (auto) 7.4 Absolute Lymphs (auto) 1.67 Nucleated RBC % 0 <Dr. Rufus Lester MD - Last Filed: 11/03/22 21:41> [facility] Lab Data Attestation: I reviewed the patient's lab results. Labs: Laboratory Results - last 24 hr 11/03/22 20:40 WBC 9.6 RBC 4.65 Hgb 12.6 L Hct 39.9 L MCV 85.8 MCH 27.1 MCHC 31.6 L RDW Std Deviation 50.0 H RDW Coeff of Neftali 15.9 H Plt Count 342 MPV 10.0 Immature Gran % (Auto) 0.300 Neut % (Auto) 77.2 H Lymph % (Auto) 17.4 L [place] % (Auto) 3.9 Eos % (Auto) 0.9 Baso % (Auto) 0.3 Absolute Neuts (auto) 7.4 Absolute Lymphs (auto) 1.67 Nucleated RBC % 0 Treatment and Re-Evaluation Narrative: Seen and evaluated independently and in conjunction with physician legislative assistant. Agree with notes above unless documented otherwise. Patient actually overdosed on opiates, he abuses them regularly. He would like detox. He was given Narcan by EMS and is awake now and feeling better. Alert and oriented x3, not suicidal, vital signs are stable, lungs clear to auscultation throughout no respiratory distress. Labs, will discuss with hospitalist for admission for detox. Discharge Plan Dx/Rx/DC Orders Clinical Impression: Overdose of fentanyl, Desire for detoxification, Polysubstance abuse Disposition Disposition: Acute Care Hospital [facility]
[2022-11-03 20:51] LABS: Absolute Lymphocyte Count 1.67 X10^3/uL (0.83-4.51); Absolute Neutrophil Count 7.4 X10^3/uL (2.0-7.7); Basophil# 0.03 X10^3/uL; Basophil% 0.3 % (0-1); Eosinophil# 0.09 X10^3/uL; Eosinophils% 0.9 % (0-5); Hematocrit 39.9 % (40-54); Hemoglobin 12.6 g/dL (13.0-16.5); Lymphocyte # 1.67 X10^3/ul (0.83-4.51); Lymphocyte % 17.4 % (19-41); Mean Corp Hgb Conc 31.6 g/dL (32-36); Mean Corpuscular Hgb 27.1 pg (27.0-32.0); Mean Corpuscular Volume 85.8 fL (80-94); Monocyte# 0.37 X10^3/uL; Monocyte% 3.9 % (0-10); NRBC Flagged by Analyzer 0 % (0-5); Neutrophil # 7.39 X10^3/uL (2.7-7.7); Neutrophil % 77.2 % (47-70); Platelet Count 342 K/mm3 (150-450); RBC Distribution Width CV 15.9 % (11.6-14.6); Red Blood Count 4.65 M/mm3 (4.6-6.2); White Blood Count 9.6 K/mm3 (4.4-11.0)
[2022-11-03 21:08] LABS: AST(SGOT) 14 U/L (15-37); Alanine Aminotransfer ALT/SGPT 22 U/L (16-61); Albumin, Serum 3.5 g/dL (3.2-5.0); Alkaline Phosphatase 57 U/L (45-117); Anion Gap 3 (5-15); BUN 9 mg/dL (7-18); BUN/Creat Ratio 8.1 RATIO (10-20); Bilirubin, Direct 0.07 mg/dL (0.00-0.30); Calcium,Total 8.5 mg/dL (8.5-10.1); Chloride 105 mmol/L (98-107); Creatinine, Serum 1.11 mg/dL (0.70-1.30); EST Glomerular Filtration Rate 77 mL/min (>60); Est Glom Filt Rate - Afr Amer 94 mL/min (>60); Globulin 3.6 g/dL (2.2-4.2); Glucose 159 mg/dL (74-106); Potassium 3.6 mmol/L (3.5-5.1); Protein, Total 7.1 g/dL (6.4-8.2); Sodium Level 141 mmol/L (136-145)
--- NOTE | 2022-11-03 21:19 | HP.PCM_ITS ---
HPI - General General Date of Admission: 11/03/22 Date of Service: 11/03/22 Chief Complaint: Opiate over dose s/p narcan administration now in withdrawal requesting detoxification. HPI Narrative The patient is a 42 y/o M w/ PMHx: Chronic normocytic anemia, Significant polysubstance abuse including prior IV drug abuse with history of hepatitis C remotely with no prior treatment history currently using fentanyl snorted approximately 1 g daily, GERD, Chronic headaches, Tobacco use, Schizophrenia/Anxiety and Depression/Bipolar disorder/Multiple personality disorder, Asthma, Chronic back pain with radiculopathy/neuropathy associated who presents to the [facility] ED on 11/03/22 w/ history of opiate overdose which was witnessed with EMS call and Narcan administration and transition to the ED for evaluation with significant onset following acute opiate withdrawal with patient reported abdominal pain/cramping, generalized body aches and pains, rhinorrhea, fatigue, severe restlessness, and diaphoresis with patient requesting detox program. Patient does report that he already has planned outpatient follow-up as well with 180. He states he has never been treated in a detox program prior and is used since he was very young. Work-up in the ED included T97.5, heart 89, BP 170/132, respiratory rate 16, 99% on room air, CBC with WC 9.6, hem oglobin 12.6, MCV 85.8, platelet 342 without marked shift, CMP unremarkable aside glucose 159, hepatic profile unremarkable, ethyl alcohol and urine drug screen pending upon requested evaluation of patient. [facility] Medical History (Updated 11/03/22 @ 21:[address] Carmen Abreu MD) Anxiety and depression Asthma Compartment syndrome of right lower extremity Frequent headaches Gastric reflux Hearing problem Hepatitis C Heroin abuse History of back problems IVDU (intravenous drug user) Marijuana use Migraine headache Neuropathy Neuropraxia of left lower extremity Open wound of right lower leg Schizophrenia Tobacco use Vision problem Vitamin deficiency Wears glasses Home Medications hydroxyzine pamoate 50 mg capsule (Vistaril) 50 mg PO BID mental health 01/27/20 [History Last Taken Unknown] benztropine 1 mg tablet 1 mg PO DAILY 02/17/20 [History Last Taken Unknown] fluphenazine HCl 5 mg tablet 5 mg PO DAILY mental health 02/17/20 [History Last Taken Unknown] sucralfate 1 gram tablet 1 g PO 1HR_ACHS 30 days #120 tabs 12/15/20 [Rx Last Taken Unknown] pantoprazole 40 mg tablet,delayed release (Protonix) 40 mg PO BID 01/24/21 [History Last Taken Unknown] gabapentin 300 mg capsule 300 mg PO BID 10/16/21 [History Last Taken Unknown] oxcarbazepine 150 mg tablet 150 mg PO BID #60 tabs 10/16/21 [Rx Last Taken Unknown] cephalexin 500 mg capsule 500 mg PO Q6 #40 CAPSULES 09/27/22 [Rx Last Taken Unknown] sulfamethoxazole 800 mg-trimethoprim 160 mg tablet (Bactrim DS) 1 tab PO BID 10 days #20 tabs 09/27/22 [Rx Last Taken Unknown] Allergy/AdvReac Type Severity Reaction Status Date / Time No Known Allergies Allergy Verified 11/03/22 20:07 Family History (Updated 11/03/22 @ 21:[address] Carmen Abreu MD) Mother Hypertension High cholesterol Heart disease Diabetes Depression Cancer Mental disorder Myocardial infarction CVA (cerebral vascular accident) Breast cancer Asthma Arthritis Anxiety Alcoholism Father Hypertension High cholesterol Heart disease Diabetes Depression Cancer Mental disorder Myocardial infarction CVA (cerebral vascular accident) Asthma Arthritis Anxiety Alcoholism Surgical History H/O hernia repair History of fasciotomy Social History (Updated 11/03/22 @ 21:[address] Carmen Abreu MD) household members: none Smoking Status: Current every day smoker tobacco type: cigarettes Smoking packs per day: 1 Smoking cigarettes per day: 20.0 alcohol intake: never substance use type: IV drugs and other details: Uses any item he is able, curr ently fentanyl 1 gm daily snorted. Hx IVDA. ROS ROS Narrative Admission Review of Systems: CONSTITUTIONAL: No weight loss, fever, chills, + weakness or fatigue. HEENT: Eyes: No visual loss, blurred vision, double vision or yellow sclerae. Ears, Nose, Throat: No hearing loss, sneezing, congestion, runny nose or sore throat. SKIN: + Very staged abrasions, staged ecchymoses. CARDIOVASCULAR: No chest pain, chest pressure or chest discomfort, palpitations, edema, orthopnea, syncopal events. RESPIRATORY: No shortness of breath, cough or sputum, wheezing, hemoptysis. GASTROINTESTINAL: + anorexia, nausea without vomiting, abdominal cramping, no current diarrhea, melena, BRBPR. GENITOURINARY: No dysuria, frequency, urgency or retention. NEUROLOGICAL: + Chronic headaches, chronic back discomfort leg discomfort with neuropathy. No dizziness, syncope, paralysis, ataxia, change in bowel or bladder control, seizure. MUSCULOSKELETAL: + muscle, back pain, joint pain or stiffness. HEMATOLOGIC: + anemia, bleeding or bruising. LYMPHATICS: No enlarged nodes. No history of splenectomy. PSYCHIATRIC: + history of depression or anxiety. ENDOCRINOLOGIC: No reports of sweating, cold or heat intolerance. No polyuria or polydipsia. ALLERGIES: + history of asthma, rhinitis. Vital Signs Vital Signs Vital Signs: 11/03/22 20:02 Temperature 97.5 F L Temperature Source Oral Pulse Rate 89 Respiratory Rate 16 Blood Pressure 170/132 H Blood Pressure Mean 144 Pulse Ox 99 Oxygen Delivery Method Room Air Weight Weight: 137 lb 9.095 oz Body Mass Index (BMI) 20.9 Physical Exam Narrative Physical Examination: General: Awake, alert, oriented x 3 and cooperative, restless, walking in the room, talking fast. Skin: Normal color, normal turgor, no icterus, no cyanosis. HEENT: AT/NC, EOMI, PERRLA, dry MM, no carotid bruits or JVD noted. Lungs: Diminished, greater bases, appropriate effort, occasional end expiratory wheeze, no rales or rhonchi. Heart: Currently regular rate and rhythm; no gallop, rub audible. Abdomen: Soft, thin habitus, mild generalized cramping with palpation but no rebound or guarding, ND, hyperactive BS, positive mild HM. Extremities: No cyanosis, clubbing, or edema. Neurological: Patient awake, alert, oriented as noted, cognitive function intact; pupils equally reactive to light and accommodation, cranial nerves grossly normal, moving all 4 extremities, no focal deficits, strength mildly global decrease secondary to significant withdrawal symptoms, extremely restless. Psychiatric: Affect appears restless, anxious, no acute evidence of depressive but does have underlying significant psychiatric history. Results Lab / Micro Data Result Diagrams: 11/03/22 20:40 11/03/22 20:40 Assessment & Plan Assessment/Plan (1) Opiate withdrawal: PLAN: Plan The patient is a 42 y/o M w/ PMHx: Chronic normocytic anemia, Significant polysubstance abuse including prior IV drug abuse with history of hepatitis C remotely with no prior treatment history currently using fentanyl snorted approximately 1 g daily, GERD, Chronic headaches, Tobacco use, Schizophrenia/Anxiety and Depression/Bipolar disorder/Multiple personality disorder, Asthma, Chronic back pain with radiculopathy/neuropathy associated who presents to the [facility] ED on 11/03/22 w/ history of opiate overdose which was witnessed with EMS call and Narcan administration and transition to the ED for evaluation with significant onset following acute opiate withdrawal. #1. Acute Opiate Withdrawal: Will admit to [facility], routine labs including CBC, CMP, urine for drug screen obtained in the ED [], will initiate and continue on protocol with tapering course of Subutex, as needed tylenol, ibuprofen, bowel regimen, gabapentin, Bentyl, Vistaril, methocarbamol, clonidine, PRN nightly trazodone for insomnia, IV fluids, IV antiemetics. Once patient clinically improved and completion of taper nearing will plan consultation with case management for transition to next level of rehabilitation care. #2. Hyperglycemia: Possibly reactive, admission glucose 159, will obtain hemoglobin A1c to be cautious. #3. Elevated BP without hypertensive diagnosis: Patient with significantly elevated BP in the ED, potentially related with acute withdrawal, will continue to closely monitor and if remains elevated would initiate oral regimen, as needed IV hydralazine in the interim. #4. Polysubstance Abuse, IVDA Hx, History of Hepatitis C, Chronic: Patient currently not candidate for hep C treatment currently as needs to be clean, sober x 6 months, documented attendance NA or AA meetings, counseling and ongoing negative drug screens. Once appropriate GI, ID to initiate. HIV, hepatitis panel to assess for co-infection pending. Encouraged PCP establishment and follow-up. #5. Normocytic anemia: Admission hemoglobin 12.6, prior to this baseline 12-13 but in the past has been significantly lower, suspect no outpatient work-up has been initiated given poor follow-up, will obtain iron panel, ferritin, vitamin B12 and folic acid, guiac to be cautious. #6. Schizophrenia/Anxiety and Depression/Bipolar disorder/Multiple personality disorder: We will continue patient psychiatric regimen listed in system, encourage aggressive outpatient counseling and follow-up as this is likely the catalyst and ongoing etiology for substance abuse. #7. Asthma: Not on any chronic regimen, will have as needed albuterol, encourage tobacco cessation #8. Tobacco Abuse: Encouraged cessation, inpatient consultation per RT, NR if desired. #9. Chronic back pain with radiculopathy, neuropathy: New patient home scheduled gabapentin regimen. #10. GERD, Suspect history gastritis: We will continue patient home sucralfate and PPI. #11. DVT prophylaxis: Low risk, encourage ambulation. Admission Evaluation Time spent evaluating chart, patient history, patient evaluation, care planning and discussion with specialists: 75 minutes. Charges/Coding Visit Charges Inpatient E&M: 62108 Init Hosp L3
[2022-11-03 21:33] VITALS: BP 135/98; PULSE 82; RESP 18; TEMP 36.6; O2SAT 99
[2022-11-03 21:42] LABS: Alcohol, Blood (Medical)-Serum < 3.0 mg/dL
[2022-11-03 22:12] VITALS: BMI 19.8
[2022-11-03 22:15] LABS: Ferritin 36 ng/mL (26-388); Iron 65 ug/dL (65-175); Iron Binding Capacity,Total 346 ug/dL (250-450); PERCENT IRON SATURATION 18.8 % (15.0-55.0)
[2022-11-03 22:20] VITALS: BP 121/95; PULSE 88; RESP 18; TEMP 36.9; O2SAT 94
[2022-11-03] MEDS: OXcarbazepine 150 MG Tablet PO (22:53)
[2022-11-03] MEDS: Pantoprazole Sodium 40 MG Tablet PO (22:53)
[2022-11-03] MEDS: Buprenorphine HCl 2 MG TAB.SUBL SL (22:53)
[2022-11-03] MEDS: Sucralfate 1 GM Tablet PO (22:53)
[2022-11-03] MEDS: Gabapentin 300 MG Capsule PO (22:53)
[2022-11-03] MEDS: Lactated Ringers 1,000 ML 125 ML IV (22:53)
[2022-11-03] MEDS: Dicyclomine 10 MG Capsule 20 MG PO (22:54)
[2022-11-03] MEDS: traZODone 100 MG Tablet PO (22:54)
[2022-11-03] MEDS: Methocarbamol 750 MG Tablet 1500 MG PO (22:54)
[2022-11-03] MEDS: hydrOXYzine PAM 25 MG Capsule 50 MG PO (23:00)
[2022-11-04] VITALS (8 sets, daily range): BP systolic 103–126; BP diastolic 67–95; PULSE 66–87; RESP 16–17; TEMP 36.7–37.1; O2SAT 95–98
[2022-11-04 00:26] LABS: HIV - WCH Non-Reactive (Nonreactive)
[2022-11-04] MEDS: cloNIDine HCl 0.1 MG Tablet PO (02:19)
[2022-11-04 02:23] LABS: Hemoglobin A1c 5.5 % (3.8-5.6)
[2022-11-04] MEDS: Sucralfate 1 GM Tablet PO ×4 (05:57→21:50)
[2022-11-04] MEDS: Buprenorphine HCl 2 MG TAB.SUBL SL ×3 (05:57→21:57)
[2022-11-04] MEDS: Benztropine 2 MG Tablet 1 MG PO (07:29)
[2022-11-04] MEDS: Pantoprazole Sodium 40 MG Tablet PO ×2 (07:31→21:50)
[2022-11-04] MEDS: Gabapentin 300 MG Capsule PO ×2 (07:36→21:50)
[2022-11-04] MEDS: hydrOXYzine PAM 25 MG Capsule 50 MG PO ×2 (07:36→21:56)
[2022-11-04 08:56] LABS: Vitamin B12 419 pg/mL (211-911)
[2022-11-04 09:37] LABS: Hepatitis B Surface Antibody Non-Reactive; Hepatitis B Surface Antigen Non-Reactive (Nonreactive)
[2022-11-04 09:53] LABS: Hepatitis C Antibody REACTIVE (Nonreactive)
[2022-11-04] MEDS: OXcarbazepine 150 MG Tablet PO ×2 (09:53→21:53)
--- NOTE | 2022-11-04 10:39 | PN.HOSP_ITS ---
Reason for Visit Reason for Visit: Diagnoses Opioid use, unspecified with withdrawal (11/03/22) Subjective Subjective Feeling better with the Subutex, did begin to have some more withdrawal symptoms but was given another dose of Subutex. Wants to follow outpatient with Dr. Steinberg. Denied other complaints at this time other than slight cough and requested cough syrup Objective Data Objective Data Vital Signs: Vital Signs Temp Pulse Resp BP Pulse Ox O2 Del Method 98.8 F 67 16 103/91 H 95 Room Air 11/04/22 08:58 11/04/22 08:58 11/04/22 08:58 11/04/22 08:58 11/04/22 08:58 11/04/22 08:58 Oxygen Delivery Method Room Air Weight: 59 kg Body Mass Index (BMI) 19.8 Intake & Output: Intake and Output for Last 24 Hours 11/02/22 11/03/22 11/04/22 23:59 23:59 23:59 Intake Total 440 / 440 1600 / 1600 Balance 440 / 440 1600 / 1600 Lab / Micro Data Result Diagrams: 11/03/22 20:40 11/03/22 20:40 Labs: Laboratory Results - last 24 hr 11/03/22 20:40: WBC 9.6, RBC 4.65, Hgb 12.6 L, Hct 39.9 L, MCV 85.8, MCH 27.1, MCHC 31.6 L, RDW Std Deviation 50.0 H, RDW Coeff of Neftali 15.9 H, Plt Count 342, MPV 10.0, Immature Gran % (Auto) 0.300, Neut % (Auto) 77.2 H, Lymph % (Auto) 17.4 L, [place] % (Auto) 3.9, Eos % (Auto) 0.9, Baso % (Auto) 0.3, Absolute Neuts (auto) 7.4, Absolute Lymphs (auto) 1.67, Nucleated RBC % 0 11/03/22 20:40: Sodium 141, Potassium 3.6, Chloride 105, Carbon Dioxide 33.0 H, Anion Gap 3 L, BUN 9, Creatinine 1.11, Estim Creat Clear Calc 77.30, Est GFR (MDRD) Af Amer 94, Est GFR (MDRD) Non-Af 77, BUN/Creatinine Ratio 8.1 L, Glucose 159 H, Calcium 8.5, Total Bilirubin 0.20, Direct Bilirubin 0.07, AST 14 L, ALT 22, Alkaline Phosphatase 57, Total Protein 7.1, Albumin 3.5, Globulin 3.6 11/03/22 20:40: Ethyl Alcohol < 3.0 11/03/22 20:40: Iron 65, TIBC 346, Iron Saturation 18.8, Ferritin 36, Folate 14.40 11/03/22 20:40: Hemoglobin A1c 5.5 11/03/22 21:04: HIV 1&2 Antibody Non-Reactive 11/03/22 21:04: Vitamin B12 419 11/03/22 21:04: Hep Bs Antigen Non-Reactive, Hep Bs Antibody Non-Reactive 11/03/22 21:04: Hepatitis C Antibody REACTIVE Physical Exam Narrative General: Alert, oriented, no apparent distress HEENT: Atraumatic, normocephalic Eyes: Anicteric, normal conjunctiva, extraocular movements grossly intact Neck: Supple Respiratory: Clear to auscultation bilaterally, normal respiratory effort Cardiovascular: Regular rate and rhythm GI: Soft, nontender, nondistended Extremities: No edema Musculoskeletal: Moving all extremities Neuro: No overt focal neurological deficits Skin: No rashes appreciated Psych: Cooperative Assessment & Plan Assessment/Plan (1) Opiate withdrawal: PLAN: Plan #Acute opiate withdrawal - Subutex taper initiated - As needed Tylenol, ibuprofen, bowel regimen, gabapentin, Bentyl, Vistaril, clonidine - As needed trazodone nightly - As needed antiemetics -He will follow-up with Dr. Steinberg as an outpatient, appointment on Friday #Schizophrenia -Continue gabapentin 300 twice daily, Trileptal 150 twice daily, and stripping 1 mg, fluphenazine 5 mg daily, hydroxyzine 50 twice daily #Hepatitis C -Outpatient follow-up once appropriate #DVT ppx: Low risk encourage ambulation Mica Valadez MD Charges/Coding Visit Charges Inpatient E&M: 63486 Subs Hosp L2
[2022-11-04] MEDS: Acetaminophen 325 MG Tablet 650 MG PO ×2 (10:59→19:59)
[2022-11-04] MEDS: Benzonatate 100 MG Capsule PO (14:26)
[2022-11-04] MEDS: Ibuprofen 600 MG Tablet PO (15:21)
--- NOTE | 2022-11-04 16:20 | CHAPLAIN ---
Type of Pastoral Visit _x__ Initial Visit ___ Follow-up Visit ___ On-call Visit ___ General Patient Visit ___ Spiritual Assessment ___ Family Conference ___ Bereavement ___ Rapid Response ___ Code Blue ___ Other (describe below) Pastoral Care Referral From _x__ Patient ___ Family ___ Nurse ___ Physician ___ Marker Machine ___ Construction Millwright ___ Other (describe below) Sacrament/Intervention _x__ Active listening ___ Anointing ___ Episcopal ___ Bereavement ___ Communion _x__ [place] exploration ___ _x__ Life review _x__ Prayer ___ Reconciliation ___ Sacrament of Sick _x__ Supportive presence ___ Wedding ___ Other (describe below) Pastoral Comments offer of support and presence received well by this patient; pt is talkative and expresses his relapse is because of on his mother and a friend in the last few months; pt states he is willing for help and came here to nip it in the bud; pt is talkative; as the visit continues the pt begins to talk more about his being one with God and going to [place] to meet with God there and talking with God or I am god; much listening, time to be present and patient, offer of care and a prayer given
[2022-11-05] VITALS (7 sets, daily range): BP systolic 115–138; BP diastolic 87–102; PULSE 51–90; RESP 16; TEMP 36.6–37; O2SAT 92–100
[2022-11-05] MEDS: Ibuprofen 600 MG Tablet PO ×2 (06:27→21:16)
[2022-11-05] MEDS: Sucralfate 1 GM Tablet PO ×4 (06:27→21:16)
[2022-11-05] MEDS: Buprenorphine HCl 2 MG TAB.SUBL SL ×3 (06:27→22:00)
[2022-11-05] MEDS: Methocarbamol 750 MG Tablet 1500 MG PO (06:27)
[2022-11-05] MEDS: hydrOXYzine PAM 25 MG Capsule 50 MG PO ×2 (07:51→21:16)
[2022-11-05] MEDS: Acetaminophen 325 MG Tablet 650 MG PO (07:52)
[2022-11-05] MEDS: Benztropine 2 MG Tablet 1 MG PO (07:52)
[2022-11-05] MEDS: Gabapentin 300 MG Capsule PO ×2 (07:52→21:17)
[2022-11-05] MEDS: OXcarbazepine 150 MG Tablet PO ×2 (07:53→21:18)
[2022-11-05] MEDS: Pantoprazole Sodium 40 MG Tablet PO ×2 (07:53→21:17)
--- NOTE | 2022-11-05 08:38 | PCM.PN.HOSP ---
Reason for Visit Reason for Visit: Diagnoses Opioid use, unspecified with withdrawal (11/03/22) Subjective Subjective Less itchy today, overall feeling better. Objective Data Objective Data Vital Signs: Vital Signs Temp Pulse Resp BP Pulse Ox O2 Del Method 97.9 F 51 L 16 115/87 H 99 Room Air 11/05/22 08:07 11/05/22 08:07 11/05/22 08:07 11/05/22 08:07 11/05/22 08:07 11/05/22 08:07 Oxygen Delivery Method Room Air Weight: 59 kg Body Mass Index (BMI) 19.8 Intake & Output: Intake and Output for Last 24 Hours 11/03/22 11/04/22 11/05/22 23:59 23:59 23:59 Intake Total 440 / 440 2750 / 2750 Balance 440 / 440 2750 / 2750 Lab / Micro Data Result Diagrams: 11/03/22 20:40 11/03/22 20:40 Labs: Laboratory Results - last 24 hr 11/03/22 21:04: Vitamin B12 419 11/03/22 21:04: Hep Bs Antigen Non-Reactive, Hep Bs Antibody Non-Reactive 11/03/22 21:04: Hepatitis C Antibody REACTIVE Physical Exam Narrative General: Alert, oriented, no apparent distress HEENT: Atraumatic, normocephalic Eyes: extraocular movements grossly intact Neck: Supple Respiratory: normal respiratory effort Cardiovascular: no edema appreciated GI: nondistended Extremities: Moving all extremities Neuro: No overt focal neurological deficits Psych: Cooperative Assessment & Plan Assessment/Plan (1) Opiate withdrawal: PLAN: Plan #Acute opiate withdrawal - Subutex taper initiated - As needed Tylenol, ibuprofen, bowel regimen, gabapentin, Bentyl, Vistaril, clonidine - As needed trazodone nightly - As needed antiemetics -He will follow-up with Dr. Steinberg as an outpatient, appointment on Sunday 11/05: Plan to discharge on with a dose of Suboxone prior to discharge #Schizophrenia -Continue gabapentin 300 twice daily, Trileptal 150 twice daily, and stripping 1 mg, fluphenazine 5 mg daily, hydroxyzine 50 twice daily #Hepatitis C -Outpatient follow-up once appropriate #DVT ppx: Low risk encourage ambulation Mica Valadez MD Charges/Coding Visit Charges Inpatient E&M: 32108 Subs Hosp L1
[2022-11-05] MEDS: traZODone 100 MG Tablet PO (22:00)
[2022-11-06 03:20] VITALS: BP 130/92; PULSE 66; RESP 14; TEMP 36.6; O2SAT 97
[2022-11-06] MEDS: Sucralfate 1 GM Tablet PO ×4 (06:17→21:31)
[2022-11-06 07:50] VITALS: O2SAT 97
[2022-11-06 08:25] VITALS: BP 153/80; PULSE 92; RESP 18; TEMP 37; O2SAT 97
--- NOTE | 2022-11-06 08:36 | NURSING ---
in to assess patient. noted breakfast tray at bedside. pt easily awakens introduced self asked about getting vital signs. pt hostile aggitated. agreeable to vitals but demands lets get them over with I'm starving assessment completed denies all s/s withdrawl while patient eating. coke given as patient requesting. pt verbalized he does have court date today but verbalized his expectations are to stay until he can go to an inpt facility. pt denies all further needs. call light within reach.
--- NOTE | 2022-11-06 09:27 | PCM.PN.HOSP ---
Reason for Visit Reason for Visit: Diagnoses Opioid use, unspecified with withdrawal (11/03/22) Subjective Subjective Withdrawal symptoms continue to improve Objective Data Objective Data Vital Signs: Vital Signs Temp Pulse Resp BP Pulse Ox O2 Del Method 98.6 F 92 18 153/80 H 97 Room Air 11/06/22 08:25 11/06/22 08:25 11/06/22 08:25 11/06/22 08:25 11/06/22 08:25 11/06/22 08:25 Oxygen Delivery Method Room Air Weight: 59 kg Body Mass Index (BMI) 19.8 Intake & Output: Intake and Output for Last 24 Hours 11/04/22 11/05/22 11/06/22 23:59 23:59 23:59 Intake Total 2750 / 2750 Balance 2750 / 2750 Lab / Micro Data Result Diagrams: 11/03/22 20:40 11/03/22 20:40 Physical Exam Narrative General: Alert, oriented, no apparent distress HEENT: Atraumatic, normocephalic Eyes: extraocular movements grossly intact Neck: Supple Respiratory: normal respiratory effort Cardiovascular: no edema appreciated GI: nondistended Extremities: Moving all extremities Neuro: No overt focal neurological deficits Psych: Cooperative Assessment & Plan Assessment/Plan (1) Opiate withdrawal: PLAN: Plan #Acute opiate withdrawal - Subutex taper initiated - As needed Tylenol, ibuprofen, bowel regimen, gabapentin, Bentyl, Vistaril, clonidine - As needed trazodone nightly - As needed antiemetics -He will follow-up with Dr. Steinberg as an outpatient, appointment on Sunday 11/05: Plan to discharge on with a dose of Suboxone prior to discharge -11/06: Plan to DC tomorrow with 1 more dose of Suboxone and follow-up outpatient on Friday #Schizophrenia -Continue gabapentin 300 twice daily, Trileptal 150 twice daily, and stripping 1 mg, fluphenazine 5 mg daily, hydroxyzine 50 twice daily #Hepatitis C -Outpatient follow-up once appropriate #DVT ppx: Low risk encourage ambulation Mica Valadez MD Charges/Coding Visit Charges Inpatient E&M: 81790 Subs Hosp L1
[2022-11-06] MEDS: hydrOXYzine PAM 25 MG Capsule 50 MG PO ×2 (10:13→21:34)
[2022-11-06] MEDS: Benztropine 2 MG Tablet 1 MG PO (10:13)
[2022-11-06] MEDS: Pantoprazole Sodium 40 MG Tablet PO ×2 (10:13→21:31)
[2022-11-06] MEDS: Gabapentin 300 MG Capsule PO ×2 (10:13→21:35)
[2022-11-06] MEDS: Buprenorphine HCl 2 MG TAB.SUBL SL (10:15)
[2022-11-06] MEDS: OXcarbazepine 150 MG Tablet PO ×2 (10:16→21:31)
[2022-11-06 14:25] VITALS: BP 142/80; PULSE 90; RESP 18; TEMP 36.9; O2SAT 97
[2022-11-06 14:46] LABS: Amphetamine Urine VISTA POSITIVE (<1000 ng/mL); Barbiturate Urine VISTA NEGATIVE (< 200 ng/mL); Benzodiazepine Urine VISTA NEGATIVE (< 200 ng/mL); Cocaine Urine VISTA NEGATIVE (< 300 ng/mL); Ecstacy Urine VISTA POSITIVE (< 500 ng/mL); Methadone Urine VISTA NEGATIVE (< 300 ng/mL); PCP Urine VISTA NEGATIVE (< 25 ng/mL); THC Urine VISTA POSITIVE (< 50 ng/mL); Vista UDS pH Range 7
[2022-11-06 21:30] VITALS: BP 124/87; PULSE 76; RESP 17; TEMP 36.4; O2SAT 95
[2022-11-06] MEDS: traZODone 100 MG Tablet PO (21:34)
[2022-11-07] MEDS: Sucralfate 1 GM Tablet PO ×2 (04:13→09:25)
[2022-11-07 04:21] VITALS: BP 120/85; PULSE 84; RESP 17; TEMP 37.4; O2SAT 96
[2022-11-07 09:22] VITALS: BP 138/98; PULSE 85; RESP 18; TEMP 36.9; O2SAT 97
[2022-11-07] MEDS: Pantoprazole Sodium 40 MG Tablet PO (09:25)
[2022-11-07] MEDS: Benztropine 2 MG Tablet 1 MG PO (09:25)
[2022-11-07] MEDS: OXcarbazepine 150 MG Tablet PO (09:26)
[2022-11-07] MEDS: hydrOXYzine PAM 25 MG Capsule 50 MG PO (09:30)
[2022-11-07] MEDS: Gabapentin 300 MG Capsule PO (09:30)
--- NOTE | 2022-11-07 10:01 | NURSING ---
talked with patient as unit received phone call from a women identifying herself as a sister Sheyla Chavarria at [phone] and requesting staff to ask patient about putting her on demographics as a contact able to receive information. pt verbalized that's whom I have to contact when I am discharged. explained to patient that when he receives his discharge paperwork he will regain access to belongings and phone to call her if he wishes regarding a ride, but we need to know if he wishes to add her to his demographics as a person able to be given information. pt states no.
--- NOTE | 2022-11-07 10:56 | DCINST_ITS ---
Discharge Instructions Diet Discharge Diet: No restrictions Activity Discharge Activity: Return to Normal Activity Follow Up Care Test Results: Test results from this visit will be discussed in further detail at your follow- up appointment, if applicable. Discharge Plan Admission Admit Date/Time: 11/03/22 20:37 Primary Reason for Your Visit: Substance Use Attending Provider: Mica Valadez Primary Care Provider: Isiah Jansen Consulting Providers: Carmen Abreu Instructions Patient Instructions: ED Opiate Abuse Discharge Orders/Prescriptions Prescriptions: Continued fluphenazine HCl 5 mg tablet 5 mg PO DAILY benztropine 1 mg tablet 1 mg PO DAILY gabapentin 300 mg capsule 300 mg PO BID oxcarbazepine 150 mg tablet 150 mg PO BID Qty: 60 4RF hydroxyzine pamoate [Vistaril] 50 MG capsule 50 mg PO BID sucralfate 1 gram Tablet 1 g PO 1HR_ACHS 30 Days Qty: 120 0RF pantoprazole [Protonix] 40 mg tablet,delayed release (DR/EC) 40 mg PO BID Discontinued sulfamethoxazole-trimethoprim [Bactrim DS] 800-160 mg tablet 1 tab PO BID 10 Days Qty: 20 0RF cephalexin 500 mg capsule 500 mg PO Q6 Qty: 40 0RF Referrals / Follow Up: Isiah Jansen MD [Primary Care Provider] - Within 1 Week Disposition Disposition (needs filled in before D/C Order can be placed): Home, Self Care
--- NOTE | 2022-11-07 11:02 | DS.PCM_ITS ---
Providers Date of Admission: 11/03/22 Date of Discharge: 11/07/22 Primary Care Physician: Dr. Isiah Jansen MD Reason For Visit: OPIATE ABUSE, WITHDRAWAL Diagnosis Discharge Diagnosis (1) Opiate withdrawal: Status: Acute Code(s): F11.93 - Opioid use, unspecified with withdrawal Plan #Acute opiate withdrawal #Schizophrenia #Hepatitis C Medications at Discharge Home Medications hydroxyzine pamoate 50 mg capsule (Vistaril) 50 mg PO BID mental health 01/27/20 benztropine 1 mg tablet 1 mg PO DAILY 02/17/20 fluphenazine HCl 5 mg tablet 5 mg PO DAILY mental health 02/17/20 sucralfate 1 gram tablet 1 g PO 1HR_ACHS 30 days #120 tabs 12/15/20 pantoprazole 40 mg tablet,delayed release (Protonix) 40 mg PO BID 01/24/21 gabapentin 300 mg capsule 300 mg PO BID 10/16/21 oxcarbazepine 150 mg tablet 150 mg PO BID #60 tabs 10/16/21 Hospital Course Summary of Care Provided Minutes Spent on Discharge: 20 Hospital Course: The patient is a 42 y/o M w/ PMHx: Chronic normocytic anemia, Significant polysubstance abuse including prior IV drug abuse with history of hepatitis C remotely with no prior treatment history currently using fentanyl snorted approximately 1 g daily, GERD, Chronic headaches, Tobacco use, Schizophren ia/Anxiety and Depression/Bipolar disorder/Multiple personality disorder, Asthma, Chronic back pain with radiculopathy/neuropathy associated who presents to the [facility] ED on 11/03/22 w/ history of opiate overdose which was witnessed with EMS call and Narcan administration and transition to the ED for evaluation. He requested detox and was admitted under the wrap program and Subutex taper initiated. His home medications for his schizophrenia were continued and his hospital stay was unremarkable. On day of discharge she was given 1 more dose of Subutex and has an appointment tomorrow with Dr. Steinberg. Patient is aware. No complaints on day of discharge. Physical Exam Narrative General: Alert, oriented, no apparent distress HEENT: Atraumatic, normocephalic Eyes: extraocular movements grossly intact Neck: Supple Respiratory: normal respiratory effort Cardiovascular: no edema appreciated GI: nondistended Extremities: Moving all extremities Neuro: No overt focal neurological deficits Psych: Cooperative Weight / BMI Weight Weight: 59 kg Body Mass Index (BMI) 19.8 ABG / Lab / Microbiology Data Result Diagrams: 11/03/22 20:40 11/03/22 20:40 Laboratory: Laboratory Results - last 24 hr 11/03/22 14:25: Urine Opiates Screen NEGATIVE, Urine Methadone Screen NEGATIVE, Ur Barbiturates Screen NEGATIVE, Ur Phencyclidine Scrn NEGATIVE, Ur Amphetamines Screen POSITIVE H, MDMA (Ecstasy) Screen POSITIVE H, U Benzodiazepines Scrn NEGATIVE, Urine Cocaine Screen NEGATIVE, U Cannabinoids Screen POSITIVE H, Ur Drug Screen Comment D/C Instructions Discharge Diet: No restrictions Meaningful Use Info Meaningful Use Diagnoses (Choose all that apply): None applicable Discharge Plan Admission Admit Date/Time: 11/03/22 20:37 Primary Reason for Your Visit: Substance Use Attending Provider: Mica Valadez Primary Care Provider: Isiah Jansen Consulting Providers: Carmen Abreu Instructions Patient Instructions: ED Opiate Abuse Discharge Orders/Prescriptions Prescriptions: Continued fluphenazine HCl 5 mg tablet 5 mg PO DAILY benztropine 1 mg tablet 1 mg PO DAILY gabapentin 300 mg capsule 300 mg PO BID oxcarbazepine 150 mg tablet 150 mg PO BID Qty: 60 4RF hydroxyzine pamoate [Vistaril] 50 MG capsule 50 mg PO BID sucralfate 1 gram Tablet 1 g PO 1HR_ACHS 30 Days Qty: 120 0RF pantoprazole [Protonix] 40 mg tablet,delayed release (DR/EC) 40 mg PO BID Discontinued sulfamethoxazole-trimethoprim [Bactrim DS] 800-160 mg tablet 1 tab PO BID 10 Days Qty: 20 0RF cephalexin 500 mg capsule 500 mg PO Q6 Qty: 40 0RF Referrals / Follow Up: Isiah Jansen MD [Primary Care Provider] - 11/14/22 10:00 am Disposition Disposition (needs filled in before D/C Order can be placed): Home, Self Care Charges/Coding Visit Charges Inpatient E&M: 64137 Disch Hosp
[2022-11-07] MEDS: Buprenorphine HCl 2 MG TAB.SUBL SL (11:25)
== END 2022-11-07 11:35 | disposition home or self-care (01) ==
LOC: ED 21:07 → MS3 21:12
PROVIDERS: Physician Assistant; Admitting Provider Family Medicine; Emergency Provider Emergency Medicine; PCP Family Medicine; Visit Provider Internal Medicine
DX: T40.414A Poisoning by fentanyl or fentanyl analogs, undetermined, initial encounter (principal); F20.9 Schizophrenia, unspecified; F11.23 Opioid dependence with withdrawal; F19.19 Other psychoactive substance abuse with unspecified psychoactive substance-induced disorder; F31.9 Bipolar disorder, unspecified; F44.81 Dissociative identity disorder; F17.210 Nicotine dependence, cigarettes, uncomplicated; J45.909 Unspecified asthma, uncomplicated; K21.9 Gastro-esophageal reflux disease without esophagitis; F41.9 Anxiety disorder, unspecified; Z79.899 Other long term (current) drug therapy; R73.9 Hyperglycemia, unspecified; D64.9 Anemia, unspecified; G62.9 Polyneuropathy, unspecified
CPT/HCPCS: 80048; 80076; 80307; 82077; 82607; 82728; 82746; 83036; 83540; 83550; 85025; 86703; 86706; 86803; 87340; 99285; H0012; J7120

== ENCOUNTER 2022-11-15 19:57 | Observation (INO) | payer MEDICAID, SELFPAY ==
[2022-11-15 20:00] VITALS: BP 135/96; PULSE 107; RESP 15; TEMP 37.2; O2SAT 98; BMI 21.1
--- NOTE | 2022-11-15 20:58 | EX.ED.SAOD ---
HPI History of Present Illness Chief Complaint: Substance Abuse Informant: patient Narrative Narrative: Patient requesting detox from opiates. He snorts them, he does not use any IV drugs now. He states he needs to be away from them and wants help quitting. He recently was here but left AGAINST MEDICAL ADVICE and regrets it and wants another chance. Denies any suicidality. He has a history of schizophrenia states he has been compliant with his medications, and has had no issues there recently. Denies any recent illness or injury. States the last use of drugs was 2 or 3 days ago, he feels like he is in withdrawal and wants help. He states when he was here recently, he was getting Subutex in the hospital and it really helped. [facility] Medical History Anxiety and depression Asthma Compartment syndrome of right lower extremity Frequent headaches Gastric reflux Hearing problem Hepatitis C Heroin abuse History of back problems IVDU (intravenous drug user) Marijuana use Migraine headache Neuropathy Neuropraxia of left lower extremity Open wound of right lower leg Overdose of fentanyl Schizophrenia Tobacco use Vision problem Vitamin deficiency Wears glasses Home Medications hydroxyzine pamoate 50 mg capsule (Vistaril) 50 mg PO BID mental health 01/27/20 [History Last Taken Unknown] benztropine 1 mg tablet 1 mg PO DAILY 02/17/20 [History Last Taken Unknown] fluphenazine HCl 5 mg tablet 5 mg PO DAILY mental health 02/17/20 [History Last Taken Unknown] sucralfate 1 gram tablet 1 g PO 1HR_ACHS 30 days #120 tabs 12/15/20 [Rx Last Taken Unknown] pantoprazole 40 mg tablet,delayed release (Protonix) 40 mg PO BID 01/24/21 [History Last Taken Unknown] gabapentin 300 mg capsule 300 mg PO BID 10/16/21 [History Last Taken Unknown] oxcarbazepine 150 mg tablet 150 mg PO BID #60 tabs 10/16/21 [Rx Last Taken Unknown] Allergy/AdvReac Type Severity Reaction Status Date / Time No Known Allergies Allergy Verified 11/15/22 20:03 Family History Mother Hypertension High cholesterol Heart disease Diabetes Depression Cancer Mental disorder Myocardial infarction CVA (cerebral vascular accident) Breast cancer Asthma Arthritis Anxiety Alcoholism Father Hypertension High cholesterol Heart disease Diabetes Depression Cancer Mental disorder Myocardial infarction CVA (cerebral vascular accident) Asthma Arthritis Anxiety Alcoholism Surgical History H/O hernia repair History of fasciotomy Social History (Updated 11/15/22 @ 21:[address] Shaila Recinos DO) household members: none Smoking Status: Current every day smoker tobacco type: cigarettes alcohol intake: never substance use type: marijuana, amphetamines, opiates, IV drugs and methamphetamine ROS ROS ED Constitutional Constitutional ED: Denies chills or fever(s) Eyes Eyes: Denies change in vision or diplopia ENT ENT ED: Denies rhinorrhea or sore throat Cardiovascular Cardiovascular: Denies chest pain or palpitations Respiratory/Chest Respiratory/Chest: Denies cough or dyspnea Gastrointestinal Gastrointestinal: Reports abdominal pain and diarrhea; Denies nausea or vomiting Genitourinary Genitourinary ED: Denies dysuria or hematuria Musculoskeletal Musculoskeletal: Denies back pain or neck pain Integumentary Denies abscess or rash Neurologic Neurologic: Denies headache(s), paresthesias or weakness Psychiatric Psychiatric: Reports anxiety; Denies suicidal thoughts EXAM Physical Exam Const Vital Signs: 11/15/22 20:00 Temperature 98.9 F Temperature Source Temporal Pulse Rate 107 H Respiratory Rate 15 Blood Pressure 135/96 H Blood Pressure Mean 109 Pulse Ox 98 Oxygen Delivery Method Room Air Positive well nourished and well developed Constitutional Narrative: Well-appearing General Appearance ED: well developed and NAD HEENT Reports moist mucous membranes normocephalic and atraumatic Eyes PERRL and EOMs intact bilaterally Eyes Narrative: Disconjugate gaze Neck full ROM and supple Resp normal respiratory effort and clear to auscultation bilaterally Cardio regular rate, regular rhythm and no murmurs GI non-tender and non-distended Auscultation: normoactive bowel sounds Palpation: soft Back/Spine no CVA tenderness General Back: other FROM Extremity normal to inspection General Extremety ED: Negative for edema, pulses abnormal or tenderness General Extremity: Negative for edema or pulses abnormal Neuro oriented x3, CN's II-XII intact bilaterally and no sensory deficits noted Sensorium / Orientation: awake and alert Motor Exam: strength 5/5 throughout Skin no rashes or lesions noted and no wounds MDM MDM MDM Narrative Medical decision making narrative: I offered the patient a short prescription of Suboxone to get him through the weekend until he can follow-up with 180. He appreciated this, he prefers to be admitted for detox. Will discuss with hospitalist. Lab Data Attestation: I reviewed the patient's lab results. Labs: Laboratory Results - last 24 hr 11/15/22 11/15/22 21:12 21:12 WBC 9.2 RBC 4.89 Hgb 13.4 Hct 41.6 MCV 85.1 MCH 27.4 MCHC 32.2 RDW Std Deviation 48.8 H RDW Coeff of Neftali 15.8 H Plt Count 428 MPV 9.1 Immature Gran % (Auto) 0.200 Neut % (Auto) 67.1 Lymph % (Auto) 25.5 [place] % (Auto) 5.7 Eos % (Auto) 1.1 Baso % (Auto) 0.4 Absolute Neuts (auto) 6.2 Absolute Lymphs (auto) 2.35 Nucleated RBC % 0 Sodium 139 Potassium 3.3 L Chloride 103 Carbon Dioxide 31.0 Anion Gap 5 BUN 9 Creatinine 1.08 Estim Creat Clear Calc 80.27 Est GFR (MDRD) Af Amer 97 Est GFR (MDRD) Non-Af 80 BUN/Creatinine Ratio 8.3 L Glucose 98 Calcium 9.0 Total Bilirubin 0.30 AST 15 ALT 18 Alkaline Phosphatase 65 Total Protein 7.9 Albumin 3.8 Globulin 4.1 Albumin/Globulin Ratio 0.9 Management Discussion w/another healthcare provider: Hospitalist Discharge Plan Triage Chief Complaint: Substance Abuse ED Provider: Rufus Lester Dx/Rx/DC Orders Clinical Impression: Opiate dependence Prescriptions: No Action fluphenazine HCl 5 mg tablet 5 mg PO DAILY benztropine 1 mg tablet 1 mg PO DAILY gabapentin 300 mg capsule 300 mg PO BID oxcarbazepine 150 mg tablet 150 mg PO BID Qty: 60 4RF hydroxyzine pamoate [Vistaril] 50 MG capsule 50 mg PO BID sucralfate 1 gram Tablet 1 g PO 1HR_ACHS 30 Days Qty: 120 0RF pantoprazole [Protonix] 40 mg tablet,delayed release (DR/EC) 40 mg PO BID Primary Care Provider: Isiah Jansen Referrals: Isiah Jansen MD [Primary Care Provider] - Disposition Disposition: Acute Care [facility]
--- NOTE | 2022-11-15 21:18 | HP.PCM.HOS_ITS ---
HPI - General General Date of Admission: 11/15/22 Date of Service: 11/15/22 Chief Complaint: Desire for opiate detox HPI Narrative DAMARI ROBLES, is a 42 M who presented to the emergency department at [facility] on 11/15/2022 requesting detox from opiates. Patient had a recent admission here from 11/03/2022 through 11/07/2022 and followed up as an outpatient at [facility] but there apparently some issues and he went back to using im mediately after discharge. He did NOT leave AGAINST MEDICAL ADVICE as documented previously. He has been using since he was 9 years old. Currently using about 1 g at least daily. Has known history of hepatitis C and has previous IVDU but currently is snorting fentanyl. Also admits to concomitant methamphetamine and THC abuse. His last use was 2 days ago and he is currently experiencing body aches, chills, nausea but no vomiting, and general malaise. Vital signs on presentation are as follows temperature 98.9, blood pressure 135/96, heart rate 107, respiratory rate 15, oxygen saturations are 98% on room air. CBC is unremarkable. Chemistry panel is pending. Alcohol level is pending. [facility] Medical History Anxiety and depression Asthma Compartment syndrome of right lower extremity Frequent headaches Gastric reflux Hearing problem Hepatitis C Heroin abuse History of back problems IVDU (intravenous drug user) Marijuana use Migraine headache Neuropathy Neuropraxia of left lower extremity Open wound of right lower leg Overdose of fentanyl Schizophrenia Tobacco use Vision problem Vitamin deficiency Wears glasses Home Medications hydroxyzine pamoate 50 mg capsule (Vistaril) 50 mg PO BID mental health 01/27/20 [History Last Taken Unknown] benztropine 1 mg tablet 1 mg PO DAILY 02/17/20 [History Last Taken Unknown] fluphenazine HCl 5 mg tablet 5 mg PO DAILY mental health 02/17/20 [History Last Taken Unknown] sucralfate 1 gram tablet 1 g PO 1HR_ACHS 30 days #120 tabs 12/15/20 [Rx Last Taken Unknown] pantoprazole 40 mg tablet,delayed release (Protonix) 40 mg PO BID 01/24/21 [History Last Taken Unknown] gabapentin 300 mg capsule 300 mg PO BID 10/16/21 [History Last Taken Unknown] oxcarbazepine 150 mg tablet 150 mg PO BID #60 tabs 10/16/21 [Rx Last Taken Unknown] Allergy/AdvReac Type Severity Reaction Status Date / Time No Known Allergies Allergy Verified 11/15/22 20:03 Family History Mother Hypertension High cholesterol Heart disease Diabetes Depression Cancer Mental disorder Myocardial infarction CVA (cerebral vascular accident) Breast cancer Asthma Arthritis Anxiety Alcoholism Father Hypertension High cholesterol Heart disease Diabetes Depression Cancer Mental disorder Myocardial infarction CVA (cerebral vascular accident) Asthma Arthritis Anxiety Alcoholism Surgical History H/O hernia repair History of fasciotomy Social History (Updated 11/15/22 @ 21:[address] Shaila Recinos DO) household members: none Smoking Status: Current every day smoker tobacco type: cigarettes alcohol intake: never substance use type: marijuana, amphetamines, opiates, IV drugs and methamphetamine ROS Constitutional Constitutional: Reports chills, fatigue and malaise; Denies anorexia, change in weight, fever(s), night sweats, weakness or other Eyes Eyes: Denies blurry vision, change in eye color, change in vision, discharge fr om eye(s), double vision, erythema, eye pain, loss of vision or other ENT HEENT: Denies abnormal hearing, dysphagia, ear pain, epistaxis, headache(s), hearing loss, nasal congestion, nasal discharge, post nasal drip, sinus pressure, sore throat or other Cardiovascular Cardiovascular: Denies chest pain, claudication, dyspnea on exertion, edema, lightheadedness, orthopnea, palpitations, paroxysmal nocturnal dyspnea, rapid heart rate, syncope or other Respiratory/Chest Respiratory/Chest: Denies cough, dyspnea, excessive phlegm production, hemoptysis, productive cough, shortness of breath at rest, shortness of breath with exertion, wheezing or other Gastrointestinal Gastrointestinal: Reports nausea and other Details: Abdominal cramping ; Denies abdominal pain, coffee ground emesis, constipation, diarrhea, dyspepsia, hematemesis, hematochezia, loose stools, melena or vomiting Genitourinary Genitourinary: Denies burning urination, difficulty urinating, dysuria, hematuria, nocturia, urinary frequency, urinary hesitancy, urinary incontinence, urinary urgency or other Musculoskeletal Musculoskeletal: Reports myalgias; Denies arthralgias, back pain, joint pain, joint stiffness, joint swelling, neck pain or other Neurologic Neurologic: Denies abnormal gait, abnormal speech, confusion, disequilibrium, dizziness, focal weakness, headache(s), numbness, paresthesias, seizure-like activity, seizures, syncope, tingling, tremor(s) or other Psychiatric Psychiatric: Reports anxiety and depression; Denies homicidal ideation, suicidal ideation or other Endocrine Endocrinology: Denies change in body appearance, cold intolerance, excessive sweating, heat intolerance, polydipsia, polyuria or other Hematologic/Lymphatic Hematologic/Lymphatic: Denies anemia, easy bleeding, easy bruising, lymphadenopathy or other Allergic/Immunologic Allergic/Immunologic: Denies rhinitis, hives, eczemia, asthma or other Vital Signs Vital Signs Vital Signs: 11/15/22 20:00 Temperature 98.9 F Temperature Source Temporal Pulse Rate 107 H Respiratory Rate 15 Blood Pressure 135/96 H Blood Pressure Mean 109 Pulse Ox 98 Oxygen Delivery Method Room Air Weight Weight: 63.049 kg Body Mass Index (BMI) 21.1 Physical Exam Const alert, oriented x3, no apparent distress and well nourished Constitutional Narrative: Middle-aged white male sitting up in bed, eating dinner and watching television, appears comfortable and nontoxic at this time, appears much older than stated age. HEENT normocephalic, head/scalp atraumatic, hearing grossly normal bilaterally and moist oral mucous membranes HEENT Narrative: Dentition is poor, Mallampati is 2, no thrush Eyes PERRL, EOMs intact bilaterally and conjunctivae normal Eyes Narrative: No scleral icterus Neck no lymphadenopathy and supple Neck Narrative: Trachea midline, no thyroid enlargement Resp normal respiratory effort, no retractions, no use of accessory muscles and clear to auscultation bilaterally Resp Narrative: Diffusely diminished but clear Auscultation: rales and rhonchi; Negative for wheezes Cardio regular rhythm, S1 normal heart sound, S2 normal heart sound, no murmurs, no rub, no gallops and no clicks Cardio Narrative: Mild tachycardia GI normal to inspection, nondistended, normoactive bowel sounds, soft to palpation and non-tender Extremity no clubbing, cyanosis or edema Extremity Narrative: 2+ pedal pulses Skin no rashes or lesions noted, no wounds, skin turgor normal, no jaundice, no petechiae and no mottling Skin Narrative: No track marquez noted Neuro oriented x3, CN's II-XII intact bilaterally, moves all extremities and no focal motor deficits Speech: speech normal Psych Psych Narrative: Affect is slightly flat but eye contact is good Assessment & Plan Assessment/Plan (1) Opiate dependence: (2) Opiate withdrawal: PLAN: Plan Opiate abuse with acute withdrawal -Uses approximately 1 g a day -Has been abusing opiates since he was 9 years old -Has never been sober -Was discharged here on 11/07/2022 and evidently there were some issues at [facility] so he went home and started using -Last use was 2 days ago -Currently having withdrawal symptoms -Start Subutex taper per [facility] protocol -Supportive medications as ordered -180 consultation History of hepatitis C -Patient antibody positive -Check viral load -If viral load positive then patient can attain sobriety Dr. Steinberg could potentially start antiviral medication Polysubstance abuse -Patient uses opiates as noted above but in addition also reports methamphetamine abuse and marijuana abuse History of normocytic anemia -Hemoglobin was 12.6 at his last admission -CBC for this admission is currently pending -No signs of acute blood loss Schizophrenia/anxiety/depression/bipolar/multiple personality disorder -Continue home outpatient medication regimen -Ongoing psychiatric follow-up after discharge GERD -Continue Carafate and PPI -Patient denies history of gastritis or peptic ulcer disease Chronic back pain with lumbar radiculopathy -Continue home gabapentin as ordered Tobacco abuse -Encouraged cessation -Continue nicotine replacement DVT prophylaxis -Low risk -Early ambulation CODE STATUS Full code Charges/Coding Visit Charges Inpatient E&M: 26484 Init Hosp L2
[2022-11-15 21:22] LABS: Absolute Lymphocyte Count 2.35 X10^3/uL (0.83-4.51); Absolute Neutrophil Count 6.2 X10^3/uL (2.0-7.7); Basophil# 0.04 X10^3/uL; Basophil% 0.4 % (0-1); Eosinophils% 1.1 % (0-5); Hematocrit 41.6 % (40-54); Hemoglobin 13.4 g/dL (13.0-16.5); Lymphocyte # 2.35 X10^3/ul (0.83-4.51); Lymphocyte % 25.5 % (19-41); Mean Corp Hgb Conc 32.2 g/dL (32-36); Mean Corpuscular Hgb 27.4 pg (27.0-32.0); Mean Corpuscular Volume 85.1 fL (80-94); Mean Platelet Vol. 9.1 fl (6.2-12.0); Monocyte# 0.53 X10^3/uL; Monocyte% 5.7 % (0-10); NRBC Flagged by Analyzer 0 % (0-5); Neutrophil # 6.18 X10^3/uL (2.7-7.7); Neutrophil % 67.1 % (47-70); Platelet Count 428 K/mm3 (150-450); RBC Distribution Width CV 15.8 % (11.6-14.6); RBC Distribution Width SD 48.8 fl (35.1-43.9); Red Blood Count 4.89 M/mm3 (4.6-6.2); White Blood Count 9.2 K/mm3 (4.4-11.0)
[2022-11-15 21:40] LABS: ALB/GLOB Ratio 0.9 RATIO (0.9-2.4); AST(SGOT) 15 U/L (15-37); Alanine Aminotransfer ALT/SGPT 18 U/L (16-61); Albumin, Serum 3.8 g/dL (3.2-5.0); Alkaline Phosphatase 65 U/L (45-117); Anion Gap 5 (5-15); BUN 9 mg/dL (7-18); BUN/Creat Ratio 8.3 RATIO (10-20); Chloride 103 mmol/L (98-107); Creatinine, Serum 1.08 mg/dL (0.70-1.30); EST Glomerular Filtration Rate 80 mL/min (>60); Est Glom Filt Rate - Afr Amer 97 mL/min (>60); Estimated Creatinine Clearance 80.27 ml/min; Globulin 4.1 g/dL (2.2-4.2); Glucose 98 mg/dL (74-106); Potassium 3.3 mmol/L (3.5-5.1); Protein, Total 7.9 g/dL (6.4-8.2); Sodium Level 139 mmol/L (136-145)
[2022-11-15 22:24] VITALS: BP 134/94; PULSE 95; RESP 18; TEMP 37.1; O2SAT 97
[2022-11-15 22:35] LABS: Alcohol, Blood (Medical)-Serum < 3.0 mg/dL
[2022-11-15 23:16] VITALS: BP 134/107; PULSE 86; RESP 18; TEMP 37.1; O2SAT 100
[2022-11-15 23:18] VITALS: BMI 20.7
[2022-11-15] MEDS: Sucralfate 1 GM Tablet PO (23:49)
[2022-11-15] MEDS: Potassium Chloride Oral Tablet 20 MEQ 40 MEQ PO (23:50)
[2022-11-15] MEDS: hydrOXYzine PAM 25 MG Capsule 50 MG PO (23:50)
[2022-11-15] MEDS: Gabapentin 300 MG Capsule PO (23:50)
[2022-11-15] MEDS: Methocarbamol 750 MG Tablet 1500 MG PO (23:50)
[2022-11-15] MEDS: Pantoprazole Sodium 40 MG Tablet PO (23:50)
[2022-11-15] MEDS: Buprenorphine HCl 2 MG TAB.SUBL SL (23:50)
[2022-11-15] MEDS: Ondansetron 8 MG Tablet PO (23:50)
[2022-11-15] MEDS: traZODone 100 MG Tablet PO (23:51)
[2022-11-16] MEDS: OXcarbazepine 150 MG Tablet PO ×3 (00:49→22:58)
[2022-11-16 03:36] VITALS: BP 147/99; PULSE 75; RESP 18; TEMP 36.6; O2SAT 97
[2022-11-16] MEDS: cloNIDine HCl 0.1 MG Tablet PO (03:44)
[2022-11-16] MEDS: Acetaminophen 325 MG Tablet 650 MG PO (03:45)
[2022-11-16] MEDS: Dicyclomine 10 MG Capsule 20 MG PO (03:45)
[2022-11-16 06:48] VITALS: BP 120/88; PULSE 78; RESP 18; TEMP 36.6; O2SAT 97
[2022-11-16] MEDS: Sucralfate 1 GM Tablet PO ×4 (06:54→22:57)
[2022-11-16] MEDS: Buprenorphine HCl 2 MG TAB.SUBL SL ×3 (06:54→22:58)
[2022-11-16 07:40] VITALS: O2SAT 93
[2022-11-16 08:35] LABS: Amphetamine Urine VISTA POSITIVE (<1000 ng/mL); Barbiturate Urine VISTA NEGATIVE (< 200 ng/mL); Benzodiazepine Urine VISTA NEGATIVE (< 200 ng/mL); Cocaine Urine VISTA NEGATIVE (< 300 ng/mL); Ecstacy Urine VISTA POSITIVE (< 500 ng/mL); Methadone Urine VISTA NEGATIVE (< 300 ng/mL); PCP Urine VISTA NEGATIVE (< 25 ng/mL); THC Urine VISTA POSITIVE (< 50 ng/mL); Vista UDS pH Range 7
[2022-11-16 10:29] VITALS: BP 112/71; PULSE 65; RESP 16; TEMP 36.8; O2SAT 98
[2022-11-16] MEDS: Pantoprazole Sodium 40 MG Tablet PO ×2 (10:42→22:58)
[2022-11-16] MEDS: Benztropine Mesylate 0.5 MG TABLET 1 MG PO (10:42)
[2022-11-16] MEDS: Gabapentin 300 MG Capsule PO ×2 (10:43→22:58)
[2022-11-16] MEDS: hydrOXYzine PAM 25 MG Capsule 50 MG PO ×2 (10:43→23:03)
--- NOTE | 2022-11-16 12:26 | ADDICTION ---
TW met with pt to complete ASAM, AUDIT, DUDIT, MSE, fill out ALEKSANDR, and begin D/C planning. Pt stated he completed an assessment at [facility] last week and is interested in MAT. TW reached out to [facility] medical department to work on getting him established on MAT/Sublocade.
--- NOTE | 2022-11-16 13:02 | PN_ITS ---
Subjective Subjective Patient seen and examined. HE had no active complaints and had an uneventful night. He denied any tremors or shakes, nausea or vomiting. REview of systems is otherwise negative. Objective Data Objective Data Vital Signs: Vital Signs Temp Pulse Resp BP Pulse Ox O2 Del Method 98.2 F 65 16 112/71 98 Room Air 11/16/22 10:29 11/16/22 10:29 11/16/22 10:29 11/16/22 10:29 11/16/22 10:29 11/16/22 10:29 Oxygen Delivery Method Room Air Weight: 136 lb 10.986 oz Body Mass Index (BMI) 20.7 Intake & Output: Intake and Output for Last 24 Hours 11/14/22 11/15/22 11/16/22 23:59 23:59 23:59 Intake Total 1000 / 1000 Output Total 0 / 0 Balance 1000 / 1000 Lab / Micro Data Result Diagrams: 11/15/22 21:12 11/15/22 21:12 Labs: Laboratory Results - last 24 hr 11/15/22 21:12: WBC 9.2, RBC 4.89, Hgb 13.4, Hct 41.6, MCV 85.1, MCH 27.4, MCHC 32.2, RDW Std Deviation 48.8 H, RDW Coeff of Neftali 15.8 H, Plt Count 428, MPV 9.1, Immature Gran % (Auto) 0.200, Neut % (Auto) 67.1, Lymph % (Auto) 25.5, [place] % (Auto) 5.7, Eos % (Auto) 1.1, Baso % (Auto) 0.4, Absolute Neuts (auto) 6.2, Absolute Lymphs (auto) 2.35, Nucleated RBC % 0 11/15/22 21:12: Sodium 139, Potassium 3.3 L, Chloride 103, Carbon Dioxide 31.0, Anion Gap 5, BUN 9, Creatinine 1.08, Estim Creat Clear Calc 80.27, Est GFR (MDRD) Af Amer 97, Est GFR (MDRD) Non-Af 80, BUN/Creatinine Ratio 8.3 L, Glucose 98, Calcium 9.0, Total Bilirubin 0.30, AST 15, ALT 18, Alkaline Phosphatase 65, Total Protein 7.9, Albumin 3.8, Globulin 4.1, Albumin/Globulin Ratio 0.9 11/15/22 21:12: Ethyl Alcohol < 3.0 11/16/22 08:14: Urine Opiates Screen NEGATIVE, Urine Methadone Screen NEGATIVE, Ur Barbiturates Screen NEGATIVE, Ur Phencyclidine Scrn NEGATIVE, Ur Amphetamines Screen POSITIVE H, MDMA (Ecstasy) Screen POSITIVE H, U Benzodiazepines Scrn NEGATIVE, Urine Cocaine Screen NEGATIVE, U Cannabinoids Screen POSITIVE H, Ur Drug Screen Comment Physical Exam Const alert, oriented x3 and no apparent distress General Appearance: cooperative HEENT normocephalic, head/scalp atraumatic, moist oral mucous membranes and oropharynx normal Eyes PERRL and EOMs intact bilaterally Neck supple Lymph Lymphatic: no lymphadenopathy noted and no lymphedema noted Resp normal respiratory effort, normal air movement and clear to auscultation bilaterally Effort and Inspection: tachypneic and respiratory distress Cardio regular rate, regular rhythm, S1 normal heart sound, S2 normal heart sound and no murmurs GI normal to inspection, nondistended, normoactive bowel sounds, soft to palpation, non-tender and non-distended Extremity normal capillary refill, no clubbing, cyanosis or edema and no calf tenderness Skin General Skin Exam: no breakdown and turgor normal Neuro CN's II-XII intact bilaterally, no focal motor deficits, no sensory deficits noted and deep tendon reflexes 2+ bilaterally Motor Exam: strength 5/5 throughout Psych thought process normal and cooperative Assessment & Plan Assessment/Plan (1) Opiate withdrawal: PLAN: Plan #Acute opiate withdrawal * on opioid withdrawal protocol with buprenorphine * monitor CIWA score * adjunctive meds for symptomatic relief * #History of hepatitis C * Hep C antibody was positive. * check viral load. * to be referred to gastroenterology on outpatient basis for further workup. * #Polysubstance abuse * also uses methamphetamine and marijuana abuse as well as opiates. * counseled to quit * #History of normocytic anemia: stable. #GERD: on carafate and PPI #Chronic back pain with lumbar radiculopathy: on gabapentin #Nicotine dependence: on nicotine replacement #Schizophrenia and anxiety as well as depression and bipolar disorder * on benztropine, oxcarbazepine and fluphenazine * DVT prophylaxis; low risk, encourage to ambulate. Total time spent on evaluation and management of patient, reviewing chart and specialist notes, discussing plan with patient and his , discussion with nursing and ancillary staff as well as documentation: 42 mins Charges/Coding Visit Charges Inpatient E&M: 27837 Subs Hosp L2
[2022-11-16 14:03] VITALS: BP 108/74; PULSE 67; RESP 16; TEMP 37; O2SAT 98
[2022-11-16] MEDS: traZODone 100 MG Tablet PO (23:03)
[2022-11-17] MEDS: Buprenorphine HCl 2 MG TAB.SUBL SL ×2 (07:09→15:18)
[2022-11-17] MEDS: Sucralfate 1 GM Tablet PO ×4 (07:09→22:28)
[2022-11-17 07:13] VITALS: O2SAT 95
[2022-11-17] MEDS: Gabapentin 300 MG Capsule PO ×2 (08:02→22:28)
[2022-11-17] MEDS: hydrOXYzine PAM 25 MG Capsule 50 MG PO ×2 (08:02→22:28)
[2022-11-17] MEDS: Pantoprazole Sodium 40 MG Tablet PO ×2 (08:03→22:28)
[2022-11-17] MEDS: Benztropine Mesylate 0.5 MG TABLET 1 MG PO (08:03)
[2022-11-17] MEDS: OXcarbazepine 150 MG Tablet PO ×2 (08:03→22:29)
[2022-11-17 08:15] VITALS: BP 129/80; PULSE 58; RESP 18; TEMP 37.1; O2SAT 97
--- NOTE | 2022-11-17 12:13 | PCM.PROGNOTE ---
Subjective Subjective Patient seen and examined. He has no complaints today and had an uneventful night. His withdrawal symptoms have improved. Review of symptoms otherwise negative. He has remained hemodynamically stable. Objective Data Objective Data Vital Signs: Vital Signs Temp Pulse Resp BP Pulse Ox O2 Del Method 98.8 F 58 L 18 129/80 H 97 Room Air 11/17/22 08:15 11/17/22 08:15 11/17/22 08:15 11/17/22 08:15 11/17/22 08:15 11/17/22 08:15 Oxygen Delivery Method Room Air Weight: 136 lb 10.986 oz Body Mass Index (BMI) 20.7 Intake & Output: Intake and Output for Last 24 Hours 11/15/22 11/16/22 11/17/22 23:59 23:59 23:59 Intake Total 1000 / 1000 Output Total 0 / 0 Balance 1000 / 1000 Lab / Micro Data Result Diagrams: 11/15/22 21:12 11/15/22 21:12 Physical Exam Const alert, oriented x3, no apparent distress and well nourished General Appearance: cooperative HEENT normocephalic, head/scalp atraumatic, hearing grossly normal bilaterally, moist oral mucous membranes and oropharynx normal Eyes PERRL, EOMs intact bilaterally and conjunctivae normal Neck no lymphadenopathy, supple and thyroid normal Neck Narrative: Trachea midline, no thyroid enlargement Lymph Lymphatic: no lymphadenopathy noted and no lymphedema noted Resp normal respiratory effort, normal air movement, no retractions, no use of accessory muscles and clear to auscultation bilaterally Effort and Inspection: tachypneic and respiratory distress Auscultation: rales and rhonchi; Negative for wheezes Cardio regular rhythm, S1 normal heart sound, S2 normal heart sound, no murmurs, no rub, no gallops and no clicks Cardio Narrative: mild bradycardia GI normal to inspection, nondistended, normoactive bowel sounds, soft to palpation, non-tender and non-distended Extremity normal capillary refill, no clubbing, cyanosis or edema and no calf tenderness Extremity Narrative: 2+ pedal pulses Skin no rashes or lesions noted, no wounds, skin turgor normal, no jaundice, no petechiae and no mottling General Skin Exam: no breakdown and turgor normal Neuro oriented x3, CN's II-XII intact bilaterally, moves all extremities, no focal motor deficits, no sensory deficits noted and deep tendon reflexes 2+ bilaterally Speech: speech normal Motor Exam: strength 5/5 throughout Psych thought process normal and cooperative Appearance: appropriate Assessment & Plan Assessment/Plan (1) Opiate withdrawal: PLAN: Plan #Acute opiate withdrawal on opioid withdrawal protocol with buprenorphine monitor CIWA score adjunctive meds for symptomatic relief #History of hepatitis C Hep C antibody was positive. to be referred to gastroenterology on outpatient basis for further workup. #Polysubstance abuse also uses methamphetamine and marijuana abuse as well as opiates. counseled to quit #History of normocytic anemia: stable. #GERD: on carafate and PPI #Chronic back pain with lumbar radiculopathy: on gabapentin #Nicotine dependence: on nicotine replacement #Schizophrenia and anxiety as well as depression and bipolar disorder on benztropine, oxcarbazepine and fluphenazine DVT prophylaxis; low risk, encourage to ambulate. Total time spent on evaluation and management of patient, reviewing chart and specialist notes, discussing plan with patient, discussion with nursing and ancillary staff as well as documentation:37 mins Disposition; for DC home tomorrow if he remains hemodynamically stable. Charges/Coding Visit Charges Inpatient E&M: 82533 Subs Hosp L2
[2022-11-17 15:25] VITALS: BP 129/83; PULSE 60; RESP 18; TEMP 37.1; O2SAT 97
[2022-11-17 23:50] VITALS: BP 118/72; PULSE 62; RESP 16; TEMP 36.9; O2SAT 98
[2022-11-18] MEDS: Buprenorphine HCl 2 MG TAB.SUBL SL ×2 (00:32→12:08)
[2022-11-18] MEDS: Sucralfate 1 GM Tablet PO ×2 (06:45→12:08)
[2022-11-18] MEDS: Gabapentin 300 MG Capsule PO (09:43)
[2022-11-18] MEDS: Pantoprazole Sodium 40 MG Tablet PO (09:43)
[2022-11-18] MEDS: Benztropine Mesylate 0.5 MG TABLET 1 MG PO (09:44)
[2022-11-18] MEDS: OXcarbazepine 150 MG Tablet PO (09:44)
[2022-11-18] MEDS: hydrOXYzine PAM 25 MG Capsule 50 MG PO (09:45)
[2022-11-18 09:51] VITALS: BP 133/89; PULSE 69; RESP 18; TEMP 36.8; O2SAT 97
--- NOTE | 2022-11-18 11:13 | DCINST_ITS ---
Discharge Instructions Diet Discharge Diet: No restrictions Activity Discharge Activity: Return to Normal Activity Weight Bearing Status: Full weight bearing Follow Up Care Test Results: Test results from this visit will be discussed in further detail at your follow- up appointment, if applicable. Discharge Plan Admission Admit Date/Time: 11/15/22 21:14 Primary Reason for Your Visit: opiate withdrawal Attending Provider: Isiah Waterman Primary Care Provider: Isiah Jansen Consulting Providers: Shaila Recinos ; Elana Wilson Instructions Additional Instructions / Restrictions: Follow-up with outpatient detox services as directed Discharge Orders/Prescriptions Prescriptions: Continued fluphenazine HCl 5 mg tablet 5 mg PO DAILY benztropine 1 mg tablet 1 mg PO DAILY gabapentin 300 mg capsule 300 mg PO BID oxcarbazepine 150 mg tablet 150 mg PO BID Qty: 60 4RF hydroxyzine pamoate [Vistaril] 50 MG capsule 50 mg PO BID sucralfate 1 gram Tablet 1 g PO 1HR_ACHS 30 Days Qty: 120 0RF pantoprazole [Protonix] 40 mg tablet,delayed release (DR/EC) 40 mg PO BID Referrals / Follow Up: Isiah Jansen MD [Primary Care Provider] - Disposition Disposition (needs filled in before D/C Order can be placed): Home, Self Care
--- NOTE | 2022-11-18 11:16 | PCM.DC.SUM ---
Providers Date of Admission: 11/15/22 Date of Discharge: 11/18/22 Primary Care Physician: Dr. Isiah Jansen MD Reason For Visit: OPIATE DETOX Diagnosis Discharge Diagnosis (1) Opiate withdrawal: Status: Acute Code(s): F11.93 - Opioid use, unspecified with withdrawal Plan 1. Acute opiate withdrawal #2 polysubstance abuse #3 chronic back pain with lumbar radiculopathy #4 schizophrenia Medications at Discharge Home Medications hydroxyzine pamoate 50 mg capsule (Vistaril) 50 mg PO BID mental health 01/27/20 benztropine 1 mg tablet 1 mg PO DAILY Check with primary doctor 02/17/20 fluphenazine HCl 5 mg tablet 5 mg PO DAILY mental health 02/17/20 sucralfate 1 gram tablet 1 g PO 1HR_ACHS 30 days #120 tabs 12/15/20 pantoprazole 40 mg tablet,delayed release (Protonix) 40 mg PO BID stomach 01/24/21 gabapentin 300 mg capsule 300 mg PO BID Check with primary doctor 10/16/21 oxcarbazepine 150 mg tablet 150 mg PO BID #60 tabs 10/16/21 buprenorphine 8 mg-naloxone 2 mg sublingual film (Suboxone) 1 film buccal DAILY 2 days #2 ea 11/19/22 Hospital Course Operations None Procedures None Summary of Care Provided Minutes Spent on Discharge: 31 Hospital Course: This 42-year-old white male was seen in the emergency room at [facility] requesting detox services for opiate addiction, patient had a recent admission in October 2022. Patient was placed in observation status on MedSurg 3, orders were entered using the opiate detox order set, patient had no untoward events during his hospitalization. Patient was seen by addiction socially responsible investment adviser and arrangements were made for follow-up with the local outpatient detox facility. On 11/18/2022, patient was seen and examined: On examination he appeared in good health and spirits. Vital signs as documented. Skin warm and dry and without overt rashes. Neck without JVD, neck was supple, trachea midline, thyroid was normal. Lungs clear bilaterally, normal air movement was noted. Heart exam notable for regular rhythm, normal sounds and absence of murmurs, rubs or gallops. Abdomen unremarkable and without evidence of organomegaly, masses, or abdominal aortic enlargement. Bowel sounds are present, abdomen is not distended. Extremities nonedematous, no cyanosis was noted, no clubbing was noted. Neuro: Cranial nerves II through XII are grossly intact, no focal motor deficits were noted, sensation to light touch and pinprick intact, motor exam 5/5 throughout. Psych: Patient is alert and oriented x3, he does not appear anxious or depressed, he does not appear agitated. Patient was discharged to home in stable condition on 11/18/2022. Weight / BMI Weight Weight: 62 kg Body Mass Index (BMI) 20.7 ABG / Lab / Microbiology Data Result Diagrams: 11/15/22 21:12 11/15/22 21:12 D/C Instructions Discharge Diet: No restrictions Weight Bearing Status: Full weight bearing Meaningful Use Info Meaningful Use Diagnoses (Choose all that apply): None applicable Discharge Plan Admission Admit Date/Time: 11/15/22 21:14 Primary Reason for Your Visit: opiate withdrawal Attending Provider: Isiah Waterman Primary Care Provider: Isiah Jansen Consulting Providers: Shaila Recinos ; Elana Wilson Instructions Additional Instructions / Restrictions: Follow-up with outpatient detox services as directed Discharge Orders/Prescriptions Prescriptions: Continued fluphenazine HCl 5 mg tablet 5 mg PO DAILY benztropine 1 mg tablet 1 mg PO DAILY gabapentin 300 mg capsule 300 mg PO BID oxcarbazepine 150 mg tablet 150 mg PO BID Qty: 60 4RF hydroxyzine pamoate [Vistaril] 50 MG capsule 50 mg PO BID sucralfate 1 gram Tablet 1 g PO 1HR_ACHS 30 Days Qty: 120 0RF pantoprazole [Protonix] 40 mg tablet,delayed release (DR/EC) 40 mg PO BID No Action buprenorphine-naloxone [Suboxone] 8-2 mg film 1 film buccal DAILY 2 Days Qty: 2 0RF Referrals / Follow Up: Isiah Jansen MD [Primary Care Provider] - Disposition Disposition (needs filled in before D/C Order can be placed): Home, Self Care Charges/Coding Visit Charges Inpatient E&M: 81704 Disch Hosp >30min
--- NOTE | 2022-11-18 11:25 | PHA.DC.MR ---
Pharmacy Service has performed discharge medication reconciliation for this patient. The patient's discharge medication list was reviewed for discrepancies and discrepancies were resolved. Home Medications hydroxyzine pamoate 50 mg capsule (Vistaril) 50 mg PO BID mental health 01/27/20 benztropine 1 mg tablet 1 mg PO DAILY Check with primary doctor 02/17/20 fluphenazine HCl 5 mg tablet 5 mg PO DAILY mental health 02/17/20 sucralfate 1 gram tablet 1 g PO 1HR_ACHS 30 days #120 tabs 12/15/20 pantoprazole 40 mg tablet,delayed release (Protonix) 40 mg PO BID stomach 01/24/21 gabapentin 300 mg capsule 300 mg PO BID Check with primary doctor 10/16/21 oxcarbazepine 150 mg tablet 150 mg PO BID #60 tabs 10/16/21
[2022-11-18 15:08] LABS: HCV Quant. RNA PCR 140 IU/mL (.)
[2022-11-18 15:41] LABS: HCV log 10 2.146 (.)
== END 2022-11-18 14:10 | disposition home or self-care (01) ==
LOC: ED 22:12 → MS3 11-16 07:19
PROVIDERS: Admitting Provider Internal Medicine; Emergency Provider Emergency Medicine; PCP Family Medicine; Visit Provider Internal Medicine
DX: F11.23 Opioid dependence with withdrawal (principal); F20.9 Schizophrenia, unspecified; F31.9 Bipolar disorder, unspecified; F12.10 Cannabis abuse, uncomplicated; F15.90 Other stimulant use, unspecified, uncomplicated; K21.9 Gastro-esophageal reflux disease without esophagitis; M54.16 Radiculopathy, lumbar region; Z79.899 Other long term (current) drug therapy; Z86.19 Personal history of other infectious and parasitic diseases; D64.9 Anemia, unspecified; G89.29 Other chronic pain; F17.210 Nicotine dependence, cigarettes, uncomplicated; F41.9 Anxiety disorder, unspecified
CPT/HCPCS: 36415; 80053; 80307; 82077; 85025; 87522; 94668; 99283; H0012

== ENCOUNTER 2022-11-19 15:01 | Emergency (ER) | payer MEDICAID, SELFPAY ==
[2022-11-19 15:02] VITALS: BP 137/87; PULSE 80; RESP 18; TEMP 37.2; O2SAT 100; BMI 21.4
--- NOTE | 2022-11-19 15:05 | EX.ED.DYSGE1 ---
HPI History of Present Illness Chief Complaint: Substance Abuse Narrative Narrative: 42 here requesting bridge suboxone script for 2 days. Notes MAT appointment on 11/21. NOtes some nausea, diarrhrea otherwise no CP, Back pain, fever or syncope. no IVDU endorsed. Prior similar symptoms: Yes Recent Illness/Hospitalization: Yes [facility] Medical History Anxiety and depression Asthma Compartment syndrome of right lower extremity Frequent headaches Gastric reflux Hearing problem Hepatitis C Heroin abuse History of back problems IVDU (intravenous drug user) Marijuana use Migraine headache Neuropathy Neuropraxia of left lower extremity Open wound of right lower leg Overdose of fentanyl Schizophrenia Tobacco use Vision problem Vitamin deficiency Wears glasses Home Medications hydroxyzine pamoate 50 mg capsule (Vistaril) 50 mg PO BID mental health 01/27/20 [History Last Taken 11/14/22] benztropine 1 mg tablet 1 mg PO DAILY Check with primary doctor 02/17/20 [History Last Taken 11/14/22] fluphenazine HCl 5 mg tablet 5 mg PO DAILY mental health 02/17/20 [History Last Taken 11/14/22] sucralfate 1 gram tablet 1 g PO 1HR_ACHS 30 days #120 tabs 12/15/20 [Rx Last Taken 11/14/22] pantoprazole 40 mg tablet,delayed release (Protonix) 40 mg PO BID stomach 01/24/21 [History Last Taken 11/14/22] gabapentin 300 mg capsule 300 mg PO BID Check with primary doctor 10/16/21 [History Last Taken 11/14/22] oxcarbazepine 150 mg tablet 150 mg PO BID #60 tabs 10/16/21 [Rx Last Taken 11/14/22] buprenorphine 8 mg-naloxone 2 mg sublingual film (Suboxone) 1 film buccal DAILY 2 days #2 ea 11/19/22 [Rx Last Taken Unknown] Allergy/AdvReac Type Severity Reaction Status Date / Time No Known Allergies Allergy Verified 11/19/22 15:05 Family History Mother Hypertension High cholesterol Heart disease Diabetes Depression Cancer Mental disorder Myocardial infarction CVA (cerebral vascular accident) Breast cancer Asthma Arthritis Anxiety Alcoholism Father Hypertension High cholesterol Heart disease Diabetes Depression Cancer Mental disorder Myocardial infarction CVA (cerebral vascular accident) Asthma Arthritis Anxiety Alcoholism Surgical History H/O hernia repair History of fasciotomy Social History (Updated 11/15/22 @ 21:[address] Shaila Recinos DO) household members: none Smoking Status: Current every day smoker tobacco type: cigarettes alcohol intake: never substance use type: marijuana, amphetamines, opiates, IV drugs and methamphetamine ROS ROS ED Eyes Eyes: Denies other visual disturbances ENT ENT ED: Denies ear pain Cardiovascular Cardiovascular: Denies chest pain Respiratory/Chest Respiratory/Chest: Denies dyspnea Gastrointestinal Gastrointestinal: Reports diarrhea and nausea Genitourinary Genitourinary ED: Denies dysuria Musculoskeletal Musculoskeletal: Denies joint pain Integumentary Denies rash Neurologic Neurologic: Denies dizziness, focal weakness, numbness, syncope or weakness Psychiatric Psychiatric: Denies homicidal ideation or suicidal ideation EXAM Physical Exam Const Vital Signs: 11/19/22 15:02 Temperature 99 F Temperature Source Temporal Pulse Rate 80 Respiratory Rate 18 Blood Pressure 137/87 H Blood Pressure Mean 103 Pulse Ox 100 Oxygen Delivery Method Room Air Negative for alert or oriented x3 General Appearance ED: Negative for comfortable Orientation / Consciousness: Negative for awake HEENT Denies normocephalic Face and Sinus: Negative for face symmetric External Ear: Negative for external ears normal Mouth ED: No moist mucous membranes normal Throat: Negative for posterior oropharynx normal Eyes Negative for PERRL or EOMs intact bilaterally Neck No full ROM Carotids: other Other Details: no carotid bruits Chest Wall Negative for inspection of chest normal Resp No normal respiratory effort, No no retractions, No no use of accessory muscles and No clear to auscultation bilaterally Cardio Negative for no murmurs or peripheral pulses 2+ throughout GI Negative for no bruits GI Narrative: no pulsatile abdominal masses Negative for no CVA tenderness Back/Spine Cervical Spine: Negative for cervical ROM normal Extremity Negative for normal to inspection or full ROM MDM MDM MDM Narrative Medical decision making narrative: 42 M here for bridge suboxone script. complains of nausea otherwise no complaints. No back pain. No fever. No CP. He was HDS, afebrile, non-toxic appearing. Exam benign. He was given bridge script for 2 days of suboxone. He has f/u on 11/21 without outpatient MAT program. Discharge Plan Triage Chief Complaint: Substance Abuse ED Provider: Aman Chang Dx/Rx/DC Orders Clinical Impression: Opiate dependence Instructions: ED Opiate Abuse Prescriptions: New buprenorphine-naloxone [Suboxone] 8-2 mg film 1 film buccal DAILY 2 Days Qty: 2 0RF No Action fluphenazine HCl 5 mg tablet 5 mg PO DAILY benztropine 1 mg tablet 1 mg PO DAILY gabapentin 300 mg capsule 300 mg PO BID oxcarbazepine 150 mg tablet 150 mg PO BID Qty: 60 4RF hydroxyzine pamoate [Vistaril] 50 MG capsule 50 mg PO BID sucralfate 1 gram Tablet 1 g PO 1HR_ACHS 30 Days Qty: 120 0RF pantoprazole [Protonix] 40 mg tablet,delayed release (DR/EC) 40 mg PO BID Primary Care Provider: Isiah Jansen Referrals: Isiah Jansen MD [Primary Care Provider] - Disposition Disposition: Home, Self Care
== END 2022-11-19 15:45 | disposition home or self-care (01) ==
LOC: ED 15:32
PROVIDERS: Emergency Provider Emergency Medicine; PCP Family Medicine; Visit Provider Emergency Medicine
DX: F11.20 Opioid dependence, uncomplicated (principal); F12.90 Cannabis use, unspecified, uncomplicated; F17.210 Nicotine dependence, cigarettes, uncomplicated
CPT/HCPCS: 99282

== ENCOUNTER → 2022-12-25 | Outpatient (CLI) | payer MEDICAID, SELFPAY ==
[2022-12-25 14:52] LABS: Absolute Lymphocyte Count 1.87 X10^3/uL (0.83-4.51); Absolute Neutrophil Count 2.8 X10^3/uL (2.0-7.7); Basophil# 0.03 X10^3/uL; Basophil% 0.6 % (0-1); Eosinophil# 0.22 X10^3/uL; Eosinophils% 4.1 % (0-5); Hematocrit 35.1 % (40-54); Hemoglobin 11.2 g/dL (13.0-16.5); Lymphocyte # 1.87 X10^3/ul (0.83-4.51); Lymphocyte % 35.1 % (19-41); Mean Corp Hgb Conc 31.9 g/dL (32-36); Mean Corpuscular Hgb 27.9 pg (27.0-32.0); Mean Corpuscular Volume 87.5 fL (80-94); Mean Platelet Vol. 10.7 fl (6.2-12.0); Monocyte# 0.39 X10^3/uL; Monocyte% 7.3 % (0-10); NRBC Flagged by Analyzer 0 % (0-5); Neutrophil # 2.81 X10^3/uL (2.7-7.7); Neutrophil % 52.7 % (47-70); Platelet Count 269 K/mm3 (150-450); RBC Distribution Width SD 45.1 fl (35.1-43.9); Red Blood Count 4.01 M/mm3 (4.6-6.2); White Blood Count 5.3 K/mm3 (4.4-11.0)
[2022-12-25 15:53] LABS: ALB/GLOB Ratio 1.1 RATIO (0.9-2.4); AST(SGOT) 17 U/L (15-37); Alanine Aminotransfer ALT/SGPT 20 U/L (16-61); Albumin, Serum 3.5 g/dL (3.2-5.0); Alkaline Phosphatase 45 U/L (45-117); Anion Gap 7 (5-15); BUN 5 mg/dL (7-18); BUN/Creat Ratio 4.6 RATIO (10-20); Calcium,Total 8.2 mg/dL (8.5-10.1); Chloride 105 mmol/L (98-107); Creatinine, Serum 1.09 mg/dL (0.70-1.30); EST Glomerular Filtration Rate 79 mL/min (>60); Est Glom Filt Rate - Afr Amer 96 mL/min (>60); Globulin 3.1 g/dL (2.2-4.2); Glucose 126 mg/dL (74-106); Potassium 3.8 mmol/L (3.5-5.1); Protein, Total 6.6 g/dL (6.4-8.2); Sodium Level 139 mmol/L (136-145); T4 Free Direct 0.95 ng/dL (0.76-1.46); Thyroid Stim Hormone (TSH) 0.92 uIU/mL (0.358-3.74)
[2022-12-25 16:21] LABS: HIV - WCH Non-Reactive (Nonreactive); Hepatitis B Surface Antibody Non-Reactive; Hepatitis B Surface Antigen Non-Reactive (Nonreactive)
[2022-12-27 19:07] LABS: HCV Quant. RNA PCR 170 IU/mL (.); Hepatitis A AB, Total Positive (Negative)
== END | disposition home or self-care (01) ==
PROVIDERS: PCP Family Medicine; Referring Provider Registered Nurse; Visit Provider Registered Nurse
DX: F11.20 Opioid dependence, uncomplicated (principal)
CPT/HCPCS: 36415; 80053; 84439; 84443; 85025; 86703; 86706; 86708; 87340; 87522

== ENCOUNTER 2023-02-10 19:15 | Inpatient (IN) | payer MEDICAID, SELFPAY ==
[2023-02-10 19:16] VITALS: BP 134/102; PULSE 105; RESP 16; TEMP 36.5; O2SAT 99; BMI 22.8
--- NOTE | 2023-02-10 19:56 | EDS_ITS ---
HPI History of Present Illness Chief Complaint: Substance Abuse Informant: patient Narrative Narrative: Patient is here requesting detox. He states he uses heroin. He also does use methamphetamines. He uses about a gram of heroin a day. He just overdosed a few days ago which scared him. He had to be given Narcan. He does inject. He also snorts. He has had problems with injections but it was many years ago. He has a scar in his left arm related to a needle breaking off infection that had to be treated. He also had an episode years ago where he passed out and overdosed and when he woke up his right lower leg was swollen it sounds like he had a fasciotomies to prevent loss of his leg. He has no physical complaints now but he just usually before coming in. But when he does not use he gets nausea vomiting diarrhea shaky anxious and just feels sick and achy all over. He last went through detox about 2 months ago. He did not stay clean for a long period he really does not drink alcohol. [facility] Medical History Anxiety and depression Asthma Compartment syndrome of right lower extremity Frequent headaches Gastric reflux Hearing problem Hepatitis C Heroin abuse History of back problems IVDU (intravenous drug user) Marijuana use Migraine headache Neuropathy Neuropraxia of left lower extremity Open wound of right lower leg Overdose of fentanyl Schizophrenia Tobacco use Vision problem Vitamin deficiency Wears glasses Home Medications hydroxyzine pamoate 50 mg capsule (Vistaril) 50 mg PO BID mental health 01/27/20 [History Last Taken 11/14/22] benztropine 1 mg tablet 1 mg PO DAILY Check with primary doctor 02/17/20 [History Last Taken 11/14/22] fluphenazine HCl 5 mg tablet 5 mg PO DAILY mental health 02/17/20 [History Last Taken 11/14/22] sucralfate 1 gram tablet 1 g PO 1HR_ACHS 30 days #120 tabs 12/15/20 [Rx Last Taken 11/14/22] pantoprazole 40 mg tablet,delayed release (Protonix) 40 mg PO BID stomach 01/24/21 [History Last Taken 11/14/22] gabapentin 300 mg capsule 300 mg PO BID Check with primary doctor 10/16/21 [History Last Taken 11/14/22] oxcarbazepine 150 mg tablet 150 mg PO BID #60 tabs 10/16/21 [Rx Last Taken 11/14/22] buprenorphine 8 mg-naloxone 2 mg sublingual film (Suboxone) 1 film buccal DAILY 2 days #2 ea 11/19/22 [Rx Last Taken Unknown] Allergy/AdvReac Type Severity Reaction Status Date / Time No Known Allergies Allergy Verified 02/10/23 19:17 Family History Mother Hypertension High cholesterol Heart disease Diabetes Depression Cancer Mental disorder Myocardial infarction CVA (cerebral vascular accident) Breast cancer Asthma Arthritis Anxiety Alcoholism Father Hypertension High cholesterol Heart disease Diabetes Depression Cancer Mental disorder Myocardial infarction CVA (cerebral vascular accident) Asthma Arthritis Anxiety Alcoholism Surgical History H/O hernia repair History of fasciotomy Social History household members: none Smoking Status: Current every day smoker tobacco type: cigarettes alcohol intake: never substance use type: marijuana, amphetamines, opiates, IV drugs and methamphetamine ROS ROS ED ROS Narrative A complete review of systems was performed and is negative except as documented in the history of present illness. Some specific details below. Constitutional: No recent fevers or chills. No malaise. EYE: No visual complaints or pain. ENT: No difficulty swallowing. No swelling. No pain. CV: No chest pain or palpitations. Respiratory: No dyspnea. No hemoptysis. No difficulty taking breaths. GI: No nausea vomiting diarrhea now but it does occur if he stops using. : No frequency dysuria or hematuria. Musculoskeletal: No recent trauma. No pains. Skin: No rash. Nondiaphoretic. He denies recent infections. Neuro: No weakness or numbness. Endocrine: No polyuria or polydipsia. EXAM Physical Exam Narrative Exam Narrative: CONSTITUTIONAL: Patient is nontoxic in appearance. The patient looks comfortable. HEENT: No notable trauma. Mucous membranes moist. No sinus tenderness. No indication of pain with swallowing. EYES: No conjunctival injection. No proptosis. CARDIOVASCULAR: Regular rate. Regular rhythm. I do not hear a murmur. Current rates about 90-100 RESPIRATORY: No respiratory distress. Breathing is unlabored. No wheezes. No rhonchi. No rales. No pain with a deep breath. GASTROINTESTINAL: Not distended. Bowel sounds are normal. No tenderness. No guarding. No rebound. No palpable mass. No bruit. GENITOURINARY: No tenderness over the bladder. No CVA tenderness. MUSCULOSKELETAL: Atraumatic. No peripheral edema. No cord. No tenderness along the deep venous system. No asymmetry. NEUROLOGICAL: Patient is alert and appropriate. No focal deficit noted. SKIN: No noted rashes. No diaphoresis. He has track marquez mostly in his left antecubital fossa. He has a large healed scar in the left upper arm and the right lower leg bilaterally. PSYCHIATRIC: Patient is calm. Mood is appropriate. Const Vital Signs: 02/10/23 19:16 Temperature 97.7 F L Temperature Source Temporal Pulse Rate 105 H Respiratory Rate 16 Blood Pressure 134/102 H Blood Pressure Mean 112 Pulse Ox 99 Oxygen Delivery Method Room Air MDM MDM MDM Narrative Medical decision making narrative: Patient CBC is overall normal. Patient's electrolytes show relatively low potassium at 2.9. He denies having vomiting or diarrhea recently but does get this if he withdraws. Glucose is a little bit low but he is also very thin. He denies vomiting he denies diabetes. He is awake and alert. Liver function test showed no marked abnormalities. Urine toxicology screen is positive for MDMA, methamphetamines, cannabinoids. Alcohol is negative. Patient has a history of fentanyl and opioid abuse. He does inject. No sign of active infection. Case discussed with hospitalist. I did replace his potassium. Patient will be admitted Lab Data Attestation: I reviewed the patient's lab results. Labs: Laboratory Results - last 24 hr 02/10/23 02/10/23 20:20 20:30 WBC 10.1 RBC 5.04 Hgb 14.1 Hct 42.8 MCV 84.9 MCH 28.0 MCHC 32.9 RDW Std Deviation 41.9 RDW Coeff of Neftali 13.4 Plt Count 234 MPV 10.1 Immature Gran % (Auto) 0.400 Neut % (Auto) 69.7 Lymph % (Auto) 19.8 [place] % (Auto) 6.8 Eos % (Auto) 2.9 Baso % (Auto) 0.4 Absolute Neuts (auto) 7.0 Absolute Lymphs (auto) 2.00 Nucleated RBC % 0 Sodium 134 L Potassium 2.9 L Chloride 96 L Carbon Dioxide 32.0 Anion Gap 6 BUN 9 Creatinine 1.18 Estim Creat Clear Calc 79.28 Est GFR (MDRD) Af Amer 87 Est GFR (MDRD) Non-Af 72 BUN/Creatinine Ratio 7.6 L Glucose 60 L Calcium 9.1 Total Bilirubin 0.40 AST 17 ALT 18 Alkaline Phosphatase 47 Total Protein 7.3 Albumin 3.8 Globulin 3.5 Albumin/Globulin Ratio 1.1 Urine Opiates Screen NEGATIVE Urine Methadone Screen NEGATIVE Ur Barbiturates Screen NEGATIVE Ur Phencyclidine Scrn NEGATIVE Ur Amphetamines Screen POSITIVE H MDMA (Ecstasy) Screen POSITIVE H U Benzodiazepines Scrn NEGATIVE Urine Cocaine Screen NEGATIVE U Cannabinoids Screen POSITIVE H Ur Drug Screen Comment Ethyl Alcohol < 3.0 Management Discussion w/another healthcare provider: Hospitalist Discharge Plan Triage Chief Complaint: Substance Abuse ED Provider: Dawit Mckinney Dx/Rx/DC Orders Clinical Impression: Methamphetamine abuse, Opioid abuse, Desire for detoxification, Hypokalemia Prescriptions: No Action fluphenazine HCl 5 mg tablet 5 mg PO DAILY benztropine 1 mg tablet 1 mg PO DAILY gabapentin 300 mg capsule 300 mg PO BID oxcarbazepine 150 mg tablet 150 mg PO BID Qty: 60 4RF hydroxyzine pamoate [Vistaril] 50 MG capsule 50 mg PO BID sucralfate 1 gram Tablet 1 g PO 1HR_ACHS 30 Days Qty: 120 0RF pantoprazole [Protonix] 40 mg tablet,delayed release (DR/EC) 40 mg PO BID buprenorphine-naloxone [Suboxone] 8-2 mg film 1 film buccal DAILY 2 Days Qty: 2 0RF Primary Care Provider: Isiah Jansen Referrals: Isiah Jansen MD [Primary Care Provider] - Disposition Disposition: Acute Care Hospital [facility]
[2023-02-10 20:33] LABS: Basophil# 0.04 X10^3/uL; Basophil% 0.4 % (0-1); Eosinophil# 0.29 X10^3/uL; Eosinophils% 2.9 % (0-5); Hematocrit 42.8 % (40-54); Hemoglobin 14.1 g/dL (13.0-16.5); Lymphocyte % 19.8 % (19-41); Mean Corp Hgb Conc 32.9 g/dL (32-36); Mean Corpuscular Volume 84.9 fL (80-94); Mean Platelet Vol. 10.1 fl (6.2-12.0); Monocyte# 0.69 X10^3/uL; Monocyte% 6.8 % (0-10); NRBC Flagged by Analyzer 0 % (0-5); Neutrophil # 7.02 X10^3/uL (2.7-7.7); Neutrophil % 69.7 % (47-70); Platelet Count 234 K/mm3 (150-450); RBC Distribution Width CV 13.4 % (11.6-14.6); RBC Distribution Width SD 41.9 fl (35.1-43.9); Red Blood Count 5.04 M/mm3 (4.6-6.2); White Blood Count 10.1 K/mm3 (4.4-11.0)
[2023-02-10 20:49] LABS: Alcohol, Blood (Medical)-Serum < 3.0 mg/dL
[2023-02-10 20:55] LABS: ALB/GLOB Ratio 1.1 RATIO (0.9-2.4); AST(SGOT) 17 U/L (15-37); Alanine Aminotransfer ALT/SGPT 18 U/L (16-61); Albumin, Serum 3.8 g/dL (3.2-5.0); Alkaline Phosphatase 47 U/L (45-117); Anion Gap 6 (5-15); BUN 9 mg/dL (7-18); BUN/Creat Ratio 7.6 RATIO (10-20); Calcium,Total 9.1 mg/dL (8.5-10.1); Chloride 96 mmol/L (98-107); Creatinine, Serum 1.18 mg/dL (0.70-1.30); EST Glomerular Filtration Rate 72 mL/min (>60); Est Glom Filt Rate - Afr Amer 87 mL/min (>60); Estimated Creatinine Clearance 79.28 ml/min; Globulin 3.5 g/dL (2.2-4.2); Glucose 60 mg/dL (74-106); Potassium 2.9 mmol/L (3.5-5.1); Protein, Total 7.3 g/dL (6.4-8.2); Sodium Level 134 mmol/L (136-145)
[2023-02-10 21:15] LABS: Amphetamine Urine VISTA POSITIVE (<1000 ng/mL); Barbiturate Urine VISTA NEGATIVE (< 200 ng/mL); Benzodiazepine Urine VISTA NEGATIVE (< 200 ng/mL); Cocaine Urine VISTA NEGATIVE (< 300 ng/mL); Ecstacy Urine VISTA POSITIVE (< 500 ng/mL); Methadone Urine VISTA NEGATIVE (< 300 ng/mL); PCP Urine VISTA NEGATIVE (< 25 ng/mL); THC Urine VISTA POSITIVE (< 50 ng/mL); Vista UDS pH Range 6
[2023-02-10] MEDS: Potassium Chloride Oral Tablet 20 MEQ 40 MEQ PO (21:30)
--- NOTE | 2023-02-10 21:32 | PCM.HP.STD ---
[facility] - General General Date of Admission: 02/10/23 Date of Service: 02/10/23 Chief Complaint: Desire for detoxification HPI Narrative DAMARI ROBLES, is a 42 M with a significant history of polysubstance abuse; and tobacco abuse who presents to the emergency department for help with detoxification. Patient's drug of choice is heroin, fentanyl, methamphetamine and marijuana. Heroin/fentanyl abuse: He started using when he was about age 19. At that time he did not injects. Now he injects and he snorts. Reportedly he injects on his bilateral arms. Although he has a scar on his right leg from compartment syndrome reportedly he did not inject in his legs. Last time he used fentanyl/heroin was a day before presentation. Methamphetamine abuse: He smokes it. He has been using since about age 9. Last time he used was a on the same day of presentation. Also he smokes marijuana. He reports withdrawal symptoms of malaise, feeling hot and cold, shortness of his body, abdominal pain and gurgling from his gut. [facility] Medical History Anxiety and depression Asthma Compartment syndrome of right lower extremity Frequent headaches Gastric reflux Hearing problem Hepatitis C Heroin abuse History of back problems IVDU (intravenous drug user) Marijuana use Migraine headache Neuropathy Neuropraxia of left lower extremity Open wound of right lower leg Overdose of fentanyl Schizophrenia Tobacco use Vision problem Vitamin deficiency Wears glasses Home Medications hydroxyzine pamoate 50 mg capsule (Vistaril) 50 mg PO BID mental health 01/27/20 [History Last Taken 11/14/22] benztropine 1 mg tablet 1 mg PO DAILY Check with primary doctor 02/17/20 [History Last Taken 11/14/22] fluphenazine HCl 5 mg tablet 5 mg PO DAILY mental health 02/17/20 [History Last Taken 11/14/22] sucralfate 1 gram tablet 1 g PO 1HR_ACHS stomach 30 days #120 tabs 12/15/20 [Rx Last Taken 11/14/22] pantoprazole 40 mg tablet,delayed release (Protonix) 40 mg PO BID stomach 01/24/21 [History Last Taken 11/14/22] gabapentin 300 mg capsule 300 mg PO BID Check with primary doctor 10/16/21 [History Last Taken 11/14/22] oxcarbazepine 150 mg tablet 150 mg PO BID anticonvulsant #60 tabs 10/16/21 [Rx Last Taken 11/14/22] buprenorphine 8 mg-naloxone 2 mg sublingual film (Suboxone) 1 film buccal DAILY 2 days #2 ea 11/19/22 [Rx Last Taken Unknown] Allergy/AdvReac Type Severity Reaction Status Date / Time No Known Allergies Allergy Verified 02/10/23 19:17 Family History Mother Hypertension High cholesterol Heart disease Diabetes Depression Cancer Mental disorder Myocardial infarction CVA (cerebral vascular accident) Breast cancer Asthma Arthritis Anxiety Alcoholism Father Hypertension High cholesterol Heart disease Diabetes Depression Cancer Mental disorder Myocardial infarction CVA (cerebral vascular accident) Asthma Arthritis Anxiety Alcoholism Surgical History H/O hernia repair History of fasciotomy Social History household members: none Smoking Status: Current every day smoker tobacco type: cigarettes alcohol intake: never substance use type: marijuana, amphetamines, opiates, IV drugs and methamphetamine ROS ROS Narrative Pertinent positives and pertinent negatives as noted in HPI. All other systems were reviewed and are negative Vital Signs Vital Signs Vital Signs: 02/10/23 19:16 Temperature 97.7 F L Temperature Source Temporal Pulse Rate 105 H Respiratory Rate 16 Blood Pressure 134/102 H Blood Pressure Mean 112 Pulse Ox 99 Oxygen Delivery Method Room Air Weight Weight: 68.039 kg Body Mass Index (BMI) 22.8 Physical Exam Narrative Physical exam: General: Well-nourished, well-developed. Head: Normocephalic, atraumatic, no tenderness Eyes: Vision is grossly intact. EOMI ENT, no trauma, moist mucous membranes, no rhinorrhea Neck: Nontender, No thyromegaly. CVS: Regular rate and rhythm. S1-S2 present. No murmur, gallop or rub. Respiratory : clear to auscultation bilaterally, chest wall nontender Abdomen: Soft, nontender, nondistended, normal bowel sounds, no masses : Deferred Back: Nontender, no CVA tenderness, no midline spinal tenderness, deformities, step-offs Extremities: Nontender full range of motion, no trauma Skin: Bilateral arms with needle track marquez. Bilateral legs with a pinpoint erythema. Neuro: Alert, oriented, cranial nerves II through XII grossly intact. Psychiatry: Normal mood. Normal affect. Not depressed. Not anxious. Results Lab / Micro Data 02/10/23 20:20 02/10/23 20:20 Labs: Laboratory Results - last 24 hr 02/10/23 20:20: WBC 10.1, RBC 5.04, Hgb 14.1, Hct 42.8, MCV 84.9, MCH 28.0, MCHC 32.9, RDW Std Deviation 41.9, RDW Coeff of Neftali 13.4, Plt Count 234, MPV 10.1, Immature Gran % (Auto) 0.400, Neut % (Auto) 69.7, Lymph % (Auto) 19.8, [place] % (Auto) 6.8, Eos % (Auto) 2.9, Baso % (Auto) 0.4, Absolute Neuts (auto) 7.0, Absolute Lymphs (auto) 2.00, Nucleated RBC % 0, Sodium 134 L, Potassium 2.9 L, Chloride 96 L, Carbon Dioxide 32.0, Anion Gap 6, BUN 9, Creatinine 1.18, Estim Creat Clear Calc 79.28, Est GFR (MDRD) Af Amer 87, Est GFR (MDRD) Non-Af 72, BUN/Creatinine Ratio 7.6 L, Glucose 60 L, Calcium 9.1, Total Bilirubin 0.40, AST 17, ALT 18, Alkaline Phosphatase 47, Total Protein 7.3, Albumin 3.8, Globulin 3.5, Albumin/Globulin Ratio 1.1, Ethyl Alcohol < 3.0 02/10/23 20:30: Urine Opiates Screen NEGATIVE, Urine Methadone Screen NEGATIVE, Ur Barbiturates Screen NEGATIVE, Ur Phencyclidine Scrn NEGATIVE, Ur Amphetamines Screen POSITIVE H, MDMA (Ecstasy) Screen POSITIVE H, U Benzodiazepines Scrn NEGATIVE, Urine Cocaine Screen NEGATIVE, U Cannabinoids Screen POSITIVE H, Ur Drug Screen Comment Assessment & Plan Assessment/Plan (1) Desire for detoxification: (2) Opioid abuse: (3) Methamphetamine abuse: (4) Hypokalemia: PLAN: Plan Opioid dependence and withdrawal Pathology positive for amphetamines, MDMA, and cannabinoids. Patient be started on Subutex and other adjunctive medications: Gabapentin as needed; dicyclomine as needed; Vistaril as needed; methocarbamol as needed; clonidine as needed; Imodium as needed; trazodone as needed and Zofran as needed. Monitor COWS and CINA score Tobacco abuse Counseled Nicotine patch and nicotine gum prescribed. Hypokalemia Potassium 2.9 on presentation. Replace. Trend BMP. Check magnesium. Hyponatremia/hypochloremia Trend BMP. Methamphetamine abuse Counseled DVT prophylaxis Low risk Encourage to ambulate Charges/Coding Visit Charges Inpatient E&M: 77413 Init Hosp L2
[2023-02-10 21:46] VITALS: BP 140/97; PULSE 74; RESP 17; TEMP 36.9; O2SAT 99
[2023-02-10 22:28] VITALS: BP 130/96; PULSE 86; RESP 16; TEMP 36.8; O2SAT 100
[2023-02-10 22:29] VITALS: BMI 21.6
[2023-02-11] MEDS: Nicotine Polacrilex 2 MG GUM PO (01:01)
[2023-02-11 02:13] VITALS: BP 158/97; PULSE 72; RESP 16; TEMP 37.1; O2SAT 97
[2023-02-11 06:13] VITALS: BP 135/106; PULSE 81; RESP 18; TEMP 36.5; O2SAT 97
[2023-02-11] MEDS: Ondansetron 8 MG Tablet PO (06:25)
[2023-02-11] MEDS: Dicyclomine 10 MG Capsule 20 MG PO (06:25)
[2023-02-11] MEDS: hydrOXYzine PAM 25 MG Capsule 50 MG PO ×3 (06:26→22:07)
[2023-02-11] MEDS: Sucralfate 1 GM Tablet PO ×4 (06:26→22:06)
[2023-02-11] MEDS: Methocarbamol 750 MG Tablet 1500 MG PO (06:26)
[2023-02-11] MEDS: Buprenorphine HCl 2 MG TAB.SUBL SL ×3 (06:31→22:06)
[2023-02-11 07:02] VITALS: O2SAT 95
[2023-02-11 07:35] LABS: Anion Gap 5 (5-15); BUN 10 mg/dL (7-18); BUN/Creat Ratio 8.2 RATIO (10-20); Calcium,Total 9.1 mg/dL (8.5-10.1); Chloride 99 mmol/L (98-107); Creatinine, Serum 1.22 mg/dL (0.70-1.30); EST Glomerular Filtration Rate 69 mL/min (>60); Est Glom Filt Rate - Afr Amer 84 mL/min (>60); Estimated Creatinine Clearance 72.69 ml/min; Glucose 100 mg/dL (74-106); Potassium 3.7 mmol/L (3.5-5.1); Sodium Level 135 mmol/L (136-145)
[2023-02-11 10:00] VITALS: BP 134/92; PULSE 88; RESP 16; TEMP 36.9; O2SAT 97
[2023-02-11] MEDS: Pantoprazole Sodium 40 MG Tablet PO ×2 (10:38→22:07)
[2023-02-11] MEDS: Benztropine Mesylate 0.5 MG TABLET 1 MG PO (10:38)
[2023-02-11] MEDS: OXcarbazepine 150 MG Tablet PO ×2 (10:39→22:07)
[2023-02-11] MEDS: Gabapentin 300 MG Capsule PO ×3 (10:48→22:08)
--- NOTE | 2023-02-11 12:26 | PCM.PN.HOSP ---
Reason for Visit Reason for Visit: Diagnoses Hypokalemia (02/10/23) Opioid abuse, uncomplicated (02/10/23) Other stimulant abuse, uncomplicated (02/10/23) Subjective Subjective Patient resting in bed, reports he feels achy all over but feels better than he did Objective Data Objective Data Vital Signs: Vital Signs Temp Pulse Resp BP Pulse Ox O2 Del Method 98.5 F 88 16 134/92 H 97 Room Air 02/11/23 10:00 02/11/23 10:00 02/11/23 10:00 02/11/23 10:00 02/11/23 10:00 02/11/23 10:00 Oxygen Delivery Method Room Air Weight: 64.5 kg Body Mass Index (BMI) 21.6 Lab / Micro Data 02/10/23 20:20 02/11/23 06:30 Labs: Laboratory Results - last 24 hr 02/10/23 20:20: WBC 10.1, RBC 5.04, Hgb 14.1, Hct 42.8, MCV 84.9, MCH 28.0, MCHC 32.9, RDW Std Deviation 41.9, RDW Coeff of Neftali 13.4, Plt Count 234, MPV 10.1, Immature Gran % (Auto) 0.400, Neut % (Auto) 69.7, Lymph % (Auto) 19.8, [place] % (Auto) 6.8, Eos % (Auto) 2.9, Baso % (Auto) 0.4, Absolute Neuts (auto) 7.0, Absolute Lymphs (auto) 2.00, Nucleated RBC % 0, Sodium 134 L, Potassium 2.9 L, Chloride 96 L, Carbon Dioxide 32.0, Anion Gap 6, BUN 9, Creatinine 1.18, Estim Creat Clear Calc 79.28, Est GFR (MDRD) Af Amer 87, Est GFR (MDRD) Non-Af 72, BUN/Creatinine Ratio 7.6 L, Glucose 60 L, Calcium 9.1, Total Bilirubin 0.40, AST 17, ALT 18, Alkaline Phosphatase 47, Total Protein 7.3, Albumin 3.8, Globulin 3.5, Albumin/Globulin Ratio 1.1, Ethyl Alcohol < 3.0 02/10/23 20:30: Urine Opiates Screen NEGATIVE, Urine Methadone Screen NEGATIVE, Ur Barbiturates Screen NEGATIVE, Ur Phencyclidine Scrn NEGATIVE, Ur Amphetamines Screen POSITIVE H, MDMA (Ecstasy) Screen POSITIVE H, U Benzodiazepines Scrn NEGATIVE, Urine Cocaine Screen NEGATIVE, U Cannabinoids Screen POSITIVE H, Ur Drug Screen Comment 02/11/23 06:30: Sodium 135 L, Potassium 3.7, Chloride 99, Carbon Dioxide 31.0, Anion Gap 5, BUN 10, Creatinine 1.22, Estim Creat Clear Calc 72.69, Est GFR (MDRD) Af Amer 84, Est GFR (MDRD) Non-Af 69, BUN/Creatinine Ratio 8.2 L, Glucose 100, Calcium 9.1 Physical Exam Narrative General: Alert, oriented, no apparent distress HEENT: Atraumatic, normocephalic Eyes: extraocular movements grossly intact Neck: Supple Respiratory: normal respiratory effort Cardiovascular: no edema appreciated GI: nondistended Extremities: Moving all extremities Neuro: No overt focal neurological deficits Psych: Cooperative Assessment & Plan Assessment/Plan (1) Desire for detoxification: (2) Opioid abuse: (3) Methamphetamine abuse: (4) Hypokalemia: PLAN: Plan #Opioid dependence and withdrawal Pathology positive for amphetamines, MDMA, and cannabinoids. Patient be started on Subutex and other adjunctive medications: Gabapentin as needed; dicyclomine as needed; Vistaril as needed; methocarbamol as needed; clonidine as needed; Imodium as needed; trazodone as needed and Zofran as needed. Monitor COWS and CINA score -7: Resolved #Tobacco abuse Counseled Nicotine patch and nicotine gum prescribed. #Hypokalemia Potassium 2.9 on presentation. Replace. Trend BMP. Check magnesium. #Hyponatremia/hypochloremia Trend BMP. -7: Improving #Methamphetamine abuse Counseled DVT prophylaxis Low risk Encourage to ambulate Charges/Coding Visit Charges Inpatient E&M: 38489 Subs Hosp L2
[2023-02-11 16:15] VITALS: BP 116/81; PULSE 74; RESP 16; TEMP 36.9; O2SAT 97
[2023-02-11 20:24] VITALS: BP 130/87; PULSE 84; RESP 16; TEMP 36.6; O2SAT 93
[2023-02-12 03:23] VITALS: BP 117/76; PULSE 84; RESP 16; TEMP 36.6; O2SAT 93
[2023-02-12] MEDS: Sucralfate 1 GM Tablet PO ×4 (06:12→21:41)
[2023-02-12] MEDS: Buprenorphine HCl 2 MG TAB.SUBL SL ×3 (06:13→21:41)
[2023-02-12 07:16] VITALS: O2SAT 97
[2023-02-12 09:24] VITALS: BP 135/90; PULSE 70; RESP 18; TEMP 36.6; O2SAT 100
[2023-02-12] MEDS: hydrOXYzine PAM 25 MG Capsule 50 MG PO ×2 (09:32→21:41)
[2023-02-12] MEDS: Methocarbamol 750 MG Tablet 1500 MG PO (09:32)
[2023-02-12] MEDS: Gabapentin 300 MG Capsule PO ×3 (09:32→21:41)
[2023-02-12] MEDS: Pantoprazole Sodium 40 MG Tablet PO ×2 (09:33→21:41)
[2023-02-12] MEDS: Benztropine Mesylate 0.5 MG TABLET 1 MG PO (09:33)
[2023-02-12] MEDS: cloNIDine HCl 0.1 MG Tablet PO (09:33)
[2023-02-12] MEDS: OXcarbazepine 150 MG Tablet PO ×2 (09:34→21:42)
[2023-02-12] MEDS: Nicotine Polacrilex 2 MG GUM PO (09:35)
--- NOTE | 2023-02-12 09:45 | PCM.PN.HOSP ---
Reason for Visit Reason for Visit: Diagnoses Hypokalemia (02/10/23) Opioid abuse, uncomplicated (02/10/23) Other stimulant abuse, uncomplicated (02/10/23) Subjective Subjective Patient still having some overall aches but feeling much better Objective Data Objective Data Vital Signs: Vital Signs Temp Pulse Resp BP Pulse Ox O2 Del Method 97.8 F 70 18 135/90 H 100 Room Air 02/12/23 09:24 02/12/23 09:24 02/12/23 09:24 02/12/23 09:24 02/12/23 09:24 02/12/23 09:24 Oxygen Delivery Method Room Air Weight: 64.5 kg Body Mass Index (BMI) 21.6 Intake & Output: Intake and Output for Last 24 Hours 02/10/23 02/11/23 02/12/23 23:59 23:59 23:59 Intake Total 640 / 640 Balance 640 / 640 Lab / Micro Data 02/10/23 20:20 02/11/23 06:30 Physical Exam Narrative General: Alert, oriented, no apparent distress HEENT: Atraumatic, normocephalic Eyes: extraocular movements grossly intact Neck: Supple Respiratory: normal respiratory effort Cardiovascular: no edema appreciated GI: nondistended Extremities: Moving all extremities Neuro: No overt focal neurological deficits Psych: Cooperative Assessment & Plan Assessment/Plan (1) Desire for detoxification: (2) Opioid abuse: (3) Methamphetamine abuse: (4) Hypokalemia: PLAN: Plan #Opioid dependence and withdrawal Pathology positive for amphetamines, MDMA, and cannabinoids. Patient be started on Subutex and other adjunctive medications: Gabapentin as needed; dicyclomine as needed; Vistaril as needed; methocarbamol as needed; clonidine as needed; Imodium as needed; trazodone as needed and Zofran as needed. Monitor COWS and CINA score -02/11: Improving -02/12: Continues to improve, continue with Subutex taper #Tobacco abuse Counseled Nicotine patch and nicotine gum prescribed. #Hypokalemia Potassium 2.9 on presentation. Replace. Trend BMP. Check magnesium. #Hyponatremia/hypochloremia Trend BMP. -02/11: Improving #Methamphetamine abuse Counseled DVT prophylaxis Low risk Encourage to ambulate Charges/Coding Visit Charges Inpatient E&M: 87208 [facility] Hosp L1
--- NOTE | 2023-02-12 14:30 | ADDICTION ---
This typewriter mechanic met with PT to conduct ASAM, MSE, AUDIT, DUDIT assessments and to plan for d/c. PT A+Ox4 and participated actively. All assessments completed and placed in PT's chart. PT plans to f/u with [facility] for follow-up inpatient treatment services. They will provide transportation post d/c from [facility] tomorrow at 2:30pm..
[2023-02-12 14:33] VITALS: BP 134/93; PULSE 93; RESP 18; TEMP 37.1; O2SAT 99
[2023-02-12 21:38] VITALS: BP 134/91; PULSE 75; RESP 18; TEMP 36.5; O2SAT 97
[2023-02-13 04:30] VITALS: BP 132/93; PULSE 67; RESP 18; TEMP 36.6; O2SAT 97
[2023-02-13] MEDS: Buprenorphine HCl 2 MG TAB.SUBL SL (05:50)
[2023-02-13] MEDS: Sucralfate 1 GM Tablet PO ×2 (05:50→10:08)
[2023-02-13 07:55] VITALS: O2SAT 97
[2023-02-13 10:00] VITALS: BP 125/82; PULSE 86; RESP 18; TEMP 36.6; O2SAT 95
[2023-02-13] MEDS: OXcarbazepine 150 MG Tablet PO (10:02)
[2023-02-13] MEDS: Pantoprazole Sodium 40 MG Tablet PO (10:02)
[2023-02-13] MEDS: Gabapentin 300 MG Capsule PO (10:02)
[2023-02-13] MEDS: Benztropine Mesylate 0.5 MG TABLET 1 MG PO (10:02)
[2023-02-13] MEDS: hydrOXYzine PAM 25 MG Capsule 50 MG PO (10:03)
[2023-02-13] MEDS: Nicotine Polacrilex 2 MG GUM PO (10:03)
--- NOTE | 2023-02-13 11:12 | PCM.DC.SUM ---
Providers Date of Admission: 02/10/23 Date of Discharge: 02/13/23 Primary Care Physician: Dr. Isiah Jansen MD Reason For Visit: DESIRE FOR DETOXIFICATION Diagnosis Discharge Diagnosis (1) Desire for detoxification: Status: Acute (2) Opioid abuse: Status: Acute Code(s): F11.10 - Opioid abuse, uncomplicated (3) Methamphetamine abuse: Status: Acute Code(s): F15.10 - Other stimulant abuse, uncomplicated (4) Hypokalemia: Status: Acute Code(s): E87.6 - Hypokalemia Plan #Opioid dependence and withdrawal #Tobacco abuse #Hypokalemia-resolved #Hyponatremia/hypochloremia #Methamphetamine abuse Medications at Discharge Home Medications benztropine 1 mg tablet 1 mg PO DAILY Check with primary doctor 30 days #30 tabs 02/13/23 fluphenazine HCl 5 mg tablet 5 mg PO DAILY mental health 30 days #30 tabs 02/13/23 gabapentin 300 mg capsule 300 mg PO BID Check with primary doctor 30 days #60 caps 02/13/23 hydroxyzine pamoate 50 mg capsule (Vistaril) 50 mg PO BID mental health 30 days #60 caps 02/13/23 oxcarbazepine 150 mg tablet 150 mg PO BID anticonvulsant #60 tabs 02/13/23 pantoprazole 40 mg tablet,delayed release (Protonix) 40 mg PO BID stomach 30 days #60 tabs 02/13/23 sucralfate 1 gram tablet 1 g PO 1HR_ACHS stomach 30 days #120 tabs 02/13/23 Hospital Course Summary of Care Provided Minutes Spent on Discharge: 31 Hospital Course: Patient was admitted 02/10 requesting detox from opioids. Patient was admitted and detox protocol ordered. They completed their detox and were discharged in stable condition. On the day of discharge no new medical complaints voiced. Patient discharged to inpatient rehab, prescription printed for him per request from inpatient rehab Physical Exam Narrative General: Alert, oriented, no apparent distress HEENT: Atraumatic, normocephalic Eyes: extraocular movements grossly intact Neck: Supple Respiratory: normal respiratory effort Cardiovascular: no edema appreciated GI: nondistended Extremities: Moving all extremities Neuro: No overt focal neurological deficits Psych: Cooperative Weight / BMI Weight Weight: 64.5 kg Body Mass Index (BMI) 21.6 ABG / Lab / Microbiology Data 02/10/23 20:20 07/04/23 06:30 D/C Instructions Discharge Diet: No restrictions Meaningful Use Info Meaningful Use Diagnoses (Choose all that apply): None applicable Discharge Plan Admission Admit Date/Time: 02/10/23 21:23 Primary Reason for Your Visit: Desire for detox Attending Provider: Mica Valadez Primary Care Provider: Isiah Jansen Consulting Providers: Raghu Hurst Instructions Patient Instructions: ED Opioid Withdrawal Discharge Orders/Prescriptions Prescriptions: Continued oxcarbazepine 150 mg tablet 150 mg PO BID Qty: 60 0RF sucralfate 1 gram Tablet 1 g PO 1HR_ACHS 30 Days Qty: 120 0RF hydroxyzine pamoate [Vistaril] 50 MG capsule 50 mg PO BID 30 Days Qty: 60 0RF pantoprazole [Protonix] 40 mg tablet,delayed release (DR/EC) 40 mg PO BID 30 Days Qty: 60 0RF benztropine 1 mg tablet 1 mg PO DAILY 30 Days Qty: 30 0RF gabapentin 300 mg capsule 300 mg PO BID 30 Days Qty: 60 0RF fluphenazine HCl 5 mg tablet 5 mg PO DAILY 30 Days Qty: 30 0RF Discontinued buprenorphine-naloxone [Suboxone] 8-2 mg film 1 film buccal DAILY 2 Days Qty: 2 0RF Referrals / Follow Up: Iisah Jansen MD [Primary Care Provider] - Within 1 Week Disposition Disposition (needs filled in before D/C Order can be placed): Inpatient Rehab Unit/Facility Charges/Coding Visit Charges Inpatient E&M: 08999 Disch Hosp >30min
--- NOTE | 2023-02-13 14:26 | NURSING ---
late entry 1300 - pt asked if this nurse could trim his mustache and trim his hair. this nurse used scissors on his mustache and clippers on his head.
== END 2023-02-13 13:21 | DRG 773 ==
LOC: ED 21:25 → MS3 21:35
PROVIDERS: Admitting Provider Hospitalist; Emergency Provider Emergency Medicine; PCP Family Medicine; Visit Provider Internal Medicine
DX: F11.23 Opioid dependence with withdrawal (principal); E87.1 Hypo-osmolality and hyponatremia; E87.8 Other disorders of electrolyte and fluid balance, not elsewhere classified; F15.10 Other stimulant abuse, uncomplicated; E87.6 Hypokalemia; F17.210 Nicotine dependence, cigarettes, uncomplicated; Z63.72 Alcoholism and drug addiction in family
CPT/HCPCS: 36415; 80048; 80053; 80307; 82077; 85025; 99283

== ENCOUNTER 2023-02-28 14:15 | Inpatient (IN) | payer MEDICAID, SELFPAY ==
[2023-02-28 14:51] VITALS: BP 160/108; PULSE 87; RESP 20; TEMP 36.2; O2SAT 94; BMI 14.6
--- NOTE | 2023-02-28 17:30 | RAD_ITS ---
EXAM: XR CHEST, 1 VIEW CLINICAL INDICATION: chest pain TECHNIQUE: Frontal view of the chest. COMPARISON: 5.28.20 FINDINGS: LUNGS AND PLEURAL SPACES: Unremarkable. No consolidation or edema. No pneumothorax. No effusion. HEART: Unremarkable. Cardiac silhouette not enlarged. MEDIASTINUM: Central airways and mediastinal contour are unremarkable. BONES/JOINTS: Unremarkable. SOFT TISSUES: Unremarkable. RAD/Chest 1 View (Portable) IMPRESSION: No radiographic evidence of acute cardiopulmonary disease. Electronically Signed: Jose David Lee MD at 17:25 EDT ,
--- NOTE | 2023-02-28 17:30 | EX.ED.DYSGE1 ---
HPI <ANDRE Finn - Last Filed: 02/28/23 19:26> History of Present Illness Chief Complaint: Chest Pain Narrative Narrative: Patient is a 42-year-old male with history of drug abuse, schizophrenia, anxiety, epilepsy who presents to the emergency department for complaints of chest pain. Shortness of breath. Patient came in by EMS. Per EMS, the patient is acting odd and not giving a proper story. Patient is having difficulty explaining what he is here for, he does not give up much information. Patient is a poor informant. Patient's biggest complaint is that he is homeless, he is not on medications. He denies any suicidal homicidal ideation. [facility] <ANDRE Finn - Last Filed: 02/28/23 19:26> [facility] Medical History Anxiety and depression Asthma Compartment syndrome of right lower extremity Frequent headaches Gastric reflux Hearing problem Hepatitis C Heroin abuse History of back problems IVDU (intravenous drug user) Marijuana use Migraine headache Neuropathy Neuropraxia of left lower extremity Open wound of right lower leg Overdose of fentanyl Schizophrenia Tobacco use Vision problem Vitamin deficiency Wears glasses Home Medications benztropine 1 mg tablet 1 mg PO DAILY Check with primary doctor 30 days #30 tabs 02/13/23 [Rx Last Taken Unknown] fluphenazine HCl 5 mg tablet 5 mg PO DAILY mental health 30 days #30 tabs 02/13/23 [Rx Last Taken Unknown] gabapentin 300 mg capsule 300 mg PO BID Check with primary doctor 30 days #60 caps 02/13/23 [Rx Last Taken Unknown] hydroxyzine pamoate 50 mg capsule (Vistaril) 50 mg PO BID mental health 30 days #60 caps 02/13/23 [Rx Last Taken Unknown] oxcarbazepine 150 mg tablet 150 mg PO BID anticonvulsant #60 tabs 02/13/23 [Rx Last Taken Unknown] pantoprazole 40 mg tablet,delayed release (Protonix) 40 mg PO BID stomach 30 days #60 tabs 02/13/23 [Rx Last Taken Unknown] sucralfate 1 gram tablet 1 g PO 1HR_ACHS stomach 30 days #120 tabs 02/13/23 [Rx Last Taken Unknown] Allergy/AdvReac Type Severity Reaction Status Date / Time No Known Allergies Allergy Verified 02/10/23 19:17 Family History Mother Hypertension High cholesterol Heart disease Diabetes Depression Cancer Mental disorder Myocardial infarction CVA (cerebral vascular accident) Breast cancer Asthma Arthritis Anxiety Alcoholism Father Hypertension High cholesterol Heart disease Diabetes Depression Cancer Mental disorder Myocardial infarction CVA (cerebral vascular accident) Asthma Arthritis Anxiety Alcoholism Surgical History H/O hernia repair History of fasciotomy Social History household members: none Smoking Status: Current every day smoker tobacco type: cigarettes alcohol intake: never substance use type: marijuana, amphetamines, opiates, IV drugs and methamphetamine ROS <ANDRE Finn - Last Filed: 02/28/23 19:26> ROS ED ROS Narrative Constitutional: Negative for fever, chills, weight loss, weakness Eyes: Negative for vision loss, vision change, double vision ENT: Negative for any sore throat, ear pain, congestion Cardiovascular: Negative for any tightness, palpitations. Positive for chest pain Respiratory: Negative for any cough, sputum production, hemoptysis, dyspnea on exertion, orthopnea. Positive shortness of breath Gastrointestinal: Negative for any abdominal pain, nausea, vomiting, diarrhea, constipation, blood in stool, blood in vomit : Negative for any urinary frequency, dysuria, retention, blood in urine Muscle skeletal: Negative for any muscle joint pain, stiffness, myalgias, arthralgias, neck pain, back pain Neurological: Negative for any headache, syncope, numbness or tingling, dizziness Skin: Negative for any rashes, lumps, itching, abrasions, lacerations Psychiatric: Negative for any depression, anxiety, stress, suicidal ideation, homicidal ideation Hematologic: Negative for any easy bruising, excessive bruising, easy bleeding Allergies: Negative for any eczema, hives, rash EXAM <ANDRE Finn - Last Filed: 02/28/23 19:26> Physical Exam Narrative Exam Narrative: Vital signs reviewed. Patient is alert and oriented x2 however patient is difficult to speak to. Patient seems to be having some acute psychiatric illness. It is difficult to have the patient answer questions. He has no suicidal homicidal ideation. HEET: Head normocephalic atraumatic, TMs clear bilaterally. Posterior pharynx is clear, moist mucous membranes. Nares clear bilaterally. Neck: Supple with no lymphadenopathy or tenderness. No signs of meningismus, negative jolt sign. Cardiac: Regular rate and rhythm no murmurs gallops or rubs, equal peripheral pulses bilaterally. Respiratory: Lungs clear to auscultation bilaterally. No chest tenderness. Abdomen: Soft, nontender, nondistended. No abdominal bruit or pulsatile masses. No hepatosplenomegaly Extremities: No peripheral edema, no signs of gross trauma or deformity. Active full range of motion of all extremities. Neuro: Cranial nerves II through XII intact, no focal neurological deficits. Skin: Clean dry and intact with no rash, purpura, petechiae, vesicles or pustules. Backs/flank: No CVA tenderness, no midline spinal tenderness, no deformity. Psych: Normal mood and affect. No SI, HI or acute psychosis. Const Vital Signs: 02/28/23 14:51 02/28/23 18:19 Temperature 97.1 F L Temperature Source Oral Pulse Rate 87 84 Respiratory Rate 20 H 18 Blood Pressure 160/108 H 159/109 H Blood Pressure Mean 125 125 Pulse Ox 94 95 Oxygen Delivery Method Room Air Nasal Cannula Oxygen Flow Rate (L/min) 2 Positive unkempt General Appearance ED: unkempt Psych Appearance: unkempt <Dr. Syed Vieyra MD - Last Filed: 02/28/23 19:36> Physical Exam Const Vital Signs: 02/28/23 14:51 02/28/23 18:19 Temperature 97.1 F L Temperature Source Oral Pulse Rate 87 84 Respiratory Rate 20 H 18 Blood Pressure 160/108 H 159/109 H Blood Pressure Mean 125 125 Pulse Ox 94 95 Oxygen Delivery Method Room Air Nasal Cannula Oxygen Flow Rate (L/min) 2 MDM <ANDRE Finn - Last Filed: 02/28/23 19:26> [facility] Lab Data Attestation: I reviewed the patient's lab results. Radiography Diagnostic Testing: Clinical Impression(s) from Imaging Studies Chest X-Ray 02/28/23 17:30 IMPRESSION: No radiographic evidence of acute cardiopulmonary disease. Electronically Signed: Jose David Lee MD at 17:25 EDT , EKG Normal sinus rhythm: Attestation: I personally reviewed and interpreted this EKG as follows: Comments: Normal sinus rhythm, rate of 94 bpm, SC 146 ms, QRS duration 72 ms, no acute ST elevation, no acute infarct noted Treatment and Re-Evaluation :: Patient appears to be in no respiratory distress, patient is nontoxic. Patient presents to the emergency department chest pain however secondary to the patient's psychiatric illness, is having difficulty explaining what is happening. Patient seems confused, patient does have history of drug abuse. Patient is positive for amphetamines, ecstasy, as well as THC. Patient is not intoxicated. Patient's laboratory values show a normal CBC, normal chemistries however patient does have an elevated troponin of 245. This is concerning secondary to the patient's complaint of chest pain. Looking the patient's labs, patient does not had a past troponin. EKG is not showing any signs of ischemia at this time. My initial evaluation, I do believe the patient needed to be admitted for psychiatric help however secondary to his elevated troponin, I do believe he needs to be admitted for further cardiac work-up. I spoke with hospitalist, they are in agreement. All questions answered, patient stable for admission. Patient was given aspirin here. <Dr. Syed Vieyra MD - Last Filed: 02/28/23 19:36> [facility] Narrative Medical decision making narrative: I have personally performed a face to face assessment of the patient and have reviewed the SIMI Note. I performed a substantive portion of the visit including all aspects of the following. My ng findings include: History is 42-year-old male history of mental illness with schizophrenia. Presents complaining of chest pain. Limited informant. Evaluate the patient with our physician teacher's assistant. Exam is [42-year-old male no acute distress. Vital signs stable. Afebrile. HEENT exam unremarkable. Lungs clear. Heart regular rhythm. Abdomen soft nontender. Moving all 4 extremities. Calves are nontender without edema or cords. Radial pulses equal and symmetrical. Chest wall nontender. He is awake and alert. Moving all 4 extremities.] Medical Decision Making [42-year-old male with underlying mental illness. May need transfer for mental illness and failure to take care of himself but he also is having chest pain with elevated troponin oblique need to be admitted for a cardiac work-up.] Other additions or changes: [None] Radiography Diagnostic Testing: Clinical Impression(s) from Imaging Studies Chest X-Ray 02/28/23 17:30 IMPRESSION: No radiographic evidence of acute cardiopulmonary disease. Electronically Signed: Jose David Lee MD at 17:25 EDT Reading Location ID and State: [facility] / [place] , Service support , Rhythm Strip Rhythm Strip: Sinus Rhythm Rate: 94 Ectopy: None EKG Normal sinus rhythm: Interpretation: Sinus Rhythm and No Acute Injury Pattern Discharge Plan Dx/Rx/DC Orders Clinical Impression: Chest pain, Schizophrenia, Elevated troponin Disposition Disposition: Acute Care Hospital [facility], [place]
[2023-02-28 18:19] VITALS: BP 159/109; PULSE 84; RESP 18; O2SAT 95
--- NOTE | 2023-02-28 18:22 | ED.RN ---
SEE DOWNTIME FORMS FOR CHARTING
[2023-02-28 19:26] VITALS: BP 149/109; PULSE 82; RESP 15; TEMP 36.5; O2SAT 99
--- NOTE | 2023-02-28 19:56 | ED.RN ---
pt denies taking home medications at this time. pbm indicates he has had recent rx's filled, but he denies home medications.
[2023-02-28 20:06] LABS: International Normalized Ratio 1.3; Prothrombin Time (Protime)PT. 15.8 SECONDS (11.7-14.9)
[2023-02-28] MEDS: Heparin Injection (Vial) 5,000 UNIT/ML VIAL 3000 UNIT IV (20:15)
[2023-02-28] MEDS: HEPARIN/D5w 25,000 UNITS 25,000 UNITS/250 ML IV.SOLN. 55 UNITS CONT INF (20:17)
--- NOTE | 2023-02-28 20:40 | ED.RN ---
heparin dose started @ 550u/hr or 5.5mls/hr. incorrectly charted in titration documentation and unable to be edited.
[2023-02-28 21:05] VITALS: BP 142/103; PULSE 75; RESP 16; TEMP 37.1; O2SAT 100
[2023-02-28 21:15] VITALS: BMI 20.5
--- NOTE | 2023-02-28 21:25 | PCM.HP.STD ---
HPI - General General Date of Admission: 02/28/23 Date of Service: 02/28/23 Chief Complaint: Chest pain HPI Narrative DAMARI ROBLES, is a 42 M came to ED for chest pain. Patient has a history of his schizophrenia, anxiety/substance use history. Patient complain of chest pain and could not describe it well. Patient is confused, drowsy and lethargic. On repeated questioning, patient gets frustrated and angry therefore complete history not possible. At most At most, patient tells me that he has mild chest pain left-sided that is started in the morning. Patient cannot clarify whether he has shortness of breath or not associated with chest pain. He denies dizziness. He states he will leave me alone. Patient is also homeless and U tox was positive for methamphetamine, ecstasy and marijuana but he denies substance use in the last 3 months. Patient came to ED during [employer] downtime therefore labs are in paper format. First troponin 245. Twelve-lead EKG shows normal sinus rhythm at 94 bpm. QTc [address]-T changes. Previous EKG on 06 Jan 2020 shows normal sinus rhythm 95 bpm, right atrial enlargement with no specific ST-T changes. Patient was given aspirin and started on IV heparin drip and further admitted. [facility] Medical History Anxiety and depression Asthma Compartment syndrome of right lower extremity Frequent headaches Gastric reflux Hearing problem Hepatitis C Heroin abuse History of back problems IVDU (intravenous drug user) Marijuana use Migraine headache Neuropathy Neuropraxia of left lower extremity Open wound of right lower leg Overdose of fentanyl Schizophrenia Tobacco use Vision problem Vitamin deficiency Wears glasses Home Medications benztropine 1 mg tablet 1 mg PO DAILY Check with primary doctor 30 days #30 tabs 02/13/23 [Rx Last Taken Unknown] fluphenazine HCl 5 mg tablet 5 mg PO DAILY mental health 30 days #30 tabs 02/13/23 [Rx Last Taken Unknown] gabapentin 300 mg capsule 300 mg PO BID Check with primary doctor 30 days #60 caps 02/13/23 [Rx Last Taken Unknown] hydroxyzine pamoate 50 mg capsule (Vistaril) 50 mg PO BID mental health 30 days #60 caps 02/13/23 [Rx Last Taken Unknown] oxcarbazepine 150 mg tablet 150 mg PO BID anticonvulsant #60 tabs 02/13/23 [Rx Last Taken Unknown] pantoprazole 40 mg tablet,delayed release (Protonix) 40 mg PO BID stomach 30 days #60 tabs 02/13/23 [Rx Last Taken Unknown] sucralfate 1 gram tablet 1 g PO 1HR_ACHS stomach 30 days #120 tabs 02/13/23 [Rx Last Taken Unknown] Allergy/AdvReac Type Severity Reaction Status Date / Time No Known Allergies Allergy Verified 02/10/23 19:17 Family History Mother Hypertension High cholesterol Heart disease Diabetes Depression Cancer Mental disorder Myocardial infarction CVA (cerebral vascular accident) Breast cancer Asthma Arthritis Anxiety Alcoholism Father Hypertension High cholesterol Heart disease Diabetes Depression Cancer Mental disorder Myocardial infarction CVA (cerebral vascular accident) Asthma Arthritis Anxiety Alcoholism Surgical History H/O hernia repair History of fasciotomy Social History household members: none Smoking Status: Current every day smoker tobacco type: cigarettes alcohol intake: never substance use type: marijuana, amphetamines, opiates, IV drugs and methamphetamine ROS ROS Narrative Patient is confused and disoriented, lethargic therefore 14 system ROS unobtainable. Review of Systems ROS Unobtainable: due to mental condition Vital Signs Vital Signs Vital Signs: 02/28/23 14:51 02/28/23 18:19 02/28/23 19:26 Temperature 97.1 F L 97.7 F L Temperature Source Oral Temporal Pulse Rate 87 84 82 Respiratory Rate 20 H 18 15 Blood Pressure 160/108 H 159/109 H 149/109 H Blood Pressure Mean 125 125 122 Blood Pressure Source Blood Pressure Position Blood Pressure Location Pulse Ox 94 95 99 Oxygen Delivery Method Room Air Nasal Cannula Nasal Cannula Oxygen Flow Rate (L/min) 2 2 02/28/23 21:05 Temperature 98.8 F Temperature Source Oral Pulse Rate 75 Respiratory Rate 16 Blood Pressure 142/103 H Blood Pressure Mean 116 Blood Pressure Source Monitor Blood Pressure Position Supine Blood Pressure Location Left Arm Pulse Ox 100 Oxygen Delivery Method Nasal Cannula Oxygen Flow Rate (L/min) 2 Weight Weight: 134 lb 11.239 oz Body Mass Index (BMI) 20.5 Physical Exam Narrative General: Lethargy, disoriented to time and place. Confused. HEENT: Atraumatic, PERRLA, EOMI, Normocephalic Oral: Oral mucosa dry. No Gingival or Mucosal Lesions/ Ulcerations Neck: Supple, No JVD, Negative Carotid Bruits Lungs: Air entry diminished in bilateral lung bases. No crepitation/rhonchi Cardiovascular: Regular rate, Regular Rhythm, Normal S1, Normal S2, No murmurs Abdomen: Bowel Sounds Present, Soft, Non Tender, Non-Distended : No renal angle tenderness. No suprapubic tenderness. Extremities: No edema, Capillary Refill Less than 3 Seconds Skin: No rashes, No breakdown Musculoskeletal: No Tenderness to Palpation of Joints or Extremities. ROM intact. Neurological: Cranial nerves II-XII grossly intact, DTR 2+/4 no focal neurodeficit. Psych/Mental Status: Drowsy lethargy. Easily gets angry. Irritable Results Lab / Micro Data Labs: Laboratory Results - last 24 hr 02/28/23 19:40: PT 15.8 H, INR 1.3 Rhythm Strip Rhythm Strip: Sinus Rhythm Rate: 94 Ectopy: None Radiology Impression Chest X-Ray 02/28/23 17:30 IMPRESSION: No radiographic evidence of acute cardiopulmonary disease. Electronically Signed: Jose aDvid Lee MD at 17:25 EDT Reading Location ID and State: [facility] / [place] , Service support , Assessment & Plan Assessment/Plan (1) NSTEMI, initial episode of care: PLAN: Plan This is a 42-year-old gentleman being admitted for chest pain, detailed history unobtainable but elevated troponin suggestive of non-STEMI. 1. Acute non-STEMI, exact cause unclear possible due to substance use: Patient is being admitted in PCU. U tox positive of methamphetamine, ecstasy and marijuana although patient denies substance use history or recent use. Methamphetamine might be precipitating factor for chest pain. Serial cardiac enzymes. Patient is started on aspirin and IV heparin drip in ED. Nitro sublingual as needed. 2D echo tomorrow AM. [employer] Met[employer] consulted. TSH and fasting profile tomorrow AM. Last echo in December 2019 reported as EF 60%, technically limited as patient was noncooperative. EF 60%. Serum magnesium ordered. 2. Acute encephalopathy may be due to polysubstance use/toxic encephalopathy. Patient has history of methamphetamine, ecstasy/marijuana polysubstance use and opioid dependence and tolerance: Patient was last admitted in first week of February 2023 for Acute opioid withdrawal syndrome and at that time also U tox was positive for amphetamine MDMA and cannabinoids. Patient also has history of chronic cigarette smoking and tobacco use.. 3. KANA: Patient BUNs/creatinine elevated 32/1.62. Patient previous BUN/creatinine was in normal range 10/1.22. IV fluid normal saline ordered. Mild hypokalemia potassium is 3.4. K. Dur 40 mEq 1 dose ordered. 4. History of schizophrenia and anxiety disorder: It is unclear whether patient is taking medications but as per ED nurse he was prescribed in January 2022. Patient supposed to take oxcarbazepine, Vistaril, benztropine, gabapentin and fluphenazine. 5. VTE prophylaxis moderate risk may be due to polysubstance use: Patient on IV heparin drip. Charges/Coding Visit Charges Inpatient E&M: 51932 Init Hosp L3
--- NOTE | 2023-02-28 21:45 | EKG12_ITS ---
Test Reason : AM EKG Blood Pressure : / mmHG Vent. Rate : 066 BPM Atrial Rate : 066 BPM P-R Int : 142 ms QRS Dur : 080 ms QT Int : 516 ms P-R-T Axes : 075 065 060 degrees QTc Int : 540 ms Normal sinus rhythm Right atrial enlargement Nonspecific T wave abnormality Prolonged QT Abnormal ECG When compared with ECG of 28-FEB-2023 22:25, MANUAL COMPARISON REQUIRED, DATA IS UNCONFIRMED Confirmed by ROBLES TARIQ, TOMER ([id number]), senior technical editor OSITO SALDAÑA ([id number]) on 03/04/2023 7:16:16 AM Referred By: Antonio Llanes Confirmed By:TOMER ARBOLEDA MD
[2023-02-28 21:46] VITALS: O2SAT 100
[2023-02-28 21:59] LABS: Phosphorus 1.6 mg/dL (2.5-4.9)
[2023-02-28] MEDS: 0.9% Normal Saline 1,000 ML 75 ML IV (22:00)
[2023-02-28 22:04] LABS: Magnesium 2.3 mg/dL (1.6-2.6); Troponin-I HS 286 pg/mL (3.0-78.0)
[2023-02-28 22:29] VITALS: BP 174/100; PULSE 79
[2023-02-28] MEDS: Metoprolol Tartrate 25 MG Tablet PO (22:29)
[2023-02-28] MEDS: Sucralfate 1 GM Tablet PO (22:30)
[2023-02-28] MEDS: Potassium Chloride Oral Tablet 20 MEQ 40 MEQ PO (22:31)
[2023-02-28] MEDS: Pantoprazole Sodium 40 MG Tablet PO (22:32)
[2023-02-28] MEDS: Atorvastatin Calcium 40 MG Tablet PO (22:32)
[2023-02-28] MEDS: 0.9% Saline Lock 10 ML Syringe IV (22:45)
[2023-02-28 23:57] LABS: Troponin-I HS 281 pg/mL (3.0-78.0)
[2023-03-01] VITALS (12 sets, daily range): BP systolic 140–174; BP diastolic 95–116; PULSE 60–87; RESP 16–20; TEMP 36.8–37.5; O2SAT 96–99; BMI 21.0
[2023-03-01 02:29] LABS: Absolute Lymphocyte Count 0.84 X10^3/uL (0.83-4.51); Basophil# 0.02 X10^3/uL; Basophil% 0.3 % (0-1); Eosinophil# 0.01 X10^3/uL; Eosinophils% 0.1 % (0-5); Hematocrit 36.8 % (40-54); Hemoglobin 11.9 g/dL (13.0-16.5); Lymphocyte # 0.84 X10^3/ul (0.83-4.51); Lymphocyte % 11.5 % (19-41); Mean Corp Hgb Conc 32.3 g/dL (32-36); Mean Corpuscular Volume 86.6 fL (80-94); Mean Platelet Vol. 10.8 fl (6.2-12.0); Monocyte# 0.38 X10^3/uL; Monocyte% 5.2 % (0-10); NRBC Flagged by Analyzer 0 % (0-5); Neutrophil # 6.04 X10^3/uL (2.7-7.7); Neutrophil % 82.5 % (47-70); Platelet Count 198 K/mm3 (150-450); RBC Distribution Width CV 14.1 % (11.6-14.6); RBC Distribution Width SD 44.1 fl (35.1-43.9); Red Blood Count 4.25 M/mm3 (4.6-6.2); White Blood Count 7.3 K/mm3 (4.4-11.0)
[2023-03-01 02:38] LABS: Partial Thromboplast Time 30.8 Seconds (24.1-36.2)
[2023-03-01] MEDS: Heparin Injection (Vial) 5,000 UNIT/ML VIAL IV (02:45)
[2023-03-01 02:55] LABS: Anion Gap 8 (5-15); BUN 26 mg/dL (7-18); BUN/Creat Ratio 23.4 RATIO (10-20); Calcium,Total 8.5 mg/dL (8.5-10.1); Chloride 95 mmol/L (98-107); Cholesterol 175 mg/dL (200); Creatinine, Serum 1.11 mg/dL (0.70-1.30); EST Glomerular Filtration Rate 77 mL/min (>60); Est Glom Filt Rate - Afr Amer 94 mL/min (>60); Estimated Creatinine Clearance 75.69 ml/min; Glucose 109 mg/dL (74-106); High Density Lipoprotein 44 mg/dL; Potassium 3.7 mmol/L (3.5-5.1); Sodium Level 135 mmol/L (136-145); Thyroid Stim Hormone (TSH) 0.37 uIU/mL (0.358-3.74); Triglycerides 86 mg/dL; Very Low Density Lipoprotein 17 mg/dL (5-40)
[2023-03-01 03:22] LABS: Hematocrit 35.3 % (40-54); Mean Corpuscular Hgb 28.6 pg (27.0-32.0); Mean Corpuscular Volume 84.2 fL (80-94); Red Blood Count 4.19 M/mm3 (4.6-6.2); White Blood Count 9.4 K/mm3 (4.4-11.0)
[2023-03-01 03:23] LABS: Mean Platelet Vol. 10.5 fl (6.2-12.0); Platelet Count 198 K/mm3 (150-450); RBC Distribution Width CV 13.9 % (11.6-14.6); RBC Distribution Width SD 42.5 fl (35.1-43.9)
[2023-03-01 03:24] LABS: Troponin-I HS 253 pg/mL (3.0-78.0)
[2023-03-01 03:24] LABS: Absolute Lymphocyte Count 1.02 X10^3/uL (0.83-4.51); Absolute Neutrophil Count 7.8 X10^3/uL (2.0-7.7); Basophil# 0.02 X10^3/uL; Basophil% 0.2 % (0-1); Lymphocyte # 1.02 X10^3/ul (0.83-4.51); Lymphocyte % 10.9 % (19-41); Monocyte# 0.47 X10^3/uL; Neutrophil # 7.83 X10^3/uL (2.7-7.7); Neutrophil % 83.5 % (47-70)
[2023-03-01 03:30] LABS: Color, Urine Yellow (Yellow); Glucose, Dipstick NEGATIVE (Normal); Ketone-Dipstick 5 mg/dl (Negative); Leukocyte Esterase-Dipstick 25 /ul (Negative); Nitrite-Dipstick Negative (Negative); Occult Blood-Urine 250 /ul (Negative); Protein-Dipstick 100 mg/dl (Negative); Urine Bilirubin Dipstick 1 mg/dL (Negative); Urine Clarity Clear (Clear); Urine Urobilinogen 1 mg/dl (Normal)
[2023-03-01 03:59] LABS: ALB/GLOB Ratio 1.1 RATIO (0.9-2.4); Albumin, Serum 3.6 g/dL (3.2-5.0); BUN 32 mg/dL (7-18); BUN/Creat Ratio 19.8 RATIO (10-20); Creatinine, Serum 1.62 mg/dL (0.70-1.30); EST Glomerular Filtration Rate 50 mL/min (>60); Est Glom Filt Rate - Afr Amer 61 mL/min (>60); Estimated Creatinine Clearance 51.86 ml/min; Globulin 3.4 g/dL (2.2-4.2); Glucose 119 mg/dL (74-106)
[2023-03-01 04:00] LABS: AST(SGOT) 1961 U/L (15-37); Alanine Aminotransfer ALT/SGPT 1579 U/L (16-61); Alkaline Phosphatase 44 U/L (45-117); Calcium,Total 8.5 mg/dL (8.5-10.1); Chloride 90 mmol/L (98-107); Potassium 3.4 mmol/L (3.5-5.1); Sodium Level 132 mmol/L (136-145)
[2023-03-01 04:01] LABS: Anion Gap 5 (5-15)
[2023-03-01 04:04] LABS: Alcohol, Blood (Medical)-Serum < 3.0 mg/dL
[2023-03-01 04:05] LABS: Vista UDS pH Range 6
[2023-03-01 04:06] LABS: Amphetamine Urine VISTA POSITIVE (<1000 ng/mL); Barbiturate Urine VISTA NEGATIVE (< 200 ng/mL); Benzodiazepine Urine VISTA NEGATIVE (< 200 ng/mL); Cocaine Urine VISTA NEGATIVE (< 300 ng/mL); Ecstacy Urine VISTA POSITIVE (< 500 ng/mL); Methadone Urine VISTA NEGATIVE (< 300 ng/mL)
[2023-03-01 04:07] LABS: PCP Urine VISTA NEGATIVE (< 25 ng/mL); THC Urine VISTA POSITIVE (< 50 ng/mL)
--- NOTE | 2023-03-01 05:55 | ECHOD_ITS ---
Reason For Study: NSTEMI Procedure This was a 2D Doppler, Color Flow transthoracic echocardiogram. Technically difficult study to unccoperative and agitated patient. Bubble study refused. Exam performed portable in patient room. Left Ventricle Normal size and thickness. The left ventricular ejection fraction is 55 %. Right Ventricle Normal right ventricle. Atria The left and right atria are normal. Mitral Valve Trivial mitral valve insufficiency. Tricuspid Valve Trivial tricuspid valve insufficiency. Unable to estimate RV systolic pressure due to insufficient tricuspid regurgitant envelope. Aortic Valve Normal aortic valve. Pulmonic Valve The pulmonic valve is not well visualized. Great Vessels Normal sized aortic root. Pericardium/Pleural No pericardial effusion. MMode/2D Measurements & Calculations LVIDd: 4.3 cm IVSd: 0.97 cm Ao root diam: 2.8 cm LVIDs: 3.4 cm LVPWd: 1.2 cm RVDd: 3.9 cm FS: 20.2 % LAV(MOD-bp): 49.5 ml LVAd ap4: 29.5 cm2 SV(MOD-sp4): 48.3 ml LAV(MOD-bp) Indexed: 28.6 ml/m2 LVLd ap4: 7.9 cm LAV(MOD-sp2): 49.8 ml EDV(MOD-sp4): 88.2 ml LAV(MOD-sp4): 43.1 ml EDV(sp4-el): 92.7 ml LVAs ap4: 17.4 cm2 LVLs ap4: 6.2 cm ESV(MOD-sp4): 39.9 ml ESV(sp4-el): 41.4 ml EF(MOD-sp4): 54.8 % EF(sp4-el): 55.4 % SV(sp4-el): 51.3 ml LA A4 area: 16.7 cm2 LA dimension(2D): 3.2 cm RA A4 area: 14.3 cm2 TAPSE: 1.6 cm Time Measurements MV dec time: 0.12 sec Doppler Measurements & Calculations MV E max josé miguel: 82.9 cm/sec Lat Peak E' José Miguel: 12.3 cm/sec Med Peak E' José Miguel: 6.3 cm/sec MV A max josé miguel: 100.8 cm/sec E/E' lat: 6.7 E/E' med: 13.1 MV E/A: 0.82 MV V2 max: 113.8 cm/sec Ao V2 max: 120.6 cm/sec MV max P.2 mmHg MV dec slope: 732.9 cm/sec2 Ao max P.8 mmHg MV V2 mean: 62.5 cm/sec Ao V2 mean: 91.5 cm/sec MV mean P.8 mmHg Ao mean P.7 mmHg MV V2 VTI: 27.2 cm Ao V2 VTI: 25.2 cm AV (velocity ratio): 0.78 LV V1 max: 100.7 cm/sec PA V2 max: 81.7 cm/sec LV V1 max P.1 mmHg PA V2 mean: 55.0 cm/sec LV V1 mean P.5 mmHg LV V1 mean: 75.4 cm/sec LV V1 VTI: 19.7 cm ECHO/Echo Complete Interpretation Summary The left ventricular ejection fraction is 55 %. Ordering Physician: Antonio Llanes Referring Physician: Antonio Llanes Performed By: Tamiko Carrington RCS
[2023-03-01] MEDS: Sucralfate 1 GM Tablet PO ×3 (06:18→22:39)
[2023-03-01] MEDS: Pantoprazole Sodium 40 MG Tablet PO ×2 (09:57→22:38)
[2023-03-01] MEDS: Metoprolol Tartrate 25 MG Tablet PO ×3 (09:57→22:38)
[2023-03-01] MEDS: Aspirin E.C. 81 MG Tablet PO (09:57)
[2023-03-01 10:00] LABS: Partial Thromboplast Time 32.8 Seconds (24.1-36.2)
--- NOTE | 2023-03-01 11:02 | CON.PCM.CA_ITS ---
Assessment & Plan Assessment/Plan (1) Elevated troponin: PLAN: Troponins elevated but flat. Will repeat another set of troponin. Depend ing on those, will recommend either stress test or coronary angiography. Agree with aspirin. Stop heparin. Check echo. (2) Substance abuse: PLAN: As per internal medicine. (3) Elevated liver enzymes: PLAN: As per internal medicine. HPI Consult Data Date of Consult: 03/01/23 HPI Narrative Reason for Consultation: Chest pain HPI Narrative: Patient has history of substance abuse and schizophrenia. He presented to the emergency room with complaints of chest pain. He is not cooperative. Does not give any history. Does not answer questions. [facility] Medical History Anxiety and depression Asthma Compartment syndrome of right lower extremity Frequent headaches Gastric reflux Hearing problem Hepatitis C Heroin abuse History of back problems IVDU (intravenous drug user) Marijuana use Migraine headache Neuropathy Neuropraxia of left lower extremity Open wound of right lower leg Overdose of fentanyl Schizophrenia Tobacco use Vision problem Vitamin deficiency Wears glasses Home Medications benztropine 1 mg tablet 1 mg PO DAILY Check with primary doctor 30 days #30 tabs 02/13/23 [Rx Last Taken Unknown] fluphenazine HCl 5 mg tablet 5 mg PO DAILY mental health 30 days #30 tabs 02/13/23 [Rx Last Taken Unknown] gabapentin 300 mg capsule 300 mg PO BID Check with primary doctor 30 days #60 caps 02/13/23 [Rx Last Taken Unknown] hydroxyzine pamoate 50 mg capsule (Vistaril) 50 mg PO BID mental health 30 days #60 caps 02/13/23 [Rx Last Taken Unknown] oxcarbazepine 150 mg tablet 150 mg PO BID anticonvulsant #60 tabs 02/13/23 [Rx Last Taken Unknown] pantoprazole 40 mg tablet,delayed release (Protonix) 40 mg PO BID stomach 30 days #60 tabs 02/13/23 [Rx Last Taken Unknown] sucralfate 1 gram tablet 1 g PO 1HR_ACHS stomach 30 days #120 tabs 02/13/23 [Rx Last Taken Unknown] Allergy/AdvReac Type Severity Reaction Status Date / Time No Known Allergies Allergy Verified 02/10/23 19:17 Family History Mother Hypertension High cholesterol Heart disease Diabetes Depression Cancer Mental disorder Myocardial infarction CVA (cerebral vascular accident) Breast cancer Asthma Arthritis Anxiety Alcoholism Father Hypertension High cholesterol Heart disease Diabetes Depression Cancer Mental disorder Myocardial infarction CVA (cerebral vascular accident) Asthma Arthritis Anxiety Alcoholism Surgical History H/O hernia repair History of fasciotomy Social History household members: none Smoking Status: Current every day smoker tobacco type: cigarettes alcohol intake: never substance use type: marijuana, amphetamines, opiates, IV drugs and methamphetamine Physical Exam Narrative Lying flat in the bed. Comfortable. No apparent distress. Heart sounds 1 and 2 normal. Chest clear to auscultation bilaterally. Abdomen soft. Wakes up to verbal commands however refuses to answer any questions. Risk Stratification Risk Stratification Applicable: No Objective Data Vital Signs: Vital Signs Temp Pulse Resp BP Pulse Ox O2 Del Method O2 Flow Rate 98.6 F 87 16 153/106 H 97 Room Air 2 03/01/23 09:53 03/01/23 09:57 03/01/23 09:53 03/01/23 09:53 03/01/23 09:53 03/01/23 09:53 02/28/23 22:00 Oxygen Flow Rate (L/min) 2 Oxygen Delivery Method Room Air Weight: 138 lb 7.205 oz Body Mass Index (BMI) 21.0 Intake & Output: Intake and Output for Last 24 Hours 02/27/23 02/28/23 03/01/23 23:59 23:59 23:59 Intake Total 0.09 / 240.09 675.02 / 675.02 Output Total 0 / 0 Balance 0.09 / 240.09 675.02 / 675.02 Lab / Micro Data Attestation: I reviewed the patient's lab results. 03/01/23 02:23 03/01/23 02:23 Labs: Laboratory Results - last 24 hr 02/28/23 16:30: WBC 9.4, RBC 4.19 L, Hgb 12.0 L, Hct 35.3 L, MCV 84.2, MCH 28.6, MCHC 34.0, RDW Std Deviation 42.5, RDW Coeff of Neftali 13.9, Plt Count 198, MPV 10.5, Immature Gran % (Auto) 0.400, Neut % (Auto) 83.5 H, Lymph % (Auto) 10.9 L, Sebastian % (Auto) 5.0, Eos % (Auto) 0.0, Baso % (Auto) 0.2, Absolute Neuts (auto) 7.8 H, Absolute Lymphs (auto) 1.02, Sodium 132 L, Potassium 3.4 L, Chloride 90 L , Carbon Dioxide 37.0 H, Anion Gap 5, BUN 32 H, Creatinine 1.62 H, Estim Creat Clear Calc 51.86, Est GFR (MDRD) Af Amer 61, Est GFR (MDRD) Non-Af 50 L, BUN/Creatinine Ratio 19.8, Glucose 119 H, Calcium 8.5, Total Bilirubin 0.80, AST 1961 H, ALT 1579 H, Alkaline Phosphatase 44 L, Total Protein 7.0, Albumin 3.6, Globulin 3.4, Albumin/Globulin Ratio 1.1, Ethyl Alcohol < 3.0 02/28/23 17:00: Urine Opiates Screen NEGATIVE, Urine Methadone Screen NEGATIVE, Ur Barbiturates Screen NEGATIVE, Ur Phencyclidine Scrn NEGATIVE, Ur Amphetamines Screen POSITIVE H, MDMA (Ecstasy) Screen POSITIVE H, U Benzodiazepines Scrn NEGATIVE, Urine Cocaine Screen NEGATIVE, U Cannabinoids Screen POSITIVE H, Ur Drug Screen Comment 02/28/23 17:52: WBC Cancelled, Corrected WBC Cancelled, RBC Cancelled, Hgb Cancelled, Hct Cancelled, MCV Cancelled, MCH Cancelled, MCHC Cancelled, RDW Std Deviation Cancelled, RDW Coeff of Neftali Cancelled, Plt Count Cancelled, MPV Cancelled, Immature Gran % (Auto) Cancelled, Neut % (Auto) Cancelled, Lymph % (Auto) Cancelled, Sebastian % (Auto) Cancelled, Eos % (Auto) Cancelled, Baso % (Auto) Cancelled, Absolute Neuts (auto) Cancelled, Absolute Lymphs (auto) Cancelled, Total Counted Cancelled, Neutrophils % (Manual) Cancelled, Band Neutrophils % Cancelled, Lymphocytes % (Manual) Cancelled, Monocytes % (Manual) Cancelled, Eosinophils % (Manual) Cancelled, Basophils % (Manual) Cancelled, Metamyelocytes % Cancelled, Myelocytes % Cancelled, Promyelocytes % Cancelled, Blast Cells % Cancelled, Plasma Cell % (Manual) Cancelled, Other Cells % Cancelled, Nucleated RBC % Cancelled, Nucleated RBCs/100 WBC Cancelled, Differential Comment Cancelled, Diff Path Review Cancelled, Hypersegmented Neuts Cancelled, Atypical Lymphocytes Cancelled, Reactive Lymphocytes Cancelled, Smudge Cells Cancelled, Toxic Granulation Cancelled, Toxic Vacuolation Cancelled, Dohle Bodies Cancelled, Pilar Rods Cancelled, Platelet Estimate Cancelled, Plt Morphology Comment Cancelled, RBC Morphology Cancelled 02/28/23 17:52: RBC Morphology Cancelled, Polychromasia Cancelled, Hypochromasia Cancelled, Poikilocytosis Cancelled, Basophilic Stippling Cancelled, Anisocytosis Cancelled, Microcytosis Cancelled, Macrocytosis Cancelled, Spherocytes Cancelled, Sickle Cells Cancelled, Target Cells Cancelled, Tear Drop Cells Cancelled, Ovalocytes Cancelled, Stomatocytes Cancelled, Yanez-[place] Bodies Cancelled, Alexy Cells Cancelled, Bite Cells Cancelled, Crenated Cell Cancelled, Acanthocytes (Spur) Cancelled, Rouleaux Cancelled, Schistocytes Cancelled, Urine Color Yellow, Urine Clarity Clear, Urine pH 6.0, Ur Specific [place] 1.020, Urine Protein 100 H, Urine Glucose (UA) NEGATIVE, Urine Ketones 5 H, Urine Occult Blood 250 H, Urine Nitrite Negative, Urine Bilirubin 1 H, Urine Urobilinogen 1 H, Ur Leukocyte Esterase 25 H 02/28/23 19:40: PT 15.8 H, INR 1.3 02/28/23 21:30: Phosphorus 1.6 L, Magnesium 2.3, Troponin I High Sens 286 H* 02/28/23 23:09: Troponin I High Sens 281 H* 03/01/23 02:23: WBC 7.3, RBC 4.25 L, Hgb 11.9 L, Hct 36.8 L, MCV 86.6, MCH 28.0, MCHC 32.3, RDW Std Deviation 44.1 H, RDW Coeff of Neftali 14.1, Plt Count 198, MPV 10.8, Immature Gran % (Auto) 0.400, Neut % (Auto) 82.5 H, Lymph % (Auto) 11.5 L, Sebastian % (Auto) 5.2, Eos % (Auto) 0.1, Baso % (Auto) 0.3, Absolute Neuts (auto) 6.0, Absolute Lymphs (auto) 0.84, Nucleated RBC % 0, APTT 30.8, Sodium 135 L, Potassium 3.7, Chloride 95 L, Carbon Dioxide 32.0, Anion Gap 8, BUN 26 H, Creatinine 1.11, Estim Creat Clear Calc 75.69, Est GFR (MDRD) Af Amer 94, Est GFR (MDRD) Non-Af 77, BUN/Creatinine Ratio 23.4 H, Glucose 109 H, Calcium 8.5, Troponin I High Sens 253 H*, Triglycerides 86, Cholesterol 175, LDL Cholesterol 114, VLDL Cholesterol 17, HDL Cholesterol 44, TSH 0.37 03/01/23 08:55: APTT 32.8 Rhythm Strip Rhythm Strip: Sinus Rhythm Rate: 94 Ectopy: None Cardiology Labs/Tests 02/28/23 16:30: WBC 9.4, RBC 4.19 L, Hgb 12.0 L, Hct 35.3 L, MCV 84.2, MCH 28.6, MCHC 34.0, Plt Count 198, MPV 10.5, Immature Gran % (Auto) 0.400, Neut % (Auto) 83.5 H, Lymph % (Auto) 10.9 L, Sebastian % (Auto) 5.0, Eos % (Auto) 0.0, Baso % (Auto) 0.2, Absolute Neuts (auto) 7.8 H, Sodium 132 L, Potassium 3.4 L, Chloride 90 L, Carbon Dioxide 37.0 H, Anion Gap 5, BUN 32 H, Creatinine 1.62 H, Est GFR (MDRD) Af Amer 61, Est GFR (MDRD) Non-Af 50 L, BUN/Creatinine Ratio 19.8, Glucose 119 H, Calcium 8.5, Total Bilirubin 0.80 02/28/23 17:52: WBC Cancelled, Corrected WBC Cancelled, RBC Cancelled, Hgb Cancelled, Hct Cancelled, MCV Cancelled, MCH Cancelled, MCHC Cancelled, Plt Count Cancelled, MPV Cancelled, Immature Gran % (Auto) Cancelled, Neut % (Auto) Cancelled, Lymph % (Auto) Cancelled, Sebastian % (Auto) Cancelled, Eos % (Auto) Cancelled, Baso % (Auto) Cancelled, Absolute Neuts (auto) Cancelled, Total Counted Cancelled, Neutrophils % (Manual) Cancelled, Band Neutrophils % Cancelled, Lymphocytes % (Manual) Cancelled, Monocytes % (Manual) Cancelled, Eosinophils % (Manual) Cancelled, Basophils % (Manual) Cancelled, Metamyelocytes % Cancelled, Myelocytes % Cancelled, Promyelocytes % Cancelled, Blast Cells % Cancelled, Plasma Cell % (Manual) Cancelled, Other Cells % Cancelled, Nucleated RBC % Cancelled, Urine Color Yellow, Urine Clarity Clear, Urine pH 6.0, Ur Specific [place] 1.020, Urine Protein 100 H, Urine Glucose (UA) NEGATIVE, Urine Ketones 5 H, Urine Occult Blood 250 H, Urine Nitrite Negative, Urine Bilirubin 1 H, Urine Urobilinogen 1 H, Ur Leukocyte Esterase 25 H 02/28/23 19:40: PT 15.8 H, INR 1.3 02/28/23 21:30: Phosphorus 1.6 L, Magnesium 2.3 03/01/23 02:23: WBC 7.3, RBC 4.25 L, Hgb 11.9 L, Hct 36.8 L, MCV 86.6, MCH 28.0, MCHC 32.3, Plt Count 198, MPV 10.8, Immature Gran % (Auto) 0.400, Neut % (Auto) 82.5 H, Lymph % (Auto) 11.5 L, Sebastian % (Auto) 5.2, Eos % (Auto) 0.1, Baso % (Auto) 0.3, Absolute Neuts (auto) 6.0, Nucleated RBC % 0, APTT 30.8, Sodium 135 L, Potassium 3.7, Chloride 95 L, Carbon Dioxide 32.0, Anion Gap 8, BUN 26 H, Creatinine 1.11, Est GFR (MDRD) Af Amer 94, Est GFR (MDRD) Non-Af 77, BUN/Creatinine Ratio 23.4 H, Glucose 109 H, Calcium 8.5, Triglycerides 86, Cholesterol 175, LDL Cholesterol 114, VLDL Cholesterol 17, HDL Cholesterol 44 03/01/23 08:55: APTT 32.8 Rhythm: Normal sinus rhythm EKG: Sinus rhythm. Prolonged QT. ECHO: Stress Test: Cardiac Cath: PCI: CT Surgery: Holter monitor: EPS: PPM: CXR: Chest CT Scan: Radiography Diagnostic Testing: Radiology Impression Chest X-Ray 02/28/23 17:30 IMPRESSION: No radiographic evidence of acute cardiopulmonary disease. Electronically Signed: Jose David Lee MD at 17:25 EDT ,
--- NOTE | 2023-03-01 12:22 | CASEMGMT ---
SELENA DUPONT Assessment: Face to Face with pt for initial transition planning/care coordination assessment. RN CRESENCIO introduced self and role at [facility], pt voices understanding and consents to assessment. Pt is drowsy, states he is not sure where he is or what year it is. Oriented to self. Asked pt if RN CRESENCIO could discuss care with grandmother listed, pt declined. Care providers, pharmacy, and demographics verified/updated. Address and phone number left on demographics but pt could not verify. Reports being homeless. Admitting Dx: CP [facility] Specialists:Pt denies Preferred Pharmacy:[facility] Insurance: [facility] Prescription Benefit: yes LNOK: Ester Sullivan, grandmother Living Arrangements: Pt reports he is homeless. He would not answer questions to where he bathes, how he gets meals. Transportation: Pt would not answer if he has transportation. DME/HHC/SNF: Pt denies having any DME, previous HHC or SNF stays. Pt states no further concerns/needs. CM to follow. Advised pt to ask CM if any further question/concerns/needs arise, voices understanding. Notified SW of chart review or mental health dx, drug use and homelessness. Pt Goal: Pt did not state Plan: Home
[2023-03-01 13:13] LABS: Troponin-I HS 124 pg/mL (3.0-78.0)
[2023-03-01] MEDS: Nitroglycerin Oint 1 INCH PACKET TD ×2 (13:19→22:39)
[2023-03-01 14:45] LABS: AST(SGOT) 1078 U/L (15-37); Alanine Aminotransfer ALT/SGPT 1380 U/L (16-61); Albumin, Serum 3.5 g/dL (3.2-5.0); Alkaline Phosphatase 46 U/L (45-117); Bilirubin, Direct 0.26 mg/dL (0.00-0.30); Globulin 3.3 g/dL (2.2-4.2); Potassium 3.2 mmol/L (3.5-5.1); Protein, Total 6.8 g/dL (6.4-8.2)
--- NOTE | 2023-03-01 17:52 | PCM.PN.HOSP ---
Reason for Visit Reason for Visit: Diagnoses Other psychoactive substance abuse, uncomplicated (02/28/23) Non-ST elevation (NSTEMI) myocardial infarction (02/28/23) Abnormal levels of other serum enzymes (02/28/23) Other specified abnormalities of plasma proteins (02/28/23) Subjective Subjective Patient was seen and examined today, he will not carry on a conversation, he answers yes or no to most questions appropriately. Patient does not appear confused. Patient's troponin was repeated today at 12 noon it was 124, the other 3 troponins since admission have been pretty much flat, I talked with cardiology, cardiology would like to do a cardiac cath on the patient but he is unwilling to give an answer whether he wants it done or have a conversation about it. I talked at length with the patient's grandmother who did not know he was in the hospital here, she states that he had been in a inpatient detox program in [place], she suggested that I call the patient's sister which I did. Patient's sister states that he showed up at her house this last Friday but then he left again and she does not know his whereabouts. I told her that he was in the hospital here, she will attempt to combine in talk with him. In the meantime, patient has had episodes of what appears to be torsades, I talked with cardiology about this, they recommended increasing the patient's beta-elli and I gave the patient IV magnesium and IV potassium phosphate. Patient's phosphate and potassium level will be repeated tonight. In the meantime, patient will remain in the hospital at this time, hopefully by tomorrow he will be more talkative or be able to tell us what his wishes are. Objective Data Objective Data Vital Signs: Vital Signs Temp Pulse Resp BP Pulse Ox O2 Del Method O2 Flow Rate 98.3 F 86 20 H 145/102 H 99 Room Air 2 03/01/23 17:12 03/01/23 17:30 03/01/23 17:12 03/01/23 17:30 03/01/23 17:12 03/01/23 17:12 02/28/23 22:00 Oxygen Flow Rate (L/min) 2 Oxygen Delivery Method Room Air Weight: 62.8 kg Body Mass Index (BMI) 21.0 Intake & Output: Intake and Output for Last 24 Hours 02/27/23 02/28/23 03/01/23 23:59 23:59 23:59 Intake Total 0.09 / 240.09 1756.27 / 1756.27 Output Total 0 / 0 Balance 0.09 / 240.09 1756.27 / 1756.27 Lab / Micro Data 03/01/23 02:23 03/01/23 12:15 Labs: Laboratory Results - last 24 hr 02/28/23 16:30: WBC 9.4, RBC 4.19 L, Hgb 12.0 L, Hct 35.3 L, MCV 84.2, MCH 28.6, MCHC 34.0, RDW Std Deviation 42.5, RDW Coeff of Neftali 13.9, Plt Count 198, MPV 10.5, Immature Gran % (Auto) 0.400, Neut % (Auto) 83.5 H, Lymph % (Auto) 10.9 L, [place] % (Auto) 5.0, Eos % (Auto) 0.0, Baso % (Auto) 0.2, Absolute Neuts (auto) 7.8 H, Absolute Lymphs (auto) 1.02, Sodium 132 L, Potassium 3.4 L, Chloride 90 L, Carbon Dioxide 37.0 H, Anion Gap 5, BUN 32 H, Creatinine 1.62 H, Estim Creat Clear Calc 51.86, Est GFR (MDRD) Af Amer 61, Est GFR (MDRD) Non-Af 50 L, BUN/Creatinine Ratio 19.8, Glucose 119 H, Calcium 8.5, Total Bilirubin 0.80, AST 1961 H, ALT 1579 H, Alkaline Phosphatase 44 L, Total Protein 7.0, Albumin 3.6, Globulin 3.4, Albumin/Globulin Ratio 1.1, Ethyl Alcohol < 3.0 02/28/23 17:00: Urine Opiates Screen NEGATIVE, Urine Methadone Screen NEGATIVE, Ur Barbiturates Screen NEGATIVE, Ur Phencyclidine Scrn NEGATIVE, Ur Amphetamines Screen POSITIVE H, MDMA (Ecstasy) Screen POSITIVE H, U Benzodiazepines Scrn NEGATIVE, Urine Cocaine Screen NEGATIVE, U Cannabinoids Screen POSITIVE H, Ur Drug Screen Comment 02/28/23 17:52: WBC Cancelled, Corrected WBC Cancelled, RBC Cancelled, Hgb Cancelled, Hct Cancelled, MCV Cancelled, MCH Cancelled, MCHC Cancelled, RDW Std Deviation Cancelled, RDW Coeff of Neftali Cancelled, Plt Count Cancelled, MPV Cancelled, Immature Gran % (Auto) Cancelled, Neut % (Auto) Cancelled, Lymph % (Auto) Cancelled, [place] % (Auto) Cancelled, Eos % (Auto) Cancelled, Baso % (Auto) Cancelled, Absolute Neuts (auto) Cancelled, Absolute Lymphs (auto) Cancelled, Total Counted Cancelled, Neutrophils % (Manual) Cancelled, Band Neutrophils % Cancelled, Lymphocytes % (Manual) Cancelled, Monocytes % (Manual) Cancelled, Eosinophils % (Manual) Cancelled, Basophils % (Manual) Cancelled, Metamyelocytes % Cancelled, Myelocytes % Cancelled, Promyelocytes % Cancelled, Blast Cells % Cancelled, Plasma Cell % (Manual) Cancelled, Other Cells % Cancelled, Nucleated RBC % Cancelled, Nucleated RBCs/100 WBC Cancelled, Differential Comment Cancelled, Diff Path Review Cancelled, Hypersegmented Neuts Cancelled, Atypical Lymphocytes Cancelled, Reactive Lymphocytes Cancelled, Smudge Cells Cancelled, Toxic Granulation Cancelled, Toxic Vacuolation Cancelled, Dohle Bodies Cancelled, Pilar Rods Cancelled, Platelet Estimate Cancelled, Plt Morphology Comment Cancelled, RBC Morphology Cancelled 02/28/23 17:52: RBC Morphology Cancelled, Polychromasia Cancelled, Hypochromasia Cancelled, Poikilocytosis Cancelled, Basophilic Stippling Cancelled, Anisocytosis Cancelled, Microcytosis Cancelled, Macrocytosis Cancelled, Spherocytes Cancelled, Sickle Cells Cancelled, Target Cells Cancelled, Tear Drop Cells Cancelled, Ovalocytes Cancelled, Stomatocytes Cancelled, Yanez-[place] Bodies Cancelled, Sigel Cells Cancelled, Bite Cells Cancelled, Crenated Cell Cancelled, Acanthocytes (Spur) Cancelled, Rouleaux Cancelled, Schistocytes Cancelled, Urine Color Yellow, Urine Clarity Clear, Urine pH 6.0, Ur Specific [place] 1.020, Urine Protein 100 H, Urine Glucose (UA) NEGATIVE, Urine Ketones 5 H, Urine Occult Blood 250 H, Urine Nitrite Negative, Urine Bilirubin 1 H, Urine Urobilinogen 1 H, Ur Leukocyte Esterase 25 H 02/28/23 19:40: PT 15.8 H, INR 1.3 02/28/23 21:30: Phosphorus 1.6 L, Magnesium 2.3, Troponin I High Sens 286 H* 02/28/23 23:09: Troponin I High Sens 281 H* 03/01/23 02:23: WBC 7.3, RBC 4.25 L, Hgb 11.9 L, Hct 36.8 L, MCV 86.6, MCH 28.0, MCHC 32.3, RDW Std Deviation 44.1 H, RDW Coeff of Neftali 14.1, Plt Count 198, MPV 10.8, Immature Gran % (Auto) 0.400, Neut % (Auto) 82.5 H, Lymph % (Auto) 11.5 L, [place] % (Auto) 5.2, Eos % (Auto) 0.1, Baso % (Auto) 0.3, Absolute Neuts (auto) 6.0, Absolute Lymphs (auto) 0.84, Nucleated RBC % 0, APTT 30.8, Sodium 135 L, Potassium 3.7, Chloride 95 L, Carbon Dioxide 32.0, Anion Gap 8, BUN 26 H, Creatinine 1.11, Estim Creat Clear Calc 75.69, Est GFR (MDRD) Af Amer 94, Est GFR (MDRD) Non-Af 77, BUN/Creatinine Ratio 23.4 H, Glucose 109 H, Calcium 8.5, Troponin I High Sens 253 H*, Triglycerides 86, Cholesterol 175, LDL Cholesterol 114, VLDL Cholesterol 17, HDL Cholesterol 44, TSH 0.37 03/01/23 08:55: APTT 32.8 03/01/23 12:15: Potassium 3.2 L, Magnesium 2.0, Total Bilirubin 0.80, Direct Bilirubin 0.26, AST 1078 H, ALT 1380 H, Alkaline Phosphatase 46, Troponin I High Sens 124 H*, Total Protein 6.8, Albumin 3.5, Globulin 3.3 Radiography Diagnostic Testing: Radiology Impression Echocardiogram 03/01/23 05:55 Interpretation Summary The left ventricular ejection fraction is 55 %. Ordering Physician: Antonio Llanes Referring Physician: Antonio Llanes Performed By: Tamiko Carrington RCS Rhythm Strip Rhythm Strip: Sinus Rhythm Rate: 94 Ectopy: None Physical Exam Const alert and no apparent distress Constitutional Narrative: Patient appears older than his stated age General Appearance: well kempt and well developed Orientation / Consciousness: awake HEENT normocephalic, head/scalp atraumatic and moist oral mucous membranes Eyes PERRL, EOMs intact bilaterally and conjunctivae normal Neck supple, no JVD, thyroid normal and no carotid bruits General: trachea midline Resp normal respiratory effort, no retractions, no use of accessory muscles and clear to auscultation bilaterally Auscultation: Negative for rales, rhonchi or wheezes Cardio regular rate, regular rhythm, S1 normal heart sound, S2 normal heart sound, no murmurs, no rub and no gallops GI normal to inspection, nondistended, normoactive bowel sounds, soft to palpation, non-tender and non-distended Extremity no clubbing, cyanosis or edema Skin no rashes or lesions noted General Skin Exam: no breakdown Neuro oriented x3, CN's II-XII intact bilaterally, moves all extremities, no focal motor deficits and no sensory deficits noted Sensorium / Orientation: awake and alert Psych Psych Narrative: Patient has a flat affect, he does not carry on a conversation but answers simple questions by yes or no. Assessment & Plan Assessment/Plan (1) NSTEMI, initial episode of care: PLAN: Plan 1. [id number] continues to receive supportive care, his beta-elli was increased per cardiology. #2 torsades arrhythmia-patient was given IV magnesium, beta-elli was increased per cardiology #3 schizophrenia-complicates care, medical course, recovery, and prognosis. It is unknown where the patient is living at this time and what his support system is due to his erratic behavior. #4 polysubstance abuse-complicates care, medical course, recovery, and prognosis #5 elevated liver enzymes-patient has a history of hepatitis C, it is unknown whether these enzyme elevations are from hepatitis C or some other reason, liver enzymes will be monitored #6 hypophosphatemia-patient will receive K-Phos, his phosphorus level will be rechecked #7 hypokalemia-again patient has received potassium phosphate, potassium level will be rechecked tonight Total clinical time spent by myself addressing the patient's medical issues, reviewing all of his data, and collaborating with patient's care team: 50 minutes Charges/Coding Visit Charges Inpatient E&M: 33390 [facility] Hosp L3
--- NOTE | 2023-03-01 18:53 | CASEMGMT ---
Social Work SW introduced self and role to patient. Pt listed as homeless and SW discussed resources. Pt would not say where he had been prior to hospitalization. Pt was difficult to get information from. SW is unsure whether this is patient's baseline. Pt does have hx of substance abuse and mental illiness. Hospitalist was able to make contact with family and pt's sister will be coming to see patient. SW provided [place] resources and housing options. SW is available for resources or further evaluation as needed. Luh Baker DATA ACQUISITION TECHNICIAN, DYNAMICS AX TECHNICAL ARCHITECT
[2023-03-01] MEDS: Magnesium Sulfate 4gm/100mL 4 GM/100 ML IV.SOLN. IV (19:06)
--- NOTE | 2023-03-01 19:40 | NURSING ---
03/01/23 1723 Pt. went into a long run of torsades. By the time staff got to room patient had converted to sinus tach. Dr. Waterman was called to bedside and gave several verbal orders. Dr. Tierney also notified who called and talked to Dr. Waterman Kphos, magnesium, and metoprolol were ordered as directed by Dr. Waterman.
[2023-03-01 20:56] LABS: Bedside Glucose 114 mg/dL (74-106)
[2023-03-01] MEDS: Atorvastatin Calcium 40 MG Tablet PO (22:39)
[2023-03-02] VITALS (9 sets, daily range): BP systolic 140–152; BP diastolic 99–111; PULSE 57–98; RESP 16–20; TEMP 36.8–37.2; O2SAT 96–99; BMI 19.6
[2023-03-02 00:41] LABS: Phosphorus 1.2 mg/dL (2.5-4.9)
[2023-03-02] MEDS: Magnesium Sulfate 4gm/100mL 4 GM/100 ML IV.SOLN. IV (02:10)
[2023-03-02] MEDS: Sucralfate 1 GM Tablet PO ×2 (06:19→20:09)
[2023-03-02] MEDS: Metoprolol Tartrate 25 MG Tablet PO (06:20)
[2023-03-02] MEDS: Nitroglycerin Oint 1 INCH PACKET TD ×3 (06:21→20:08)
[2023-03-02 07:13] LABS: AST(SGOT) 805 U/L (15-37); Alanine Aminotransfer ALT/SGPT 1611 U/L (16-61); Albumin, Serum 3.9 g/dL (3.2-5.0); Alkaline Phosphatase 60 U/L (45-117); Anion Gap 10 (5-15); BUN 12 mg/dL (7-18); Calcium,Total 8.9 mg/dL (8.5-10.1); Chloride 97 mmol/L (98-107); Creatinine, Serum 0.86 mg/dL (0.70-1.30); EST Glomerular Filtration Rate 104 mL/min (>60); Est Glom Filt Rate - Afr Amer 126 mL/min (>60); Estimated Creatinine Clearance 93.85 ml/min; Glucose 123 mg/dL (74-106); Protein, Total 7.9 g/dL (6.4-8.2); Sodium Level 133 mmol/L (136-145)
--- NOTE | 2023-03-02 09:20 | PCM.PN.HOSP ---
Reason for Visit Reason for Visit: Diagnoses Other psychoactive substance abuse, uncomplicated (02/28/23) Non-ST elevation (NSTEMI) myocardial infarction (02/28/23) Abnormal levels of other serum enzymes (02/28/23) Other specified abnormalities of plasma proteins (02/28/23) Subjective Subjective Patient was seen and examined today, he is a bit more talkative today, he does carry on short conversations with me, he states that he is not against having a cardiac catheterization. Patient has had several episodes of torsades since yesterday. Patient's potassium this morning was low at 3, patient's AST is trending downward, his ALT is trending slightly upward. I talked briefly with cardiology about his care. Objective Data Objective Data Vital Signs: Vital Signs Temp Pulse Resp BP Pulse Ox O2 Del Method O2 Flow Rate 98.5 F 73 20 H 152/111 H 98 Room Air 2 03/02/23 05:45 03/02/23 06:21 03/02/23 05:45 03/02/23 06:21 03/02/23 05:45 03/02/23 05:45 02/28/23 22:00 Oxygen Flow Rate (L/min) 2 Oxygen Delivery Method Room Air Weight: 58.7 kg Body Mass Index (BMI) 19.6 Intake & Output: Intake and Output for Last 24 Hours 02/28/23 03/01/23 03/02/23 23:59 23:59 23:59 Intake Total 0.09 / 240.09 1756.27 / 1896.27 715 / 715 Output Total 0 / 0 Balance 0.09 / 240.09 1756.27 / 1896.27 715 / 715 Lab / Micro Data 03/01/23 02:23 03/02/23 05:29 Labs: Laboratory Results - last 24 hr 03/01/23 08:55: APTT 32.8 03/01/23 12:15: Potassium 3.2 L, Magnesium 2.0, Total Bilirubin 0.80, Direct Bilirubin 0.26, AST 1078 H, ALT 1380 H, Alkaline Phosphatase 46, Troponin I High Sens 124 H*, Total Protein 6.8, Albumin 3.5, Globulin 3.3 03/01/23 20:38: POC Glucose 114 H 03/01/23 23:54: Potassium 2.7 L*, Phosphorus 1.2 L 03/02/23 05:29: Sodium 133 L, Potassium 3.0 L, Chloride 97 L, Carbon Dioxide 26.0, Anion Gap 10, BUN 12, Creatinine 0.86, Estim Creat Clear Calc 93.85, Est GFR (MDRD) Af Amer 126, Est GFR (MDRD) Non-Af 104, BUN/Creatinine Ratio 14.0, Glucose 123 H, Calcium 8.9, Total Bilirubin 1.00, AST 805 H, ALT 1611 H, Alkaline Phosphatase 60, Total Protein 7.9, Albumin 3.9, Globulin 4.0, Albumin/Globulin Ratio 1.0 Radiography Diagnostic Testing: Radiology Impression Echocardiogram 03/01/23 05:55 Interpretation Summary The left ventricular ejection fraction is 55 %. Ordering Physician: Antonio Llanes Referring Physician: Antonio Llanes Performed By: Tamiko Carrington RCS Rhythm Strip Rhythm Strip: Sinus Rhythm Rate: 94 Ectopy: None Physical Exam Narrative alert and no apparent distress Constitutional Narrative: Patient appears older than his stated age General Appearance: well kempt and well developed Orientation / Consciousness: awake HEENT normocephalic, head/scalp atraumatic and moist oral mucous membranes Eyes PERRL, EOMs intact bilaterally and conjunctivae normal Neck supple, no JVD, thyroid normal and no carotid bruits General: trachea midline Resp normal respiratory effort, no retractions, no use of accessory muscles and clear to auscultation bilaterally Auscultation: Negative for rales, rhonchi or wheezes Cardio regular rate, regular rhythm, S1 normal heart sound, S2 normal heart sound, no murmurs, no rub and no gallops GI normal to inspection, nondistended, normoactive bowel sounds, soft to palpation, non-tender and non-distended Extremity no clubbing, cyanosis or edema Skin no rashes or lesions noted General Skin Exam: no breakdown Neuro oriented x3, CN's II-XII intact bilaterally, moves all extremities, no focal motor deficits and no sensory deficits noted Sensorium / Orientation: awake and alert Psych Psych Narrative: Patient has a flat affect, he does not carry on long conversations, he is appropriate Assessment & Plan Assessment/Plan (1) NSTEMI, initial episode of care: PLAN: Plan 1. [id number] continues to receive supportive care, his beta-elli was increased per cardiology. Patient states to this examiner that he is not against having a cardiac catheterization. I let cardiology know about this. #2 torsades arrhythmia-patient is on a beta-elli, I will recheck his phosphorus, magnesium, and potassium today #3 schizophrenia-complicates care, medical course, recovery, and prognosis. Patient states he is homeless. #4 polysubstance abuse-complicates care, medical course, recovery, and prognosis #5 elevated liver enzymes-patient has a history of hepatitis C, it is unknown whether these enzyme elevations are from hepatitis C or some other reason, liver enzymes will be monitored as necessary #6 hypophosphatemia-patient received K-Phos, phosphate will be rechecked #7 hypokalemia-again patient has received potassium phosphate, potassium level will be rechecked Total clinical time spent by myself addressing the patient's medical issues, reviewing all of his data, and collaborating with patient's care team: 35 minutes Charges/Coding Visit Charges Inpatient E&M: 89771 Subs Hosp L2
[2023-03-02] MEDS: Aspirin E.C. 81 MG Tablet PO (09:55)
[2023-03-02] MEDS: Pantoprazole Sodium 40 MG Tablet PO ×2 (09:55→20:08)
[2023-03-02] MEDS: Potassium Chloride Oral Tablet 20 MEQ 60 MEQ PO (10:00)
--- NOTE | 2023-03-02 12:56 | PN.CARD_ITS ---
Subjective Subjective No chest pain. Events noted. Runs of VT noted yesterday. Objective Data Vital Signs: Vital Signs Temp Pulse Resp BP Pulse Ox O2 Del Method O2 Flow Rate 98.5 F 61 20 H 145/106 H 97 Room Air 2 03/02/23 09:49 03/02/23 09:49 03/02/23 09:49 03/02/23 09:49 03/02/23 09:49 03/02/23 10:30 02/28/23 22:00 Oxygen Flow Rate (L/min) 2 Oxygen Delivery Method Room Air Weight: 129 lb 6.581 oz Body Mass Index (BMI) 19.6 Intake & Output: Intake and Output for Last 24 Hours 02/28/23 03/01/23 03/02/23 23:59 23:59 23:59 Intake Total 0.09 / 240.09 1756.27 / 1896.27 1228.3333 / 1228.3333 Output Total 0 / 0 Balance 0.09 / 240.09 1756.27 / 1896.27 1228.3333 / 1228.3333 Lab / Micro Data 03/01/23 02:23 03/02/23 05:29 Labs: Laboratory Results - last 24 hr 03/01/23 12:15: Potassium 3.2 L, Magnesium 2.0, Total Bilirubin 0.80, Direct Bilirubin 0.26, AST 1078 H, ALT 1380 H, Alkaline Phosphatase 46, Troponin I High Sens 124 H*, Total Protein 6.8, Albumin 3.5, Globulin 3.3 03/01/23 20:38: POC Glucose 114 H 03/01/23 23:54: Potassium 2.7 L*, Phosphorus 1.2 L 03/02/23 05:29: Sodium 133 L, Potassium 3.0 L, Chloride 97 L, Carbon Dioxide 26.0, Anion Gap 10, BUN 12, Creatinine 0.86, Estim Creat Clear Calc 93.85, Est GFR (MDRD) Af Amer 126, Est GFR (MDRD) Non-Af 104, BUN/Creatinine Ratio 14.0, Glucose 123 H, Calcium 8.9, Total Bilirubin 1.00, AST 805 H, ALT 1611 H, Alkaline Phosphatase 60, Total Protein 7.9, Albumin 3.9, Globulin 4.0, Albumin/Globulin Ratio 1.0 Rhythm Strip Rhythm Strip: Sinus Rhythm Rate: 94 Ectopy: None Cardiology Labs/Tests 03/01/23 12:15: Potassium 3.2 L, Magnesium 2.0, Total Bilirubin 0.80, Direct Bilirubin 0.26 03/01/23 23:54: Potassium 2.7 L*, Phosphorus 1.2 L 03/02/23 05:29: Sodium 133 L, Potassium 3.0 L, Chloride 97 L, Carbon Dioxide 26.0, Anion Gap 10, BUN 12, Creatinine 0.86, Est GFR (MDRD) Af Amer 126, Est GFR (MDRD) Non-Af 104, BUN/Creatinine Ratio 14.0, Glucose 123 H, Calcium 8.9, Total Bilirubin 1.00 Rhythm: EKG: ECHO: Stress Test: Cardiac Cath: PCI: CT Surgery: Holter monitor: EPS: PPM: CXR: Chest CT Scan: Radiography Diagnostic Testing: Radiology Impression Echocardiogram 03/01/23 05:55 Interpretation Summary The left ventricular ejection fraction is 55 %. Ordering Physician: Antonio Llanes Referring Physician: Antonio Llanes Performed By: Tamiko Carrington RCS Physical Exam Narrative Lying flat in the bed. Comfortable. No apparent distress. Heart sounds 1 and 2 normal. Chest clear to auscultation bilaterally. Abdomen soft. No ankle edema. Assessment & Plan Assessment/Plan (1) Elevated troponin: PLAN: NSTEMI. VT noted. Recommend cardiac catheterization with coronary angio graphy and possible revascularization. Risks benefits explained. Patient understands and wishes to proceed. (2) Substance abuse: PLAN: As per internal medicine. (3) Elevated liver enzymes: PLAN: As per internal medicine. (4) Ventricular tachycardia: PLAN: Replace potassium as per internal medicine. See #1 above. Increase metoprolol to 50 mg twice daily.
[2023-03-02 13:22] LABS: Anion Gap 7 (5-15); BUN 12 mg/dL (7-18); BUN/Creat Ratio 11.9 RATIO (10-20); Calcium,Total 8.7 mg/dL (8.5-10.1); Chloride 98 mmol/L (98-107); Creatinine, Serum 1.01 mg/dL (0.70-1.30); EST Glomerular Filtration Rate 86 mL/min (>60); Est Glom Filt Rate - Afr Amer 104 mL/min (>60); Estimated Creatinine Clearance 79.91 ml/min; Glucose 134 mg/dL (74-106); Magnesium 3.1 mg/dL (1.6-2.6); Phosphorus 1.7 mg/dL (2.5-4.9); Sodium Level 135 mmol/L (136-145)
[2023-03-02 16:37] LABS: Phosphorus 1.2 mg/dL (2.5-4.9)
[2023-03-02] MEDS: Atorvastatin Calcium 40 MG Tablet PO (20:08)
[2023-03-02] MEDS: Metoprolol Tartrate 50 MG Tablet PO (20:08)
[2023-03-02 23:31] LABS: Potassium 2.7 mmol/L (3.5-5.1)
[2023-03-03] VITALS (14 sets, daily range): BP systolic 120–148; BP diastolic 80–113; PULSE 54–88; RESP 16–30; TEMP 36.3–37.1; O2SAT 96–100; BMI 19.8
[2023-03-03] MEDS: Nitroglycerin Oint 1 INCH PACKET TD (05:06)
[2023-03-03] MEDS: Aspirin E.C. 81 MG Tablet PO (05:06)
[2023-03-03] MEDS: Metoprolol Tartrate 50 MG Tablet PO (05:06)
[2023-03-03] MEDS: 0.9% Normal Saline 1,000 ML 15 ML IV (05:10)
[2023-03-03 05:17] LABS: Anion Gap 4 (5-15); BUN 11 mg/dL (7-18); BUN/Creat Ratio 11.9 RATIO (10-20); Calcium,Total 8.5 mg/dL (8.5-10.1); Chloride 101 mmol/L (98-107); Creatinine, Serum 0.93 mg/dL (0.70-1.30); EST Glomerular Filtration Rate 95 mL/min (>60); Est Glom Filt Rate - Afr Amer 115 mL/min (>60); Estimated Creatinine Clearance 87.53 ml/min; Glucose 125 mg/dL (74-106); Phosphorus 1.8 mg/dL (2.5-4.9); Potassium 3.3 mmol/L (3.5-5.1); Sodium Level 135 mmol/L (136-145)
--- NOTE | 2023-03-03 05:55 | EKG12_ITS ---
Test Reason : CP ADMIT Blood Pressure : / mmHG Vent. Rate : 074 BPM Atrial Rate : 074 BPM P-R Int : 152 ms QRS Dur : 072 ms QT Int : 450 ms P-R-T Axes : 073 061 044 degrees QTc Int : 499 ms Normal sinus rhythm Prolonged QT Abnormal ECG When compared with ECG of 06-JAN-2020 05:23, Nonspecific T wave abnormality now evident in Inferior leads Confirmed by ROBLES TARIQ, TOMER ([id number]), assignment desk editor OSITO SALDAÑA ([id number]) on 03/04/2023 7:18:17 AM Referred By: Antonio Llanes Confirmed By:TOMER ARBOLEDA MD
[2023-03-03 06:40] LABS: Magnesium 2.5 mg/dL (1.6-2.6)
--- NOTE | 2023-03-03 08:56 | PCM.PN.HOSP ---
Reason for Visit Reason for Visit: Diagnoses Other psychoactive substance abuse, uncomplicated (02/28/23) Non-ST elevation (NSTEMI) myocardial infarction (02/28/23) Ventricular tachycardia, unspecified (02/28/23) Abnormal levels of other serum enzymes (02/28/23) Other specified abnormalities of plasma proteins (02/28/23) Subjective Subjective Patient is a 42-year-old gentleman admitted with chest pain found to have elevated troponin consistent with acute non-STEMI cardiology consulted patient scheduled to undergo left heart catheterization Objective Data Objective Data Vital Signs: Vital Signs Temp Pulse Resp BP Pulse Ox O2 Del Method O2 Flow Rate 98.7 F 88 18 144/101 H 98 Room Air 2 03/03/23 05:00 03/03/23 05:06 03/03/23 05:00 03/03/23 05:00 03/03/23 05:00 03/03/23 05:00 02/28/23 22:00 Oxygen Flow Rate (L/min) 2 Oxygen Delivery Method Room Air Weight: 59.2 kg Body Mass Index (BMI) 19.8 Intake & Output: Intake and Output for Last 24 Hours 03/01/23 03/02/23 03/03/23 23:59 23:59 23:59 Intake Total 1756.27 / 1896.27 2568.3333 / 2568.3333 0 / 0 Output Total 0 / 0 Balance 1756.27 / 1896.27 2568.3333 / 2568.3333 0 / 0 Lab / Micro Data 03/01/23 02:23 03/03/23 04:35 Labs: Laboratory Results - last 24 hr 03/01/23 23:54: Potassium 2.7 L* 03/02/23 13:00: Sodium 135 L, Potassium 3.0 L, Chloride 98, Carbon Dioxide 30.0, Anion Gap 7, BUN 12, Creatinine 1.01, Estim Creat Clear Calc 79.91, Est GFR (MDRD) Af Amer 104, Est GFR (MDRD) Non-Af 86, BUN/Creatinine Ratio 11.9, Glucose 134 H, Calcium 8.7, Phosphorus 1.7 L, Magnesium 3.1 H 03/02/23 15:58: Potassium 3.0 L, Phosphorus 1.2 L 03/03/23 04:35: Sodium 135 L, Potassium 3.3 L, Chloride 101, Carbon Dioxide 30.0, Anion Gap 4 L, BUN 11, Creatinine 0.93, Estim Creat Clear Calc 87.53, Est GFR (MDRD) Af Amer 115, Est GFR (MDRD) Non-Af 95, BUN/Creatinine Ratio 11.9, Glucose 125 H, Calcium 8.5, Phosphorus 1.8 L, Magnesium 2.5 Rhythm Strip Rhythm Strip: Sinus Rhythm Rate: 94 Ectopy: None Physical Exam Narrative GENERAL: cooperative HEENT: Atraumatic; normocephalic EYES; Anicteric, Normal Conjunctiva NECK; supple, normal thyroid, RESPIRATORY: Diminished to auscultation CARDIOVASCULAR: Regular S1 S2, GI: soft, normoactive bowel sounds, : No Renal angle tenderness; EXTREMITIES: No edema, no clubbing, MUSCULOSKELETAL: no muscle wasting NEURO: Awake; no lateralizing signs. SKIN: No Rash PSYCH; Flat affect Assessment & Plan Assessment/Plan (1) NSTEMI, initial episode of care: PLAN: Plan Patient is a 42-year-old gentleman admitted with chest pain found to have elevated troponin consistent with acute non-STEMI cardiology consulted patient scheduled to undergo left heart catheterization 1. Acute non-STEMI ? Treatment initiated per protocol with consultation placed to cardiology plans for patient to undergo left heart catheterization 2. Cardiac arrhythmias ? Patient was found to have torsades, treated electrolyte abnormalities corrected 3. Hypokalemia -Corrected per protocol 4. Hyperphosphatemia ? Corrected per medical 5. Schizophrenia ? Complicating patient's care did continue patient psychotropic medications 6. GERD ? On PPI 7. Polysubstance abuse ? Counseled on cessation Time spent in the patient's overall evaluation,decision-making process, review of diagnostic data, adjustment of management, discussion with other providers, nursing nursing and ancillary staff involved in patient's care documentation, 40 Minutes Charges/Coding Visit Charges Inpatient E&M: 87798 Subs Hosp L2
--- NOTE | 2023-03-03 09:13 | CASEMGMT ---
Tertiary Facility In-network list according to [facility]'s website: [facility], [facility], [facility], , [facility], [facility], [facility], [facility] Carolin Pack RN CM
--- NOTE | 2023-03-03 10:44 | CL.D_ITS ---
Patient Name: DAMARI ROBLES Study Date: 03/03/2023 Performing: Lindsey Tierney MD Ht: 68 inches 172.72 cm : 1980 Wt: 130.7 lbs 59.2 kg Age: 42 Gender: male BSA: 1.7 PROCEDURE(S) PERFORMED [id number])LHC/COR/LV CLINICAL PROFILE AND INDICATIONS Indications: ACS > 24 hrs Heart Failure: None CAD Presentations: Non-STEMI. Symptom onset Date/Time: Time Not Available CONCLUSIONS No angiographically significant CAD Generalized slow flow epicardial vessels LVEF 60% RECOMMENDATIONS Medical therapy Risk factor modification DESCRIPTION OF PROCEDURE The patient arrived to the procedure lab. The risks and benefits of the procedure as well as a full description of our services here and current unavailability of surgical backup were fully explained to the patient and/or their significant other prior to the catheterization. The Timeout was completed, verifying the correct patient and procedure. The patient's procedural site was prepped and draped in the usual fashion. Local anesthetic was given subcutaneously to right radial region with Lidocaine 2%. Using a modified Seldinger technique, arterial access was obtained via the right radial artery, a 6Fr sheath was inserted. Left Coronary Artery selective angiography was performed in multiple views using a 5 Fr. 4.0 [place] catheter. Right Coronary Artery selective angiography was then performed in multiple views using a 5 Fr. 4.0 [place] catheter. Left Ventriculography was performed in HEAD projection using a 5 Fr. Pigtail catheter. LV to AO pullback pressures were then recorded.The arterial sheath was pulled and a TR Band was applied for hemostasis - 10cc air CORONARY ANGIOGRAPHY DOMINANCE: Right Dominant LEFT HEART ASSESSMENT Left Ventricular Ejection Fraction: by LV Gram 60 % Normal LV wall motion LVEDP: 17 mmHg LEFT MAIN: Angiographically normal LEFT ANTERIOR DESCENDING ARTERY: Angiographically normal CIRCUMFLEX ARTERY: Angiographically normal RIGHT CORONARY ARTERY: Angiographically normal COMPLICATIONS No Complications PROCEDURE MEDICATIONS Fentanyl 50 mcg IV Versed 1 mg IV Versed 1 mg IV Heparin given IA 03/03/2023 10:13:46 Verapamil 2.5mg, Ntg 200mcgs, 2000 units of Heparin given IA 03/03/2023 10:13:46 SUMMARY OF HEMODYNAMIC DATA Time AIR REST ECG 09:57:27 AO 127/95 (111) SA 10:17:16 LV 158/10, 16 10:22:10 LV 157/9, 17 10:22:18 LV 163/17, 21 10:24:30 LV 144/16, 19 10:24:38 LVp 152/18, 21 10:24:56 AOp 0/0 (102) 10:25:03 Signed By Lindsey Tierney MD On 03/03/2023 10:43:07 Lindsey Tierney MD
--- NOTE | 2023-03-03 10:45 | PN_ITS ---
Progress Note No angiographically significant coronary artery disease. Generalized slow flow in epicardial vessels noted. 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 Start on amlodipine 2.5 mg once daily. Patient with prolonged QT. Continue beta-blockers. Recommend follow-up with electrophysiology as outpatient. Patient also with low potassium levels despite supplementation. Consider work- up for hypokalemia as per internal medicine. Consider endocrine referral.
[2023-03-03] MEDS: Potassium Chloride Oral Tablet 20 MEQ 40 MEQ PO (12:02)
[2023-03-03] MEDS: Sucralfate 1 GM Tablet PO (12:03)
--- NOTE | 2023-03-03 12:05 | PCM.DC.SUM ---
Providers Date of Admission: 02/28/23 Date of Discharge: 03/03/23 Primary Care Physician: Dr. Isiah Jansen MD Consultations 02/28/23 21:28 Consult: Cardiology Routine Consulting Provider: Lindsey Tierney Reason for Consult: Chest Pain EMERGENT Consult: No MD Notified: Yes Date Notified: 02/28/23 Time Notified: 21:03 Method of Notification: ED Physician Initiated Reason For Visit: CHEST PAIN Diagnosis Discharge Diagnosis (1) NSTEMI, initial episode of care: Status: Acute Code(s): I21.4 - Non-ST elevation (NSTEMI) myocardial infarction Plan Patient is a 42-year-old gentleman admitted with chest pain found to have elevated troponin consistent with acute non-STEMI cardiology consulted patient scheduled to undergo left heart catheterization 1. Acute non-STEMI ? Treatment initiated per protocol with consultation placed to cardiology plans for patient to undergo left heart catheterization ? Patient underwent left heart catheterization which did not demonstrate any hemodynamically obstructive lesion 2. Cardiac arrhythmias ? Patient was found to have torsades, treated electrolyte abnormalities corrected 3. Hypokalemia -Corrected per protocol 4. Hyperphosphatemia ? Corrected per medical 5. Schizophrenia ? Complicating patient's care did continue patient psychotropic medications 6. GERD ? On PPI 7. Polysubstance abuse ? Counseled on cessation Time spent in the patient's overall evaluation,decision-making process, review of diagnostic data, adjustment of management, discussion with other providers, nursing nursing and ancillary staff involved in patient's care documentation, 40 Minutes Medications at Discharge Home Medications benztropine 1 mg tablet 1 mg PO DAILY Check with primary doctor 30 days #30 tabs 02/13/23 fluphenazine HCl 5 mg tablet 5 mg PO DAILY mental health 30 days #30 tabs 02/13/23 gabapentin 300 mg capsule 300 mg PO BID Check with primary doctor 30 days #60 caps 02/13/23 hydroxyzine pamoate 50 mg capsule (Vistaril) 50 mg PO BID mental health 30 days #60 caps 02/13/23 oxcarbazepine 150 mg tablet 150 mg PO BID anticonvulsant #60 tabs 02/13/23 pantoprazole 40 mg tablet,delayed release (Protonix) 40 mg PO BID stomach 30 days #60 tabs 02/13/23 sucralfate 1 gram tablet 1 g PO 1HR_ACHS stomach 30 days #120 tabs 02/13/23 amlodipine 5 mg tablet 5 mg PO DAILY #60 tabs 03/03/23 aspirin 81 mg tablet,delayed release 81 mg PO BREAKFAST #60 tabs 03/03/23 potassium chloride 20 mEq tablet,extended release(part/cryst) (Klor-Con M) 20 meq PO BIDCM #60 tabs 03/03/23 potassium, sodium phosphates 280 mg-160 mg-250 mg oral powder packet 1 packet PO 3XD #90 ea 03/03/23 Hospital Course Summary of Care Provided Minutes Spent on Discharge: 40 Physical Exam Narrative GENERAL: cooperative HEENT: Atraumatic; normocephalic EYES; Anicteric, Normal Conjunctiva NECK; supple, normal thyroid, RESPIRATORY: Diminished to auscultation CARDIOVASCULAR: Regular S1 S2, GI: soft, normoactive bowel sounds, : No Renal angle tenderness; EXTREMITIES: No edema, no clubbing, MUSCULOSKELETAL: no muscle wasting NEURO: Awake; no lateralizing signs. SKIN: No Rash PSYCH; Flat affect Weight / BMI Weight Weight: 59.2 kg Body Mass Index (BMI) 19.8 ABG / Lab / Microbiology Data 03/01/23 02:23 03/03/23 04:35 Laboratory: Laboratory Results - last 24 hr 03/01/23 23:54: Potassium 2.7 L* 03/02/23 13:00: Sodium 135 L, Potassium 3.0 L, Chloride 98, Carbon Dioxide 30.0, Anion Gap 7, BUN 12, Creatinine 1.01, Estim Creat Clear Calc 79.91, Est GFR (MDRD) Af Amer 104, Est GFR (MDRD) Non-Af 86, BUN/Creatinine Ratio 11.9, Glucose 134 H, Calcium 8.7, Phosphorus 1.7 L, Magnesium 3.1 H 03/02/23 15:58: Potassium 3.0 L, Phosphorus 1.2 L 03/03/23 04:35: Sodium 135 L, Potassium 3.3 L, Chloride 101, Carbon Dioxide 30.0, Anion Gap 4 L, BUN 11, Creatinine 0.93, Estim Creat Clear Calc 87.53, Est GFR (MDRD) Af Amer 115, Est GFR (MDRD) Non-Af 95, BUN/Creatinine Ratio 11.9, Glucose 125 H, Calcium 8.5, Phosphorus 1.8 L, Magnesium 2.5 D/C Instructions Discharge Diet: No restrictions Discharge Activity: Return to Normal Activity Call your doctor if you observe: Fever of 101 or Higher, Shortness of breath, Fainting spells and Chest pain Meaningful Use Info Meaningful Use Diagnoses (Choose all that apply): None applicable Discharge Plan Admission Admit Date/Time: 02/28/23 21:01 Attending Provider: Ad Dahl Primary Care Provider: Isiah Jansen Consulting Providers: Lindsey Tierney; Antonio Llanes; Isiah Waterman Discharge Orders/Prescriptions Prescriptions: New amlodipine 5 mg Tablet 5 mg PO DAILY Qty: 60 0RF aspirin 81 mg Tablet,Delayed Release (Dr/Ec) 81 mg PO BREAKFAST Qty: 60 0RF potassium chloride [Klor-Con M20] 20 mEq Tablet,Er Particles/Crystals 20 meq PO BIDCM Qty: 60 0RF potassium, sodium phosphates 280-160-250 mg Powder In Packet 1 packet PO 3XD Qty: 90 0RF Continued oxcarbazepine 150 mg tablet 150 mg PO BID Qty: 60 0RF sucralfate 1 gram Tablet 1 g PO 1HR_ACHS 30 Days Qty: 120 0RF hydroxyzine pamoate [Vistaril] 50 MG capsule 50 mg PO BID 30 Days Qty: 60 0RF pantoprazole [Protonix] 40 mg tablet,delayed release (DR/EC) 40 mg PO BID 30 Days Qty: 60 0RF benztropine 1 mg tablet 1 mg PO DAILY 30 Days Qty: 30 0RF gabapentin 300 mg capsule 300 mg PO BID 30 Days Qty: 60 0RF fluphenazine HCl 5 mg tablet 5 mg PO DAILY 30 Days Qty: 30 0RF Referrals / Follow Up: Isiah Jansen MD [Primary Care Provider] - Within 1 Week Disposition Disposition (needs filled in before D/C Order can be placed): Home, Self Care Charges/Coding Visit Charges Inpatient E&M: 83405 Disch Hosp >30min
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
[2023-03-03] MEDS: OXcarbazepine 150 MG Tablet PO (15:27)
[2023-03-03] MEDS: hydrOXYzine PAM 25 MG Capsule 50 MG PO (15:27)
[2023-03-03] MEDS: Benztropine 2 MG Tablet 1 MG PO (15:27)
[2023-03-03] MEDS: Gabapentin 300 MG Capsule PO (15:27)
[2023-03-03] MEDS: Na Biphos/Potassium Phosphate PACKET 1 PACKET PO (15:28)
== END 2023-03-03 15:44 | disposition home or self-care (01) | DRG 190 ==
LOC: ED 19:26 → PCU 21:22
PROVIDERS: Hospitalist; Internal Medicine; Internal Medicine Cardiovascular Disease; Nurse Practitioner; Admitting Provider Internal Medicine; Emergency Provider Emergency Medicine; PCP Family Medicine; Referring Provider Internal Medicine; Visit Provider Internal Medicine
DX: I21.4 Non-ST elevation (NSTEMI) myocardial infarction (principal); E83.39 Other disorders of phosphorus metabolism; I47.21 Torsades de pointes; F20.9 Schizophrenia, unspecified; F15.10 Other stimulant abuse, uncomplicated; F16.10 Hallucinogen abuse, uncomplicated; T43.641A Poisoning by ecstasy, accidental (unintentional), initial encounter; F17.210 Nicotine dependence, cigarettes, uncomplicated; K21.9 Gastro-esophageal reflux disease without esophagitis; F12.10 Cannabis abuse, uncomplicated; F41.9 Anxiety disorder, unspecified; R74.01 Elevation of levels of liver transaminase levels; Z59.00 Homelessness unspecified; Z79.899 Other long term (current) drug therapy; Z86.19 Personal history of other infectious and parasitic diseases; Z82.49 Family history of ischemic heart disease and other diseases of the circulatory system
CPT/HCPCS: 36415; 71045; 80048; 80053; 80061; 80076; 80307; 81002; 82077; 82962; 83735; 84100; 84132; 84443; 84484; 85025; 85610; 85730; 93005; 93306; 93458; 99152; 99153; 99285; 99406; J7030; J7040; J7050; Q9967; A4216; C1769; C1894

== ENCOUNTER 2023-03-09 09:40 | Emergency (ER) | payer MEDICAID, SELFPAY ==
[2023-03-09 09:41] VITALS: BP 109/82; PULSE 74; RESP 22; TEMP 35.7; O2SAT 98; BMI 20.5
--- NOTE | 2023-03-09 10:04 | RAD_ITS ---
STUDY: X-RAY CHEST REASON FOR EXAM: Male, 42 years old. sob -- SOB FOR A FEW DAYS. STATES NO COUGH OR FEVER TECHNIQUE: PA and lateral views of the chest. COMPARISON: 02/28/2023 FINDINGS: Linear opacities in both lung bases consistent with bibasilar discoid atelectasis. Blunting of the costophrenic angles bilaterally consistent with tiny bilateral pleural effusions. Normal size heart. Normal mediastinum and daphne. Normal visualized pulmonary arteries. Normal visualized aortic arch and descending thoracic aorta. Normal visualized thoracic spine. Normal visualized ribs, clavicles, and shoulders. There is no demonstrated abnormality of the visualized soft tissue structures of the upper abdomen. RAD/Chest PA and Lateral IMPRESSION: Tiny bilateral pleural effusions with bibasilar discoid atelectasis. Electronically Signed: David Goddard MD at 10:35 EDT ,
--- NOTE | 2023-03-09 10:05 | EX.ED.DYSGE1 ---
HPI History of Present Illness Chief Complaint: Shortness of Breath Informant: patient Onset/Context/Timing Onset: Days Context: Gradual Onset Narrative Narrative: Patient presents secondary to shortness of breath. He states that has been ongoing for the past couple of days. He states it is not like his typical asthma. He does not use inhalers. He denies chest pain. He states he will intermittently have abdominal and back pain. No fever or chills. No cough. No URI symptoms. Patient states he will intermittently feel more short of breath when he lies down flat. This has been ongoing for quite some time and is not a new change. [facility] Medical History Anxiety and depression Asthma Compartment syndrome of right lower extremity Frequent headaches Gastric reflux Hearing problem Hepatitis C Heroin abuse History of back problems IVDU (intravenous drug user) Marijuana use Migraine headache Neuropathy Neuropraxia of left lower extremity Open wound of right lower leg Overdose of fentanyl Schizophrenia Tobacco use Vision problem Vitamin deficiency Wears glasses Home Medications benztropine 1 mg tablet 1 mg PO DAILY Check with primary doctor 30 days #30 tabs 02/13/23 [Rx Last Taken Unknown] fluphenazine HCl 5 mg tablet 5 mg PO DAILY mental health 30 days #30 tabs 02/13/23 [Rx Last Taken Unknown] gabapentin 300 mg capsule 300 mg PO BID Check with primary doctor 30 days #60 caps 02/13/23 [Rx Last Taken Unknown] hydroxyzine pamoate 50 mg capsule (Vistaril) 50 mg PO BID mental health 30 days #60 caps 02/13/23 [Rx Last Taken Unknown] oxcarbazepine 150 mg tablet 150 mg PO BID anticonvulsant #60 tabs 02/13/23 [Rx Last Taken Unknown] pantoprazole 40 mg tablet,delayed release (Protonix) 40 mg PO BID stomach 30 days #60 tabs 02/13/23 [Rx Last Taken Unknown] sucralfate 1 gram tablet 1 g PO 1HR_ACHS stomach 30 days #120 tabs 02/13/23 [Rx Last Taken Unknown] amlodipine 5 mg tablet 5 mg PO DAILY #60 tabs 03/03/23 [Rx Last Taken Unknown] aspirin 81 mg tablet,delayed release 81 mg PO BREAKFAST #60 tabs 03/03/23 [Rx Last Taken Unknown] potassium chloride 20 mEq tablet,extended release(part/cryst) (Klor-Con M) 20 meq PO BIDCM #60 tabs 03/03/23 [Rx Last Taken Unknown] potassium, sodium phosphates 280 mg-160 mg-250 mg oral powder packet 1 packet PO 3XD #90 ea 03/03/23 [Rx Last Taken Unknown] furosemide 40 mg tablet (Lasix) 40 mg PO DAILY #4 tabs 03/09/23 [Rx Last Taken Unknown] naproxen 500 mg tablet (Naprosyn) 500 mg PO BID PRN pain #20 tabs 03/09/23 [Rx Last Taken Unknown] Allergy/AdvReac Type Severity Reaction Status Date / Time No Known Allergies Allergy Verified 02/10/23 19:17 Family History Mother Hypertension High cholesterol Heart disease Diabetes Depression Cancer Mental disorder Myocardial infarction CVA (cerebral vascular accident) Breast cancer Asthma Arthritis Anxiety Alcoholism Father Hypertension High cholesterol Heart disease Diabetes Depression Cancer Mental disorder Myocardial infarction CVA (cerebral vascular accident) Asthma Arthritis Anxiety Alcoholism Surgical History H/O hernia repair History of fasciotomy Social History household members: none Smoking Status: Current every day smoker tobacco type: cigarettes alcohol intake: never substance use type: marijuana, amphetamines, opiates, IV drugs and methamphetamine ROS ROS ED Constitutional Constitutional ED: Denies chills or fever(s) Eyes Eyes: Denies change in vision ENT ENT ED: Denies rhinorrhea or sore throat Cardiovascular Cardiovascular: Denies chest pain or palpitations Respiratory/Chest Respiratory/Chest: Reports dyspnea; Denies cough Gastrointestinal Gastrointestinal: Denies abdominal pain, nausea or vomiting Genitourinary Genitourinary ED: Denies dysuria Musculoskeletal Musculoskeletal: Denies back pain or extremity pain Integumentary Denies Abrasions or rash Neurologic Neurologic: Denies headache(s) or weakness Psychiatric Psychiatric: Denies anxiety or depression Allergic/Immunologic Allergic/Immunologic ED: Denies lip swelling or urticaria EXAM Physical Exam Const Vital Signs: 03/09/23 09:41 03/09/23 09:41 03/09/23 10:11 Temperature 96.2 F L Temperature Source Temporal Pulse Rate 74 90 Respiratory Rate 22 H 24 H Respiratory Effort Normal Respiratory Depth Normal Respiratory Pattern Normal Tachypnea Blood Pressure 109/82 H Blood Pressure Mean 91 Pulse Ox 98 Oxygen Delivery Method Room Air Room Air 03/09/23 10:11 Temperature Temperature Source Pulse Rate Respiratory Rate Respiratory Effort Respiratory Depth Respiratory Pattern Blood Pressure Blood Pressure Mean Pulse Ox 98 Oxygen Delivery Method Room Air Positive well nourished and well developed General Appearance ED: well developed HEENT Reports normocephalic and head/scalp atraumatic Eyes PERRL and EOMs intact bilaterally Neck supple Chest Wall inspection of chest normal and palpation of chest normal Resp normal respiratory effort and clear to auscultation bilaterally Cardio regular rate and regular rhythm GI non-tender Auscultation: hypoactive bowel sounds Palpation: soft Extremity normal to inspection Extremity Narrative: No peripheral edema. Neuro oriented x3 and no sensory deficits noted Sensorium / Orientation: alert Motor Exam: strength 5/5 throughout Psych mental status grossly normal Skin no rashes or lesions noted MDM MDM MDM Narrative Medical decision making narrative: Patient given a albuterol treatment and sent for two-view chest x-ray. Radiography Diagnostic Testing: Clinical Impression(s) from Imaging Studies Chest X-Ray 03/09/23 10:04 IMPRESSION: Tiny bilateral pleural effusions with bibasilar discoid atelectasis. Electronically Signed: David Goddard MD at 10:35 EDT , Treatment and Re-Evaluation :: 2 view chest x-ray per my interpretation reveals small pleural effusions bilaterally with atelectasis. Radiology interpretation is reviewed and agrees. This does appear to be changed when compared to prior study from approximately 10 days ago. In light of this patient will be given a short course of Lasix to help with fluid collection. He has had no fever or cough. I do not believe he has pneumonia. Patient was advised that if he does not continue to take deep breaths and expand his lungs this may set him up for getting pneumonia. When we are discussing his test results he is getting back pain and he describes it as spasm in the lower back. He has no midline tenderness throughout the thoracic or lumbar spine. He will be given a prescription for naproxen along with some Lasix. Discharge Plan Triage Chief Complaint: Shortness of Breath ED Provider: Nelly Slater Dx/Rx/DC Orders Clinical Impression: Back pain, Pleural effusion Instructions: ED Back and Neck Pain, General, ED Pleural Effusion Prescriptions: New naproxen [Naprosyn] 500 mg tablet 500 mg PO BID PRN (Reason: pain) Qty: 20 0RF furosemide [Lasix] 40 mg tablet 40 mg PO DAILY Qty: 4 0RF No Action oxcarbazepine 150 mg tablet 150 mg PO BID Qty: 60 0RF sucralfate 1 gram Tablet 1 g PO 1HR_ACHS 30 Days Qty: 120 0RF hydroxyzine pamoate [Vistaril] 50 MG capsule 50 mg PO BID 30 Days Qty: 60 0RF pantoprazole [Protonix] 40 mg tablet,delayed release (DR/EC) 40 mg PO BID 30 Days Qty: 60 0RF benztropine 1 mg tablet 1 mg PO DAILY 30 Days Qty: 30 0RF gabapentin 300 mg capsule 300 mg PO BID 30 Days Qty: 60 0RF fluphenazine HCl 5 mg tablet 5 mg PO DAILY 30 Days Qty: 30 0RF amlodipine 5 mg Tablet 5 mg PO DAILY Qty: 60 0RF aspirin 81 mg Tablet,Delayed Release (Dr/Ec) 81 mg PO BREAKFAST Qty: 60 0RF potassium chloride [Klor-Con M20] 20 mEq Tablet,Er Particles/Crystals 20 meq PO BIDCM Qty: 60 0RF potassium, sodium phosphates 280-160-250 mg Powder In Packet 1 packet PO 3XD Qty: 90 0RF Primary Care Provider: Iisah Jansen Referrals: Isiah Jansen MD [Primary Care Provider] - 1 Week
[2023-03-09] MEDS: Albuterol 2.5 MG/3 ML VIAL.NEB. INHALATION (10:10)
[2023-03-09 10:11] VITALS: PULSE 90; RESP 24; O2SAT 98
--- NOTE | 2023-03-09 12:26 | ED.RN ---
PT LEFT PRIOR TO RECIEVING MEDICATION AND DISCHARGE PAPERWORK
== END 2023-03-09 12:27 | disposition home or self-care (01) ==
PROVIDERS: Emergency Provider Emergency Medicine; PCP Family Medicine; Visit Provider Emergency Medicine
DX: M54.9 Dorsalgia, unspecified (principal); J90 Pleural effusion, not elsewhere classified; F12.90 Cannabis use, unspecified, uncomplicated
CPT/HCPCS: 71046; 94640; 99282

== ENCOUNTER 2024-05-21 18:55 | Emergency (ER) | payer MEDICAID, SELFPAY ==
[2024-05-21 18:56] VITALS: BP 135/107; PULSE 71; RESP 10; TEMP 36.8; O2SAT 98; BMI 25.2
[2024-05-21 19:55] VITALS: BP 112/80; PULSE 80; RESP 12; O2SAT 93
[2024-05-21 21:00] VITALS: BP 110/86; PULSE 74; RESP 16; TEMP 37.1; O2SAT 93
[2024-05-21 21:50] LABS: Amphetamine Urine VISTA POSITIVE (<1000 ng/mL); Barbiturate Urine VISTA NEGATIVE (< 200 ng/mL); Vista UDS pH Range 5
[2024-05-21 21:51] LABS: Benzodiazepine Urine VISTA NEGATIVE (< 200 ng/mL); Cocaine Urine VISTA NEGATIVE (< 300 ng/mL); Ecstacy Urine VISTA POSITIVE (< 500 ng/mL); Methadone Urine VISTA NEGATIVE (< 300 ng/mL); PCP Urine VISTA NEGATIVE (< 25 ng/mL); THC Urine VISTA POSITIVE (< 50 ng/mL)
[2024-05-21 22:05] VITALS: BP 120/88; PULSE 77; RESP 12; TEMP 37.2; O2SAT 93
== END 2024-05-21 22:17 | disposition home or self-care (01) ==
PROVIDERS: Emergency Provider Emergency Medicine; PCP Family Medicine; Visit Provider Emergency Medicine
DX: T43.621A Poisoning by amphetamines, accidental (unintentional), initial encounter (principal); F20.9 Schizophrenia, unspecified; F41.9 Anxiety disorder, unspecified; F32.A Depression, unspecified; F17.210 Nicotine dependence, cigarettes, uncomplicated; G62.9 Polyneuropathy, unspecified; G43.909 Migraine, unspecified, not intractable, without status migrainosus; J45.909 Unspecified asthma, uncomplicated; K21.9 Gastro-esophageal reflux disease without esophagitis; Z79.82 Long term (current) use of aspirin; Z79.899 Other long term (current) drug therapy
CPT/HCPCS: 80307; 99282

== ENCOUNTER 2025-04-28 07:24 | Inpatient (IN) | payer MEDICAID, SELFPAY ==
[2025-04-28] VITALS (35 sets, daily range): BP systolic 82–183; BP diastolic 64–116; PULSE 84–131; RESP 14–43; TEMP 30.9–38.4; O2SAT 85–100; BMI 27.3; BMI 26.5
--- NOTE | 2025-04-28 07:50 | RAD_ITS ---
PROCEDURE: CHEST 1 VIEW (PORTABLE) 04/28/2025 REASON FOR EXAM: AMS. BYSTANDER CPR TECHNIQUE: Frontal view of the chest. COMPARISON: March 09, 2023 FINDINGS: There is an ET tube in position with its tip 4 cm above the level of the calvin. There is an enteric tube seen with its tip below the field of view of this exam. Heart size is upper normal. Central vascularity appears increased. There is no pneumothorax or effusion. There is no acute bony abnormality. RAD/Chest 1 View (Portable) IMPRESSION: Tubes and lines in position. Mild central vascular congestion. Reading Location: [facility]
--- NOTE | 2025-04-28 07:50 | CT_ITS ---
EXAM: NONCONTRAST CT SCAN OF THE HEAD CLINICAL HISTORY: AMS COMPARISON: December 11, 2021 MRI brain TECHNIQUE: Serial axial series through the head were obtained without contrast. 2-D coronal and sagittal reformats were then obtained. FINDINGS: Brain: There is a chronic left posterior parietal occipital infarct measuring 3.8 by 2.5 cm new compared to the prior. There is no acute territorial infarct, intracranial hemorrhage, midline shift or mass effect. The sella and pineal gland regions appear unremarkable. There is no evidence of cerebellar tonsillar herniation. Ventricles: There is no acute hydrocephalus. Basilar cisterns are patent. Paranasal sinuses: Well-aerated Mastoid air cells: Well-aerated. Calvarium: The bony calvarium is intact. Orbits: The bilateral globes are symmetric, without retrobulbar compressive mass lesion or hemorrhage. ET tubes and NG tubes are noted. CT/Brain/Head without Contrast IMPRESSION: There is a chronic left posterior parietal occipital infarct measuring 3.8 by 2 .5 cm new compared to the prior. No acute intracranial pathology. Reading Location: [facility]
--- NOTE | 2025-04-28 07:50 | EKG12_ITS ---
Test Reason : post cpr Blood Pressure : */* mmHG Vent. Rate : 114 BPM Atrial Rate : 114 BPM P-R Int : 138 ms QRS Dur : 84 ms QT Int : 358 ms P-R-T Axes : 72 64 59 degrees QTcB Int : 493 ms Sinus tachycardia Otherwise normal ECG Confirmed by ROBLES TARIQ, TOMER ([id number]), marketing editor ARTI NEWTON ([id number]) on 04/29/2025 10:45:40 AM Referred By: Confirmed By: TOMER ARBOLEDA MD
--- NOTE | 2025-04-28 07:58 | ED.RN ---
Pt combative, unable to keep non-rebreather on
[2025-04-28 08:10] LABS: Hematocrit 47.6 % (40-54); Hemoglobin 14.7 g/dL (13.0-16.5); Immature Granulocytes Count 0.240 X10^3/uL (0.0-0.0); Mean Corp Hgb Conc 30.9 g/dL (32-36); Mean Corpuscular Volume 95.8 fL (80-94); Mean Platelet Vol. 10.8 fl (6.2-12.0); NRBC Flagged by Analyzer 0 % (0-5); Platelet Count 254 K/mm3 (150-450); RBC Distribution Width CV 13.7 % (11.6-14.6); RBC Distribution Width SD 49.0 fl (35.1-43.9); Red Blood Count 4.97 M/mm3 (4.6-6.2); White Blood Count 22.9 K/mm3 (4.4-11.0)
[2025-04-28] MEDS: 0.9% Normal Saline (1000mL) 1,000 ML 1000 ML IV (08:19)
--- NOTE | 2025-04-28 08:19 | RAD_ITS ---
PROCEDURE: ABDOMEN SINGLE VIEW (PORTABLE) 04/28/2025 REASON FOR EXAM: NG INSERTION TECHNIQUE: Procedure Code: RADABD_P Modality: DX Procedure: ABDOMEN SINGLE VIEW (PORTABLE) COMPARISON: None FINDINGS: There is an enteric tube seen with its tip in the stomach. There is no free air identified. RAD/Abdomen Single View (Portable) IMPRESSION: Tube in position. Reading Location: [facility]
[2025-04-28 08:36] LABS: Base Excess -16 mmol/L (-2 to +2); FI02 35.0; PEEP 5; PO2 134 mmHG (75-100); RR 14; SITE R Brach; SO2 96 % (95-99)
[2025-04-28] MEDS: Propofol 10MG/Ml 1,000 MG/100 ML Bottle 4.9 MG CONT INF (08:40)
[2025-04-28 08:43] LABS: Alcohol, Blood (Medical)-Serum < 10.1 mg/dL (<=10.0)
[2025-04-28 08:44] LABS: AST(SGOT) 36 U/L (<=37); Alanine Aminotransfer ALT/SGPT 26 U/L (<=46); Albumin, Serum 4.8 g/dL (3.5-5.0); Alkaline Phosphatase 65 U/L (40-129); Anion Gap 27 (5-15); BUN 20 mg/dL (4-19); BUN/Creat Ratio 11.1 RATIO (10-20); CPK Total, Creatine Kinase 429 U/L (24-195); Calcium,Total 9.9 mg/dL (7.6-11.0); Carbon Dioxide 16.4 mmol/L (21.0-32.0); Chloride 104 mmol/L (98-108); Estimated Creatinine Clearance 50.67 ml/min (50-250); Globulin 3.1 g/dL (2.2-4.2); Glucose 289 mg/dL (70-99); Potassium 5.3 mmol/L (3.3-5.1); Troponin T High Sensitivity 26 ng/L (<=22)
--- NOTE | 2025-04-28 08:45 | CPS ---
critical ABG results given to Dr Alfaro at [id number]
[2025-04-28 08:48] LABS: Mucous, Urine 0 SEEN /hpf (<or=2+); Red Blood Cells-Urine 0 SEEN /hpf (0-5)
--- NOTE | 2025-04-28 08:54 | CT_ITS ---
PROCEDURE: CHEST WITHOUT CONTRAST 04/28/2025 REASON FOR EXAM: CHEST TRAUMA, RESPIRATORY FAILURE TECHNIQUE: Chest CT without contrast. Coronal and Sagittal reconstruction series were provided. One or more dose reduction techniques were used (e.g., Automated exposure control, adjustment of the mA and/or kV according to patient size, use of iterative reconstruction technique RADIATION DOSE SUMMARY: CTDlvol: 17.11 mGy DLP: 654.17 mGycm COMPARISON: Prior chest radiograph done earlier in the day. FINDINGS: Hardware: An endotracheal tube is in-situ. An orogastric tube is seen with the tip in the body of the stomach. Lymph nodes: Small benign-appearing mediastinal lymph nodes. Heart and Vasculature: The heart is nonenlarged. No pericardial effusion. Coronary Artery Calcifications: Absent Lungs and Airways: There is evidence of patchy airspace disease in both lower lobes more prominent on the right side. With the patient's history of trauma, this may represent contusion. Follow-up recommended. Pleura: No pleural effusion. Upper Abdomen: Unremarkable Bones: Degenerative changes of the thoracic spine. Mild degree of wedging of the T11 vertebrae along its anterior superior end plate. No sternal fracture. CT/Chest without Contrast IMPRESSION: Coronary artery calcification (CAC) is is absent Airspace disease of both lung bases likely worse on the right side. With the p atient's history of trauma. This may represent contusion. Mild wedging of the superior anterior endplate of the T11 vertebrae. Reading Location: [place] [id number]
[2025-04-28 08:58] LABS: Color, Urine Yellow (Yellow); Glucose, Dipstick 1000 mg/dl (Normal); Ketone-Dipstick Negative (Negative); Leukocyte Esterase-Dipstick 25 /ul (Negative); Nitrite-Dipstick Negative (Negative); Occult Blood-Urine 50 /ul (Negative); Protein-Dipstick 30 mg/dl (Negative); Specific Gravity, Urine 1.025 (1.002-1.030); Urine Bilirubin Dipstick Negative (Negative)
--- NOTE | 2025-04-28 08:58 | EX.ED.CRITCA ---
HPI History of Present Illness Chief Complaint: Overdose Informant: patient Narrative Narrative: Patient is a 45-year-old male with history of polysubstance abuse, IV drug use, schizophrenia and epilepsy as well as benign intracranial hypertension presenting unresponsive and concern for overdose. Patient was found on someone's front yard unresponsive. There was do around him. Police gave 4 of intranasal Narcan and started CPR on him as he was not breathing. He had spontaneous respiration and circulation for EMS but was given additional 4 mg of Narcan. Upon arrival to the emergency room patient is awake but confused and not following commands. He is able to say that he is having chest pain. Otherwise no other information at this time. PFSH PFS Medical History Hepatitis C Tobacco use Anxiety and depression Overdose of fentanyl Vitamin deficiency Vision problem Neuropathy Hearing problem History of back problems Asthma Wears glasses Marijuana use Migraine headache Gastric reflux Frequent headaches Schizophrenia Compartment syndrome of right lower extremity Open wound of right lower leg Heroin abuse Neuropraxia of left lower extremity IVDU (intravenous drug user) Home Medications ?Medication ?Instructions ?Recorded ?Last Taken ?Type benztropine 1 mg tablet 1 mg PO DAILY Check with primary 02/13/23 Unknown Rx doctor 30 days #30 tabs fluphenazine HCl 5 mg tablet 5 mg PO DAILY mental health 30 02/13/23 Unknown Rx days #30 tabs gabapentin 300 mg capsule 300 mg PO BID Check with primary 02/13/23 Unknown Rx doctor 30 days #60 caps hydroxyzine pamoate 50 mg capsule 50 mg PO BID mental health 30 days 02/13/23 Unknown Rx (Vistaril) #60 caps oxcarbazepine 150 mg tablet 150 mg PO BID anticonvulsant #60 02/13/23 Unknown Rx tabs pantoprazole 40 mg tablet,delayed 40 mg PO BID stomach 30 days #60 02/13/23 Unknown Rx release (Protonix) tabs sucralfate 1 gram tablet 1 g PO 1HR_ACHS stomach 30 days 02/13/23 Unknown Rx #120 tabs amlodipine 5 mg tablet 5 mg PO DAILY #60 tabs 03/03/23 Unknown Rx aspirin 81 mg tablet,delayed 81 mg PO BREAKFAST #60 tabs 03/03/23 Unknown Rx release potassium chloride 20 mEq 20 meq PO BIDCM #60 tabs 03/03/23 Unknown Rx tablet,extended release(part/cryst) (Klor-Con M) potassium, sodium phosphates 280 1 packet PO 3XD #90 ea 03/03/23 Unknown Rx mg-160 mg-250 mg oral powder packet furosemide 40 mg tablet (Lasix) 40 mg PO DAILY #4 tabs 03/09/23 Unknown Rx naproxen 500 mg tablet (Naprosyn) 500 mg PO BID PRN pain #20 tabs 03/09/23 Unknown Rx Allergy/AdvReac Type Severity Reaction Status Date / Time No Known Allergies Allergy Verified 04/28/25 07:44 Family History Mother Hypertension High cholesterol Heart disease Diabetes Depression Cancer Mental disorder Myocardial infarction CVA (cerebral vascular accident) Breast cancer Asthma Arthritis Anxiety Alcoholism Father Hypertension High cholesterol Heart disease Diabetes Depression Cancer Mental disorder Myocardial infarction CVA (cerebral vascular accident) Asthma Arthritis Anxiety Alcoholism Surgical History H/O hernia repair History of fasciotomy Social History household members: none Smoking Status: Current every day smoker tobacco type: cigarettes alcohol intake: never substance use type: marijuana, amphetamines, opiates, IV drugs and methamphetamine ROS ROS ED Review of Systems ROS Unobtainable: due to mental status EXAM Physical Exam Const Vital Signs: 04/28/25 07:26 04/28/25 07:48 04/28/25 07:55 Temperature 87.6 F L Temperature Source Temporal Pulse Rate 120 H 131 H 124 H Respiratory Rate 23 H 34 H 43 H Respiratory Effort Respiratory Depth Respiratory Pattern Blood Pressure 155/116 H 142/102 H 179/103 H Blood Pressure Mean 129 115 128 Pulse Ox 90 85 86 Oxygen Delivery Method Nasal Cannula Nasal Cannula Nasal Cannula Oxygen Flow Rate (L/min) 6 6 6 04/28/25 08:18 04/28/25 08:21 04/28/25 08:27 Temperature Temperature Source Pulse Rate 112 H 112 H Respiratory Rate 15 14 Respiratory Effort Short of Breath Labored Accessory Muscle Use Head [place] Respiratory Depth Shallow Respiratory Pattern Normal Gasping Blood Pressure 156/89 H Blood Pressure Mean 111 Pulse Ox 96 98 Oxygen Delivery Method Mechanical Ventilator Oxygen Flow Rate (L/min) 04/28/25 08:30 04/28/25 08:57 04/28/25 09:00 Temperature 93.4 F L 93.4 F L Temperature Source Core Core Pulse Rate 98 91 89 Respiratory Rate 18 16 16 Respiratory Effort Respiratory Depth Respiratory Pattern Blood Pressure 183/112 H 174/105 H Blood Pressure Mean 135 128 Pulse Ox 98 95 100 Oxygen Delivery Method Mechanical Ventilator Mechanical Ventilator Oxygen Flow Rate (L/min) 04/28/25 09:30 Temperature 93.4 F L Temperature Source Core Pulse Rate 84 Respiratory Rate 16 Respiratory Effort Respiratory Depth Respiratory Pattern Blood Pressure 138/104 H Blood Pressure Mean 115 Pulse Ox 99 Oxygen Delivery Method Mechanical Ventilator Oxygen Flow Rate (L/min) Positive unkempt Constitutional Narrative: Disheveled General Appearance ED: unkempt HEENT HEENT Narrative: Edentulous normocephalic and atraumatic Eyes PERRL and EOMs intact bilaterally Neck full ROM and supple Chest Wall Chest Narrative: No chest wall crepitus. Tenderness palpation of the anterior chest wall. No flail chest appreciated Resp Resp Narrative: Bilateral breath sounds present. Shallow respirations Cardio regular rhythm and no murmurs Rate: tachycardic GI non-tender and non-distended Auscultation: normoactive bowel sounds Palpation: soft; Negative for tender or guarding Neuro Neuro Narrative: Spontaneous movement of all extremities. No lateralizing deficits appreciated. Natalya Coma Scale: document GCS findings To Voice Localizes to Pain Confused 12 Sensorium / Orientation: alert Psych Appearance: unkempt Skin Skin Narrative: Skin is cool to the touch Rashes: no rashes MDM MDM MDM Narrative Medical decision making narrative: Patient Biba for altered mental status after found unresponsive in someone's yard. CPR started with chest compressions by police. Patient had pulse for EMS. Patient however is intermittently agitated confused unable to follow commands. He is complaining of chest pain. He is hypothermic, questionably hypoxic as we cannot get a good O2 saturation on him and tachycardic. Decision made to intubate for airway protection. Differential includes not limited to hyperthermia, rhabdomyolysis, anoxic brain injury, opioid overdose, polysubstance abuse, rhabdomyolysis, KANA, pneumothorax, severe sepsis and intracranial hemorrhage. ABG shows mixed respiratory and metabolic acidosis with pH of 6.9, pCO2 of 75 and bicarb of 16.3. Suspect this is more respiratory. His pO2 is 133. Patient is maintained on the vent. Will add on CT of the chest in addition to CT of the brain looking for signs of pulmonary contusion, small pneumothorax or rib contusion. Postintubation chest x-ray read by myself as well as radiology shows ET tube and OGT as well as mild central vascular congestion. KUB shows OG tube in appropriate position. Patient has a leukocytosis of 22.9, unclear if this is reactive versus infectious. Hemoglobin is normal as well as platelets. CMP shows elevation of his creatinine to 1.8 consistent with an KANA, bicarb of 16.4 and an anion gap of 27. He is also hyponatremic with a sodium of 148. CK is elevated at 429 consistent with some developing rhabdomyolysis as well. Glucose is elevated at 289 however low suspicion for DKA. Patient maintained on sedation with propofol and tolerating this well. CT of the brain does show chronic but new parietal occipital infarct. No other acute intracranial abnormalities. CT of the chest shows bilateral airspace disease likely contusion given report of recent CPR/trauma. Patient ordered with antibiotics to cover for possible aspiration pneumonia with azithromycin and Unasyn. Case discussed with hospitalist for admission, Dr. Wilson. Case discussed with ICU attending, Dr. Craig as he will be going to the ICU. No further recommendations at this time. I did add on salicylates and acetaminophen level in case there was an overdose component so she given his metabolic acidosis. Lab Data Attestation: I reviewed the patient's lab results. Labs: Laboratory Results - last 24 hr 04/28/25 04/28/25 07:43 08:40 WBC 22.9 H RBC 4.97 Hgb 14.7 Hct 47.6 MCV 95.8 H MCH 29.6 MCHC 30.9 L RDW Std Deviation 49.0 H RDW Coeff of Neftali 13.7 Plt Count 254 MPV 10.8 Immature Gran % (Auto) 1.000 H Neut % (Auto) 81.0 H Lymph % (Auto) 11.5 L [place] % (Auto) 5.5 Eos % (Auto) 0.4 Baso % (Auto) 0.6 Absolute Neuts (auto) 18.5 H Absolute Lymphs (auto) 2.64 Nucleated RBC % 0 Sodium 148 H Potassium 5.3 H Chloride 104 Carbon Dioxide 16.4 L Anion Gap 27 H BUN 20 H Creatinine 1.80 H Estim Creat Clear Calc 50.67 Est GFR (MDRD) Non-Af 47 L BUN/Creatinine Ratio 11.1 Glucose 289 H Calcium 9.9 Total Bilirubin 0.24 AST 36 ALT 26 Alkaline Phosphatase 65 Total Creatine Kinase 429 H Troponin T High Sens 26 H Total Protein 8.0 Albumin 4.8 Globulin 3.1 Albumin/Globulin Ratio 1.5 Urine Color Yellow Urine Clarity Clear Urine pH 5.0 Ur Specific [place] 1.025 Urine Protein 30 H Urine Glucose (UA) 1000 H Urine Ketones Negative Urine Occult Blood 50 H Urine Nitrite Negative Urine Bilirubin Negative Urine Urobilinogen Normal Ur Leukocyte Esterase 25 H Urine RBC 0 SEEN Urine WBC 0-5 SEEN Ur Squamous Epith Cells 0-5 SEEN Urine Bacteria 0 SEEN Urine Mucus 0 SEEN Urine Opiates Screen NEGATIVE U Buprenorphine Qual NEGATIVE Ur Oxycodone Screen NEGATIVE Urine Methadone Screen NEGATIVE Urine Fentanyl Screen NEGATIVE Ur Barbiturates Screen NEGATIVE Ur Phencyclidine Scrn NEGATIVE Ur Amphetamines Screen PRESUMPTIVE POSITIVE U Benzodiazepines Scrn NEGATIVE Urine Cocaine Screen NEGATIVE U Cannabinoids Screen PRESUMPTIVE POSITIVE Ethyl Alcohol < 10.1 ABG Data ABG results: ABG 04/28/25 08:31 Specimen Type ART Sample Site R Brach pH 6.94 L* Bicarbonate Actual 16.3 L Total CO2 19 Base Excess -16 L O2 Saturation 96 O2 % 35.0 ABG pCO2 75.0 H* ABG pO2 134 H Respiration Rate 14 O2 Delivery Device Adult Vent Vent Mode AC Tidal Volume 450.0 POC PEEP 5 Crit Call To/Read Back Yes Radiography Chest X-Ray - ED: 1 View, Read by ED Physician, Read by Radiologist and - (Intubated, central vascular congestion) Diagnostic Testing: Clinical Impression(s) from Imaging Studies Brain CT 04/28/25 07:50 IMPRESSION: There is a chronic left posterior parietal occipital infarct measuring 3.8 by 2.5 cm new compared to the prior. No acute intracranial pathology. Reading Location: [facility] Chest X-Ray 04/28/25 07:50 IMPRESSION: Tubes and lines in position. Mild central vascular congestion. Reading Location: [facility] KUB X-Ray 04/28/25 08:19 IMPRESSION: Tube in position. Reading Location: [facility] Chest CT 04/28/25 08:54 IMPRESSION: Coronary artery calcification (CAC) is is absent Airspace disease of both lung bases likely worse on the right side. With the patient's history of trauma. This may represent contusion. Mild wedging of the superior anterior endplate of the T11 vertebrae. Reading Location: [place] [id number] Rhythm Strip Rhythm Strip: Sinus Tach Rate: 114 Ectopy: None EKG Initial EKG: Attestation: I personally reviewed and interpreted this EKG as follows: Interpretation: Sinus Tachycardia Comments: Sinus tachycardia rate 114 bpm Normal axis Normal intervals Normal ST segments Management Discussion w/another healthcare provider: Hospitalist and It Quality Assurance Analyst Procedures Intubations Intubation Method: orotracheal (8-0 ET tube. 4 Mac GlideScope. Sedated with 20 mg of etomidate and 80 mg of rocuronium. ) Intubation Verification: Positive color change and Bilateral breath sounds confirmed Intubation Complications: no complications Critical Care Time Critical Care Time: Yes Critical care time (excluding procedures): 30-74 minutes (50), Discussing w/Consultants, Arranging Admission or Transfer and Performing Direct Patient Care at Bedside Discharge Plan Dx/Rx/DC Orders Clinical Impression: Acute hypercapnic respiratory failure, Contusion of both lungs, Hypothermia, KANA (acute kidney injury), Polysubstance abuse, Rhabdomyolysis, Altered mental state, Acute hypernatremia, Hyperkalemia, Leukocytosis Disposition Disposition: Acute Care [facility]
[2025-04-28 09:13] LABS: Squamous Epithelial Cells - UA 0-5 SEEN /hpf (0-5)
[2025-04-28 09:32] LABS: Barbiturate Urine NEGATIVE (< 200 ng/mL); Benzodiazepine Urine NEGATIVE (< 200 ng/mL); PCP Urine NEGATIVE (< 25 ng/mL); THC Urine PRESUMPTIVE POSITIVE (< 50 ng/mL)
[2025-04-28] MEDS: 0.9% Normal Saline (1000mL) 1,000 ML 999 ML IV (10:00)
--- NOTE | 2025-04-28 10:04 | HP.PCM.HOS_ITS ---
HPI - General General Date of Admission: 04/28/25 Date of Service: 04/28/25 Chief Complaint: overdose HPI Narrative DAMARI ROBLES, is a 45 M with a PMH as outlined who was admitted via the ED on 04/28/2025 after being found down in someone's yard in the morning. Police started CPR and he was given a toal of 8mg of narcan. He had some response to the narcan and became a bit responsive. However by the time he came ot the ED he was more lethargic, so he was emergently intubated. Vitals in the ED At time of review were blood pressure 138/104, pulse rate of 84, respiratory rate of 16 and temperature of 93.4 Fahrenheit. He was saturating at 99% on the ventilator. CBC showed WBC of 22.9 and hemoglobin of 14.7 as well as platelets of 254. ABG done in the ED showed pH of 6.94 with pCO2 of 75 and pO2 of 134, this was after he was on the vent. Chemistry showed sodium of 148 with potassium of 5.3, Bicarb of 16.4 and anion gap of 27. Creatinine was 1.8. CPK was 429 and initial troponin was 26. Delta troponin was pending. Urinalysis showed no evidence of UTI. Urinalysis showed no evidence of UTI. Urine tox was presumed positive for amphetamines and cannabinoids but negative for fentanyl and oxycodone as well as opiates. Serum alcohol level was less than 10.1. CT brain showed a chronic left posterior parietal occipital infarct measuring 3.8 x 2.5 cm which was new compared to prior imaging and no acute intracranial pathology. Chest x-ray showed mild central vascular congestion with tubes and lines in position. Chest CT showed airspace disease of both lungs likely worse on the right. He has been admitted to be managed for acute hypoxic respiratory failure in the setting of probable aspiration pneumonia due to acute overdose likely of opioids as he responded to Narcan. [facility] Medical History Hepatitis C Tobacco use Anxiety and depression Overdose of fentanyl Vitamin deficiency Vision problem Neuropathy Hearing problem History of back problems Asthma Wears glasses Marijuana use Migraine headache Gastric reflux Frequent headaches Schizophrenia Compartment syndrome of right lower extremity Open wound of right lower leg Heroin abuse Neuropraxia of left lower extremity IVDU (intravenous drug user) Home Medications ?Medication ?Instructions ?Recorded ?Last Taken ?Type benztropine 1 mg tablet 1 mg PO DAILY Check with [facility] 02/13/23 Unknown Rx doctor 30 days #30 tabs fluphenazine HCl 5 mg tablet 5 mg PO DAILY mental heal th 30 02/13/23 Unknown Rx days #30 tabs gabapentin 300 mg capsule 300 mg PO BID Check with [facility] 02/13/23 Unknown Rx doctor 30 days #60 caps hydroxyzine pamoate 50 mg capsule 50 mg PO BID mental health 30 days 02/13/23 Unknown Rx (Vistaril) #60 caps oxcarbazepine 150 mg tablet 150 mg PO BID anticonvulsa nt #60 02/13/23 Unknown Rx tabs pantoprazole 40 mg tablet,delayed 40 mg PO BID stomach 30 days #60 02/13/23 Unknown Rx release (Protonix) tabs sucralfate 1 gram tablet 1 g PO 1HR_ACHS stomach 30 d ays 02/13/23 Unknown Rx #120 tabs amlodipine 5 mg tablet 5 mg PO DAILY #60 tabs 03/03 Unknown Rx aspirin 81 mg tablet,delayed 81 mg PO BREAKFAST #60 ta 03/03/23 Unknown Rx release potassium chloride 20 mEq 20 meq PO BIDCM #60 tabs Unknown Rx tablet,extended release(part/cryst) (Klor-Con M) potassium, sodium phosphates 280 1 packet PO 3XD #90 e a 03/03/23 Unknown Rx mg-160 mg-250 mg oral powder packet furosemide 40 mg tablet (Lasix) 40 mg PO DAILY #4 tabs 03/09/23 Unknown Rx naproxen 500 mg tablet (Naprosyn) 500 mg PO BID PRN pa in #20 tabs 03/09/23 Unknown Rx Allergy/AdvReac Type Severity Reaction Status Date / Time No Known Allergies Allergy Verified 04/28/25 07:44 Family History Mother Hypertension High cholesterol Heart disease Diabetes Depression Cancer Mental disorder Myocardial infarction CVA (cerebral vascular accident) Breast cancer Asthma Arthritis Anxiety Alcoholism Father Hypertension High cholesterol Heart disease Diabetes Depression Cancer Mental disorder Myocardial infarction CVA (cerebral vascular accident) Asthma Arthritis Anxiety Alcoholism Surgical History H/O hernia repair History of fasciotomy Social History household members: none Smoking Status: Current every day smoker tobacco type: cigarettes alcohol intake: never substance use type: marijuana, amphetamines, opiates, IV drugs and methamphetamine ROS Review of Systems ROS Unobtainable: due to encephalopathy and due to endotracheal tube Vital Signs Vital Signs Vital Signs: 04/28/25 07:26 04/28/25 07:48 04/28/25 07:55 Temperature 87.6 F L Temperature Source Temporal Pulse Rate 120 H 131 H 124 H Respiratory Rate 23 H 34 H 43 H Respiratory Effort Respiratory Depth Respiratory Pattern Blood Pressure 155/116 H 142/102 H 179/103 H Blood Pressure Mean 129 115 128 Pulse Ox 90 85 86 Oxygen Delivery Method Nasal Cannula Nasal Cannula Nasal Cannula Oxygen Flow Rate (L/min) 6 6 6 04/28/25 08:18 04/28/25 08:21 04/28/25 08:27 Temperature Temperature Source Pulse Rate 112 H 112 H Respiratory Rate 15 14 Respiratory Effort Short of Breath Labored Accessory Muscle Use Head Bobbing Respiratory Depth Shallow Respiratory Pattern Normal Gasping Blood Pressure 156/89 H Blood Pressure Mean 111 Pulse Ox 96 98 Oxygen Delivery Method Mechanical Ventilator Oxygen Flow Rate (L/min) 04/28/25 08:30 04/28/25 08:57 04/28/25 09:00 Temperature 93.4 F L 93.4 F L Temperature Source Core Core Pulse Rate 98 91 89 Respiratory Rate 18 16 16 Respiratory Effort Respiratory Depth Respiratory Pattern Blood Pressure 183/112 H 174/105 H Blood Pressure Mean 135 128 Pulse Ox 98 95 100 Oxygen Delivery Method Mechanical Ventilator Mechanical Ventilator Oxygen Flow Rate (L/min) 04/28/25 09:30 Temperature 93.4 F L Temperature Source Core Pulse Rate 84 Respiratory Rate 16 Respiratory Effort Respiratory Depth Respiratory Pattern Blood Pressure 138/104 H Blood Pressure Mean 115 Pulse Ox 99 Oxygen Delivery Method Mechanical Ventilator Oxygen Flow Rate (L/min) Weight Weight: 180 lb 1.883 oz Body Mass Index (BMI) 27.3 Physical Exam Const Constitutional Narrative: patient intubated, sedated, RASS score is -1 HEENT normocephalic and moist oral mucous membranes Eyes conjunctivae normal Eyes Narrative: Pupils pinpoint, reactive to light Neck supple Resp Resp Narrative: moderately diminished breath sounds bibasally, no wheezes or crackles. intubated and sedated. Cardio regular rate, regular rhythm, S1 normal heart sound, S2 normal heart sound and no murmurs GI normal to inspection, nondistended, normoactive bowel sounds, soft to palpation and non-tender Extremity normal to inspection and no clubbing, cyanosis or edema Neuro Neuro Narrative: Intubated, sedated. RASS score is -1 Results Lab / Micro Data 04/28/25 07:43 04/28/25 07:43 Labs: Laboratory Results - last 24 hr 04/28/25 07:43: WBC 22.9 H, RBC 4.97, Hgb 14.7, Hct 47.6, MCV 95.8 H, MCH 29.6, MCHC 30.9 L, RDW Std Deviation 49.0 H, RDW Coeff of Neftali 13.7, Plt Count 254, MPV 10.8, Immature Gran % (Auto) 1.000 H, Neut % (Auto) 81.0 H, Lymph % (Auto) 11.5 L, [place] % (Auto) 5.5, Eos % (Auto) 0.4, Baso % (Auto) 0.6, Absolute Neuts (auto) 18.5 H, Absolute Lymphs (auto) 2.64, Nucleated RBC % 0, Sodium 148 H, Potassium 5.3 H, Chloride 104, Carbon Dioxide 16.4 L, Anion Gap 27 H, BUN 20 H, Creatinine 1.80 H, Estim Creat Clear Calc 50.67, Est GFR (MDRD) Non-Af 47 L, BUN/Creatinine Ratio 11.1, Glucose 289 H, Calcium 9.9, Total Bilirubin 0.24, AST 36, ALT 26, Alkaline Phosphatase 65, Total Creatine Kinase 429 H, Troponin T High Sens 26 H, Total Protein 8.0, Albumin 4.8, Globulin 3.1, Albumin/Globulin Ratio 1.5, Ethyl Alcohol < 10.1 04/28/25 08:40: Urine Color Yellow, Urine Clarity Clear, Urine pH 5.0, Ur Specific [place] 1.025, Urine Protein 30 H, Urine Glucose (UA) 1000 H, Urine Ketones Negative, Urine Occult Blood 50 H, Urine Nitrite Negative, Urine Bilirubin Negative, Urine Urobilinogen Normal, Ur Leukocyte Esterase 25 H, Urine RBC 0 SEEN, Urine WBC 0-5 SEEN, Ur Squamous Epith Cells 0-5 SEEN, Urine Bacteria 0 SEEN, Urine Mucus 0 SEEN, Urine Opiates Screen NEGATIVE, U Buprenorphine Qual NEGATIVE, Ur Oxycodone Screen NEGATIVE, Urine Methadone Screen NEGATIVE, Urine Fentanyl Screen NEGATIVE, Ur Barbiturates Screen NEGATIVE, Ur Phencyclidine Scrn NEGATIVE, Ur Amphetamines Screen PRESUMPTIVE POSITIVE, U Benzodiazepines Scrn NEGATIVE, Urine Cocaine Screen NEGATIVE, U Cannabinoids Screen PRESUMPTIVE POSITIVE ABG Data ABG results: ABG 04/28/25 08:31 Specimen Type ART Sample Site R Brach pH 6.94 L* Bicarbonate Actual 16.3 L Total CO2 19 Base Excess -16 L O2 Saturation 96 O2 % 35.0 ABG pCO2 75.0 H* ABG pO2 134 H Respiration Rate 14 O2 Delivery Device Adult Vent Vent Mode AC Tidal Volume 450.0 POC PEEP 5 Crit Call To/Read Back Yes Imaging Radiology Impression Brain CT 04/28/25 07:50 IMPRESSION: There is a chronic left posterior parietal occipital infarct measuring 3.8 by 2.5 cm new compared to the prior. No acute intracranial pathology. Reading Location: [facility] Chest X-Ray 04/28/25 07:50 IMPRESSION: Tubes and lines in position. Mild central vascular congestion. Reading Location: [facility] KUB X-Ray 04/28/25 08:19 IMPRESSION: Tube in position. Reading Location: [facility] Chest CT 04/28/25 08:54 IMPRESSION: Coronary artery calcification (CAC) is is absent Airspace disease of both lung bases likely worse on the right side. With the patient's history of trauma. This may represent contusion. Mild wedging of the superior anterior endplate of the T11 vertebrae. Reading Location: [facility]IR-[facility] Assessment & Plan Assessment/Plan (1) Acute hypernatremia: PLAN: Plan #Acute encephalopathy due to acute opioid overdose * Patient found down on someone's front lawn and the police was called. CPR was started though it is not clear whether he had a pulse or otherwise. Patient subsequently became a bit responsive after he was given Narcan. He was brought to the ED where he was found to be encephalopathic and was emergently intubated. * Urine tox * CT chest showing airspace disease of both lungs likely worse on the right side * CT of the brain showed evidence of a chronic left posterior parietal occipital infarct measuring 3.8 x 2.5 cm which was new compared to prior imaging but no acute intracranial pathology. * Patient currently intubated and sedated. Admit to ICU. Critical care consulted. Started on IV Zosyn due to concerns for aspiration pneumonia. Hydrate with IV fluids. * Breathing treatments with bronchodilators. * Neurology consulted #Lactic acidosis: * Lactic acid was 12.9. * This could be explained by prolonged episode of apnea as patient was being managed for drug overdose. * However could also have septic shock though he responded to the fluid bolus and so this is unlikely. * Should improve with hydration and treatment. #Severe Sepsis due to probable aspiration pneumonia in the setting of drug overdose * Blood pressure was low and lactic acid was 12.9 but this improved with IV fluid hydration after he was given fluid per sepsis criteria * Continue hydration with IV fluid normal saline at 150 cc/h. Lactic acid came down to 4.8 from 12.9 after hydration. * On IV Unasyn as above for aspiration pneumonia. Critical care on board. Blood cultures ordered. * #Acute hypoxic and hypercapnic respiratory failure due to acute overdose, likely opioids and aspiration pneumonia * Currently intubated. ABG done after intubation showed pH of 6.94 with pCO2 of 75 and pO2 of 134. * CT chest as above. On IV antibiotics due to concern for aspiration pneumonia. * Critical care consulted. Vent management as per critical care. Breathing treatments bronchodilators. #Lactic acidosis with acute anion gap metabolic acidosis * Anion gap metabolic acidosis likely due to lactic acidosis and the lactic acidosis is also likely due to demand ischemia as patient was down for a while. * Been hydrated with IV fluids. Will monitor should improve with hydration * #Hyperkalemia: Potassium is 5.3. Will give Kayexalate. #KA[place]: Creatinine is 1.8 within normal baseline. Likely due to prerenal causes. Hydrate with IV fluids and if it does not improve will consult nephrology #Hypertension: Hold amlodipine and Lasix for now. #History of schizophrenia: On fluphenazine and benztropine which will be held. Also on oxcarbazepine. Will hold this also. #GI prophylaxis: On IV pantoprazole. DVT prophylaxis: Lovenox CODE STATUS: Presumptive full code and unable to discuss this with patient now. Charges/Coding Visit Charges Inpatient E&M: 35869 Init Hosp L3
[2025-04-28] MEDS: Ampicillin/Sulbactam 3 GM in 0.9% Normal Saline (100mL MB+) 100 ML IV (10:06)
[2025-04-28 10:37] LABS: Allen Test Positive; Base Excess -1 mmol/L (-2 to +2); FI02 35.0; PEEP 5; PO2 79 mmHG (75-100); RR 16; SITE R Radial; SO2 94 % (95-99)
[2025-04-28 10:43] LABS: Troponin T High Sens 2 HR 32 ng/L (<=22)
[2025-04-28] MEDS: Azithromycin 500 MG in 0.9% Normal Saline (250mL Bag) 250 ML 255 MG IV (10:53)
[2025-04-28 11:31] LABS: Acetaminophen (Tylenol) Level < 5.0 ug/mL (8.0-19.0); Salicylate < 0.5 mg/dL (2.8-20.0)
[2025-04-28] MEDS: 0.9% Normal Saline (500mL Bag) 500 ML 999 ML IV (11:37)
--- NOTE | 2025-04-28 12:10 | EX.PCM.CONCC ---
Assessment & Plan Assessment/Plan (1) Acute respiratory failure: PLAN: Plan RECOMMENDATIONS: 1. Continue assist-control mode of mechanical ventilation. Wean FiO2 and PEEP as tolerated. Obtain follow-up ABG in the morning. 2. Continue empiric antimicrobials, pending infectious workup. 3. Minimize sedation as tolerated. Goal to maintain RASS of -1 to 1. 4. Continue appropriate DVT prophylaxis. Will initiate appropriate GI prophylaxis. 5. Given the patient's questionable history of epilepsy coupled with CT head findings, will obtain neurology consultation as well. IMPRESSIONS: 1. Acute combined respiratory failure Most likely secondary to illicit drug overdose, coupled with possible aspiration. The patient was ultimately intubated in the emergency department for airway protection. He will be continued on assist-control mode of mechanical ventilation, with a goal to wean FiO2 and PEEP to maintain saturations at or above 90%. Empiric antimicrobials will be continued, pending infectious workup. Propofol will be utilized for sedation. Plan to proceed with spontaneous awakening and breathing trials beginning tomorrow morning. 2. Encephalopathy Presumed secondary to illicit drug overdose. 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 Therefore, we will obtain neurology consultation for additional input regarding management. TSH and ammonia levels will be checked. 3. Acute kidney injury Most likely prerenal in etiology in the setting of numbers 1 and 2. CK was not significantly elevated to suggest rhabdomyolysis. Will continue to monitor urine output for now. Avoid nephrotoxic medications. No current indication for renal replacement therapy. 4. History of polysubstance dependency/questionable epilepsy/schizophrenia/anxiety/depression/GERD/neuropathy Complicates care, management, recovery and prognosis. Continue supportive measures as noted above. If the patient is not able to be extubated tomorrow, we will consider initiation of tube feeding for nutritional support. TIME: 38 minutes of critical care time, independent of procedures, was spent addressing the patient's acute combined respiratory failure, encephalopathy, acute kidney injury, review of all data and collaboration with the care team. HPI Consult Data Date of Consult: 04/28/25 HPI Narrative Reason for Consultation: Acute respiratory failure HPI Narrative: The patient is a 45-year-old male, with a history as outlined below, who presented to the emergency department after being found down in a strangers yard unresponsive. The patient has a longstanding history of polysubstance dependency, having used methamphetamine, heroin, fentanyl and marijuana. According to prior documentation, the patient has been using illicit drugs since around the age of 9. He also carries a diagnosis of schizophrenia and questionable epilepsy. Apparently, bystander CPR was administered, although it is not entirely clear if the patient was truly in cardiac arrest, as the patient had a notable pulse noted when EMS arrived. Ultimately, emergency medical services did administer Narcan to the patient, which did cause him to awaken. On presentation to the emergency department, the patient was noted to be hypothermic with a presenting blood pressure of 87.6 ?F. He was also notably tachycardic and tachypneic, but otherwise hemodynamically stable. Laboratory evaluation was notable for a white blood cell count of 23,000. Initial arterial blood gas was notable for a pH of 6.94 with a pCO2 of 75 and pO2 of 134. Chemistry profile was notable for a sodium of 148 with a potassium of 5.3, bicarbonate of 16, anion gap of 27, BUN of 20 and creatinine of 1.8. Lactate was elevated at 13. Total CK was noted to be 429. Troponin was mildly elevated at 26. Toxicology screen was negative for salicylates and acetaminophen. The patient was positive for amphetamines and cannabinoids. In the emergency department, the patient was notably agitated and unable to follow commands. Accordingly, the patient was intubated for airway protection. The patient's CT head demonstrated a chronic left posterior parietal infarct. CT imaging the chest demonstrated patchy bilateral infiltrates. The patient was ultimately admitted to the medical intensive care unit for further management. At the present time, the patient is being maintained on propofol for sedation along with empiric antimicrobials, pending infectious workup. [facility], [facility] Medical History Hepatitis C Tobacco use Anxiety and depression Overdose of fentanyl Vitamin deficiency Vision problem Neuropathy Hearing problem History of back problems Asthma Wears glasses Marijuana use Migraine headache Gastric reflux Frequent headaches Schizophrenia Compartment syndrome of right lower extremity Open wound of right lower leg Heroin abuse Neuropraxia of left lower extremity IVDU (intravenous drug user) Home Medications ?Medication ?Instructions ?Recorded ?Last Taken ?Type benztropine 1 mg tablet 1 mg PO DAILY Check with primary 02/13/23 Unknown Rx doctor 30 days #30 tabs fluphenazine HCl 5 mg tablet 5 mg PO DAILY mental health 30 02/13/23 Unknown Rx days #30 tabs gabapentin 300 mg capsule 300 mg PO BID Check with primary 02/13/23 Unknown Rx doctor 30 days #60 caps hydroxyzine pamoate 50 mg capsule 50 mg PO BID mental health 30 days 02/13/23 Unknown Rx (Vistaril) #60 caps oxcarbazepine 150 mg tablet 150 mg PO BID anticonvulsant #60 02/13/23 Unknown Rx tabs pantoprazole 40 mg tablet,delayed 40 mg PO BID stomach 30 days #60 02/13/23 Unknown Rx release (Protonix) tabs sucralfate 1 gram tablet 1 g PO 1HR_ACHS stomach 30 days 02/13/23 Unknown Rx #120 tabs amlodipine 5 mg tablet 5 mg PO DAILY #60 tabs 03/03/23 Unknown Rx aspirin 81 mg tablet,delayed 81 mg PO BREAKFAST #60 tabs 03/03/23 Unknown Rx release potassium chloride 20 mEq 20 meq PO BIDCM #60 tabs 03/03/23 Unknown Rx tablet,extended release(part/cryst) (Klor-Con M) potassium, sodium phosphates 280 1 packet PO 3XD #90 ea 03/03/23 Unknown Rx mg-160 mg-250 mg oral powder packet furosemide 40 mg tablet (Lasix) 40 mg PO DAILY #4 tabs 03/09/23 Unknown Rx naproxen 500 mg tablet (Naprosyn) 500 mg PO BID PRN pain #20 tabs 03/09/23 Unknown Rx Allergy/AdvReac Type Severity Reaction Status Date / Time No Known Allergies Allergy Verified 04/28/25 07:44 Family History Mother Hypertension High cholesterol Heart disease Diabetes Depression Cancer Mental disorder Myocardial infarction CVA (cerebral vascular accident) Breast cancer Asthma Arthritis Anxiety Alcoholism Father Hypertension High cholesterol Heart disease Diabetes Depression Cancer Mental disorder Myocardial infarction CVA (cerebral vascular accident) Asthma Arthritis Anxiety Alcoholism Surgical History H/O hernia repair History of fasciotomy Social History household members: none Smoking Status: Current every day smoker tobacco type: cigarettes alcohol intake: never substance use type: marijuana, amphetamines, opiates, IV drugs and methamphetamine ROS Review of Systems ROS Unobtainable: due to endotracheal tube and due to mental status Physical Exam Const Constitutional Narrative: Intubated, sedated and mechanically ventilated. No ventilator dyssynchrony noted. HEENT normocephalic and head/scalp atraumatic Mouth: endotracheal tube in place and OG tube in place Eyes PERRL and conjunctivae normal Neck supple General: trachea midline Chest inspection of chest normal Resp normal respiratory effort Auscultation: Negative for rales, rhonchi or wheezes Cardio regular rate and regular rhythm GI normal to inspection, nondistended, normoactive bowel sounds Extremity no clubbing, cyanosis or edema Skin no rashes or lesions noted Neuro Sensorium / Orientation: sedated on vent Lab / Micro Data 04/28/25 07:43 04/28/25 07:43 Labs: Laboratory Results - last 24 hr 04/28/25 07:43: WBC 22.9 H, RBC 4.97, Hgb 14.7, Hct 47.6, MCV 95.8 H, MCH 29.6, MCHC 30.9 L, RDW Std Deviation 49.0 H, RDW Coeff of Neftali 13.7, Plt Count 254, MPV 10.8, Immature Gran % (Auto) 1.000 H, Neut % (Auto) 81.0 H, Lymph % (Auto) 11.5 L, [place] % (Auto) 5.5, Eos % (Auto) 0.4, Baso % (Auto) 0.6, Absolute Neuts (auto) 18.5 H, Absolute Lymphs (auto) 2.64, Nucleated RBC % 0, Sodium 148 H, Potassium 5.3 H, Chloride 104, Carbon Dioxide 16.4 L, Anion Gap 27 H, BUN 20 H, Creatinine 1.80 H, Estim Creat Clear Calc 50.67, Est GFR (MDRD) Non-Af 47 L, BUN/Creatinine Ratio 11.1, Glucose 289 H, Calcium 9.9, Total Bilirubin 0.24, AST 36, ALT 26, Alkaline Phosphatase 65, Total Creatine Kinase 429 H, Troponin T High Sens 26 H, Total Protein 8.0, Albumin 4.8, Globulin 3.1, Albumin/Globulin Ratio 1.5, Salicylates < 0.5 L, Acetaminophen < 5.0 L, Ethyl Alcohol < 10.1 04/28/25 08:40: Urine Color Yellow, Urine Clarity Clear, Urine pH 5.0, Ur Specific [place] 1.025, Urine Protein 30 H, Urine Glucose (UA) 1000 H, Urine Ketones Negative, Urine Occult Blood 50 H, Urine Nitrite Negative, Urine Bilirubin Negative, Urine Urobilinogen Normal, Ur Leukocyte Esterase 25 H, Urine RBC 0 SEEN, Urine WBC 0-5 SEEN, Ur Squamous Epith Cells 0-5 SEEN, Urine Bacteria 0 SEEN, Urine Mucus 0 SEEN, Urine Opiates Screen NEGATIVE, U Buprenorphine Qual NEGATIVE, Ur Oxycodone Screen NEGATIVE, Urine Methadone Screen NEGATIVE, Urine Fentanyl Screen NEGATIVE, Ur Barbiturates Screen NEGATIVE, Ur Phencyclidine Scrn NEGATIVE, Ur Amphetamines Screen PRESUMPTIVE POSITIVE, U Benzodiazepines Scrn NEGATIVE, Urine Cocaine Screen NEGATIVE, U Cannabinoids Screen PRESUMPTIVE POSITIVE 04/28/25 08:50: Lactic Acid 12.9 H* 04/28/25 10:00: Troponin T Hi Sens 2 Hr 32 H ABG Data ABG results: ABG 04/28/25 04/28/25 08:31 10:32 Specimen Type ART ART Sample Site R Brach R Radial pH 6.94 L* 7.29 L Bicarbonate Actual 16.3 L 25.3 Total CO2 19 27 Base Excess -16 L -1 O2 Saturation 96 94 L O2 % 35.0 35.0 ABG pCO2 75.0 H* 52.4 H ABG pO2 134 H 79 Matty Test Positive Respiration Rate 14 16 O2 Delivery Device Adult Vent Adult Vent Vent Mode AC AC Tidal Volume 450.0 450.0 POC PEEP 5 5 Crit Call To/Read Back Yes Rhythm Strip Rhythm Strip: Sinus Tach Rate: 114 Ectopy: None Imaging Radiology Impression Brain CT 04/28/25 07:50 IMPRESSION: There is a chronic left posterior parietal occipital infarct measuring 3.8 by 2.5 cm new compared to the prior. No acute intracranial pathology. Reading Location: [facility] Chest X-Ray 04/28/25 07:50 IMPRESSION: Tubes and lines in position. Mild central vascular congestion. Reading Location: [facility] KUB X-Ray 04/28/25 08:19 IMPRESSION: Tube in position. Reading Location: [facility] Chest CT 04/28/25 08:54 IMPRESSION: Coronary artery calcification (CAC) is is absent Airspace disease of both lung bases likely worse on the right side. With the patient's history of trauma. This may represent contusion. Mild wedging of the superior anterior endplate of the T11 vertebrae. Reading Location: [facility]-IR-1 Charges/Coding Procedures Hospitalists Procedures: 27629 Critical Care 1st Hr
--- NOTE | 2025-04-28 12:18 | ED.RN ---
Next of Kin Ester myra notified of pt's admission to ICU. She states she has distanced herself from pt since previous overdose. Also states pt recently released from [facility].
[2025-04-28] MEDS: 0.9% Normal Saline (1000mL) 1,000 ML 150 ML IV ×2 (12:27→19:15)
[2025-04-28 12:48] LABS: Troponin T High Sens 4 HR 54 ng/L (<=22)
[2025-04-28 12:56] LABS: Reflex Lactate? Y
[2025-04-28 13:18] LABS: Triglycerides 1071 mg/dL
[2025-04-28 13:19] LABS: CPK Total, Creatine Kinase 1856 U/L (24-195)
[2025-04-28] MEDS: Pantoprazole Sodium 40 MG in 0.9% Normal Saline (100mL MB+) 100 ML 300 MG IV (13:31)
--- NOTE | 2025-04-28 13:49 | SEPSISATNOTE ---
Sepsis Attestation Sepsis Alert: Yes Sepsis Attestation: Agree w/Sepsis Date exam was performed: 04/28/25 Time exam was performed: 10:04 Possible Source of Sepsis: Pulmonary Sepsis Organ Dysfunction Criteria Present: Acute Respiratory Failure (New need for BiPAP/CPAP or MV), Lactic Acid > 2 mmol/L, Serum CO2 < 20 mmol/L (on BMP) and New/Unexplained change in mental status Fluid Resuscitation Fluid resuscitation indicated?: Yes Fluid Resuscitation ordered: 30 ml/kg fluid bolus ordered Sepsis Note Response to fluids: Non Fluid responsive hypotension
[2025-04-28 14:43] LABS: Ammonia 49.0 umol/L (16-60)
[2025-04-28] MEDS: Heparin Injection (Vial) 5,000 UNIT/ML VIAL 5000 UNIT SC ×2 (15:58→22:10)
[2025-04-28] MEDS: Propofol 10MG/Ml 1,000 MG/100 ML Bottle 9.8 MG CONT INF (15:59)
[2025-04-28 16:21] LABS: Reflex Lactate? Y
[2025-04-28] MEDS: fentaNYL drip 100 ML 5 MCG CONT INF (17:14)
[2025-04-28] MEDS: Acetaminophen 650 MG/20 ML UDC NG (17:26)
[2025-04-28] MEDS: Piperacil/Tazobactam 3.375 GM in 0.9% Normal Saline (50mL MB+) 50 ML IV ×2 (17:37→22:10)
[2025-04-28] MEDS: 0.9% Normal Saline (250mL Bag) 250 ML 15 ML IV (17:46)
[2025-04-28] MEDS: Vancomycin HCl 2,000 MG in 0.9% Normal Saline (500mL Bag) 500 ML 250 MG IV (17:52)
--- NOTE | 2025-04-28 18:08 | PCM.RX.CS ---
Consult Antibiotic Management Pharmacy has been consulted to manage selected antibiotic: Vancomycin Type of Intervention Type of Consult: New start Suspected Infection Suspected Infection: Other (EMPIRIC) Prior Doses of Antibiotics Prior Doses of Antibiotics Received/Current Regimen: Vancomycin 2000 mg IV x 1 given 04/28/25 @ 4548 Labs Labs: Sodium 148 mmol/L (133-145) H 04/28/25 07:43 Potassium 5.3 mmol/L (3.3-5.1) H 04/28/25 07:43 Chloride 104 mmol/L (98-108) 04/28/25 07:43 Carbon Dioxide 16.4 mmol/L (21.0-32.0) L 04/28/25 07:43 Anion Gap 27 (5-15) H 04/28/25 07:43 BUN 20 mg/dL (4-19) H 04/28/25 07:43 Creatinine 1.80 mg/dL (0.70-1.20) H 04/28/25 07:43 Est GFR (MDRD) Non-Af 47 (>60) L 04/28/25 07:43 BUN/Creatinine Ratio 11.1 RATIO (10-20) 04/28/25 07:43 Glucose 289 mg/dL (70-99) H 04/28/25 07:43 Dosing Weight Weight used for dosin.5 kg Estimated Creatinine Clearance Estimated Creatinine Clearance: ~ 51 Goal Trough Goal Trough: 15-20 mcg/mL Pharmacy Plan for Drug Dosing Pharmacy Plan for Drug Dosing: Vancomycin 2000 mg IV x 1 followed by 750 mg Q12H Pharmacy Service will continue to monitor and adjust dosing as required. Follow-Up Labs Follow-Up Labs: Trough: Vancomycin Date/Time Labs Ordered Labs to be done on [date and time ordered]: 04/30/25 @ 2929
[2025-04-28] MEDS: Propofol 10MG/Ml 1,000 MG/100 ML Bottle 14.7 MG CONT INF (19:44)
[2025-04-29] VITALS (18 sets, daily range): BP systolic 81–92; BP diastolic 60–73; PULSE 66–86; RESP 14–16; TEMP 37.1–37.6; O2SAT 91–98; BMI 27.0
[2025-04-29] MEDS: fentaNYL drip 100 ML 10 MCG CONT INF ×2 (02:14→11:52)
[2025-04-29] MEDS: Propofol 10MG/Ml 1,000 MG/100 ML Bottle 14.7 MG CONT INF (02:14)
[2025-04-29 05:03] LABS: Hematocrit 36.5 % (40-54); Hemoglobin 11.9 g/dL (13.0-16.5); Immature Granulocytes Count 0.030 X10^3/uL (0.0-0.0); Mean Corp Hgb Conc 32.6 g/dL (32-36); Mean Corpuscular Volume 89.5 fL (80-94); Mean Platelet Vol. 10.6 fl (6.2-12.0); NRBC Flagged by Analyzer 0 % (0-5); Platelet Count 149 K/mm3 (150-450); RBC Distribution Width CV 14.1 % (11.6-14.6); RBC Distribution Width SD 46.1 fl (35.1-43.9); Red Blood Count 4.08 M/mm3 (4.6-6.2); White Blood Count 9.9 K/mm3 (4.4-11.0)
[2025-04-29] MEDS: Vancomycin HCl 750 MG in 0.9% Normal Saline (250mL Bag) 250 ML 250 MG IV (05:21)
[2025-04-29] MEDS: Heparin Injection (Vial) 5,000 UNIT/ML VIAL 5000 UNIT SC (05:21)
[2025-04-29] MEDS: Piperacil/Tazobactam 3.375 GM in 0.9% Normal Saline (50mL MB+) 50 ML IV (05:21)
[2025-04-29 05:45] LABS: Allen Test Positive; Base Excess 4 mmol/L (-2 to +2); FI02 25.0; PEEP 5; PO2 62 mmHG (75-100); RR 16; SITE L Radial; SO2 93 % (95-99)
[2025-04-29 05:49] LABS: Anion Gap 10 (5-15); BUN 19 mg/dL (4-19); BUN/Creat Ratio 14.0 RATIO (10-20); Calcium,Total 7.4 mg/dL (7.6-11.0); Carbon Dioxide 22.4 mmol/L (21.0-32.0); Chloride 114 mmol/L (98-108); Estimated Creatinine Clearance 67.06 ml/min (50-250); Glucose 111 mg/dL (70-99); Potassium 3.7 mmol/L (3.3-5.1)
[2025-04-29] MEDS: Propofol 10MG/Ml 1,000 MG/100 ML Bottle 12.1 MG CONT INF (06:44)
--- NOTE | 2025-04-29 07:18 | PCM.PN.INT ---
Assessment & Plan Assessment/Plan (1) Acute respiratory failure: PLAN: Plan RECOMMENDATIONS: 1. Continue assist-control mode of mechanical ventilation. Wean FiO2 and PEEP as tolerated. 2. Given agitation noted today with spontaneous awakening trial, will transition the patient from propofol to Precedex. Goal to maintain RASS of -1 to 1. 3. Continue empiric antimicrobials, pending infectious workup. 4. Continue appropriate ICU prophylaxis. 5. Okay to initiate tube feeding today for nutritional support. 6. Given the patient's questionable history of epilepsy coupled with CT head findings, neurology consultation is pending. IMPRESSIONS: 1. Acute combined respiratory failure Most likely secondary to illicit drug overdose, coupled with possible aspiration. The patient was ultimately intubated in the emergency department for airway protection. He will be continued on assist-control mode of mechanical ventilation, with a goal to wean FiO2 and PEEP to maintain saturations at or above 90%. Empiric antimicrobials will be continued, pending infectious workup. Given that the patient failed his spontaneous awakening trial this morning, we will attempt to transition him from propofol to Precedex. Plan to repeat spontaneous awakening and possible breathing trial tomorrow morning. In the interim, tube feeding can be initiated today for nutritional support. 2. Encephalopathy Presumed secondary to illicit drug overdose. 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 Therefore, we will obtain neurology consultation for additional input regarding management. TSH and ammonia levels were negative. 3. Acute kidney injury Most likely prerenal in etiology in the setting of numbers 1 and 2. Will continue to monitor urine output for now. Avoid nephrotoxic medications. No current indication for renal replacement therapy. 4. History of polysubstance dependency/questionable epilepsy/schizophrenia/anxiety/depression/GERD/neuropathy Complicates care, management, recovery and prognosis. Continue supportive measures as noted above. Okay to initiate tube feeding today for nutritional support. TIME: 34 minutes of critical care time, independent of procedures, was spent addressing the patient's acute combined respiratory failure, encephalopathy, acute kidney injury, review of all data and collaboration with the care team. Subjective Subjective The patient was seen and examined at the bedside this morning. Events from the last 24 hours have been reviewed. The patient is currently afebrile, hemodynamically stable and maintaining appropriate oxygen saturations on assist-control mode mechanical ventilation with an FiO2 requirement of 25%. The patient is currently documented to be overall net +5 L for the hospitalization. White blood cell count is normal. Hemoglobin and platelet count are stable. ABG this morning demonstrated a pH of 7.47 with a pCO2 of 38 and pO2 of 62. The patient failed his spontaneous awakening trial this morning with significant agitation noted. Objective Data Objective Data The patient's most recent lab work, culture data and imaging studies have all been personally reviewed. Blood and sputum cultures are pending. Vital Signs: Vital Signs Temp Pulse Resp BP Pulse Ox O2 Del Method O2 Flow Rate 99 F 76 16 81/60 L 94 Mechanical Ventilator 6 04/29/25 06:00 04/29/25 06:39 04/29/25 06:39 04/29/25 06:00 04/29/25 06:39 04/29/25 06:39 04/28/25 07:55 FiO2 04/29/25 06:39 Oxygen Flow Rate (L/min) 6 Oxygen Delivery Method Mechanical Ventilator Weight: 178 lb 5.663 oz Body Mass Index (BMI) 27.0 Intake & Output: Intake and Output for Last 24 Hours 04/27/25 04/28/25 04/29/25 23:59 23:59 23:59 Intake Total 4833.01 / 4857.71 1614.90 / 1614.90 Output Total 700 / 700 650 / 650 Balance 4133.01 / 4157.71 964.90 / 964.90 Lab / Micro Data Attestation: I reviewed the patient's lab results. 04/29/25 04:51 04/29/25 04:51 Labs: Laboratory Results - last 24 hr 04/28/25 07:43: WBC 22.9 H, RBC 4.97, Hgb 14.7, Hct 47.6, MCV 95.8 H, MCH 29.6, MCHC 30.9 L, RDW Std Deviation 49.0 H, RDW Coeff of Neftali 13.7, Plt Count 254, MPV 10.8, Immature Gran % (Auto) 1.000 H, Neut % (Auto) 81.0 H, Lymph % (Auto) 11.5 L, [place] % (Auto) 5.5, Eos % (Auto) 0.4, Baso % (Auto) 0.6, Absolute Neuts (auto) 18.5 H, Absolute Lymphs (auto) 2.64, Nucleated RBC % 0, Sodium 148 H, Potassium 5.3 H, Chloride 104, Carbon Dioxide 16.4 L, Anion Gap 27 H, BUN 20 H, Creatinine 1.80 H, Estim Creat Clear Calc 50.67, Est GFR (MDRD) Non-Af 47 L, BUN/Creatinine Ratio 11.1, Glucose 289 H, Calcium 9.9, Total Bilirubin 0.24, AST 36, ALT 26, Alkaline Phosphatase 65, Total Creatine Kinase 429 H, Troponin T High Sens 26 H, Total Protein 8.0, Albumin 4.8, Globulin 3.1, Albumin/Globulin Ratio 1.5, Salicylates < 0.5 L, Acetaminophen < 5.0 L, Ethyl Alcohol < 10.1 04/28/25 08:40: Urine Color Yellow, Urine Clarity Clear, Urine pH 5.0, Ur Specific [place] 1.025, Urine Protein 30 H, Urine Glucose (UA) 1000 H, Urine Ketones Negative, Urine Occult Blood 50 H, Urine Nitrite Negative, Urine Bilirubin Negative, Urine Urobilinogen Normal, Ur Leukocyte Esterase 25 H, Urine RBC 0 SEEN, Urine WBC 0-5 SEEN, Ur Squamous Epith Cells 0-5 SEEN, Urine Bacteria 0 SEEN, Urine Mucus 0 SEEN, Urine Opiates Screen NEGATIVE, U Buprenorphine Qual NEGATIVE, Ur Oxycodone Screen NEGATIVE, Urine Methadone Screen NEGATIVE, Urine Fentanyl Screen NEGATIVE, Ur Barbiturates Screen NEGATIVE, Ur Phencyclidine Scrn NEGATIVE, Ur Amphetamines Screen PRESUMPTIVE POSITIVE, U Benzodiazepines Scrn NEGATIVE, Urine Cocaine Screen NEGATIVE, U Cannabinoids Screen PRESUMPTIVE POSITIVE 04/28/25 08:50: Lactic Acid 12.9 H* 04/28/25 10:00: Troponin T Hi Sens 2 Hr 32 H, Triglycerides 1071 H 04/28/25 12:15: Lactic Acid 4.8 H*, Total Creatine Kinase 1856 H, Troponin T Hi Sens 4Hr 54 H*, TSH 0.617 04/28/25 13:25: Ammonia 49.0 04/29/25 04:51: WBC 9.9, RBC 4.08 L, Hgb 11.9 L, Hct 36.5 L, MCV 89.5 D, MCH 29.2, MCHC 32.6 D, RDW Std Deviation 46.1 H, RDW Coeff of Neftali 14.1, Plt Count 149 L, MPV 10.6, Immature Gran % (Auto) 0.300, Neut % (Auto) 76.1 H, Lymph % (Auto) 16.8 L, [place] % (Auto) 5.0, Eos % (Auto) 1.4, Baso % (Auto) 0.4, Absolute Neuts (auto) 7.5, Absolute Lymphs (auto) 1.65, Nucleated RBC % 0, Sodium 146 H, Potassium 3.7, Chloride 114 H, Carbon Dioxide 22.4, Anion Gap 10, BUN 19, Creatinine 1.36 H, Estim Creat Clear Calc 67.06, Est GFR (MDRD) Non-Af 66, BUN/Creatinine Ratio 14.0, Glucose 111 H, Calcium 7.4 L ABG Data ABG results: ABG 04/28/25 04/28/25 04/29/25 08:31 10:32 05:42 Specimen Type ART ART ART Sample Site R Brach R Radial L Radial pH 6.94 L* 7.29 L 7.47 H Bicarbonate Actual 16.3 L 25.3 28.1 H Total CO2 19 27 29 Base Excess -16 L -1 4 H O2 Saturation 96 94 L 93 L O2 % 35.0 35.0 25.0 ABG pCO2 75.0 H* 52.4 H 38.8 ABG pO2 134 H 79 62 L Matty Test Positive Positive Respiration Rate 14 16 16 O2 Delivery Device Adult Vent Adult Vent Adult Vent Vent Mode AC AC AC Tidal Volume 450.0 450.0 450.0 POC PEEP 5 5 5 Crit Call To/Read Back Yes Radiography Diagnostic Testing: Radiology Impression Brain CT 04/28/25 07:50 IMPRESSION: There is a chronic left posterior parietal occipital infarct measuring 3.8 by 2.5 cm new compared to the prior. No acute intracranial pathology. Reading Location: [facility] Chest X-Ray 04/28/25 07:50 IMPRESSION: Tubes and lines in position. Mild central vascular congestion. Reading Location: [facility] KUB X-Ray 04/28/25 08:19 IMPRESSION: Tube in position. Reading Location: [facility] Chest CT 04/28/25 08:54 IMPRESSION: Coronary artery calcification (CAC) is is absent Airspace disease of both lung bases likely worse on the right side. With the patient's history of trauma. This may represent contusion. Mild wedging of the superior anterior endplate of the T11 vertebrae. Reading Location: [place] [address] Rhythm Strip Rhythm Strip: Sinus Tach Rate: 114 Ectopy: None Physical Exam Const Constitutional Narrative: Intubated, sedated and mechanically ventilated. No ventilator dyssynchrony noted. HEENT normocephalic and head/scalp atraumatic Mouth: endotracheal tube in place and OG tube in place Eyes PERRL and conjunctivae normal Neck supple General: trachea midline Chest inspection of chest normal Resp normal respiratory effort Auscultation: Negative for rales, rhonchi or wheezes Cardio regular rate and regular rhythm GI normal to inspection, nondistended, normoactive bowel sounds Extremity no clubbing, cyanosis or edema Skin no rashes or lesions noted Neuro Sensorium / Orientation: sedated on vent Charges/Coding Procedures Hospitalists Procedures: [id number] Critical Care 1st Hr
[2025-04-29] MEDS: Pantoprazole Sodium 40 MG in 0.9% Normal Saline (100mL MB+) 100 ML 300 MG IV (08:21)
[2025-04-29] MEDS: Chlorhexidine 15 ML PO (08:22)
[2025-04-29] MEDS: CHLORHEXIDINE GLUC 2% CLOTH 1 EACH TOWELETTE TOPICAL (08:22)
--- NOTE | 2025-04-29 09:36 | CON.PCM.NE_ITS ---
Assessment and Plan: Neuro Assessment/Plan DAMARI ROBLES is a 45 M being evaluated by Teleneurology for abnormal CT and concern for seizures. Patient denied any history of epilepsy and I was not able to find any abnormal EEG in the past. No concern for ongoing status/seizures as patient is able to follow commands. Episode might be related to drug use. If there is concern for epilepsy disorder/breakthrough seizure at presentation that does not seems to be the case, f/p with epilepsy clinic with [facility] in 6 week[address] In regards to CT scan,appears to have chronic looking infarct however would recommend MRI brain w/o contrast to confirm findings. Rest of work up as per primary team. Transfer to [facility] for the following reasons: none I personally attended this patient and spent a total time of 55 minutes evaluating this patient including clinical assessment, review of chart, medical history imaging, and determining appropriate treatment and workup. HPI Consult Data Date of Consult: 04/29/25 HPI Narrative HPI Narrative: As per HPI: 45 M with a PMH as outlined who was admitted via the ED on 04/28/2025 after being found down in someone's yard in the morning. Police started CPR and he was given a toal of 8mg of narcan. He had some response to the narcan and became a bit responsive. However by the time he came ot the ED he was more lethargic, so he was emergently intubated. Vitals in the ED At time of review were blood pressure 138/104, pulse rate of 84, respiratory rate of 16 and temperature of 93.4 Fahrenheit. He was saturating at 99% on the ventilator. CBC showed WBC of 22.9 and hemoglobin of 14.7 as well as platelets of 254. ABG done in the ED showed pH of 6.94 with pCO2 of 75 and pO2 of 134, this was after he was on the vent. Chemistry showed sodium of 148 with potassium of 5.3, Bicarb of 16.4 and anion gap of 27. Creatinine was 1.8. CPK was 429 and initial troponin was 26. Delta troponin was pending. Urinalysis showed no evidence of UTI. Urinalysis showed no evidence of UTI. Urine tox was presumed positive for amphetamines and cannabinoids but negative for fentanyl and oxycodone as well as opiates. Serum alcohol level was less than 10.1. CT brain showed a chronic left posterior parietal occipital infarct measuring 3.8 x 2.5 cm which was new compared to prior imaging and no acute intracranial pathology. Chest x-ray showed mild central vascular congestion with tubes and lines in position. Chest CT showed airspace disease of both lungs likely worse on the right. He has been admitted to be managed for acute hypoxic respiratory failure in the setting of probable aspiration pneumonia due to acute overdose likely of opioids as he responded to Narcan. On my evaluation, oaeint was on sedation and intuabted however was able to follow all commands. No focal neurological deficits. [facility] Medical History Hepatitis C Tobacco use Anxiety and depression Overdose of fentanyl Vitamin deficiency Vision problem Neuropathy Hearing problem History of back problems Asthma Wears glasses Marijuana use Migraine headache Gastric reflux Frequent headaches Schizophrenia Compartment syndrome of right lower extremity Open wound of right lower leg Heroin abuse Neuropraxia of left lower extremity IVDU (intravenous drug user) Home Medications ?Medication ?Instructions ?Recorded ?Last Taken ?Type benztropine 1 mg tablet 1 mg PO DAILY Check with vipul jelly 02/13/23 Unknown Rx doctor 30 days #30 tabs fluphenazine HCl 5 mg tablet 5 mg PO DAILY mental heal th 30 02/13/23 Unknown Rx days #30 tabs gabapentin 300 mg capsule 300 mg PO BID Check with vipul jelly 02/13/23 Unknown Rx doctor 30 days #60 caps hydroxyzine pamoate 50 mg capsule 50 mg PO BID mental health 30 days 02/13/23 Unknown Rx (Vistaril) #60 caps oxcarbazepine 150 mg tablet 150 mg PO BID anticonvulsa nt #60 02/13/23 Unknown Rx tabs pantoprazole 40 mg tablet,delayed 40 mg PO BID stomach 30 days #60 02/13/23 Unknown Rx release (Protonix) tabs sucralfate 1 gram tablet 1 g PO 1HR_ACHS stomach 30 d ays 02/13/23 Unknown Rx #120 tabs amlodipine 5 mg tablet 5 mg PO DAILY #60 tabs 03/03 Unknown Rx aspirin 81 mg tablet,delayed 81 mg PO BREAKFAST #60 ta bs 03/03/23 Unknown Rx release potassium chloride 20 mEq 20 meq PO BIDCM #60 tabs Unknown Rx tablet,extended release(part/cryst) (Klor-Con M) potassium, sodium phosphates 280 1 packet PO 3XD #90 e a 03/03/23 Unknown Rx mg-160 mg-250 mg oral powder packet furosemide 40 mg tablet (Lasix) 40 mg PO DAILY #4 tabs 03/09/23 Unknown Rx naproxen 500 mg tablet (Naprosyn) 500 mg PO BID PRN pa in #20 tabs 03/09/23 Unknown Rx Allergy/AdvReac Type Severity Reaction Status Date / Time No Known Allergies Allergy Verified 04/28/25 07:44 Family History Mother Hypertension High cholesterol Heart disease Diabetes Depression Cancer Mental disorder Myocardial infarction CVA (cerebral vascular accident) Breast cancer Asthma Arthritis Anxiety Alcoholism Father Hypertension High cholesterol Heart disease Diabetes Depression Cancer Mental disorder Myocardial infarction CVA (cerebral vascular accident) Asthma Arthritis Anxiety Alcoholism Surgical History H/O hernia repair History of fasciotomy Social History household members: none Smoking Status: Current every day smoker tobacco type: cigarettes alcohol intake: never substance use type: marijuana, amphetamines, opiates, IV drugs and methamphetamine Vital Signs Vital Signs Vital Signs: 04/28/25 10:00 04/28/25 10:26 04/28/25 10:30 Temperature 94.1 F L 94.3 F L 94.6 F L Temperature Source Core Core Pulse Rate 96 97 97 Respiratory Rate 16 16 16 Respiratory Effort Respiratory Depth Respiratory Pattern Blood Pressure 135/113 H 115/96 H 118/94 H Blood Pressure Mean 120 102 102 Blood Pressure Source Blood Pressure Position Blood Pressure Location Pulse Ox 98 97 100 Oxygen Delivery Method Mechanical Ventilator Mechanical Ventilator Fraction of Inspired Oxygen (FIO2) 04/28/25 11:20 04/28/25 11:30 04/28/25 11:45 Temperature 95.9 F L 96.3 F L Temperature Source Core Core Pulse Rate 109 H 107 H 109 H Respiratory Rate 24 H 18 18 Respiratory Effort Respiratory Depth Respiratory Pattern Blood Pressure 113/98 H 99/88 H Blood Pressure Mean 103 91 Blood Pressure Source Monitor Monitor Blood Pressure Position Semi-Fowlers Semi-Fowlers Blood Pressure Location Left Arm Left Arm Pulse Ox 95 98 99 Oxygen Delivery Method Mechanical Ventilator Mechanical Ventilator Fraction of Inspired Oxygen (FIO2) 40 40 04/28/25 12:00 04/28/25 12:00 04/28/25 12:04 Temperature 97.0 F L Temperature Source Core Pulse Rate 110 H 110 H Respiratory Rate 18 Respiratory Effort Mechanically Ventilated Respiratory Depth Normal Respiratory Pattern Normal Blood Pressure 95/84 H Blood Pressure Mean 87 Blood Pressure Source Monitor Blood Pressure Position Semi-Fowlers Blood Pressure Location Left Arm Pulse Ox 100 Oxygen Delivery Method Mechanical Ventilator Mechanical Ventilator Fraction of Inspired Oxygen (FIO2) 40 40 04/28/25 12:22 04/28/25 12:37 04/28/25 12:52 Temperature 97.4 F L 97.9 F 98.5 F Temperature Source Core Core Core Pulse Rate 109 H 108 H 106 H Respiratory Rate 18 18 18 Respiratory Effort Respiratory Depth Respiratory Pattern Blood Pressure 91/78 94/79 95/84 H Blood Pressure Mean 82 84 87 Blood Pressure Source Blood Pressure Position Blood Pressure Location Pulse Ox 100 100 100 Oxygen Delivery Method Mechanical Ventilator Mechanical Ventilator Mechanical Ventilator Fraction of Inspired Oxygen (FIO2) 40 40 40 04/28/25 13:07 04/28/25 13:22 04/28/25 14:00 Temperature 98.8 F 99.3 F H 99.8 F H Temperature Source Core Core Core Pulse Rate 106 H 104 H 104 H Respiratory Rate 18 18 18 Respiratory Effort Respiratory Depth Respiratory Pattern Blood Pressure 97/86 H 96/84 H 100/82 H Blood Pressure Mean 89 88 88 Blood Pressure Source Monitor Blood Pressure Position Semi-Fowlers Blood Pressure Location Right Arm Pulse Ox 100 100 100 Oxygen Delivery Method Mechanical Ventilator Mechanical Ventilator Mechanical Ventilator Fraction of Inspired Oxygen (FIO2) 40 40 40 04/28/25 14:22 04/28/25 15:00 04/28/25 16:00 Temperature 100.7 F H 101.1 F H Temperature Source Core Core Pulse Rate 108 H 105 H 103 H Respiratory Rate 18 16 16 Respiratory Effort Respiratory Depth Respiratory Pattern Blood Pressure 94/74 94/83 H Blood Pressure Mean 80 86 Blood Pressure Source Monitor Monitor Blood Pressure Position Semi-Fowlers Semi-Fowlers Blood Pressure Location Left Arm Left Arm Pulse Ox 96 99 97 Oxygen Delivery Method Mechanical Ventilator Mechanical Ventilator Fraction of Inspired Oxygen (FIO2) 40 40 04/28/25 16:00 04/28/25 17:00 04/28/25 17:00 Temperature 101.1 F H Temperature Source Core Pulse Rate 102 H 102 H Respiratory Rate 16 Respiratory Effort Mechanically Ventilated Respiratory Depth Normal Respiratory Pattern Normal Blood Pressure 88/71 L Blood Pressure Mean 76 Blood Pressure Source Monitor Blood Pressure Position Semi-Fowlers Blood Pressure Location Left Arm Pulse Ox 96 Oxygen Delivery Method Mechanical Ventilator Mechanical Ventilator Fraction of Inspired Oxygen (FIO2) 40 40 04/28/25 18:00 04/28/25 19:00 04/28/25 19:00 Temperature 101.0 F H 100.5 F H Temperature Source Core Core Pulse Rate 95 94 94 Respiratory Rate 16 16 Respiratory Effort Respiratory Depth Respiratory Pattern Blood Pressure 82/66 L 83/64 L Blood Pressure Mean 71 70 Blood Pressure Source Monitor Monitor Blood Pressure Position Semi-Fowlers Semi-Fowlers Blood Pressure Location Left Arm Left Forearm Pulse Ox 94 96 Oxygen Delivery Method Mechanical Ventilator Mechanical Ventilator Fraction of Inspired Oxygen (FIO2) 40 04/28/25 19:20 04/28/25 20:00 04/28/25 20:00 Temperature 100.5 F H Temperature Source Core Pulse Rate 92 89 Respiratory Rate 16 16 Respiratory Effort Mechanically Ventilated Respiratory Depth Normal Respiratory Pattern Normal Normal Blood Pressure 89/76 L Blood Pressure Mean 80 Blood Pressure Source Monitor Blood Pressure Position Semi-Fowlers Blood Pressure Location Left Forearm Pulse Ox 95 96 Oxygen Delivery Method Mechanical Ventilator Mechanical Ventilator Fraction of Inspired Oxygen (FIO2) 25 04/28/25 21:00 04/28/25 22:00 04/28/25 22:25 Temperature 100.5 F H 100.4 F H Temperature Source Core Core Pulse Rate 90 90 88 Respiratory Rate 16 16 16 Respiratory Effort Respiratory Depth Respiratory Pattern Normal Blood Pressure 90/75 92/73 Blood Pressure Mean 80 79 Blood Pressure Source Monitor Monitor Blood Pressure Position Semi-Fowlers Semi-Fowlers Blood Pressure Location Left Forearm Left Forearm Pulse Ox 94 95 91 Oxygen Delivery Method Mechanical Ventilator Mechanical Ventilator Fraction of Inspired Oxygen (FIO2) 25 04/28/25 23:00 04/28/25 23:00 04/29/25 00:00 Temperature 99.8 F H 99.6 F H Temperature Source Core Core Pulse Rate 87 89 86 Respiratory Rate 16 16 Respiratory Effort Respiratory Depth Respiratory Pattern Blood Pressure 90/69 90/70 Blood Pressure Mean 76 76 Blood Pressure Source Monitor Monitor Blood Pressure Position Semi-Fowlers Semi-Fowlers Blood Pressure Location Left Forearm Left Forearm Pulse Ox 95 94 Oxygen Delivery Method Mechanical Ventilator Mechanical Ventilator Fraction of Inspired Oxygen (FIO2) 25 04/29/25 00:00 04/29/25 01:00 04/29/25 01:00 Temperature 99.4 F H Temperature Source Core Pulse Rate 82 82 Respiratory Rate 16 16 Respiratory Effort Mechanically Ventilated Respiratory Depth Normal Respiratory Pattern Normal Normal Blood Pressure 84/68 L Blood Pressure Mean 73 Blood Pressure Source Monitor Blood Pressure Position Semi-Fowlers Blood Pressure Location Left Forearm Pulse Ox 95 95 Oxygen Delivery Method Mechanical Ventilator Mechanical Ventilator Fraction of Inspired Oxygen (FIO2) 04/29/25 02:00 04/29/25 03:00 04/29/25 03:31 Temperature 99.2 F H 98.9 F Temperature Source Core Core Pulse Rate 81 78 79 Respiratory Rate 16 16 Respiratory Effort Respiratory Depth Respiratory Pattern Blood Pressure 88/68 L 92/68 Blood Pressure Mean 74 76 Blood Pressure Source Monitor Monitor Blood Pressure Position Semi-Fowlers Semi-Fowlers Blood Pressure Location Left Forearm Left Forearm Pulse Ox 95 96 Oxygen Delivery Method Mechanical Ventilator Mechanical Ventilator Fraction of Inspired Oxygen (FIO2) 04/29/25 04:00 04/29/25 04:00 04/29/25 04:00 Temperature 98.9 F Temperature Source Core Pulse Rate 77 76 Respiratory Rate 16 16 Respiratory Effort Mechanically Ventilated Respiratory Depth Normal Respiratory Pattern Normal Normal Blood Pressure 91/69 Blood Pressure Mean 76 Blood Pressure Source Monitor Blood Pressure Position Semi-Fowlers Blood Pressure Location Left Forearm Pulse Ox 95 96 Oxygen Delivery Method Mechanical Ventilator Mechanical Ventilator Fraction of Inspired Oxygen (FIO2) 04/29/25 05:00 04/29/25 06:00 04/29/25 06:39 Temperature 99 F 99 F Temperature Source Core Core Pulse Rate 86 77 76 Respiratory Rate 16 16 16 Respiratory Effort Respiratory Depth Respiratory Pattern Normal Blood Pressure 90/73 81/60 L Blood Pressure Mean 78 67 Blood Pressure Source Monitor Monitor Blood Pressure Position Semi-Fowlers Semi-Fowlers Blood Pressure Location Left Forearm Left Arm Pulse Ox 94 98 98 Oxygen Delivery Method Mechanical Ventilator Mechanical Ventilator Fraction of Inspired Oxygen (FIO2) 04/29/25 06:39 04/29/25 07:00 04/29/25 07:58 Temperature 99.1 F Temperature Source Core Pulse Rate 84 Respiratory Rate 16 Respiratory Effort Mechanically Ventilated Respiratory Depth Normal Respiratory Pattern Normal Blood Pressure 86/66 L Blood Pressure Mean 74 Blood Pressure Source Monitor Blood Pressure Position Semi-Fowlers Blood Pressure Location Left Arm Pulse Ox 94 91 Oxygen Delivery Method Mechanical Ventilator Mechanical Ventilator Mechanical Ventilator Fraction of Inspired Oxygen (FIO2) 04/29/25 08:00 04/29/25 09:27 Temperature 99.4 F H Temperature Source Core Pulse Rate 77 79 Respiratory Rate 16 16 Respiratory Effort Respiratory Depth Respiratory Pattern Normal Blood Pressure 85/66 L Blood Pressure Mean 72 Blood Pressure Source Monitor Blood Pressure Position Semi-Fowlers Blood Pressure Location Left Arm Pulse Ox 96 94 Oxygen Delivery Method Mechanical Ventilator Fraction of Inspired Oxygen (FIO2) 25 Weight Weight: 80.9 kg Body Mass Index (BMI) 27.0 EEG Results Procedure Details EEG Procedure Details: DAMARI ROBLES is a 45 year old M with a past medical history of , who presents for evaluation of Electroencephalogram on DATE at TIME Physical Exam Neuro Neuro Narrative: -? General: Laying comfortably in bed; in no acute distress. -? HENT: Normal oropharynx and mucosa. Normal external appearance of ears and nose. Exophthalmos. -? Neck: Supple, no pain or tenderness -? CV:? No peripheral edema. -? Pulmonary:? Normal respiratory effort. -? Ext: No cyanosis, edema, or deformity -? Skin: No rash. Normal palpation of skin.? -? Musculoskeletal: full range of motion; no joint tenderness. Normal digits and nails by inspection. No clubbing. -? NEURO: -? Mental Status: Intubated and sedated -? -? Cranial Nerves: grossly intact. Pupillary/corneal/cough and gag intact Sternocleidomastoid and trapezius were equally strong. Soft palate raises equally, no uvular deviations -? Motor: move all 4 extremities spontaneously 3 l R L i Lab / Micro Data 04/29/25 04:51 04/29/25 04:51 Labs: Laboratory Results - last 24 hr 04/28/25 07:43: Salicylates < 0.5 L, Acetaminophen < 5.0 L 04/28/25 08:50: Lactic Acid 12.9 H* 04/28/25 10:00: Troponin T Hi Sens 2 Hr 32 H, Triglycerides 1071 H 04/28/25 12:15: Lactic Acid 4.8 H*, Total Creatine Kinase 1856 H, Troponin T Hi Sens 4Hr 54 H*, TSH 0.617 04/28/25 13:25: Ammonia 49.0 04/29/25 04:51: WBC 9.9, RBC 4.08 L, Hgb 11.9 L, Hct 36.5 L, MCV 89.5 D, MCH 29.2, MCHC 32.6 D, RDW Std Deviation 46.1 H, RDW Coeff of Neftali 14.1, Plt Count 149 L, MPV 10.6, Immature Gran % (Auto) 0.300, Neut % (Auto) 76.1 H, Lymph % (Auto) 16.8 L, [place] % (Auto) 5.0, Eos % (Auto) 1.4, Baso % (Auto) 0.4, Absolute Neuts (auto) 7.5, Absolute Lymphs (auto) 1.65, Nucleated RBC % 0, Sodium 146 H, Potassium 3.7, Chloride 114 H, Carbon Dioxide 22.4, Anion Gap 10, BUN 19, C reatinine 1.36 H, Estim Creat Clear Calc 67.06, Est GFR (MDRD) Non-Af 66, BUN/Creatinine Ratio 14.0, Glucose 111 H, Calcium 7.4 L ABG Data ABG results: ABG 04/28/25 04/29/25 10:32 05:42 Specimen Type ART ART Sample Site R Radial L Radial pH 7.29 L 7.47 H Bicarbonate Actual 25.3 28.1 H Total CO2 27 29 Base Excess -1 4 H O2 Saturation 94 L 93 L O2 % 35.0 25.0 ABG pCO2 52.4 H 38.8 ABG pO2 79 62 L Matty Test Positive Positive Respiration Rate 16 16 O2 Delivery Device Adult Vent Adult Vent Vent Mode AC AC Tidal Volume 450.0 450.0 POC PEEP 5 5 Rhythm Strip Rhythm Strip: Sinus Tach Rate: 114 Ectopy: None Imaging Radiology Impression Brain CT 04/28/25 07:50 IMPRESSION: There is a chronic left posterior parietal occipital infarct measuring 3.8 by 2.5 cm new compared to the prior. No acute intracranial pathology. Reading Location: [facility] Chest CT 04/28/25 08:54 IMPRESSION: Coronary artery calcification (CAC) is is absent Airspace disease of both lung bases likely worse on the right side. With the patient's history of trauma. This may represent contusion. Mild wedging of the superior anterior endplate of the T11 vertebrae. Reading Location: [facility] Active Medications Active Medications Active Medications: Current Medications Generic Name Dose Route Start Last Admin Trade Name Freq PRN Reason Stop Dose Admin Acetaminophen 650 mg 04/28/25 16:27 04/28/25 17:26 Acetaminophen 650 Mg/20 Ml Udc NG 650 mg Q4H PRN PRN Administration Pain 1-10 or Fever Chlorhexidine Gluconate 15 ml 04/29/25 10:00 04/29/25 08:22 Chlorhexidine 15 Ml PO 15 ml BID DORIAN Administration Chlorhexidine Gluconate 1 each 04/29/25 10:00 04/29/25 08:22 Chlorhexidine Gluc 2% Cloth 1 Each [place] TOPICAL 1 each DAILY DORIAN Administration Heparin Sodium (Porcine) 5,000 unit 04/28/25 14:00 04/29/25 05:21 Heparin Injection (Vial) 5,000 Unit/Ml Vial SC 5,000 unit Q8 DORIAN Administration Propofol 1,000 mg in 100 mls @ 4.854 mls/hr 04/28/25 08:20 04/29/25 09:00 Diprivan CONT INF 25 mcg/kg/min .Q12H DORIAN 12.1 mls/hr Protocol Titration 10 MCG/KG/MIN Sodium Chloride 250 mls @ 15 mls/hr 04/28/25 11:41 04/28/25 17:52 IV 0 mls/hr .[id number] PRN Infusion Saline Flush Sodium Chloride 250 mls @ 15 mls/hr 04/28/25 11:41 IV .[id number] PRN Additional IVPB Infusion Pantoprazole Sodium 40 mg/ 100 mls @ 300 mls/hr 04/28/25 12:25 04/29/25 08:43 Sodium Chloride IV Infused Q24 DORIAN Infusion Fentanyl 100 mls @ 5 mls/hr 04/28/25 16:50 04/29/25 09:00 CONT INF 100 mcg/hr UD DORIAN 10 mls/hr Protocol Titration 50 MCG/HR Piperacillin Sod/Tazobactam 50 mls @ 12.5 mls/hr 04/28/25 17:00 04/29/25 09:25 Sod 3.375 gm/ Sodium Chloride IV Infused Q8 DORIAN Infusion Vancomycin HCl 750 mg/ Sodium 265 mls @ 250 mls/hr 04/29/25 06:00 04/29/25 06:25 Chloride IV Infused Q12H DORIAN Infusion Dexmedetomidine HCl 400 mcg/ 100 mls @ 10.113 mls/hr 04/29/25 08:30 Sodium Chloride CONT INF .[id number] [facility] Protocol 0.5 MCG/KG/HR Enteral Nutritional Formula 1,000 mls @ 55 mls/hr 04/29/25 09:30 Vital Af 1.2 Ben Liquid GT .[id number] [facility] Nitroglycerin 0.4 mg 04/28/25 11:48 Nitroglycerin (Inpatient Use) 0.4 Mg Tab.Subl SL Q5M PRN CARDIAC/CHEST PAIN Ondansetron HCl 4 mg 04/28/25 11:48 Ondansetron 4 Mg/2 Ml Vial IV Q8H PRN PRN NAUSEA/VOMITING Sodium Chloride 10 - 40 ml 04/28/25 11:41 0.9% Saline Lock 10 Ml Syringe IV UD PRN SALINE FLUSH Vancomycin Protocol 1 lab 04/30/25 04:30 Vancomycin Trough/Random Due 04/30/25 06:30 DAILY [facility]
[2025-04-29] MEDS: dexMEDEtomidine 400 MCG in 0.9% Normal Saline (100mL Bag) 96 ML 20.2 MCG CONT INF (10:05)
[2025-04-29] MEDS: Vital AF 1.2 Cal Liquid 1,000 ML 10 ML GT (10:37)
--- NOTE | 2025-04-29 12:40 | CASEMGMT ---
RN?CM?ASSESSMENT ? RN?CM?placed call to pt's grandmother, Ester, as pt is currently intubated. Introduced self and role. She was able to provide the following information. Care providers & pharmacy verified. Ester states pt was in senior living for 60 days and just got out this past Friday. She states he is homeless and she is not sure where he has been staying since getting out of senior living. She states he is not allowed to return to her home, stating that pt overdosed in her home last year when he was staying w/her. She states she will be 84 in a couple weeks and she cannot handle that anymore. ? Strata: 2 PCP: Dr Jansen Specialists: Pt goes to [facility]. Insurance: [employer]. Prescription Benefit:?yes Living Will/HPOA:?Ester is not aware of pt ever completing these documents. LNOK: Sister, Isela. Pt also has a brother that he does not have anything to do with. Mother is . Ester states pt's father is living but pt also does not have anything to do with him either. She states pt has 2 children that pt has not seen for years. Ester states They are probably teenagers and states his daughter may be 18 now, but she is not sure. Grandmother, Ester. Living Arrangements: As stated above, Ester states pt is homeless and does not know where pt has been staying since getting out of senior living on Friday. Medications: Ester states pt manages his own medications, but she is not sure how well he is managing them, stating when he stayed w/her last year she tried to assist with this, but pt would not allow her to help. Transportation:?Pt does not drive. DME: Ester states as far as she knows pt does not use any DME. HHC/SNF: No hx of SNF or [facility] Mental Health: Ester states pt was admitted to an In-patient mental health facility in the past. Ester states she has encouraged pt to get admitted to a treatment center in the past, such as [facility] in [place], but pt has always resisted this. She is hopeful that he would be willing to go somewhere like that at discharge. ? PLAN:??TBD pending course of treatment, pt's progress, and willingness. ? DGiauque BSN?RN?CM
--- NOTE | 2025-04-29 12:50 | NURSING ---
Patient became extremely agitated and was shaking his bedrail and causing vent to alarm. When this RN responded to the room from another patients room, Lilia, RN was already at the bedside attempting to keep patient down in the bed. The patient was sitting up and bringing his hands to his face. Bilateral wrist restraints remained in place but patient was able to bend himself down to his hand and pulled out his ETT and OG despite 2 RNs attempting to prevent it. Patient was placed on 6L NC and Dr Craig was called. Dr Craig responded to bedside, decided to see how patient did off of ventilator. All sedation tube feeding discontinued and bilateral wrist restraints removed. Patient was conversing appropriately and was cooperative after ETT was out. Will continue to monitor
--- NOTE | 2025-04-29 13:15 | NURSING ---
Responded to patients room when he started calling out. Patient stated that he wanted to leave the hospital and he was going to rip everything out and leave. Patient answered orientation questions correctly and CAM negative, so Dr Wilson was notified and patient signed AMA papers. Both peripheral IV's were removed, PICC line removed, and cortez catheter removed. Patient stood at bedside and walked to closet to retrieve his belongings. Patient dressed self and walked out of ICU.
--- NOTE | 2025-04-29 17:37 | DS.PCM_ITS ---
Providers Date of Admission: 04/28/25 Date of Discharge: 04/29/25 Primary Care Physician: Dr. Isiah Jansen MD Consultations 04/28/25 11:48 Consult: Station Manager / Pulmonary Medicine Routine Consulting Provider: Intensivists/Pulmonary Med Reason for Consult: acute hypoxic and hypercapnic respiratory failure, drug overdose EMERGENT Consult: No MD Notified: Yes Date Notified: 04/28/25 Time Notified: 11:50 Method of Notification: Verbal 04/28/25 12:05 Neurology [Consult: Tele-Neurology] Routine Consulting Provider: [facility] Reason for Consult: AMS EMERGENT Consult: Yes MD Notified: Yes Date Notified: 04/28/25 Time Notified: 12:21 Method of Notification: Answering Service Nursing Unit Staff Notify [facility] of Tele-Neurology Consult: Yes Reason For Visit: acute hypoxic resp failure,accidental drug overdos Diagnosis Discharge Diagnosis (1) Acute respiratory failure: Status: Acute Code(s): J96.00 - Acute respiratory failure, unspecified whether with hypoxia or hypercapnia Plan #Acute encephalopathy due to acute opioid overdose * Patient found down on someone's front lawn and the police was called. CPR was started though it is not clear whether he had a pulse or otherwise. Patient subsequently became a bit responsive after he was given Narcan. He was brought to the ED where he was found to be encephalopathic and was emergently intubated. * Urine tox * CT chest showing airspace disease of both lungs likely worse on the right side * CT of the brain showed evidence of a chronic left posterior parietal occipital infarct measuring 3.8 x 2.5 cm which was new compared to prior imaging but no acute intracranial pathology. * Patient currently intubated and sedated. Admit to ICU. Critical care consulted. Started on IV Zosyn due to concerns for aspiration pneumonia. Hydrate with IV fluids. * Breathing treatments with bronchodilators. * Neurology consulted #Lactic acidosis: * Lactic acid was 12.9. * This could be explained by prolonged episode of apnea as patient was being managed for drug overdose. * However could also have septic shock though he responded to the fluid bolus and so this is unlikely. * Should improve with hydration and treatment. #Severe Sepsis due to probable aspiration pneumonia in the setting of drug overdose * Blood pressure was low and lactic acid was 12.9 but this improved with IV fluid hydration after he was given fluid per sepsis criteria * Continue hydration with IV fluid normal saline at 150 cc/h. Lactic acid came down to 4.8 from 12.9 after hydration. * On IV Unasyn as above for aspiration pneumonia. Critical care on board. Blood cultures ordered. * #Acute hypoxic and hypercapnic respiratory failure due to acute overdose, likely opioids and aspiration pneumonia * Currently intubated. ABG done after intubation showed pH of 6.94 with pCO2 of 75 and pO2 of 134. * CT chest as above. On IV antibiotics due to concern for aspiration pneumonia. * Critical care consulted. Vent management as per critical care. Breathing treatments bronchodilators. #Lactic acidosis with acute anion gap metabolic acidosis * Anion gap metabolic acidosis likely due to lactic acidosis and the lactic acidosis is also likely due to demand ischemia as patient was down for a while. * Been hydrated with IV fluids. Will monitor should improve with hydration * #Hyperkalemia: Potassium is 5.3. Will give Kayexalate. #KANA: Creatinine is 1.8 within normal baseline. Likely due to prerenal causes. Hydrate with IV fluids and if it does not improve will consult nephrology #Hypertension: Hold amlodipine and Lasix for now. #History of schizophrenia: On fluphenazine and benztropine which will be held. Also on oxcarbazepine. Will hold this also. #GI prophylaxis: On IV pantoprazole. DVT prophylaxis: Lovenox CODE STATUS: Presumptive full code and unable to discuss this with patient now. Medications at Discharge Home Medications benztropine 1 mg tablet 1 mg PO DAILY Check with primary doctor 30 days #30 tabs 02/13/23 fluphenazine HCl 5 mg tablet 5 mg PO DAILY mental health 30 days #30 tabs 02/13/23 gabapentin 300 mg capsule 300 mg PO BID Check with primary doctor 30 days #60 caps 02/13/23 hydroxyzine pamoate 50 mg capsule (Vistaril) 50 mg PO BID mental health 30 days #60 caps 02/13/23 oxcarbazepine 150 mg tablet 150 mg PO BID anticonvulsant #60 tabs 02/13/23 pantoprazole 40 mg tablet,delayed release (Protonix) 40 mg PO BID stomach 30 days #60 tabs 02/13/23 sucralfate 1 gram tablet 1 g PO 1HR_ACHS stomach 30 days #120 tabs 07/06/23 amlodipine 5 mg tablet 5 mg PO DAILY #60 tabs 03/03/23 aspirin 81 mg tablet,delayed release 81 mg PO BREAKFAST #60 tabs 03/03/23 potassium chloride 20 mEq tablet,extended release(part/cryst) (Klor-Con M) 20 meq PO BIDCM #60 tabs 03/03/23 potassium, sodium phosphates 280 mg-160 mg-250 mg oral powder packet 1 packet PO 3XD #90 ea 03/03/23 furosemide 40 mg tablet (Lasix) 40 mg PO DAILY #4 tabs 03/09/23 naproxen 500 mg tablet (Naprosyn) 500 mg PO BID PRN pain #20 tabs 03/09/23 Hospital Course Operations None Procedures None Summary of Care Provided Minutes Spent on Discharge: 45 Hospital Course: DAMARI ROBLES, is a 45 M with a PMH as outlined who was admitted via the ED on 04/28/2025 after being found down in someone's yard in the morning. Police started CPR and he was given a toal of 8mg of narcan. He had some response to the narcan and became a bit responsive. However by the time he came ot the ED he was more lethargic, so he was emergently intubated. Vitals in the ED at time of review were blood pressure 138/104, pulse rate of 84, respiratory rate of 16 and temperature of 93.4 Fahrenheit. He was saturating at 99% on the ventilator. CBC showed WBC of 22.9 and hemoglobin of 14.7 as well as platelets of 254. ABG done in the ED showed pH of 6.94 with pCO2 of 75 and pO2 of 134, this was after he was on the vent. Chemistry showed sodium of 148 with potassium of 5.3, Bicarb of 16.4 and anion gap of 27. Creatinine was 1.8. CPK was 429 and initial troponin was 26. Delta troponin was pending. Urinalysis showed no evidence of UTI. Urinalysis showed no evidence of UTI. Urine tox was presumed positive for amphetamines and cannabinoids but negative for fentanyl and oxycodone as well as opiates. Serum alcohol level was less than 10.1. CT brain showed a chronic left posterior parietal occipital infarct measuring 3.8 x 2.5 cm which was new compared to prior imaging and no acute intracranial pathology. Chest x-ray showed mild central vascular congestion with tubes and lines in position. Chest CT showed airspace disease of both lungs likely worse on the right. He was admitted to be managed for acute hypoxic respiratory failure in the setting of probable aspiration pneumonia due to acute overdose likely of opioids as he responded to Narcan. He was admitted to the ICU. Neurology was consulted. Per neurology consult there was no concern for ongoing seizures as patient was able to follow commands was intubated. Neurology felt that with regards to the CT was a chronic lacunar infarct but would recommend MRI of the brain with and without contrast to confirm findings. Patient however self-extubated on 04/29/2025. Patient promptly signed out AGAINST MEDICAL ADVICE. He was alert and oriented x 3 after he self extubated. As stated he signed out AGAINST MEDICAL ADVICE on 04/29/2025. Patient was seen and examined on the day he signed out AGAINST MEDICAL ADVICE. At the time of review he was intubated and RASS score was +1 as he was responsive and able to open his eyes and nod or shake his head in response to questions. However as stated he subsequently self extubated and signed out AGAINST MEDICAL ADVICE. Physical Exam Const Constitutional Narrative: patient intubated, sedated, RASS score is +1. subsequently self extubated and was alert and oriented x 3. HEENT normocephalic and moist oral mucous membranes Eyes conjunctivae normal Eyes Narrative: Pupils pinpoint, reactive to light Neck supple Resp Resp Narrative: moderately diminished breath sounds bibasally, no wheezes or crackles. intubated and sedated. Cardio regular rate, regular rhythm, S1 normal heart sound, S2 normal heart sound and no murmurs GI normal to inspection, nondistended, normoactive bowel sounds, soft to palpation and non-tender Extremity normal to inspection and no clubbing, cyanosis or edema Neuro Neuro Narrative: Intubated, sedated. RASS score is +1, subsequently self extubated and was alert and oriented x 3 Weight / BMI Weight Weight: 178 lb 5.663 oz Body Mass Index (BMI) 27.0 ABG / Lab / Microbiology Data 04/29/25 04:51 04/29/25 04:51 Laboratory: Laboratory Results - last 24 hr 04/29/25 04:51: WBC 9.9, RBC 4.08 L, Hgb 11.9 L, Hct 36.5 L, MCV 89.5 D, MCH 29.2, MCHC 32.6 D, RDW Std Deviation 46.1 H, RDW Coeff of Neftali 14.1, Plt Count 149 L, MPV 10.6, Immature Gran % (Auto) 0.300, Neut % (Auto) 76.1 H, Lymph % (Auto) 16.8 L, [place] % (Auto) 5.0, Eos % (Auto) 1.4, Baso % (Auto) 0.4, Absolute Neuts (auto) 7.5, Absolute Lymphs (auto) 1.65, Nucleated RBC % 0, Sodium 146 H, Potassium 3.7, Chloride 114 H, Carbon Dioxide 22.4, Anion Gap 10, BUN 19, C reatinine 1.36 H, Estim Creat Clear Calc 67.06, Est GFR (MDRD) Non-Af 66, BUN/Creatinine Ratio 14.0, Glucose 111 H, Calcium 7.4 L Microbiology: Microbiology 04/28/25 10:00 Blood Culture (Wb) - Anticubital Right Blood Culture - Preliminary No growth in 48 hours. 04/28/25 10:00 Blood Culture (Wb) - Anticubital Left Blood Culture - Preliminary No growth in 48 hours. 04/29/25 10:40 Nasal Secretion MRSA (PCR) - Final 04/28/25 08:35 Sputum, Induced/Lukens Gram Stain - Final ABG: ABG 04/29/25 05:42 Specimen Type ART Sample Site L Radial pH 7.47 H Bicarbonate Actual 28.1 H Total CO2 29 Base Excess 4 H O2 Saturation 93 L O2 % 25.0 ABG pCO2 38.8 ABG pO2 62 L Matty Test Positive Respiration Rate 16 O2 Delivery Device Adult Vent Vent Mode AC Tidal Volume 450.0 POC PEEP 5 D/C Instructions DC O2, CPAP, BIPAP Needs Home O2 Discharge instructions: No Meaningful Use Info Meaningful Use Meaningful Use Diagnoses (Choose all that apply): None applicable Discharge Plan Admission Admit Date/Time: 04/28/25 10:28 Primary Reason for Your Visit: acute hypoxic respiratory failure due to acute opioid overdose Attending Provider: Elana Wilson Primary Care Provider: Isiah Jansen Consulting Providers: Saji Brown; Don Toledo; Troy Wynn; Manolo Craig; Ad Pike; Jimmy Renee; Gibson Waldrop; Concepcion Pham; Zoltan Larson; Arnol Guy; Josesito Diallo; Albina Davila; Lyudmila Santillan; Juanita Gunter; Roby Steele; Donald Littlejohn; Isaak Medeiros; Gil Sloan; Mary Tao; Vishal Parnell; Davin Haji; Varun Davis; Julia Cai; Buster Herman; Ab Burnett; Gisella Phan; Amina Fleming; Judy Pompa; Jailene Gage; Terence Franco; Praveena Ramirez; Rene Jeong; Robert Mccarty; Shakir Burks; Nilam Shaffer; Marta Tatum; Larry Thomas; Shiela Laws; Maria M Dozier; [facility]; Dawit Bermudez; Siddharth Crook; Aris Chauhan; Bianca Recinos; Pablo Delaney Discharge Orders/Prescriptions Prescriptions: No Action oxcarbazepine 150 mg tablet 150 mg PO BID Qty: 60 0RF sucralfate 1 gram Tablet 1 g PO 1HR_ACHS 30 Days Qty: 120 0RF hydroxyzine pamoate [Vistaril] 50 MG capsule 50 mg PO BID 30 Days Qty: 60 0RF pantoprazole [Protonix] 40 mg tablet,delayed release (DR/EC) 40 mg PO BID 30 Days Qty: 60 0RF benztropine 1 mg tablet 1 mg PO DAILY 30 Days Qty: 30 0RF gabapentin 300 mg capsule 300 mg PO BID 30 Days Qty: 60 0RF fluphenazine HCl 5 mg tablet 5 mg PO DAILY 30 Days Qty: 30 0RF amlodipine 5 mg Tablet 5 mg PO DAILY Qty: 60 0RF aspirin 81 mg Tablet,Delayed Release (Dr/Ec) 81 mg PO BREAKFAST Qty: 60 0RF potassium chloride [Klor-Con M20] 20 mEq Tablet,Er Particles/Crystals 20 meq PO BIDCM Qty: 60 0RF potassium, sodium phosphates 280-160-250 mg Powder In Packet 1 packet PO 3XD Qty: 90 0RF naproxen [Naprosyn] 500 mg tablet 500 mg PO BID PRN (Reason: pain) Qty: 20 0RF furosemide [Lasix] 40 mg tablet 40 mg PO DAILY Qty: 4 0RF Referrals / Follow Up: Isiah Jansen MD [Primary Care Provider, Family Practice] Disposition Disposition (needs filled in before D/C Order can be placed): Against Medical Advice Charges/Coding Visit Charges Inpatient E&M: 40529 Disch Hosp >30min
== END 2025-04-29 13:50 | disposition left against medical advice (07) | DRG 812 ==
LOC: ED 10:26 → ICU 10:34
PROVIDERS: Internal Medicine Critical Care Medicine; Admitting Provider Student in an Organized Health Care Education/Training Program; Emergency Provider Emergency Medicine; PCP Family Medicine; Visit Provider Student in an Organized Health Care Education/Training Program
DX: T40.2X1A Poisoning by other opioids, accidental (unintentional), initial encounter (principal); J69.0 Pneumonitis due to inhalation of food and vomit; A41.9 Sepsis, unspecified organism; J96.02 Acute respiratory failure with hypercapnia; J96.01 Acute respiratory failure with hypoxia; G92.8 Other toxic encephalopathy; R65.20 Severe sepsis without septic shock; F20.9 Schizophrenia, unspecified; F32.A Depression, unspecified; J45.909 Unspecified asthma, uncomplicated; F15.20 Other stimulant dependence, uncomplicated; I24.89 Other forms of acute ischemic heart disease; S27.322A Contusion of lung, bilateral, initial encounter; E87.0 Hyperosmolality and hypernatremia; G93.2 Benign intracranial hypertension; F41.9 Anxiety disorder, unspecified; K21.9 Gastro-esophageal reflux disease without esophagitis; G62.9 Polyneuropathy, unspecified; F17.210 Nicotine dependence, cigarettes, uncomplicated; N17.9 Acute kidney failure, unspecified; E87.5 Hyperkalemia; F12.20 Cannabis dependence, uncomplicated; Z53.29 Procedure and treatment not carried out because of patient's decision for other reasons; Z79.82 Long term (current) use of aspirin; Z79.899 Other long term (current) drug therapy; Z86.73 Personal history of transient ischemic attack (TIA), and cerebral infarction without residual deficits
CPT/HCPCS: 31500; 31720; 36415; 36569; 36600; 51702; 70450; 71045; 71250; 74018; 80048; 80053; 80143; 80179; 80307; 81001; 82077; 82140; 82550; 82803; 83605; 84443; 84478; 84484; 85025; 87040; 87070; 87077; 87186; 87205; 87641; 93005; 94002; 94003; 94762; 97802; 97803; 99252; 99285; A4216; G0463; J0295